=== PATIENT | male | born 1945 | race Caucasian/White ===

== ENCOUNTER 2019-04-12 10:17 | Emergency (ER) | payer MEDICARE, SELFPAY ==
[2019-04-12] VITALS (10 sets, daily range): BP systolic 108–137; BP diastolic 69–89; PULSE 96–139; RESP 14–23; TEMP 36.8; O2SAT 20–98; BMI 35.0
--- NOTE | 2019-04-12 10:33 | DI.RAD.S_ITS ---
PROCEDURE: XR CHEST 2V INDICATIONS: shortness of breath TECHNIQUE: 2 views of the chest were acquired. COMPARISON: [facility], , CHEST 2 VIEW, 11/16/2012, 7:32. FINDINGS: Surgical changes and devices: None. Lungs and pleura: There has been interval development of moderate bibasilar airspace disease and prominent perihilar interstitial markings. No large effusion or definite pneumothorax is evident. Mediastinum: Mediastinal contours are normal. Heart size is enlarged. There appears to be aortic atherosclerosis. Bones and chest wall: No suspicious bony abnormalities. Soft tissues appear unremarkable. IMPRESSION: 1. Cardiomegaly with moderate vascular congestion may represent developing pulmonary edema. 2. Bibasilar heterogeneous airspace disease may be related to edema. Please correlate clinically to exclude pneumonia. Dictated by: Greg Pace M.D. on 04/12/2019 at 10:21 Approved by: Greg Pace M.D. on 04/12/2019 at 10:23
[2019-04-12 11:09] LABS: Add Manual Diff / Slide Review NO; Basophils Absolute Auto 0 /uL (0-100); Basophils Percent Auto 0.1 % (0-2); Eosinophils Absolute Auto 0 /uL (0-450); Hematocrit 49.1 % (41-53); Lymphocytes Absolute Auto 400 /uL (1100-4500); Lymphocytes Percent Auto 3.4 % (25-40); Mean Corpuscular HGB Conc 32.6 % (30-36); Mean Corpuscular Volume 85.8 fL (80-100); Monocytes Absolute Auto 1100 /uL (0-900); Monocytes Percent Auto 9.1 % (3-14); Neutrophils Absolute Auto 11000 /uL (1500-7000); Neutrophils Percent Auto 87.4 % (50-75); Platelet Count 178 X10^3/uL (150-400); Red Blood Cell Count 5.72 X10^6/uL (4.5-5.9); Red Cell Distribution Width 14.8 % (11.6-14.8); White Blood Cell Count 12.6 X10^3/uL (4.5-11.0)
[2019-04-12 11:21] LABS: Lactate (Lactic Acid) 2.4 mmol/L (0.7-2.1)
[2019-04-12 11:22] LABS: Alanine Aminotransferase 31 IU/L (<50); Albumin 4.2 g/dL (3.5-5.0); Albumin Globulin Ratio 1.4 (1.0-2.8); Alkaline Phosphatase 122 U/L (38-126); Aspartate Aminotransferase 34 IU/L (17-59); Bilirubin Total 2.1 mg/dL (0.2-1.3); Blood Urea Nitrogen 24 mg/dL (9-20); Calcium 9.2 mg/dL (8.4-10.2); Carbon Dioxide 24 mmol/L (22-32); Chloride 96 mmol/L (98-107); Estimated Glomerular Filt Rate > 60.0 mL/min (>60); Globulin 3.1 g/dL (1.7-4.1); Glucose 243 mg/dL (80-110); HEMOLYSIS < 15 (0-50); Potassium 4.2 mmol/L (3.4-5.1); Sodium 134 mmol/L (137-145); Total Protein 7.3 g/dL (6.3-8.2)
[2019-04-12] MEDS: ALBUTEROL/IPRATROPIUM 3 ML AMPUL INH (11:36)
[2019-04-12] MEDS: SODIUM CHLORIDE 0.9% 500 ML 1000 ML IV (11:43)
--- NOTE | 2019-04-12 11:51 | ED_ITS ---
HPI - SOB/Dyspnea <LISANDRO Cunha - Last Filed: 04/12/19 22:02> General Chief Complaint: Shortness of Breath/Dyspnea Stated Complaint: COUGH/SHORTNESS OF BREATH/FATIGUE Time Seen by Provider: 04/12/19 11:17 Source: patient Mode of arrival: Ambulatory Limitations: no limitations History of Present Illness HPI Narrative: This is a 73-year-old male, nonsmoker, who presents to ED with family member with chief complain of short of breath with exertion, coughing and left leg swelling. Patient reports initial cough started about 3 months ago then it improved without treatments a couple of times since then. However, patient had severe frequent productive coughing started 4 days ago with short of breath. Patient denies fever, chills, nausea or vomiting. Patient reports feeling fatigue and no appetite and has been eating or drinking well. Patient states he has been having difficult time even walking to the bathroom due to short of breath. Patient has productive mucus which started as yellow color but now appears to be red along nasal discharge. Patient denies sore throat, headache, body aches. Patient also has left leg swelling for about 3 months as well. Patient denies pain, redness, warmth to affected leg. Patient denies history of CAD or heart failure but was told prediabetic in the past and and does not have PCP. Patient reports chest discomfort only during severe cough. Patient went to walk-in clinic today and was referred to be evaluated in ED. Related Data Home Medications Medication Instructions Recorded Confirmed No Known Home Medications 04/12/19 04/12/19 Allergies Allergy/AdvReac Type Severity Reaction Status Date / Time No Known Drug Allergies Allergy Verified 04/12/19 10:20 Review of Systems <LISANDRO Cunha - Last Filed: 04/12/19 22:02> Review of Systems Narrative: General: Denies fever, chills, (+) fatigue, (+) malaise, sweats. HEENT: Denies sinus pain, ear pain, sore throat, difficulty swallowing, diz ziness. Respiratory: Reports dyspnea, cough, wheezing, hemoptysis, sputum. Cardiovascular: Reports chest pain only with coughing. Denies palpitations, orthopnea, (+) edema on legs worse in left. Gastrointestinal: Denies nausea, vomiting, abdominal pain, diarrhea, constipation, melena. Reports decreased appetite. : Denies dysuria, frequency, incontinence, hematuria, urinary retention. Musculoskeletal: Denies weakness, joint pain or bony pain. Skin: Denies rash, skin lesions, or other. Neurologic: Denies weakness, headache, numbness, change in speech, confusion, seizures, incoordination. Psychiatric: No concerning psychosocial issues. 12-point review of systems is negative except for those stated above. Patient History <LISANDRO Cunha - Last Filed: 04/12/19 22:02> Medical History Pre-diabetes (Acute) Surgical History Hx of tonsillectomy (Acute) Social History Smoking Status: Unknown if ever smoked Smoking Status: Unknown if ever smoked alcohol intake frequency: holidays/special occasions only Substance Use Type: does not use Exam <LISANDRO Cunha - Last Filed: 04/12/19 22:02> Narrative Exam Narrative: GEN: Alert, oriented x 3, well appearing and nourished, and mild respiratory distress. Head: Normal cephalic, atraumatic. No scalp or temporal tenderness, palpable mass or rash. EYES: Pupils are equal, round, and reactive to light and accommodation. Extraocular muscles are intact bilaterally. There is no subconjunctival hemorrhage, exudate and sclera non-icteric. ENT: Bilateral auditory canals and tympanic membranes clear. Hearing grossly intact. Nose without bleeding, purulent discharge or deviation. Facial sinuses nontender to palpate. Mucous membrane moist, no mucosal lesion. Throat without erythema, tonsillar hypertrophy or exudate. Uvula in midline, airway patent. Neck: Trachea in midline. No JVD, non-tender without lymphadenopathy. No masses or thyroid megaly. Supple, non-tender and no meningeal signs. CARDIAC: Normal regular rate and rhythm without murmurs, gallops, or rubs. No chest wall tenderness. 2+ L lower limb peripheral edema and +1 R lower limb edema. No cyanosis or pallor. Capillary refill is less than 2 seconds. RESPIRATORY: Lungs are decreased, crackles to lower lobes and wheezing in upper and mid lobes. Frequent moist cough witnessed. No stridor, tachypnea of 24/min with o2 sat in 98% in RA. Moderate increase work of breathing. ABD: Abdomen soft, nontender and obese. No guarding or rebound tenderness to palpate. Bowel sounds are normal in all 4 quadrants. There is no palpable masses or organomegaly. EXT: Full painless ROM of all extremities with no loss of sensation, strength, effusion or edema. SKIN: Warm, dry, normal color for patient. No erythema, lesions or rash over visible areas. BACK: Nontender without deformity or crepitance. No flank tenderness. NEUROLOGICAL: Alert and oriented to place, time and person. Sensation and motor function intact bilaterally. No facial droops, dysphasia. PSYCHIATRIC: Good judgement and reason, without hallucinations, abnormal affect or abnormal behaviors during the examination. Initial Vital Signs Initial Vital Signs: Vital Signs Temperature 98.2 F 04/12/19 10:20 Pulse Rate 139 H 04/12/19 10:20 Respiratory Rate 14 04/12/19 10:20 Blood Pressure 137/89 04/12/19 10:20 Pulse Oximetry 96 04/12/19 10:20 <Cesario Castro MD - Last Filed: 04/13/19 21:35> Initial Vital Signs Initial Vital Signs: Vital Signs Temperature 98.2 F 04/12/19 10:20 Pulse Rate 139 H 04/12/19 10:20 Respiratory Rate 14 04/12/19 10:20 Blood Pressure 137/89 04/12/19 10:20 Pulse Oximetry 96 04/12/19 10:20 Scores <LISANDRO Cunha - Last Filed: 04/12/19 22:02> GCS Fran coma scale eye opening: Spontaneous [place] coma scale verbal response: Orientated Fran coma scale motor response: Obey commands Fran coma scale total score: 15 Course <LISANDRO Cunha - Last Filed: 04/12/19 22:02> Orders Ordered: Discontinued Medications Albuterol/Ipratropium (Duoneb) 3 ml INH NOW ONE Stop: 04/12/19 11:26 Last Admin: 04/12/19 11:36 Dose: 3 ml Documented by: SIMA Aspirin (Aspirin Chew) 324 mg PO NOW ONE Stop: 04/12/19 13:14 Last Admin: 04/12/19 13:37 Dose: 324 mg Documented by: BEAU Heparin Sodium (Porcine) (Heparin) 5,000 unit IV NOW ONE Stop: 04/12/19 13:14 Last Admin: 04/12/19 14:43 Dose: 5,000 unit Documented by: SHAHZAD Sodium Chloride (Normal Saline 0.9%) 500 mls @ 1,000 mls/hr IV BOLUS ONE Stop: 04/12/19 11:55 Last Infusion: 04/12/19 12:21 Dose: 0 mls/hr Documented by: Admin: 04/12/19 11:43 Dose: 1,000 mls/hr Documented by: BEAU Ceftriaxone Sodium/Dextrose (Rocephin) 1 gm in 50 mls @ 100 mls/hr IV NOW ONE Stop: 04/12/19 13:43 Last Infusion: 04/12/19 14:35 Dose: 0 mls/hr Documented by: Admin: 04/12/19 13:37 Dose: 100 mls/hr Documented by: BEAU Sodium Chloride (Normal Saline 0.9%) 1,000 mls @ 125 mls/hr IV CONT ZACHARY Last Infusion: 04/12/19 18:24 Dose: 0 mls/hr Documented by: Admin: 04/12/19 13:44 Dose: 125 mls/hr Documented by: BEAU Heparin Sodium/Dextrose (Heparin Drip) 25,000 unit in 500 mls @ 20 mls/hr IV CONT ZACHARY; Protocol Last Titration: 04/12/19 18:10 Dose: 0 units/hr, 0 mls/hr Documented by: Admin: 04/12/19 14:43 Dose: 1,000 units/hr, 20 mls/hr Documented by: SHAHZAD Azithromycin 500 mg/ Dextrose 250 mls @ 250 mls/hr IV NOW ONE Stop: 04/12/19 16:00 Last Infusion: 04/12/19 17:03 Dose: 0 mls/hr Documented by: Admin: 04/12/19 16:13 Dose: 250 mls/hr Documented by: BEAU Levalbuterol HCl (Xopenex) 0.63 mg INH NOW ONE Stop: 04/12/19 17:14 Last Admin: 04/12/19 17:26 Dose: 0.63 mg Documented by: PRASHANTH Methylprednisolone (Solu-Medrol 125 Mg Vial) 125 mg IV NOW ONE Stop: 04/12/19 11:44 Last Admin: 04/12/19 11:59 Dose: 125 mg Documented by: BEAU Metoprolol Tartrate (Lopressor) 5 mg IV NOW ONE Stop: 04/12/19 17:15 Last Admin: 04/12/19 17:27 Dose: 5 mg Documented by: BEAU Vital Signs Vital signs: Vital Signs - 8 hr 04/12/19 14:00 04/12/19 15:00 04/12/19 16:47 Pulse Rate 109 H 104 H 110 H Respiratory Rate 23 23 22 Blood Pressure [Arm] 132/84 108/69 109/71 Pulse Oximetry 96 96 98 04/12/19 17:30 Pulse Rate 96 H Respiratory Rate 22 Blood Pressure [Arm] 127/88 Pulse Oximetry 98 <Cesario Castro MD - Last Filed: 04/13/19 21:35> Orders Ordered: Discontinued Medications Albuterol/Ipratropium (Duoneb) 3 ml INH NOW ONE Stop: 04/12/19 11:26 Last Admin: 04/12/19 11:36 Dose: 3 ml Documented by: SIMA Aspirin (Aspirin Chew) 324 mg PO NOW ONE Stop: 04/12/19 13:14 Last Admin: 04/12/19 13:37 Dose: 324 mg Documented by: BEAU Heparin Sodium (Porcine) (Heparin) 5,000 unit IV NOW ONE Stop: 04/12/19 13:14 Last Admin: 04/12/19 14:43 Dose: 5,000 unit Documented by: SHAHZAD Sodium Chloride (Normal Saline 0.9%) 500 mls @ 1,000 mls/hr IV BOLUS ONE Stop: 04/12/19 11:55 Last Infusion: 04/12/19 12:21 Dose: 0 mls/hr Documented by: Admin: 04/12/19 11:43 Dose: 1,000 mls/hr Documented by: BEAU Ceftriaxone Sodium/Dextrose (Rocephin) 1 gm in 50 mls @ 100 mls/hr IV NOW ONE Stop: 04/12/19 13:43 Last Infusion: 04/12/19 14:35 Dose: 0 mls/hr Documented by: Admin: 04/12/19 13:37 Dose: 100 mls/hr Documented by: BEAU Sodium Chloride (Normal Saline 0.9%) 1,000 mls @ 125 mls/hr IV CONT ZACHARY Last Infusion: 04/12/19 18:24 Dose: 0 mls/hr Documented by: Admin: 04/12/19 13:44 Dose: 125 mls/hr Documented by: BEAU Heparin Sodium/Dextrose (Heparin Drip) 25,000 unit in 500 mls @ 20 mls/hr IV CONT ZACHARY; Protocol Last Titration: 04/12/19 18:10 Dose: 0 units/hr, 0 mls/hr Documented by: Admin: 04/12/19 14:43 Dose: 1,000 units/hr, 20 mls/hr Documented by: SHAHZAD Azithromycin 500 mg/ Dextrose 250 mls @ 250 mls/hr IV NOW ONE Stop: 04/12/19 16:00 Last Infusion: 04/12/19 17:03 Dose: 0 mls/hr Documented by: Admin: 04/12/19 16:13 Dose: 250 mls/hr Documented by: BEAU Levalbuterol HCl (Xopenex) 0.63 mg INH NOW ONE Stop: 04/12/19 17:14 Last Admin: 04/12/19 17:26 Dose: 0.63 mg Documented by: PRASHANTH Methylprednisolone (Solu-Medrol 125 Mg Vial) 125 mg IV NOW ONE Stop: 04/12/19 11:44 Last Admin: 04/12/19 11:59 Dose: 125 mg Documented by: BEAU Metoprolol Tartrate (Lopressor) 5 mg IV NOW ONE Stop: 04/12/19 17:15 Last Admin: 04/12/19 17:27 Dose: 5 mg Documented by: BEAU Vital Signs Vital signs: Vital Signs - 8 hr 04/12/19 14:00 04/12/19 15:00 04/12/19 16:47 Pulse Rate 109 H 104 H 110 H Respiratory Rate 23 23 22 Blood Pressure [Arm] 132/84 108/69 109/71 Pulse Oximetry 96 96 98 04/12/19 17:30 Pulse Rate 96 H Respiratory Rate 22 Blood Pressure [Arm] 127/88 Pulse Oximetry 98 MDM - SOB/Dyspnea <LISANDRO Cunha - Last Filed: 04/12/19 22:02> Differential Diagnosis Differential diagnosis: Likely congestive heart failure, community acquired pneumonia, pulmonary embolism and other (NSTEMI) Medical Records Attestation: I reviewed the patient's medical records. Lab Data Attestation: I reviewed the patient's lab results. Result diagrams: 04/12/19 10:50 04/12/19 10:50 Labs: Lab Results 04/12/19 04/12/19 04/12/19 Range/Units 10:50 10:50 10:50 WBC 12.6 H (4.5-11.0) X10^3/uL RBC 5.72 (4.5-5.9) X10^6/uL Hgb 16.0 (13.5-17.5) g/dL Hct 49.1 (41-53) % MCV 85.8 (80-100) fL MCH 28.0 (26-34) PG MCHC 32.6 (30-36) % RDW 14.8 (11.6-14.8) % Plt Count 178 (150-400) X10^3/uL Neut % (Auto) 87.4 H (50-75) % Lymph % (Auto) 3.4 L (25-40) % [place] % (Auto) 9.1 (3-14) % Eos % (Auto) 0.0 L (2-4) % Baso % (Auto) 0.1 (0-2) % Neut # (Auto) 21921 H (9915-3889) /uL Lymph # (Auto) 400 L (1904-9665) /uL [place] # (Auto) 1100 H (0-900) /uL Eos # (Auto) 0 (0-450) /uL Baso # (Auto) 0 (0-100) /uL PT (10.1-12.7) SECONDS INR (0.9-1.3) APTT (26.4-36.2) SECONDS Sodium 134 L (137-145) mmol/L Potassium 4.2 (3.4-5.1) mmol/L Chloride 96 L (98-107) mmol/L Carbon Dioxide 24 (22-32) mmol/L BUN 24 H (9-20) mg/dL Creatinine 0.60 L (0.66-1.25) mg/dL Estimated GFR > 60.0 (>60) mL/min BUN/Creatinine Ratio 40.0 H (6-22) Glucose 243 H (80-110) mg/dL Lactate 2.4 H (0.7-2.1) mmol/L Calcium 9.2 (8.4-10.2) mg/dL Total Bilirubin 2.1 H (0.2-1.3) mg/dL AST 34 (17-59) IU/L ALT 31 (<50) IU/L Alkaline Phosphatase 122 (38-126) U/L Total Creatine Kinase (55-170) U/L CK-MB (CK-2) (<2.37) ng/mL CK-MB (CK-2) Rel Index (1.5-5.0) % Troponin I (0.01-0.034) ng/mL B-Natriuretic Peptide (<100) NT-Pro-B Natriuret Pep (<125) pg/mL Total Protein 7.3 (6.3-8.2) g/dL Albumin 4.2 (3.5-5.0) g/dL Globulin 3.1 (1.7-4.1) g/dL Albumin/Globulin Ratio 1.4 (1.0-2.8) Procalcitonin (<0.5) ng/mL 04/12/19 04/12/19 04/12/19 Range/Units 11:04 11:04 11:04 WBC (4.5-11.0) X10^3/uL RBC (4.5-5.9) X10^6/uL Hgb (13.5-17.5) g/dL Hct (41-53) % MCV (80-100) fL MCH (26-34) PG MCHC (30-36) % RDW (11.6-14.8) % Plt Count (150-400) X10^3/uL Neut % (Auto) (50-75) % Lymph % (Auto) (25-40) % [place] % (Auto) (3-14) % Eos % (Auto) (2-4) % Baso % (Auto) (0-2) % Neut # (Auto) (4105-6202) /uL Lymph # (Auto) (1386-6201) /uL [place] # (Auto) (0-900) /uL Eos # (Auto) (0-450) /uL Baso # (Auto) (0-100) /uL PT (10.1-12.7) SECONDS INR (0.9-1.3) APTT (26.4-36.2) SECONDS Sodium (137-145) mmol/L Potassium (3.4-5.1) mmol/L Chloride (98-107) mmol/L Carbon Dioxide (22-32) mmol/L BUN (9-20) mg/dL Creatinine (0.66-1.25) mg/dL Estimated GFR (>60) mL/min BUN/Creatinine Ratio (6-22) Glucose (80-110) mg/dL Lactate (0.7-2.1) mmol/L Calcium (8.4-10.2) mg/dL Total Bilirubin (0.2-1.3) mg/dL AST (17-59) IU/L ALT (<50) IU/L Alkaline Phosphatase (38-126) U/L Total Creatine Kinase 146 (55-170) U/L CK-MB (CK-2) 3.21 H (<2.37) ng/mL CK-MB (CK-2) Rel Index 2.2 (1.5-5.0) % Troponin I 0.057 H (0.01-0.034) ng/mL B-Natriuretic Peptide 599 H (<100) NT-Pro-B Natriuret Pep (<125) pg/mL Total Protein (6.3-8.2) g/dL Albumin (3.5-5.0) g/dL Globulin (1.7-4.1) g/dL Albumin/Globulin Ratio (1.0-2.8) Procalcitonin 0.53 H (<0.5) ng/mL 04/12/19 04/12/19 04/12/19 Range/Units 11:04 11:04 13:20 WBC (4.5-11.0) X10^3/uL RBC (4.5-5.9) X10^6/uL Hgb (13.5-17.5) g/dL Hct (41-53) % MCV (80-100) fL MCH (26-34) PG MCHC (30-36) % RDW (11.6-14.8) % Plt Count (150-400) X10^3/uL Neut % (Auto) (50-75) % Lymph % (Auto) (25-40) % [place] % (Auto) (3-14) % Eos % (Auto) (2-4) % Baso % (Auto) (0-2) % Neut # (Auto) (7996-8321) /uL Lymph # (Auto) (3792-9338) /uL [place] # (Auto) (0-900) /uL Eos # (Auto) (0-450) /uL Baso # (Auto) (0-100) /uL PT 16.2 H (10.1-12.7) SECONDS INR 1.4 H (0.9-1.3) APTT 35 (26.4-36.2) SECONDS Sodium (137-145) mmol/L Potassium (3.4-5.1) mmol/L Chloride (98-107) mmol/L Carbon Dioxide (22-32) mmol/L BUN (9-20) mg/dL Creatinine (0.66-1.25) mg/dL Estimated GFR (>60) mL/min BUN/Creatinine Ratio (6-22) Glucose (80-110) mg/dL Lactate 2.4 H (0.7-2.1) mmol/L Calcium (8.4-10.2) mg/dL Total Bilirubin (0.2-1.3) mg/dL AST (17-59) IU/L ALT (<50) IU/L Alkaline Phosphatase (38-126) U/L Total Creatine Kinase (55-170) U/L CK-MB (CK-2) (<2.37) ng/mL CK-MB (CK-2) Rel Index (1.5-5.0) % Troponin I (0.01-0.034) ng/mL B-Natriuretic Peptide (<100) NT-Pro-B Natriuret Pep (<125) pg/mL Total Protein (6.3-8.2) g/dL Albumin (3.5-5.0) g/dL Globulin (1.7-4.1) g/dL Albumin/Globulin Ratio (1.0-2.8) Procalcitonin (<0.5) ng/mL 04/12/19 04/12/19 04/12/19 Range/Units 17:43 17:43 17:43 WBC (4.5-11.0) X10^3/uL RBC (4.5-5.9) X10^6/uL Hgb (13.5-17.5) g/dL Hct (41-53) % MCV (80-100) fL MCH (26-34) PG MCHC (30-36) % RDW (11.6-14.8) % Plt Count (150-400) X10^3/uL Neut % (Auto) (50-75) % Lymph % (Auto) (25-40) % [place] % (Auto) (3-14) % Eos % (Auto) (2-4) % Baso % (Auto) (0-2) % Neut # (Auto) (5466-4576) /uL Lymph # (Auto) (7925-2588) /uL [place] # (Auto) (0-900) /uL Eos # (Auto) (0-450) /uL Baso # (Auto) (0-100) /uL PT (10.1-12.7) SECONDS INR (0.9-1.3) APTT (26.4-36.2) SECONDS Sodium (137-145) mmol/L Potassium (3.4-5.1) mmol/L Chloride (98-107) mmol/L Carbon Dioxide (22-32) mmol/L BUN (9-20) mg/dL Creatinine (0.66-1.25) mg/dL Estimated GFR (>60) mL/min BUN/Creatinine Ratio (6-22) Glucose (80-110) mg/dL Lactate 2.9 H (0.7-2.1) mmol/L Calcium (8.4-10.2) mg/dL Total Bilirubin (0.2-1.3) mg/dL AST (17-59) IU/L ALT (<50) IU/L Alkaline Phosphatase (38-126) U/L Total Creatine Kinase 117 (55-170) U/L CK-MB (CK-2) 4.89 H D (<2.37) ng/mL CK-MB (CK-2) Rel Index 4.2 (1.5-5.0) % Troponin I 0.292 H* (0.01-0.034) ng/mL B-Natriuretic Peptide (<100) NT-Pro-B Natriuret Pep 5950 H (<125) pg/mL Total Protein (6.3-8.2) g/dL Albumin (3.5-5.0) g/dL Globulin (1.7-4.1) g/dL Albumin/Globulin Ratio (1.0-2.8) Procalcitonin (<0.5) ng/mL Imaging Data Chest x-ray: Radiologist's Impression: [facility] [address] [place] [id number] XRay Report Signed Patient: Akira Swanson WMR#: [id number] : 6Acct:[id number] Age/Sex: 73 / MDate of Service: 04/12/19 Loc: ED Accession Number: [id number] Procedure: XR chest 2V Ordering Provider: Cesario Castro MD PROCEDURE: XR CHEST 2V INDICATIONS: shortness of breath TECHNIQUE: 2 views of the chest were acquired. COMPARISON: [facility], , CHEST 2 VIEW, 11/16/2012, 7:32. FINDINGS: Surgical changes and devices: None. Lungs and pleura: There has been interval development of moderate bibasilar airspace disease and prominent perihilar interstitial markings. No large effusion or definite pneumothorax is evident. Mediastinum: Mediastinal contours are normal. Heart size is enlarged. There appears to be aortic atherosclerosis. Bones and chest wall: No suspicious bony abnormalities. Soft tissues appear unremarkable. IMPRESSION: 1. Cardiomegaly with moderate vascular congestion may represent developing pulmonary edema. 2. Bibasilar heterogeneous airspace disease may be related to edema. Please correlate clinically to exclude pneumonia. Dictated by: Greg Pace M.D. on 04/12/2019 at 10:21 Approved by: Greg Pace M.D. on 04/12/2019 at 10:23 ECG Data Attestation: I personally reviewed and interpreted this ECG as follows: Prior ECG tracings: not available for review Interpretation: ST rate at 126 with PVC Pr int 156, QRS 98, QT/QTc 385/459 Borderline R axix deviation Non-specific ST seg changes Poorly progressing R waves in V1-V4 MDM Narrative Medical decision making narrative: This is a 73-year-old male who presents to ED with ongoing cough, left leg swelling, chest discomfort only with productive prulent/dark brown color coughing, increased short of breath with exertion, orthopnea. Lung sounds were crackles on the lower lobes with wheezing and decreased on mid and upper lobes. Respiration is 24-26/min. The patient denies fever, chill, nausea or vomiting but has been feeling fatigue and decreased appetite. EKG shows ST with nonspecific ST segment changes with prolonged QTC and poor R-wave progressions from V1 through V4. CXR indicates cardiomegaly with moderate vascular congestion likely be developing pulmonary edema vs bibasilar heterogenous airpace disease-pneumonia. Elevated troponin of 0.057 (0.01-0.034) with elevated CK-MB of 3.21 (<2.37) with normal total CK and MB index. BNP was 599. RLE with +1 edema and LLE with 2+ edema. Lactate #1- 2.4 and procalcitonin of 0.53. Patient had 500 mL of IV fluid bolus and gentle IVF infusion started due to CXR and BNP indicating pulmonary edema and cardiomegaly. Administered ASA, Heparine bolus of 5000 U and drip started. The patient was covered with IV Rocephin 1 g to cover pneumonia. Patient was provided with nebulizer treatment which mildly improved his symptoms and lung sounds. Dr. Paet consulted. She agreed with Heparin bolus of 5000 unit and drip. NTG paste was held due to the patient does not have chest pain. NO Echo was able to be obtained at this time as suggested by Dr. Pate. Dr[facility] [place] [facility] and he kindly accepted patient's care. And currently waiting for bed assignment from housekeeping supervisor. At 1715, the patient became diaphoretic and complaining of feeling hot without chest pain, dyspnea, noted SBP decreased to 88. Patient assist to bed and repeat EKG was obtained. ST rate at 113 with possible Left atrial enlargement with decreased QTc of 418. Patient continued to have wheezing and leave albuterol was ordered. Patient was given 5 mg IV metoprolol after the BP became normal of 125/54 with HR in 105. The patient felt improved and resolved the symptoms. Repeat cardiac enzyme, lactat e, BNP have been ordered and gotten toan immediately before the patient's leaving the ER. 2015-Faxed the 2nd troponin, BNP, lactate (3rd) results faxed to the air conditioning installer supervisor to relay the message to Dr. Cohen after several attempts made via phone call. The Primary RN was informed by the nursing staff via phone call. <Cesario Castro MD - Last Filed: 04/13/19 21:35> Lab Data Labs: Lab Results 04/12/19 04/12/19 04/12/19 Range/Units 10:50 10:50 10:50 WBC 12.6 H (4.5-11.0) X10^3/uL RBC 5.72 (4.5-5.9) X10^6/uL Hgb 16.0 (13.5-17.5) g/dL Hct 49.1 (41-53) % MCV 85.8 (80-100) fL MCH 28.0 (26-34) PG MCHC 32.6 (30-36) % RDW 14.8 (11.6-14.8) % Plt Count 178 (150-400) X10^3/uL Neut % (Auto) 87.4 H (50-75) % Lymph % (Auto) 3.4 L (25-40) % [place] % (Auto) 9.1 (3-14) % Eos % (Auto) 0.0 L (2-4) % Baso % (Auto) 0.1 (0-2) % Neut # (Auto) 33771 H (8491-5872) /uL Lymph # (Auto) 400 L (4710-0283) /uL [place] # (Auto) 1100 H (0-900) /uL Eos # (Auto) 0 (0-450) /uL Baso # (Auto) 0 (0-100) /uL PT (10.1-12.7) SECONDS INR (0.9-1.3) APTT (26.4-36.2) SECONDS Sodium 134 L (137-145) mmol/L Potassium 4.2 (3.4-5.1) mmol/L Chloride 96 L (98-107) mmol/L Carbon Dioxide 24 (22-32) mmol/L BUN 24 H (9-20) mg/dL Creatinine 0.60 L (0.66-1.25) mg/dL Estimated GFR > 60.0 (>60) mL/min BUN/Creatinine Ratio 40.0 H (6-22) Glucose 243 H (80-110) mg/dL Lactate 2.4 H (0.7-2.1) mmol/L Calcium 9.2 (8.4-10.2) mg/dL Total Bilirubin 2.1 H (0.2-1.3) mg/dL AST 34 (17-59) IU/L ALT 31 (<50) IU/L Alkaline Phosphatase 122 (38-126) U/L Total Creatine Kinase (55-170) U/L CK-MB (CK-2) (<2.37) ng/mL CK-MB (CK-2) Rel Index (1.5-5.0) % Troponin I (0.01-0.034) ng/mL B-Natriuretic Peptide (<100) NT-Pro-B Natriuret Pep (<125) pg/mL Total Protein 7.3 (6.3-8.2) g/dL Albumin 4.2 (3.5-5.0) g/dL Globulin 3.1 (1.7-4.1) g/dL Albumin/Globulin Ratio 1.4 (1.0-2.8) Procalcitonin (<0.5) ng/mL 04/12/19 04/12/19 04/12/19 Range/Units 11:04 11:04 11:04 WBC (4.5-11.0) X10^3/uL RBC (4.5-5.9) X10^6/uL Hgb (13.5-17.5) g/dL Hct (41-53) % MCV (80-100) fL MCH (26-34) PG MCHC (30-36) % RDW (11.6-14.8) % Plt Count (150-400) X10^3/uL Neut % (Auto) (50-75) % Lymph % (Auto) (25-40) % [place] % (Auto) (3-14) % Eos % (Auto) (2-4) % Baso % (Auto) (0-2) % Neut # (Auto) (6003-8515) /uL Lymph # (Auto) (6746-9580) /uL [place] # (Auto) (0-900) /uL Eos # (Auto) (0-450) /uL Baso # (Auto) (0-100) /uL PT (10.1-12.7) SECONDS INR (0.9-1.3) APTT (26.4-36.2) SECONDS Sodium (137-145) mmol/L Potassium (3.4-5.1) mmol/L Chloride (98-107) mmol/L Carbon Dioxide (22-32) mmol/L BUN (9-20) mg/dL Creatinine (0.66-1.25) mg/dL Estimated GFR (>60) mL/min BUN/Creatinine Ratio (6-22) Glucose (80-110) mg/dL Lactate (0.7-2.1) mmol/L Calcium (8.4-10.2) mg/dL Total Bilirubin (0.2-1.3) mg/dL AST (17-59) IU/L ALT (<50) IU/L Alkaline Phosphatase (38-126) U/L Total Creatine Kinase 146 (55-170) U/L CK-MB (CK-2) 3.21 H (<2.37) ng/mL CK-MB (CK-2) Rel Index 2.2 (1.5-5.0) % Troponin I 0.057 H (0.01-0.034) ng/mL B-Natriuretic Peptide 599 H (<100) NT-Pro-B Natriuret Pep (<125) pg/mL Total Protein (6.3-8.2) g/dL Albumin (3.5-5.0) g/dL Globulin (1.7-4.1) g/dL Albumin/Globulin Ratio (1.0-2.8) Procalcitonin 0.53 H (<0.5) ng/mL 04/12/19 04/12/19 04/12/19 Range/Units 11:04 11:04 13:20 WBC (4.5-11.0) X10^3/uL RBC (4.5-5.9) X10^6/uL Hgb (13.5-17.5) g/dL Hct (41-53) % MCV (80-100) fL MCH (26-34) PG MCHC (30-36) % RDW (11.6-14.8) % Plt Count (150-400) X10^3/uL Neut % (Auto) (50-75) % Lymph % (Auto) (25-40) % [place] % (Auto) (3-14) % Eos % (Auto) (2-4) % Baso % (Auto) (0-2) % Neut # (Auto) (6942-6404) /uL Lymph # (Auto) (9170-6204) /uL [place] # (Auto) (0-900) /uL Eos # (Auto) (0-450) /uL Baso # (Auto) (0-100) /uL PT 16.2 H (10.1-12.7) SECONDS INR 1.4 H (0.9-1.3) APTT 35 (26.4-36.2) SECONDS Sodium (137-145) mmol/L Potassium (3.4-5.1) mmol/L Chloride (98-107) mmol/L Carbon Dioxide (22-32) mmol/L BUN (9-20) mg/dL Creatinine (0.66-1.25) mg/dL Estimated GFR (>60) mL/min BUN/Creatinine Ratio (6-22) Glucose (80-110) mg/dL Lactate 2.4 H (0.7-2.1) mmol/L Calcium (8.4-10.2) mg/dL Total Bilirubin (0.2-1.3) mg/dL AST (17-59) IU/L ALT (<50) IU/L Alkaline Phosphatase (38-126) U/L Total Creatine Kinase (55-170) U/L CK-MB (CK-2) (<2.37) ng/mL CK-MB (CK-2) Rel Index (1.5-5.0) % Troponin I (0.01-0.034) ng/mL B-Natriuretic Peptide (<100) NT-Pro-B Natriuret Pep (<125) pg/mL Total Protein (6.3-8.2) g/dL Albumin (3.5-5.0) g/dL Globulin (1.7-4.1) g/dL Albumin/Globulin Ratio (1.0-2.8) Procalcitonin (<0.5) ng/mL 01/28/20 01/28/20 01/28/20 Range/Units 17:43 17:43 17:43 WBC (4.5-11.0) X10^3/uL RBC (4.5-5.9) X10^6/uL Hgb (13.5-17.5) g/dL Hct (41-53) % MCV (80-100) fL MCH (26-34) PG MCHC (30-36) % RDW (11.6-14.8) % Plt Count (150-400) X10^3/uL Neut % (Auto) (50-75) % Lymph % (Auto) (25-40) % [place] % (Auto) (3-14) % Eos % (Auto) (2-4) % Baso % (Auto) (0-2) % Neut # (Auto) (4270-3432) /uL Lymph # (Auto) (1155-3050) /uL [place] # (Auto) (0-900) /uL Eos # (Auto) (0-450) /uL Baso # (Auto) (0-100) /uL PT (10.1-12.7) SECONDS INR (0.9-1.3) APTT (26.4-36.2) SECONDS Sodium (137-145) mmol/L Potassium (3.4-5.1) mmol/L Chloride (98-107) mmol/L Carbon Dioxide (22-32) mmol/L BUN (9-20) mg/dL Creatinine (0.66-1.25) mg/dL Estimated GFR (>60) mL/min BUN/Creatinine Ratio (6-22) Glucose (80-110) mg/dL Lactate 2.9 H (0.7-2.1) mmol/L Calcium (8.4-10.2) mg/dL Total Bilirubin (0.2-1.3) mg/dL AST (17-59) IU/L ALT (<50) IU/L Alkaline Phosphatase (38-126) U/L Total Creatine Kinase 117 (55-170) U/L CK-MB (CK-2) 4.89 H D (<2.37) ng/mL CK-MB (CK-2) Rel Index 4.2 (1.5-5.0) % Troponin I 0.292 H* (0.01-0.034) ng/mL B-Natriuretic Peptide (<100) NT-Pro-B Natriuret Pep 5950 H (<125) pg/mL Total Protein (6.3-8.2) g/dL Albumin (3.5-5.0) g/dL Globulin (1.7-4.1) g/dL Albumin/Globulin Ratio (1.0-2.8) Procalcitonin (<0.5) ng/mL Discharge Plan Departure [facility] Clinical Impression: Non-ST elevation UT (NSTEMI) Sepsis Qualifiers: Sepsis type: sepsis due to unspecified organism Sepsis acute organ dysfunction status: without acute organ dysfunction Qualified Code(s): A41.9 - Sepsis, unspecified organism Pneumonia Qualifiers: Pneumonia type: due to unspecified organism Laterality: bilateral Lung location: lower lobe of lung Qualified Code(s): J18.9 - Pneumonia, unspecified organism Heart failure Qualifiers: Heart failure type: unspecified Heart failure chronicity: unspecified Qualified Code(s): I50.9 - Heart failure, unspecified Discharge Date/Time: 04/12/19 18:25 Prescriptions: No Action No Known Home Medications RF: 0
[2019-04-12] MEDS: methylPREDNISolone 125 MG/2 ML VIAL IV (11:59)
[2019-04-12 12:37] LABS: Creatine Kinase 146 U/L (55-170)
[2019-04-12 12:49] LABS: B Type Natriuretic Peptide 599 (<100)
[2019-04-12 12:50] LABS: Troponin I 0.057 ng/mL (0.01-0.034)
[2019-04-12 12:53] LABS: CKMB % Relative Index 2.2 % (1.5-5.0); Creatine Kinase MB 3.21 ng/mL (<2.37)
[2019-04-12 12:56] LABS: Procalcitonin 0.53 ng/mL (<0.5)
[2019-04-12 13:04] LABS: Reflexed Lactate in 2 Hours Y
[2019-04-12 13:27] LABS: PTT Partial Thromboplastin Tim 35 SECONDS (26.4-36.2)
[2019-04-12 13:28] LABS: INR 1.4 (0.9-1.3); Prothrombin Time 16.2 SECONDS (10.1-12.7)
[2019-04-12] MEDS: CEFTRIAXONE 1 GM/50 ML FROZ.PIGGY IV (13:37)
[2019-04-12] MEDS: ASPIRIN 81 MG CHEW TAB 324 MG PO (13:37)
[2019-04-12 13:40] LABS: Lactate 2HR (Lactic Acid Rflx) 2.4 mmol/L (0.7-2.1)
[2019-04-12] MEDS: SODIUM CHLORIDE 0.9% 1,000 ML 125 ML IV (13:44)
[2019-04-12] MEDS: HEPARIN DRIP 25,000 UNIT/500 ML IV.SOLN 20 UNIT IV (14:43)
[2019-04-12] MEDS: HEPARIN 5,000 UNIT/ML VIAL 5000 UNIT IV (14:43)
[2019-04-12] MEDS: AZITHROMYCIN 500 MG in DEXTROSE 5% IN WATER 250 ML IV (16:13)
[2019-04-12] MEDS: LEVALBUTEROL 0.63 MG/3 ML NEB INH (17:26)
[2019-04-12] MEDS: METOPROLOL TARTRATE 5 MG/5 ML INJ IV (17:27)
[2019-04-12 18:06] LABS: Creatine Kinase 117 U/L (55-170)
[2019-04-12 18:07] LABS: Lactate (Lactic Acid) 2.9 mmol/L (0.7-2.1)
[2019-04-12 18:17] LABS: NT-proBNP (BNP-Adult 18+) 5950 pg/mL (<125)
[2019-04-12 18:22] LABS: CKMB % Relative Index 4.2 % (1.5-5.0); Creatine Kinase MB 4.89 ng/mL (<2.37)
[2019-04-12 18:48] LABS: Troponin I 0.292 ng/mL (0.01-0.034)
--- NOTE | 2019-04-12 18:52 | PC.NURSE ---
Called new labs to charge aide at [facility],BNP and lactate
[2019-04-12 19:51] LABS: Reflexed Lactate in 2 Hours Y
== END 2019-04-12 18:25 | disposition short-term general hospital (02) ==
PROVIDERS: Emergency Medicine; Emergency Provider Nurse Practitioner Family
DX: I21.4 Non-ST elevation (NSTEMI) myocardial infarction (principal); A41.9 Sepsis, unspecified organism; J18.9 Pneumonia, unspecified organism; I50.9 Heart failure, unspecified
CPT/HCPCS: 36415; 71046; 80053; 82550; 82553; 83605; 83880; 84145; 84484; 85025; 85610; 85730; 87070; 87205; 93005; 94150; 94640; 96361; 96365; 96366; 96367; 96368; 96375; 99285; J1644; J2930; J7614

== ENCOUNTER 2021-11-18 03:44 | Inpatient (IN) | payer MEDICARE, SELFPAY ==
[2021-11-18] VITALS (20 sets, daily range): BP systolic 95–121; BP diastolic 65–78; PULSE 52–110; RESP 15–27; TEMP 36.1–36.8; O2SAT 92–98; BMI 32.3
--- NOTE | 2021-11-18 03:47 | ED.SOB ---
HPI - SOB/Dyspnea General Chief Complaint: Shortness of Breath/Dyspnea Stated Complaint: SOB, Pain in both legs Time Seen by Provider: 11/18/21 03:47 History of Present Illness HPI Narrative: 76-year-old male former smoker with history of coronary artery disease with NSTEMI in 2019, CHF, diabetes presents with family in the chief complaint of worsening shortness of breath and generalized weakness for quite some time. He states that he becomes significantly short of breath with exertion and is unable to lay flat. He states that he is gained upwards of 60 lb. He has significant swelling in his bilateral lower extremities and wounds that have been present for many months. He denies any chest pain, fever or chills. He is not dizzy or lightheaded. He denies any nausea, vomiting or diarrhea. She denies any change in diet or meds. He is a rather poor historian but states that he was evaluated here in March of 2019 and was transferred to [facility] due to NSTEMI. He reports that he was eventually transferred from [facility] to [place] for ongoing evaluation and there is some talk about whether not he may have needed a bypass. He states that since then he really has not seen doctors and not much has happened. Related Data Home Medications Medication Instructions Recorded Confirmed aspirin 81 mg tablet 81 mg PO DAILY 11/18/21 11/18/21 Allergies Allergy/AdvReac Type Severity Reaction Status Date / Time No Known Drug Allergies Allergy Verified 04/12/19 10:20 Review of Systems Review of Systems Narrative: GENERAL: Denies chills, fatigue, malaise, fever, sweats. HEENT: Denies sinus pain, ear pain, sore throat, difficulty swallowing, dizziness. RESPIRATORY: See HPI CARDIOVASCULAR: Denies chest pain, palpitations, orthopnea, edema, GASTROINTESTINAL: Denies nausea, vomiting, abdominal pain, diarrhea, constipation, melena. : Denies dysuria, frequency, incontinence, hematuria, urinary retention. MUSCULOSKELETAL: denies weakness, joint pain, or bony pain SKIN: See HPI NEUROLOGIC: Denies weakness, headache, numbness, change in speech, confusion, seizures, incoordination. PSYCHIATRIC: No concerning psychosocial issues. 12 point review of systems is negative except for those stated above Patient History Medical History (Updated 11/18/21 @ 13:00 by Thomas Samuel DO) CAD (coronary artery disease) Diabetes NSTEMI (non-ST elevated myocardial infarction) Pre-diabetes Surgical History (Updated 11/18/21 @ 13:00 by Thomas Samuel DO) History of hernia surgery History of surgery on arm Hx of tonsillectomy Family History (Updated 11/18/21 @ 13:00 by Thomas Samuel DO) Mother CAD (coronary artery disease) Sister Diabetes mellitus Social History household members: spouse Smoking Status: Never smoker alcohol intake: current Smoking Status: Unknown if ever smoked alcohol intake frequency: holidays/special occasions only Substance Use Type: does not use Exam Narrative Exam Narrative: GENERAL: [76] year old patient appears stated age. Well-developed patient, in mild distress. HEAD: Atraumatic. Normocephalic. EYES: Pupils equal round and reactive. Extraocular motions intact. No scleral icterus. No injection or drainage. ENT: Nose without bleeding, purulent drainage. Throat without erythema, tonsillar hypertrophy or exudate. Airway patent. NECK: Trachea midline. Non tender CARDIOVASCULAR: Regular rate and rhythm without murmurs, gallops, or rubs. RESPIRATORY: Decreased breath sounds bilaterally with faint crackles in bases i. GASTROINTESTINAL: Abdomen soft, non-tender, nondistended. EXTREMITIES: Significant edema in bilateral lower extremities with multiple poorly healing wounds BACK: Nontender without deformity or crepitance. No flank tenderness. NEURO: AOx3. SKIN: No rash or erythema of visible areas Initial Vital Signs Initial Vital Signs: Vital Signs Temperature 97.9 F 11/18/21 03:45 Pulse Rate 110 H 11/18/21 03:45 Respiratory Rate 24 11/18/21 03:45 Blood Pressure 110/65 11/18/21 03:45 Pulse Oximetry 95 11/18/21 03:45 Oxygen Delivery Method 11/18/21 03:45 Course Orders Ordered: Acetaminophen (Acetaminophen 325 Mg Tablet) 975 mg PO Q8H PRN PRN Reason: Pain, Mild (1-3) Acetazolamide (Acetazolamide 250 Mg Tablet) 500 mg PO DAILY ZACHARY Aspirin (Aspirin Ec 81 Mg Tablet) 81 mg PO DAILY ZACHARY Last Admin: 11/20/21 08:18 Dose: 81 mg Documented By: Admin: 11/19/21 08:27 Dose: 81 mg Documented By: Admin: 11/18/21 09:54 Dose: 81 mg Documented By: JULIETTE Atorvastatin Calcium (Atorvastatin 20 Mg Tablet) 40 mg PO BEDTIME [facility] Last Admin: 11/20/21 20:47 Dose: 40 mg Documented By: Admin: 11/19/21 20:47 Dose: 40 mg Documented By: Admin: 11/18/21 20:59 Dose: 40 mg Documented By: BRADY(2) Benzonatate (Benzonatate 100 Mg Capsule) 100 mg PO TID PRN PRN Reason: Cough Last Admin: 11/20/21 09:39 Dose: 100 mg Documented By: Admin: 11/19/21 17:15 Dose: 100 mg Documented By: Admin: 11/19/21 08:31 Dose: 100 mg Documented By: Admin: 11/18/21 19:51 Dose: 100 mg Documented By: Admin: 11/18/21 11:54 Dose: 100 mg Documented By: JULIETTE Dextrose (Dextrose 50 % In Water 25 Gm/50 Ml Syringe) 25 gm IV PRN PRN PRN Reason: Hypoglycemia Furosemide (Furosemide 20 Mg/2 Ml Vial) 60 mg IV BID [facility] Last Admin: 11/20/21 20:47 Dose: 60 mg Documented By: Admin: 11/20/21 11:45 Dose: 60 mg Documented By: COLBY Guaifenesin (Guaifenesin Solution 100 Mg/5 Ml Udc) 100 mg PO Q4HR PRN PRN Reason: Cough Last Admin: 11/20/21 09:37 Dose: 100 mg Documented By: Admin: 11/19/21 19:43 Dose: 100 mg Documented By: Admin: 11/19/21 08:31 Dose: 100 mg Documented By: Admin: 11/18/21 11:54 Dose: 100 mg Documented By: JULIETTE Heparin Sodium (Porcine) (Heparin 5,000 Unit/Ml Vial) 5,000 unit SUBCUT Q8H [facility] Last Admin: 11/20/21 20:13 Dose: 5,000 unit Documented By: Admin: 11/20/21 12:18 Dose: 5,000 unit Documented By: COLBY Sodium Chloride (Normal Saline 0.9%) 250 mls @ 21 mls/hr IV Q24H PRN PRN Reason: Flush Insulin Glargine (Insulin Glargine 100 Unit/Ml 3ml Pen) 15 unit SUBCUT BEDTIME [facility] Last Admin: 11/20/21 20:47 Dose: 15 unit Documented By: BRADY Co-signed By: ROMEL Insulin Human Lispro (Insulin Lispro 100 Unit/Ml 3ml Vial) 0 unit SUBCUT ACHS [facility]ACH[facility]; Protocol Last Admin: 11/20/21 20:47 Dose: Not Given Documented By: Admin: 11/20/21 16:55 Dose: 2 unit Documented By: SALOMON Co-signed By: DILIP Admin: 11/20/21 12:19 Dose: 2 unit Documented By: COLBY Co-signed By: SALOMON Admin: 11/20/21 07:41 Dose: Not Given Documented By: Admin: 11/19/21 20:47 Dose: 1 unit Documented By: BRADY Co-signed By: RONNI Admin: 11/19/21 17:12 Dose: 1 unit Documented By: EMILIA Co-signed By: RONNI Admin: 11/19/21 12:07 Dose: Not Given Documented By: Admin: 11/19/21 08:21 Dose: Not Given Documented By: Admin: 11/18/21 21:21 Dose: Not Given Documented By: BRADY(2) Admin: 11/18/21 17:39 Dose: 1 unit Documented By: JULIETTE Co-signed By: OW Admin: 11/18/21 11:59 Dose: 1 unit Documented By: JULIETTE Co-signed By: MAI Ondansetron HCl (Ondansetron 4 Mg/2 Ml Inj) 4 mg IV Q8HR PRN PRN Reason: Nausea And Vomiting Last Admin: 11/19/21 20:20 Dose: 4 mg Documented By: BRADY Sodium Chloride (Sodium Chloride 0.9% Flush) 10 ml IV PRN PRN PRN Reason: Flush Last Admin: 11/19/21 23:38 Dose: 10 ml Documented By: BRADY Sodium Chloride (Sodium Chloride 0.9% Flush) 10 ml IV BID [facility] Last Admin: 11/20/21 20:48 Dose: 10 ml Documented By: Admin: 11/20/21 08:18 Dose: 10 ml Documented By: Admin: 11/19/21 20:20 Dose: 10 ml Documented By: Admin: 11/19/21 08:54 Dose: 10 ml Documented By: Admin: 11/19/21 00:17 Dose: 10 ml Documented By: BRADY(2) Discontinued Medications Acetazolamide (Acetazolamide 250 Mg Tablet) 500 mg PO NOW ONE Stop: 11/20/21 09:53 Last Admin: 11/20/21 11:44 Dose: 500 mg Documented By: COLBY Enoxaparin Sodium (Enoxaparin 40 Mg/0.4 Ml Syringe) 40 mg SUBCUT DAILY [facility] Last Admin: 11/20/21 08:18 Dose: 40 mg Documented By: Admin: 11/19/21 08:26 Dose: 40 mg Documented By: Admin: 11/18/21 09:54 Dose: 40 mg Documented By: JULIETTE Furosemide (Furosemide 40 Mg/4 Ml Vial) 40 mg IV NOW ONE Stop: 11/18/21 03:56 Last Admin: 11/18/21 04:19 Dose: 40 mg Documented By: BETY Furosemide (Furosemide 40 Mg Tablet) 40 mg PO 0800,1700 [facility] Last Admin: 11/20/21 08:17 Dose: 40 mg Documented By: Admin: 11/19/21 17:15 Dose: 40 mg Documented By: Admin: 11/19/21 08:27 Dose: 40 mg Documented By: Admin: 11/18/21 16:32 Dose: 40 mg Documented By: JULIETTE Heparin Sodium (Porcine) (Heparin 5,000 Unit/Ml Vial) 5,000 unit SUBCUT BID [facility] Last Admin: 11/20/21 10:37 Dose: Not Given Documented By: COLBY Ceftriaxone Sodium 2,000 mg/ (Sodium Chloride) 100 mls @ 200 mls/hr IV NOW ONE Stop: 11/18/21 05:11 Last Infusion: 11/18/21 06:05 Dose: 0 mls/hr Documented By: Admin: 11/18/21 05:31 Dose: 200 mls/hr Documented By: BETY Vancomycin HCl 1,750 mg/ (Sodium Chloride) 500 mls @ 250 mls/hr IV NOW ONE Stop: 11/18/21 05:11 Last Admin: 11/18/21 06:04 Dose: Not Given Documented By: BETY Sodium Chloride (Normal Saline 0.9%) 1,914 mls @ 638 mls/hr 30 ml/kg infuse over 3 hr (1914 ml) IV NOW ONE Stop: 11/18/21 08:09 Last Infusion: 11/18/21 07:34 Dose: 0 mls/hr Documented By: Admin: 11/18/21 05:30 Dose: 638 mls/hr Documented By: EB Vancomycin HCl/Dextrose (Vancomycin) 1,500 mg in 300 mls @ 200 mls/hr IV NOW ONE Stop: 11/18/21 07:24 Last Infusion: 11/18/21 08:40 Dose: 0 mls/hr Documented By: Infusion: 11/18/21 08:15 Dose: 200 mls/hr Documented By: Infusion: 11/18/21 07:41 Dose: 0 mls/hr Documented By: Admin: 11/18/21 06:12 Dose: 200 mls/hr Documented By: EB Cefazolin Sodium 1 gm/ Sodium (Chloride) 100 mls @ 200 mls/hr IV Q8H [facility] Last Admin: 11/20/21 08:13 Dose: 200 mls/hr Documented By: Infusion: 11/20/21 00:23 Dose: 0 mls/hr Documented By: Admin: 11/19/21 23:38 Dose: 100 mls/hr Documented By: Infusion: 11/19/21 19:05 Dose: 0 mls/hr Documented By: Admin: 11/19/21 17:12 Dose: 100 mls/hr Documented By: Infusion: 11/19/21 10:04 Dose: 0 mls/hr Documented By: Admin: 11/19/21 08:26 Dose: 100 mls/hr Documented By: Infusion: 11/19/21 01:45 Dose: 0 mls/hr Documented By: AMH(2) Admin: 11/19/21 00:16 Dose: 200 mls/hr Documented By: AMH(2) Infusion: 11/18/21 17:00 Dose: 0 mls/hr Documented By: Admin: 11/18/21 16:26 Dose: 200 mls/hr Documented By: CLP Sodium Chloride (Normal Saline 0.9%) 250 mls @ 21 mls/hr IV Q24H PRN PRN Reason: Flush Last Infusion: 11/18/21 17:00 Dose: 0 mls/hr Documented By: Admin: 11/18/21 16:26 Dose: 21 mls/hr Documented By: CLP Insulin Glargine (Insulin Glargine 100 Unit/Ml 3ml Pen) 5 unit SUBCUT 0800 [facility] Last Admin: 11/20/21 08:24 Dose: 5 unit Documented By: COLBY Co-signed By: SALOMON Admin: 11/19/21 08:27 Dose: 5 unit Documented By: EMILIA Co-signed By: SALOMON Admin: 11/18/21 09:55 Dose: 5 unit Documented By: JULIETTE Co-signed By: АНДРЕЙ Metoprolol Succinate (Metoprolol Er 25 Mg Tablet) 25 mg PO DAILY [facility] Last Admin: 11/20/21 08:18 Dose: 25 mg Documented By: Admin: 11/19/21 08:53 Dose: 25 mg Documented By: EMILIA Vital Signs Vital signs: Vital Signs - 8 hr 11/18/21 03:45 11/18/21 03:54 11/18/21 03:55 Temperature 97.9 F Pulse Rate 110 H 109 H Respiratory Rate 24 Blood Pressure 110/65 110/65 Pulse Oximetry 95 93 Oxygen Delivery Method Room Air 11/18/21 03:55 11/18/21 04:00 Temperature Pulse Rate 110 H 107 H Respiratory Rate Blood Pressure Pulse Oximetry 92 97 Oxygen Delivery Method MDM - SOB/Dyspnea Lab Data Result diagrams: 11/20/21 07:06 11/20/21 07:06 Labs: Lab Results 11/18/21 11/18/21 11/18/21 Range/Units 04:00 04:00 04:00 WBC 10.1 (4.5-11.0) X10^3/uL RBC 5.92 H (4.5-5.9) X10^6/uL Hgb 16.7 (13.5-17.5) g/dL Hct 51.0 (41-53) % MCV 86.2 (80-100) fL MCH 28.2 (26-34) PG MCHC 32.7 (30-36) % RDW 18.6 H (11.6-14.8) % Plt Count 172 (150-400) X10^3/uL Neut % (Auto) 81.3 H (50-75) % Lymph % (Auto) 6.6 L (25-40) % Grand % (Auto) 10.1 (3-14) % Eos % (Auto) 0.8 L (2-4) % Baso % (Auto) 1.2 (0-2) % Neut # (Auto) 8200 H (8287-5021) /uL Lymph # (Auto) 700 L (2114-9661) /uL [place] # (Auto) 1000 H (0-900) /uL Eos # (Auto) 100 (0-450) /uL Baso # (Auto) 100 (0-100) /uL Sodium 135 L (137-145) mmol/L Potassium 3.9 (3.4-5.1) mmol/L Chloride 94 L (98-107) mmol/L Carbon Dioxide 31 (22-32) mmol/L BUN 41 H (9-20) mg/dL Creatinine 1.60 H (0.66-1.25) mg/dL Estimated GFR 44 L (>60) mL/min BUN/Creatinine Ratio 25.6 H (6-22) Glucose 235 H (80-110) mg/dL Lactate 2.6 H (0.7-2.1) mmol/L Calcium 8.8 (8.4-10.2) mg/dL Magnesium (1.6-2.3) mg/dL Total Bilirubin 1.8 H (0.2-1.3) mg/dL AST 31 (17-59) IU/L ALT 22 (<50) IU/L Alkaline Phosphatase 122 (38-126) U/L Total Creatine Kinase (55-170) U/L CK-MB (CK-2) CK-MB (CK-2) Rel Index Troponin I (0.01-0.034) ng/mL NT-Pro-B Natriuret Pep (<450) pg/mL Total Protein 7.0 (6.3-8.2) g/dL Albumin 4.0 (3.5-5.0) g/dL Globulin 3.0 (1.7-4.1) g/dL Albumin/Globulin Ratio 1.3 (1.0-2.8) Prolactin 22.8 H (3.7-17.9) ng/mL SARS-CoV-2 (PCR) (Negative) 11/18/21 11/18/21 Range/Units 04:00 04:00 WBC (4.5-11.0) X10^3/uL RBC (4.5-5.9) X10^6/uL Hgb (13.5-17.5) g/dL Hct (41-53) % MCV (80-100) fL MCH (26-34) PG MCHC (30-36) % RDW (11.6-14.8) % Plt Count (150-400) X10^3/uL Neut % (Auto) (50-75) % Lymph % (Auto) (25-40) % Grand % (Auto) (3-14) % Eos % (Auto) (2-4) % Baso % (Auto) (0-2) % Neut # (Auto) (0706-4069) /uL Lymph # (Auto) (8501-9912) /uL Grand # (Auto) (0-900) /uL Eos # (Auto) (0-450) /uL Baso # (Auto) (0-100) /uL Sodium (137-145) mmol/L Potassium (3.4-5.1) mmol/L Chloride (98-107) mmol/L Carbon Dioxide (22-32) mmol/L BUN (9-20) mg/dL Creatinine (0.66-1.25) mg/dL Estimated GFR (>60) mL/min BUN/Creatinine Ratio (6-22) Glucose (80-110) mg/dL Lactate (0.7-2.1) mmol/L Calcium (8.4-10.2) mg/dL Magnesium 2.4 H (1.6-2.3) mg/dL Total Bilirubin (0.2-1.3) mg/dL AST (17-59) IU/L ALT (<50) IU/L Alkaline Phosphatase (38-126) U/L Total Creatine Kinase 81 (55-170) U/L CK-MB (CK-2) TNP CK-MB (CK-2) Rel Index TNP Troponin I 0.034 (0.01-0.034) ng/mL NT-Pro-B Natriuret Pep 90423 H (<450) pg/mL Total Protein (6.3-8.2) g/dL Albumin (3.5-5.0) g/dL Globulin (1.7-4.1) g/dL Albumin/Globulin Ratio (1.0-2.8) Prolactin (3.7-17.9) ng/mL SARS-CoV-2 (PCR) Negative (Negative) Discharge Plan Departure Patient Disposition: Admitted As Inpatient Clinical Impression: Congestive heart failure, Sepsis, Pneumonia, Pleural effusion, Cellulitis of right leg Admit Date/Time: 11/18/21 06:39 Admit Provider: Kristyn French
--- NOTE | 2021-11-18 03:56 | DI.RAD.S_ITS ---
PROCEDURE: XR CHEST 1V INDICATIONS: fall, trauma, preop TECHNIQUE: One view of the chest was acquired. COMPARISON: [facility], CT, CT ANGIO CHEST PE PROTOCOL, 11/18/2021, 5:33. [facility], CR, XR CHEST 2V, 04/12/2019, 11:00. FINDINGS: Surgical changes and devices: None. Lungs and pleura: Blunting of the costophrenic angles is consistent with small bilateral pleural effusions. There is atelectasis of the adjacent lung bases versus less likely bibasilar consolidations. No pneumothorax. Mediastinum: Mediastinal contours appear normal. Heart size is enlarged and stable. Bones and chest wall: No suspicious bony lesions. Overlying soft tissues appear unremarkable. IMPRESSION: Small bilateral pleural effusions with atelectasis of the adjacent lung bases. Stable cardiomegaly. There is no significant discrepancy when compared to the overnight preliminary report. Dictated by: Roland Linares M.D. on 11/18/2021 at 8:02 Approved by: Roland Linares M.D. on 11/18/2021 at 8:10
[2021-11-18 04:12] LABS: Add Manual Diff / Slide Review NO; Basophils Absolute Auto 100 /uL (0-100); Basophils Percent Auto 1.2 % (0-2); Eosinophils Absolute Auto 100 /uL (0-450); Eosinophils Percent Auto 0.8 % (2-4); Hemoglobin 16.7 g/dL (13.5-17.5); Lymphocytes Absolute Auto 700 /uL (1100-4500); Lymphocytes Percent Auto 6.6 % (25-40); Mean Corpuscular HGB Conc 32.7 % (30-36); Mean Corpuscular Hemoglobin 28.2 PG (26-34); Mean Corpuscular Volume 86.2 fL (80-100); Monocytes Absolute Auto 1000 /uL (0-900); Monocytes Percent Auto 10.1 % (3-14); Neutrophils Absolute Auto 8200 /uL (1500-7000); Neutrophils Percent Auto 81.3 % (50-75); Platelet Count 172 X10^3/uL (150-400); Red Blood Cell Count 5.92 X10^6/uL (4.5-5.9); Red Cell Distribution Width 18.6 % (11.6-14.8); White Blood Cell Count 10.1 X10^3/uL (4.5-11.0)
[2021-11-18] MEDS: FUROSEMIDE 40 MG/4 ML VIAL IV (04:19)
[2021-11-18 04:22] LABS: Alanine Aminotransferase 22 IU/L (<50); Albumin Globulin Ratio 1.3 (1.0-2.8); Alkaline Phosphatase 122 U/L (38-126); Aspartate Aminotransferase 31 IU/L (17-59); BUN Creatinine Ratio 25.6 (6-22); Bilirubin Total 1.8 mg/dL (0.2-1.3); Blood Urea Nitrogen 41 mg/dL (9-20); Calcium 8.8 mg/dL (8.4-10.2); Carbon Dioxide 31 mmol/L (22-32); Chloride 94 mmol/L (98-107); Creatine Kinase 81 U/L (55-170); Estimated Glomerular Filt Rate 44 mL/min (>60); Glucose 235 mg/dL (80-110); HEMOLYSIS 19 (0-50); Lactate (Lactic Acid) 2.6 mmol/L (0.7-2.1); Magnesium 2.4 mg/dL (1.6-2.3); Potassium 3.9 mmol/L (3.4-5.1); Sodium 135 mmol/L (137-145)
[2021-11-18 04:24] LABS: COVID19 -Nasal RAPID Negative (Negative)
[2021-11-18 04:34] LABS: NT-proBNP (BNP-Adult 18+) 21000 pg/mL (<450); Troponin I 0.034 ng/mL (0.01-0.034)
[2021-11-18 04:38] LABS: Prolactin 22.8 ng/mL (3.7-17.9)
--- NOTE | 2021-11-18 05:06 | PC.NURSE ---
Pt has multiple wounds on bilateral lower legs at different stages. Multiple wounds are open with purulent drainage that has soaked his socks and is visibly leaking onto the sheets.
--- NOTE | 2021-11-18 05:14 | DI.CT.S_ITS ---
PROCEDURE: CT ANGIO CHEST PE PROTOCOL INDICATIONS: SOB, tachycardia, LE swelling TECHNIQUE: After the administration of intravenous contrast, 2 mm thick sections acquired from the pulmonary apices to the posterior costophrenic angles. 3-dimensional maximum intensity projection (MIP) coronal and sagittal reformats were then acquired through the thorax. For radiation dose reduction, the following was used: automated exposure control, adjustment of mA and/or kV according to patient size. COMPARISON: [facility], CR, XR CHEST 1V, 11/18/2021, 3:59. FINDINGS: Image quality: Excellent. Pulmonary arteries: Pulmonary arteries are normal in size, and demonstrate no intraluminal filling defects to suggest central pulmonary embolism. Lungs and pleura: Moderate bilateral pleural effusions with atelectasis of the adjacent lung bases. Mild hazy ground-glass opacities may represent atelectasis or edema. No pneumothorax. Central and peripheral airways are patent. Mediastinum: Heart size is enlarged, without pericardial effusion. [id number] coronary artery calcifications. No mediastinal or hilar adenopathy. Thoracic aorta is normal in caliber and enhancement. Mild aortic atherosclerotic calcifications. Esophagus is normal in caliber, with a small hiatal hernia. Bones and chest wall: No suspicious bony lesions. Degenerative changes are seen in the spine. Thyroid is unremarkable. No axillary or supraclavicular adenopathy. Abdomen: Nodular liver surface is suspicious for cirrhosis. There is a small amount of reflux of contrast material into the hepatic veins. There is a small amount of upper abdominal ascites. IMPRESSION: 1. No acute pulmonary embolism. 2. Moderate bilateral pleural effusions with atelectasis of the adjacent lung bases. 3. Mild bilateral ground-glass opacity is may represent subsegmental atelectasis or mild pulmonary edema. 4. Cardiomegaly. 5. Small volume of upper abdominal ascites. Nodular liver surface is suspicious for cirrhosis. There is no significant discrepancy when compared with the preliminary overnight report. Dictated by: Roland Linares M.D. on 11/18/2021 at 8:14 Approved by: Roland Linares M.D. on 11/18/2021 at 8:25
[2021-11-18] MEDS: SODIUM CHLORIDE 0.9% 1,914 ML 638 ML IV (05:30)
[2021-11-18] MEDS: cefTRIAXone 2,000 MG in SODIUM CHLORIDE 0.9% 100 ML 200 MG IV (05:31)
[2021-11-18 06:06] LABS: Reflexed Lactate in 2 Hours Y
[2021-11-18] MEDS: VANCOMYCIN 1,500 MG/300 ML PIGGYBACK 200 MG IV (06:12)
--- NOTE | 2021-11-18 08:17 | PC.NURSE ---
Patient brought up from ER to room 203. Oriented to room and call light. Urinal placed within reach. Instructed on fall precautions and safety. Patient reports he had a previous recent fall in which he hit his left side and bruising to left knee, and left chest/breast area is noted. Patient denies pain. VSS. Patient's bilateral legs are +3 pitting edema and has multiple open sores that are erythemic and weeping on legs, along with scattered dry scabs to bilateral legs. Will continue to monitor.
[2021-11-18] MEDS: ENOXAPARIN 40 MG/0.4 ML SYRINGE SUBCUT (09:54)
[2021-11-18] MEDS: ASPIRIN EC 81 MG TABLET PO (09:54)
[2021-11-18] MEDS: INSULIN GLARGINE 100 UNIT/ML 3ML PEN SUBCUT (09:55)
--- NOTE | 2021-11-18 11:00 | PC.RNWOUND ---
Bilateral Lower Extremities Left Lower Extremity and Dorsal Foot Right Medial Lower Leg Bilateral Lower Extremities Patient sitting in recliner in room, partner in room. Bilateral Lower Extremities have multiple wounds in various stages of healing. Patient says legs 'have been swollen for a couple of months and that slimy goo has been leaking into my shoes for a couple months now. Legs are edematous with erythema to bilateral feet, left more red than right. Feet are cool to touch, capillary refill <3 seconds to bilateral Great Toes. Right lower extremity has sparse hair growth to mid castillo, no hair growth noted from mid-castillo to toes. No hair growth noted to Left lower extremity. Patient denies numbness/tingling, reports sensation present to touch. Pulses not palpable at this time, bilateral dorsalis pedis and posterior tibial pulses are located with doppler. Left dorsal foot has a 3 x 5.5 x 0.1cm ulcer, 75% granulation and 25% dark, ischemic tissue to wound base. Periwound has multiple intact vesicles, small amount of serous drainage, no malodor. Left medial malleolus has a 1 x 1.5 cm ulcer with 100% slough covering wound, unable to determine depth, edges well-defined, moderate serous drainage, no malodor. Left lateral heel has a 2x3cm intact bulla, no drainage noted. left lateral knee has a purple bruise from when I took a fall on some concrete last Thursday, skin intact. Left lower extremity has multiple scattered lesions to rest of extremity up to knee. Right Lower Extremity has a 6.2 x 7 x 0.1cm ulcer to the lower medial leg. This wound is 50% red granular tissue and 50% adherent bennett-colored slough. Edges are well-defined and there is a moderate amount of serous drainage from this wound, no malodor. These wounds are cleansed with saline and dressed with bordered foam for absorption and protection. These wounds appear to be from a combination etiology with signs of both venous and arterial insufficiency, a follow up at the wound healing clinic after discharge for further studies to determine exact treatment is recommended. Patient says pain to wounds is 1/10, hardly at all, tolerates all cares well. Dr. Samuel in to see patient.
--- NOTE | 2021-11-18 11:16 | P.HP_ITS ---
History of Present Illness History of Present Illness Date Patient Seen: 11/18/21 Chief complaint: SOB, Pain in both legs Narrative: This is a 76 year old male with PMH of NSTEMI in 03/2019, was transferred from ER here to [facility] where he was found to have an EF of 20-25%, and was transferred to [facility] for CABG. Unfortunately, he developed COVID infection at that time and CABG was not done. He continued on some medications but did not follow up with the surgeons or any providers since. He has continued on asa daily since but no other medications. He returns today with progressive weakness, abdominal distension, shortness of breath, lower extremity edema, and leg ulcerations for the past few months. He denies chest pain, palpitations, fever, chills, nausea, vomiting, abdominal pain. His ulcerations have been getting worse over the past few months, starting in his left leg but worsened the past week in the R. He can walk about 10 ft now before getting short of breath. He cannot lay flat at night. In the emergency room his vital signs were unremarkable. Laboratory evaluation revealed an unremarkable CBC, chemistries were for a BUN of 41, creatinine 1.60 (from 0.6 at time of NSTEMI in 03/2019), Glucose 235, Tbili 1.8, probnp [id number]. CXR showed evidence of CHF. CTA showed cardiomegaly and CHF, no PE. Incidentally found on CTA was probable cirrhosis as well. Patient History Medical History (Updated 11/18/21 @ 13:00 by Thomas Samuel DO) CAD (coronary artery disease) Diabetes NSTEMI (non-ST elevated myocardial infarction) Pre-diabetes Surgical History (Updated 11/18/21 @ 13:00 by Thomas Samuel DO) History of hernia surgery History of surgery on arm Hx of tonsillectomy Family & Social History Family History (Updated 11/18/21 @ 13:00 by Thomas Samuel DO) Mother CAD (coronary artery disease) Sister Diabetes mellitus Safety & Behavioral: Feels Safe in Current Yes Environment Tobacco & Substance use: Smoking Status Unknown if ever smoked alcohol intake frequency holiday/special occasion Substance Use Type does not use Meds Home Medications and Allergies Home Medications Medication Instructions Recorded Confirmed Type aspirin 81 mg tablet 81 mg PO DAILY 11/18/21 11/18/21 History Allergies Allergy/AdvReac Type Severity Reaction Status Date / Time No Known Drug Allergies Allergy Verified 04/12/19 10:20 Review of Systems Review of Systems Narrative: All other systems reviewed with the patient and are negative unless otherwise stated. Exam Vital Signs (past 8 hours): - 11/18/21 03:45 11/18/21 03:54 11/18/21 03:55 Temperature 97.9 F Pulse Rate 110 H 109 H Respiratory Rate 24 Blood Pressure 110/65 110/65 Pulse Oximetry 95 93 Oxygen Delivery Method Room Air Oxygen Flow Rate 11/18/21 03:55 11/18/21 04:00 11/18/21 04:26 Temperature Pulse Rate 110 H 107 H Respiratory Rate Blood Pressure 111/65 Pulse Oximetry 92 97 Oxygen Delivery Method Oxygen Flow Rate 11/18/21 04:26 11/18/21 04:30 11/18/21 04:30 Temperature Pulse Rate 104 H 102 H Respiratory Rate 25 H 25 H Blood Pressure 95/72 Pulse Oximetry 98 98 Oxygen Delivery Method Oxygen Flow Rate 11/18/21 05:00 11/18/21 05:01 11/18/21 05:01 Temperature Pulse Rate 101 H 101 H Respiratory Rate 19 15 Blood Pressure 113/67 Pulse Oximetry 95 94 Oxygen Delivery Method Oxygen Flow Rate 11/18/21 05:36 11/18/21 06:00 11/18/21 06:24 Temperature Pulse Rate 106 H 102 H Respiratory Rate 19 Blood Pressure 121/70 Pulse Oximetry 97 94 Oxygen Delivery Method Oxygen Flow Rate 11/18/21 06:24 11/18/21 06:30 11/18/21 06:30 Temperature Pulse Rate 104 H 104 H Respiratory Rate 23 20 Blood Pressure 115/78 Pulse Oximetry 97 93 Oxygen Delivery Method Oxygen Flow Rate 11/18/21 06:59 11/18/21 07:00 11/18/21 07:01 Temperature Pulse Rate 101 H 101 H Respiratory Rate 27 H 22 Blood Pressure 104/75 Pulse Oximetry 93 98 Oxygen Delivery Method Oxygen Flow Rate 11/18/21 07:30 11/18/21 07:30 11/18/21 07:45 Temperature 97.0 F L Pulse Rate 99 H 101 H Respiratory Rate 26 H 18 Blood Pressure 98/67 116/76 Pulse Oximetry 95 94 Oxygen Delivery Method Oxygen Flow Rate 0 11/18/21 08:00 Temperature Pulse Rate Respiratory Rate Blood Pressure Pulse Oximetry Oxygen Delivery Method Room Air Oxygen Flow Rate Oxygen Delivery Method Room Air Oxygen Flow Rate 0 Narrative Exam Narrative: General:? Patient is well developed and well nourished, in no distress at this time. HEENT:? Normocephalic, atraumatic, extraocular muscles intact, oral pharynx is clear and mucous membranes are moist. Neck: supple and symmetric, trachea is midline, no cervical adenopathy. + JVD Chest:? Normal AP diameter and contour without kyphoscoliosis, no tachypnea, equal chest rise bilaterally. Lungs:?bibasilar rales without wheezing, diminished breath sounds b/l lung bases. Cardio:?RRR no m/r/g. Poor DP/PT pulses. Abdomen: Soft, non-tender, slight distension. Musculoskeletal:? Muscle strength and tone are equal within normal limits, no deformity. Extremities: 2+ bilateral LE edema to mid thigh. various lower extremity ulcerations, slight erythema of dorsum of left foot surrounding an ulceration. Ulcerations are without warmth, surrounding erythema or purulence. Have a distinct raised border. Appear arterial in nature. Skin:? Pale,? Warm to touch,dry and intact except as ntoed in extremities. Neuro:? Alert and orientated x3,? sensation to touch intact in all extremities, no gross deficits noted of cranial nerves. Psych:? Patient has a well-kept appearance, appropriate affect, mental status attitude thought context and judgment are appropriate for age. Objective ECG Impression: Sinus tachycardia with premature supraventricular complexes Possible Left atrial enlargement Rightward axis Low voltage QRS Nonspecific T wave abnormality Labs Result Diagrams: 11/18/21 04:00 11/18/21 04:00 Labs: Laboratory Results - last 24 hr 11/18/21 11/18/21 11/18/21 04:00 04:00 04:00 WBC 10.1 RBC 5.92 H Hgb 16.7 Hct 51.0 MCV 86.2 MCH 28.2 MCHC 32.7 RDW 18.6 H Plt Count 172 Neut % (Auto) 81.3 H Lymph % (Auto) 6.6 L Sterling % (Auto) 10.1 Eos % (Auto) 0.8 L Baso % (Auto) 1.2 Neut # (Auto) 8200 H Lymph # (Auto) 700 L Sterling # (Auto) 1000 H Eos # (Auto) 100 Baso # (Auto) 100 Sodium 135 L Potassium 3.9 Chloride 94 L Carbon Dioxide 31 BUN 41 H Creatinine 1.60 H Estimated GFR 44 L BUN/Creatinine Ratio 25.6 H Glucose 235 H Lactate 2.6 H Calcium 8.8 Magnesium Total Bilirubin 1.8 H AST 31 ALT 22 Alkaline Phosphatase 122 Total Creatine Kinase CK-MB (CK-2) CK-MB (CK-2) Rel Index Troponin I NT-Pro-B Natriuret Pep Total Protein 7.0 Albumin 4.0 Globulin 3.0 Albumin/Globulin Ratio 1.3 Prolactin 22.8 H SARS-CoV-2 (PCR) 11/18/21 11/18/21 04:00 04:00 WBC RBC Hgb Hct MCV MCH MCHC RDW Plt Count Neut % (Auto) Lymph % (Auto) Sterling % (Auto) Eos % (Auto) Baso % (Auto) Neut # (Auto) Lymph # (Auto) Sterling # (Auto) Eos # (Auto) Baso # (Auto) Sodium Potassium Chloride Carbon Dioxide BUN Creatinine Estimated GFR BUN/Creatinine Ratio Glucose Lactate Calcium Magnesium 2.4 H Total Bilirubin AST ALT Alkaline Phosphatase Total Creatine Kinase 81 CK-MB (CK-2) TNP CK-MB (CK-2) Rel Index TNP Troponin I 0.034 NT-Pro-B Natriuret Pep 28356 H Total Protein Albumin Globulin Albumin/Globulin Ratio Prolactin SARS-CoV-2 (PCR) Negative Assessment & Plan Assessment & Plan narrative: 1. Acute on chronic systolic heart failure - currently with massive volume overload, likely hepatic congestion with cirrhosis due to heart failure, suspect DANG due to congestion as well. - continue diuresis with 40 IV Lasix BID, unable to start beta lianna or shira inhibition currently given borderline hypotension with diruesis in the ER. - repeat echo ordered, prior TTE EF 20-25% at [facility]. - will likely need medical managemetn for now, suspect 10 L or more fluid will need to be removed. reinitiate medications, and likely outpatient follow up with cardiothoracic surgery for CABG. - if troponins elevate consider transfer for higher level of care. - he was given antibiotics in the ER for possible pneumonia, however will stop antibiotics as volume overload is much more likely. 2. CAD - known CAD with LHC at [facility] 03/2019. LHC showed an occluded LAD with multivessel disease and was recommended for C. - continue to trend troponins. If elevated consider transfer for further management. - continue ASA and restart statin therapy. - start beta lianna and shira-inhibitor when able 3. DANG - suspect in setting of heart failure and volume overload. - continue diuresis as noted above. 4. 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 - continue diuresis as noted above. - not enough fluid currently for paracentesis on ultrasound. 5. DM - admit glucose 263. Continue FS ACHS, start lantus 5 units with sliding scale. Carb consistent diet. 6. Peripheral lower extremity ulcerations with left foot cellulitis. - suspect arterial ulcerations, they do not appear to be actively infected at this time. He possibly has a mild left foot cellulitis and will start on cefazolin for now. - will order arterial duplex study. Consider CT angiogram, consider referral for vascular surgery depending on findings. Code: Full, surrogate decision maker is patient's spouse. Dispo: Admit as inpatient. Anticipate discharge home at sometime possibly in the next 4-6 days depending on response to diuresis and further testing. may need transfer as discussed above. I have utilized all available immediate resources to obtain, update, or review the patient's current medications. COVID-19 COVID-19 status: Negative Time Spent With Patient Critical Care time: I spent a total of [] minutes of critical care time on this patient's care today; this time is exclusive of procedural time. Quality MIPS - Admit I confirm the patient?s Advance Care Plan is present, Code status is documented, Surrogate decision maker is in patient?s record [If Yes, STOP here]: Yes
--- NOTE | 2021-11-18 11:18 | DI.US.S_ITS ---
PROCEDURE: US ARTERIAL DUPLEX LE BI INDICATIONS: ?PERIPHERAL ARTERIAL DISEASE TECHNIQUE: Color and pulse Doppler interrogation was performed of both lower extremity arterial systems, with image documentation. COMPARISON: None. FINDINGS: Right lower extremity: Common femoral artery: 88 cm/sec, with triphasic flow. Deep femoral artery: 79 cm/sec, with biphasic flow. Proximal superficial femoral artery: 111 cm/sec, with biphasic flow. Mid superficial femoral artery: 66 cm/sec, with triphasic flow. Distal superficial femoral artery: 74 cm/sec, with triphasic flow. Popliteal artery: 50 cm/sec, with biphasic flow. Posterior tibial artery: 55 cm/sec, with biphasic flow. Anterior tibial artery/dorsalis pedis: 32 cm/sec, with biphasic flow. Seay-scale imaging description: Atheromatous calcifications are present throughout the SFA and the distal infrageniculate arteries. There is diffuse subcutaneous edema. There is a complex 5.7 x 4.7 x 2.5 cm right popliteal fossa cyst. Left lower extremity: Common femoral artery: 124 cm/sec, with triphasic flow. Deep femoral artery: 71 cm/sec, with triphasic flow. Proximal superficial femoral artery: 212 cm/sec, with triphasic flow. Mid superficial femoral artery: 103 cm/sec, with triphasic flow. Distal superficial femoral artery: 96 cm/sec, with triphasic flow. Popliteal artery: 102 cm/sec, with triphasic flow. Posterior tibial artery: 82 cm/sec, with triphasic flow. Anterior tibial artery/dorsalis pedis: 62 cm/sec, with triphasic flow. Seay-scale imaging description: Atheromatous plaque is present throughout the left superficial femoral artery and the infrageniculate arteries. The dorsalis pedis artery was poorly characterized. There is diffuse subcutaneous edema. IMPRESSION: 1. Biphasic and triphasic waveforms throughout. No hemodynamically significant stenosis by velocity criteria. 2. Atheromatous calcifications are present within the superficial femoral arteries bilaterally and within the infrageniculate arteries near the ankle. 3. Right Raygoza's cyst. 4. Diffuse subcutaneous edema bilaterally. Dictated by: Abby Rosas M.D. on 11/19/2021 at 11:23 Approved by: Abby Rosas M.D. on 11/19/2021 at 11:26
[2021-11-18] MEDS: guaiFENesin Solution 100 MG/5 ML UDC PO (11:54)
[2021-11-18] MEDS: BENZONATATE 100 MG CAPSULE PO ×2 (11:54→19:51)
[2021-11-18] MEDS: INSULIN LISPRO 100 UNIT/ML 3ML VIAL SUBCUT ×2 (11:59→17:39)
--- NOTE | 2021-11-18 12:18 | OT.IP.EVAL ---
Past Medical History (Last Updated 11/18/21 @ 13:00 by Thomas Samuel DO) CAD (coronary artery disease) Diabetes NSTEMI (non-ST elevated myocardial infarction) Pre-diabetes Surgical History (Last Updated 11/18/21 @ 13:00 by Thomas Samuel DO) History of hernia surgery History of surgery on arm Hx of tonsillectomy Occupational Therapy Inpatient Evaluation/Re-Eval M1 PT/OT-IP Prior Functional Status Start: 11/18/21 12:35 Freq: NEEDED Status: Active Protocol: Document 11/18/21 13:13 CGR (Rec: 11/18/21 13:29 CGR [id number]) Medical Review Prior Functional Status Medical History Reviewed Yes Communication Pt is an effective verbal communicator. Mobility and Gait Pt has recently started using a SPC in the last 6 months and states that is relies on it more as time goes on. Activities of Daily Living and IADL's Pt states he is IND in all ADLs and IADLs including driving to work. Social History Household Members spouse Living Arrangements House Number of Floors (Floors) Two Floors Number of Stairs To Enter/Railing? no stairs to enter on the bottom floor. 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 M1 PT/OT-IP Prior Functional Status Start: 11/18/21 13:12 Freq: NEEDED Status: Active Protocol: Document 11/18/21 13:13 CGR (Rec: 11/18/21 13:29 CGR [id number]) Medical Review Prior Functional Status Medical History Reviewed Yes Communication Pt is an effective verbal communicator. Mobility and Gait Pt has recently started using a SPC in the last 6 months and states that is relies on it more as time goes on. Activities of Daily Living and IADL's Pt states he is IND in all ADLs and IADLs including driving to work. Social History Household Members spouse Living Arrangements House Number of Floors (Floors) Two Floors Number of Stairs To Enter/Railing? no stairs to enter on the bottom floor. 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 M2 OT-IP Current Condition Start: 11/18/21 13:12 Freq: Status: Active Protocol: Document 11/18/21 13:13 CGR (Rec: 11/18/21 13:29 CGR [id number]) Occupational Therapy Current Condition Current Condition Evaluation Date 11/18/21 Treatment Diagnosis SOB, BLE swelling and wounds Diagnosis Onset Date 11/18/21 M3 OT- IP Subjective and Pain Start: 11/18/21 13:12 Freq: Status: Active Protocol: Document 11/18/21 13:13 CGR (Rec: 11/18/21 13:29 CGR [id number]) OT- Subjective Occupational Therapy Visit Type Type Initial Evaluation Visit Start Time 12:00 Visit Stop Time 12:18 Total Visit Minutes 18 Notes Pt's present throughout. OT Pain Assessment Pain When Pain Assessed During Mobility Pain Present Pain Present Pain Reported Location Bilateral Knee Intensity 5 Scale Used Numeric (0 - 10) Management Techniques Modification of Treatment,Re- positioning M4 OT- IP ADL's Start: 11/18/21 13:12 Freq: Status: Active Protocol: Document 11/18/21 13:13 CGR (Rec: 11/18/21 13:29 CGR [id number]) OT MNP-Ekju-Hvsidrb General Evaluation Self-Feeding Ability Independent Comments OT Self-Feeding Comments pt eating lunch when OT entered OT ADL-Grooming General Evaluation Grooming Ability Independent Areas Needing Assistance Combing/Brushing Hair,Face Washing Comments OT Grooming Comments standing at sink OT ADL-Oral Care General Eval Oral Care Ability Independent Areas of Assistance Brushing Teeth Comments Oral Care Comments standing at sink OT ADL-Dressing Comments OT Dressing Comments not performed, pt states that he performs without difficulty at baseline. OT ADL-Toileting Comments OT Toileting Comments not performed OT ADL-Bathing Comments OT Bathing Comments not performed M5 OT- IP IADL's Start: 11/18/21 13:12 Freq: Status: Active Protocol: Document 11/18/21 13:13 CGR (Rec: 11/18/21 13:29 CGR [id number]) OT-Instrumental Activities of Daily Living Deficits IADL Deficits Identified No Deficits Home Safety Awareness Awareness of Need for Assistance at Home Good Awareness Ability to Problem Solve Emergency Able to Problem Solve Situations Medication Management Medication Management No Deficits Identified Money Management Money Management No Deficits Identified Meal Preparation Meal Preparation Caregiver Provides Assist Industrial Commercial Groundskeeper Industrial Commercial Groundskeeper Caregiver Provides Assist Driving Driving Comments 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 M6 OT- IP Functional Cognition Start: 11/18/21 13:12 Freq: Status: Active Protocol: Document 11/18/21 13:13 CGR (Rec: 11/18/21 13:29 CGR [id number]) Cognitive Factors Limiting Selfcare Function Cognitive Ability Level of Alertness Alert Patient Orientation Name,Age,Birthday,Month,Date, Year,Day of Week,Place, Situation OT- Vision and Hearing OT- Hearing Assessment OT- Hearing Assessment Hearing Impaired OT- Vision Assessment Visual Attentiveness WFL Occular Pursuits WFL Visual Convergence WFL M7 OT- IP Mobility and Balance Start: 11/18/21 13:12 Freq: Status: Active Protocol: Document 11/18/21 13:13 CGR (Rec: 11/18/21 13:29 CGR [id number]) OT-Transfer Assessment Sit to and From Stand Sit to and from Stand Standby Assistance Transfers Transfer Ability Standby Assistance Technique Transfer Destination Chair Transfer Technique Stand Step Pivot Devices Transfer Assistive Devices Bed Rail,Front Wheeled Walker Comments Mobility Comments Pt ambulated to the sink and back with SOB. OT- Balance Assessment Sitting Balance and Reactions Static Sitting Balance Ability Normal Dynamic Sitting Balance Ability Good M8 OT- IP Objective Assessments Start: 11/18/21 13:12 Freq: Status: Active Protocol: Document 11/18/21 13:13 CGR (Rec: 11/18/21 13:29 CGR [id number]) OT Gross Range of Motion Upper Extremity Range of Motion Assessment Within Functional Limits OT Strength Upper Extremity Strength Assessment Within Functional Limits Comments Strength Comments shlds 4/5, arms 5/5, hands 4+/ 5 OT- Coordination Assessment Upper Extremity Finger to Nose Test Within Functional Limits Finger Tapping Test Within Functional Limits OT-Muscle Tone Assessment Muscle Tone WNL Yes M9 OT- IP Assessment and Plan Start: 11/18/21 13:12 Freq: Status: Active Protocol: Document 11/18/21 13:13 CGR (Rec: 11/18/21 13:29 CGR [id number]) OT Summary Assessment and Plan Potential Rehabilitation Potential Excellent Analytic Complexity at Evaluation Low Summary OT Impairments Pain,Shower Transfers,Activity Tolerance Progress Towards Goals Slow Progress due to Activity Tolerance Assessment Summary Pt presents as a low complexity evaluation s/p admit for SOB, BLE swelling/ wounds and found to have B pleural effusions. Pt is close to his baseline but states that he has had more trouble with endurance in the last 6 months. Pt may benefit from 1- 2 sessions for education on energy conservation with ADLs. Recommendation is for discharge home with family when medically stable. Goals Bathing Goal Independent Shower Transfer Goal Independent Patient/Caregiver Education Goal Demonstrate Energy Conservation and Pacing Days to Meet Goals 2 Frequency of Treatment Frequency Of Treatment Once a Day Treatment Plan OT Treatment Plan ADL Training,Functional Mobility,Patient/Family Education,Discharge Planning Other Treatment Recommendations and Next shower (if able d/t LB wounds) Treatment Focus and energy conservation Discharge Recommendations OT Discharge Recommendations Home with Assistance Transportation Needs at Discharge Private Vehicle
--- NOTE | 2021-11-18 13:15 | PT.IIE ---
Surgical History (Last Updated 11/18/21 @ 13:00 by Thomas Samuel DO) History of hernia surgery History of surgery on arm Hx of tonsillectomy Medical History (Last Updated 11/18/21 @ 13:00 by Thomas Samuel DO) CAD (coronary artery disease) Diabetes NSTEMI (non-ST elevated myocardial infarction) Pre-diabetes Physical Therapy Inpatient Evaluation/Re-Eval M1 PT/OT-IP Prior Functional Status Start: 11/18/21 12:35 Freq: NEEDED Status: Active Protocol: Document 11/18/21 12:44 [facility] (Rec: 11/18/21 13:15 [facility] [id number]) Medical Review Prior Functional Status Medical History Reviewed Yes Communication communication with nursing prior to PT consult as pt was having his wounds dressed Mobility and Gait pt reports he has been experiencing increasing SOB with ambulation and needs to sit down after ambulating 10 feet. 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 [place] and SOB limits his activity at work as he has to sit and rest frequently Social History Household Members spouse Living Arrangements House Number of Floors (Floors) One Floor M2 PT-IP Current Condition Start: 11/18/21 12:35 Freq: NEEDED Status: Active Protocol: Document 11/18/21 12:44 [facility] (Rec: 11/18/21 13:15 [facility] [id number]) Physical Therapy Current Condition Current Condition Evaluation Date 11/18/21 Treatment Diagnosis SOB/dyspnea M3 PT-IP Subjective Start: 11/18/21 12:35 Freq: NEEDED Status: Active Protocol: Document 11/18/21 12:44 [facility] (Rec: 11/18/21 13:15 [facility] [id number]) Subjective Physical Therapy Visit Type Type Initial Evaluation Visit Start Time 11:30 Visit Stop Time 11:55 Total Visit Minutes 25 Physical Therapy Visit Comments Patient Comments Akira agrees to PT, he denies and SOB at rest. He states his legs have progressively become more swollen over the past few years and SOB limits his activity Patient Goals pt would like to increase his tolerance for standing and gait without SOB M4 PT-IP Mobility and Gait Start: 11/18/21 12:35 Freq: NEEDED Status: Active Protocol: Document 11/18/21 12:44 [facility] (Rec: 11/18/21 13:15 [facility] [id number]) PT-Transfer Assessment Sit to and From Stand Sit to and from Stand Independent Equipment Transfer Assistive Device Gait Belt Transfers Transfer Destination Chair Transfer Technique Stand Step Pivot Transfer Ability Level of Assist Standby Assistance Gait Assessment Gait Gait Assistance Required: Standby Assistance Distance (Feet) 20 Able to Maintain Weight Bearing Status Yes During Gait Assistive Devices Assistive Device Gait Belt,Front Wheeled Walker Gait Deviations General Gait Pattern Decreased Stride Length Factors Limiting Gait Function Factors Limiting Gait Function Respiratory Distress Comments Gait Comments pt's O2 sats were 95 sitting in bed side chair, after 10 feet of ambulation with FWW his O2 sats were checked again in standing and they had dropped to 80. He ambulated another 10 feet back to the bedside chair and sat with SBA . It took approx 5 min for his O2 sats to rise again back to 90. Pt also notes his legs pain limit his gait however SOB and endurance is limiting factor PT-Balance Assessment Sitting Balance and Reactions Static Sitting Balance Ability Normal Dynamic Sitting Balance Ability Normal Standing Balance and Reactions Static Standing Balance Ability Good Dynamic Standing Balance Ability Good M5 PT-IP Objective Assessments Start: 11/18/21 12:35 Freq: NEEDED Status: Active Protocol: Document 11/18/21 12:44 [facility] (Rec: 11/18/21 13:15 [facility] [id number]) Orientation Orientation/Cognition Level of Alertness Alert Orientation Name,Age,Birthday,Month,Date, Year,Day of Week,Place, Situation Safety Awareness Understands Safety Issues Gross Range of Motion Upper Extremity ROM Assessment Within Functional Limits Lower Extremity ROM Assessment Bilaterally Impaired Impairments pt notes he is in need of knee replacements B, his knee ROM is very limited his was able to flex to 75 AROM knee flexion while sitting with legs reclined in bed side chair. Ankle ROM limited 5 degrees DF B most likely due to LE swelling and edema Strength Upper Extremity Strength Assessment Within Functional Limits Lower Extremity Strength Assessment Bilaterally Impaired Knee 4/5 Muscle Tone Muscle Tone WNL Yes M6 PT-IP Treatment Start: 11/18/21 12:35 Freq: NEEDED Status: Active Protocol: Document 11/18/21 12:44 [facility] (Rec: 11/18/21 13:15 [facility] [id number]) Physical Therapy Treatment Exercises Exercises Ankle Pumps Knee ROM Measurement 75 deg flexion B M7 PT-IP Assessment and Plan Start: 11/18/21 12:35 Freq: NEEDED Status: Active Protocol: Document 11/18/21 12:44 [facility] (Rec: 11/18/21 13:15 [facility] [id number]) PT Summary Assessment and Plan Potential Rehabilitation Potential Good Status of Condition at Evaluation Evolving Summary Impairments Pain,ROM,Strength,Activity Tolerance Assessment Summary Akira is a 76 year old male referred to PT with SOB/ dyspnea. He lives at home with his and travels to [place] for work. His chief complaint is worsening shortness of breath and generalized weakness for quite some time but worse in the past 2 years. 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 He is very limited in his ambulation distance due to shortness of breath and he states he has to take a break and rest for 10 min after walking 10-15 feet to be able to continue. With his evaluation today he has pitting edema in his legs with multiple sores which have been dressed. He presents with decreased ankle ROM and knee ROM B. This swelling clearly limits his ankle ROM but he reports his knee pain limits his knee ROM and he states he is in need of B TKA. O2 sats were 95 at rest in a seated position, he ambulated in room SBA with a fww and I retook his sats after 10 feet of ambulation and he had dropped to 80. He ambulated 10 feet back to bedside chair and was able to transfer with SBA. It took approx 5 min for his sats to return to 90. Pt has difficulty breathing in through his nose and he is a mouth breather. He would benefit from PT at this point for endurance training with gait as well as LE ROM exercises to encourage blood flow and help with mobility. He may also benefit from using a fww in place of his cane at this point Goals Bed Mobility Goal Independent Transfer Goal Independent Gait Goal Front Wheel Walker Gait Distance 50 feet Other Goals Pt is able to ambulate 20 feet prior to SOB and O2 sats dropping and needing a rest break Days to Meet Goals 10 Frequency of Treatment Frequency Of Treatment Once a Day Treatment Plan Physical Therapy Treatment Plan Gait Training,Therapeutic Exercise Other Recommendations and Next Treatment work on ankle and knee ROM Focus exercises, diaphragmatic breathing and endurance training with gait Recommendations To Nursing Amount of Assist Needed Standby Assistance Discharge Recommendations PT Discharge Recommendations Home Transportation Needs at Discharge Private Vehicle
--- NOTE | 2021-11-18 14:45 | CM.DANOTE ---
Initial DCP Assessment Note Pt is a 76 yo male, resident of [place], arrives with SOB and pain, weakness in both legs H+P states: This is a 76 year old male with PMH of NSTEMI in early 2019, was transferred from ER here to [facility] where he was found to have an EF of 20-25%, and was transferred to [facility] for CABG. Unfortunately, he developed COVID infection and CABG was not done. He continued on some medications but did not follow up with the surgeons or any providers since. 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 Patient hopeful he will soon have better activity tolerance; patient can only walk 5-10 feet until he requires a rest break d/t SOB/dyspnea. Patient reports to PT he is in need for B knee replacements Therapies have cleared patient for return home w/spouse upon DC. r/o need for HH RN for LE wound dressing changes closer to DC ELDON Loco Discharge Planning/Care Management CM Discharge Assessment Start: 11/18/21 14:38 Freq: Status: Active Protocol: Document 11/18/21 14:38 [facility] (Rec: 11/18/21 14:45 [facility] [id number]) Discharge Planning Assessment Assigned Brimming Machine Operator ELDON Patel DPOA/Assigned Designee Name Constance Swanson, spouse Contact Information [phone] Advance Directives? No Advance Directives on File No History Provided By Patient,Medical Record Has Patient been admitted in last 30 No days? Prior Living Arrangements House Household Members spouse Type of transporation used prior to Drives own vehicle admit Independent with ADL's Yes: Poor activity karla - Requires frequent rest breaks d/t SOB/dyspnea Is patient alert and oriented? Yes Needs Assistance With Meal Prep,Home Chores / Shopping Patient/Family Preference Home with Home Health Barriers to Discharge No Comment Home w/spouse, may benefit from HH PT and Nursing for wound care, will plan to discuss w/patient and spouse upon DC Discharge Plan Home Transportation Arrangement Spouse Additional Comment r/o need for HH
[2021-11-18] MEDS: CEFAZOLIN VIAL 1 GM in SODIUM CHLORIDE 0.9% 100 ML IV (16:26)
[2021-11-18] MEDS: SODIUM CHLORIDE 0.9% 250 ML 21 ML IV (16:26)
[2021-11-18] MEDS: FUROSEMIDE 40 MG TABLET PO (16:32)
[2021-11-18 18:30] LABS: Troponin I 0.028 ng/mL (0.01-0.034)
[2021-11-18] MEDS: ATORVASTATIN 20 MG TABLET 40 MG PO (20:59)
[2021-11-19] VITALS (10 sets, daily range): BP systolic 91–123; BP diastolic 68–77; PULSE 94–108; RESP 17–18; TEMP 36–36.6; O2SAT 93–96
[2021-11-19] MEDS: CEFAZOLIN VIAL 1 GM in SODIUM CHLORIDE 0.9% 100 ML IV ×4 (00:16→23:38)
[2021-11-19] MEDS: SODIUM CHLORIDE 0.9% FLUSH 10 ML IV ×4 (00:17→23:38)
--- NOTE | 2021-11-19 03:13 | PC.NURSE ---
Pt denies pain. BLE 3+ edema w/ wheeping. Non productive cough, with clear lung auscultation. No insulin given, last BS 99.
[2021-11-19 06:21] LABS: INR 1.4 (0.9-1.3); Prothrombin Time 16.5 SECONDS (10.1-12.7)
[2021-11-19 06:24] LABS: PTT Partial Thromboplastin Tim 37 SECONDS (26-36)
[2021-11-19 06:31] LABS: Alanine Aminotransferase 18 IU/L (<50); Albumin 3.7 g/dL (3.5-5.0); Albumin Globulin Ratio 1.3 (1.0-2.8); Alkaline Phosphatase 103 U/L (38-126); Aspartate Aminotransferase 25 IU/L (17-59); BUN Creatinine Ratio 25.5 (6-22); Bilirubin Total 1.8 mg/dL (0.2-1.3); Blood Urea Nitrogen 36 mg/dL (9-20); Calcium 8.8 mg/dL (8.4-10.2); Carbon Dioxide 30 mmol/L (22-32); Chloride 97 mmol/L (98-107); Cholesterol 149 mg/dL (140-199); Estimated Glomerular Filt Rate 52 mL/min (>60); Globulin 2.9 g/dL (1.7-4.1); Glucose 107 mg/dL (80-110); HDL Cholesterol 54 mg/dL (40-60); HEMOLYSIS < 15 (0-50); LDL Cholesterol Calculated 83 mg/dL (<100); Magnesium 2.3 mg/dL (1.6-2.3); Potassium 3.9 mmol/L (3.4-5.1); Sodium 137 mmol/L (137-145); Total Protein 6.6 g/dL (6.3-8.2); Triglycerides 60 mg/dL (35-150)
[2021-11-19 06:56] LABS: Add Manual Diff / Slide Review NO; Basophils Absolute Auto 100 /uL (0-100); Basophils Percent Auto 1.1 % (0-2); Eosinophils Absolute Auto 200 /uL (0-450); Eosinophils Percent Auto 2.5 % (2-4); Hematocrit 51.4 % (41-53); Hemoglobin 16.8 g/dL (13.5-17.5); Lymphocytes Absolute Auto 300 /uL (1100-4500); Mean Corpuscular HGB Conc 32.6 % (30-36); Mean Corpuscular Hemoglobin 27.9 PG (26-34); Mean Corpuscular Volume 85.4 fL (80-100); Monocytes Absolute Auto 700 /uL (0-900); Monocytes Percent Auto 7.6 % (3-14); Neutrophils Absolute Auto 8100 /uL (1500-7000); Neutrophils Percent Auto 85.8 % (50-75); Platelet Count 158 X10^3/uL (150-400); Red Blood Cell Count 6.01 X10^6/uL (4.5-5.9); Red Cell Distribution Width 19.2 % (11.6-14.8); White Blood Cell Count 9.5 X10^3/uL (4.5-11.0)
[2021-11-19 06:59] LABS: TSH w/ Reflex to FT4 2.83 uIU/mL (0.47-4.68)
[2021-11-19 07:07] LABS: Hemoglobin A1C% w Est Avg Glu 8.1 % (4.0-6.0)
--- NOTE | 2021-11-19 08:07 | P.PN_ITS ---
Subjective Subjective Date Patient Seen: 11/19/21 Time Patient Seen: 08:00 Interval history: Patient presented with?progressive weakness, abdominal distension, shortness of breath, lower extremity edema, and leg ulcerations for the past few months. He denied chest pain, palpitations, fever, chills, nausea, vomiting, abdominal pain. His ulcerations have been getting worse over the past few months, starting in his left leg but worsened the past week in the right. He could only walk about 10 ft now before getting short of breath. He could not lay flat at night. Finding it easier to lay flatter at night. Less coughing at night. Less swelling in his lower extremities. No fever or chills. No nausea or vomiting. Urinating a lot. Understands the need for to this current treatment and the need to continue with follow-up once discharged. Exam Vital Signs (past 8 hours): - 11/19/21 03:00 11/19/21 04:58 11/19/21 07:00 Temperature 97.9 F Pulse Rate 100 H Respiratory Rate 18 Blood Pressure 108/71 Pulse Oximetry 95 95 Oxygen Delivery Method Room Air Room Air Oxygen Flow Rate 0 0 Oxygen Delivery Method Room Air Oxygen Flow Rate 0 Narrative Exam Narrative: General:? Patient is well developed and well nourished, in no acute medical distress. HEENT:? Normocephalic, atraumatic, extraocular muscles intact, oral pharynx is clear and mucous membranes are moist. Neck: supple and symmetric, trachea is midline, no cervical adenopathy. Chest:? Normal AP diameter and contour without kyphoscoliosis, no tachypnea, equal chest rise bilaterally. Lungs:? Minimal bibasilar rales without wheezing, diminished breath sounds at the lung bases. Cardio:? Normal rhythm and rate. Heart sounds S1 and S2, no extra sounds. Pulses bilaterally in the distal or extremities. Persistent 2+ edema to the knees. Abdomen: Soft, non-tender, slight distension. Musculoskeletal:? Muscle strength and tone are equal within normal limits, no deformity. Extremities: Various lower extremity ulcerations, slight erythema of dorsum of left foot surrounding an ulceration. Ulcerations are without warmth, surrounding erythema or purulence. Have a distinct raised border. Appear arterial in nature. Many are covered with dressings at this time. Skin:? Pale,? Warm to touch,dry and intact except as noted changes in extremities. Neuro:? Alert and orientated x3,? sensation to touch intact in all extremities, no gross deficits noted of cranial nerves. Psych:? Patient has a well-kept appearance, appropriate affect, normal mentation. Objective Labs Result Diagrams: 11/19/21 06:10 11/19/21 05:54 Labs: Laboratory Results - last 24 hr 11/18/21 11/19/21 11/19/21 18:00 05:54 05:54 WBC RBC Hgb Hct MCV MCH MCHC RDW Plt Count Neut % (Auto) Lymph % (Auto) [place] % (Auto) Eos % (Auto) Baso % (Auto) Neut # (Auto) Lymph # (Auto) [place] # (Auto) Eos # (Auto) Baso # (Auto) PT 16.5 H INR 1.4 H APTT 37 H Sodium 137 Potassium 3.9 Chloride 97 L Carbon Dioxide 30 BUN 36 H Creatinine 1.41 H Estimated GFR 52 L BUN/Creatinine Ratio 25.5 H Glucose 107 D Hemoglobin A1c Calcium 8.8 Magnesium 2.3 Total Bilirubin 1.8 H AST 25 ALT 18 Alkaline Phosphatase 103 Troponin I 0.028 Total Protein 6.6 Albumin 3.7 Globulin 2.9 Albumin/Globulin Ratio 1.3 Triglycerides 60 Cholesterol 149 LDL Cholesterol, Calc 83 HDL Cholesterol 54 TSH 11/19/21 11/19/21 11/19/21 05:54 06:10 06:44 WBC 9.5 RBC 6.01 H Hgb 16.8 Hct 51.4 MCV 85.4 MCH 27.9 MCHC 32.6 RDW 19.2 H Plt Count 158 Neut % (Auto) 85.8 H Lymph % (Auto) 3.0 L [place] % (Auto) 7.6 Eos % (Auto) 2.5 Baso % (Auto) 1.1 Neut # (Auto) 8100 H Lymph # (Auto) 300 L [place] # (Auto) 700 Eos # (Auto) 200 Baso # (Auto) 100 PT INR APTT Sodium Potassium Chloride Carbon Dioxide BUN Creatinine Estimated GFR BUN/Creatinine Ratio Glucose Hemoglobin A1c 8.1 H Calcium Magnesium Total Bilirubin AST ALT Alkaline Phosphatase Troponin I Total Protein Albumin Globulin Albumin/Globulin Ratio Triglycerides Cholesterol LDL Cholesterol, Calc HDL Cholesterol TSH 2.83 [facility] Medical History (Updated 11/18/21 @ 13:00 by Thomas Samuel DO) CAD (coronary artery disease) Diabetes NSTEMI (non-ST elevated myocardial infarction) Pre-diabetes Surgical History (Updated 11/18/21 @ 13:00 by Thomas Samuel DO) History of hernia surgery History of surgery on arm Hx of tonsillectomy Family History (Updated 11/18/21 @ 13:00 by Thomas Samuel DO) Mother CAD (coronary artery disease) Sister Diabetes mellitus Social History household members: spouse Smoking Status: Never smoker alcohol intake: current Assessment & Plan Assessment & Plan narrative: 1. Acute on chronic systolic heart failure Improving. Acute injury to improving despite diuresis with furosemide. Clinically improving. Troponin downtrending. We will begin to initiate low- dose beta-lianna and as renal function improves also an SERGIO-inhibitor. Keep low dose due to generally low blood pressure. 2. CAD ?Known CAD with LHC at [facility] 03/2019. LHC showed an occluded LAD with multivessel disease and was recommended for CABG. Troponins are downtrending. ASA and statin are ordered. Start beta lianna today and sergio-inhibitor when renal function improves. 3. DANG Improving despite diuresis. Continue to follow. 4. 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 ?Continue diuresis as above. 5. DM ?Admit glucose 263. Continue FS ACHS, start lantus 5 units with sliding scale. Carb consistent diet. 6. Peripheral lower extremity ulcerations with left foot cellulitis. ?Suspect arterial ulcerations with weeping. Less edema of the lower extremities with diuresis. He possibly has a mild left foot cellulitis and will start on cefazolin and to be continued. Ordered arterial duplex study which is pending. Consider CT angiogram, consider referral for vascular surgery depending on findings. Continue to follow clinically. Code: Full, surrogate decision maker is patient's spouse. Dispo: Admit as inpatient. Anticipate discharge home at sometime possibly in the next 3-5 days depending on response to diuresis and further testing. may need transfer as discussed above Time Spent With Patient Critical Care time: I spent a total of [] minutes of critical care time on this patient's care today; this time is exclusive of procedural time. Quality VTE Deep Vein Thrombosis/Pulmonary Embolism Present on Admission: No
[2021-11-19] MEDS: ENOXAPARIN 40 MG/0.4 ML SYRINGE SUBCUT (08:26)
[2021-11-19] MEDS: ASPIRIN EC 81 MG TABLET PO (08:27)
[2021-11-19] MEDS: FUROSEMIDE 40 MG TABLET PO ×2 (08:27→17:15)
[2021-11-19] MEDS: INSULIN GLARGINE 100 UNIT/ML 3ML PEN SUBCUT (08:27)
[2021-11-19] MEDS: BENZONATATE 100 MG CAPSULE PO ×2 (08:31→17:15)
[2021-11-19] MEDS: guaiFENesin Solution 100 MG/5 ML UDC PO ×2 (08:31→19:43)
[2021-11-19] MEDS: METOPROLOL ER 25 MG TABLET PO (08:53)
--- NOTE | 2021-11-19 10:27 | OT.IP.TRT ---
Current Diagnoses Acute on chronic systolic (congestive) heart failure (11/18/21) Occupational Therapy Treatment Note M2 OT-IP Current Condition Start: 11/18/21 13:12 Freq: Status: Active Protocol: Document 11/18/21 13:13 [facility] (Rec: 11/18/21 13:29 [facility] [id number]) Occupational Therapy Current Condition Current Condition Evaluation Date 11/18/21 Treatment Diagnosis SOB, BLE swelling and wounds Diagnosis Onset Date 11/18/21 M3 OT- IP Subjective and Pain Start: 11/18/21 13:12 Freq: Status: Active Protocol: Document 11/19/21 09:48 [facility] (Rec: 11/19/21 10:55 [facility] [id number]) OT- Subjective Occupational Therapy Visit Type Type Treatment Note Visit Start Time 09:48 Visit Stop Time 10:27 Total Visit Minutes 39 Occupational Therapy Visit Comments Patient Comments Pt states just washed up earlier, use of the bathroom, and not wanting to get up at this time. 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 OT Pain Assessment Pain When Pain Assessed At Rest Pain Present Pain Present Pain Reported M4 OT- IP ADL's Start: 11/18/21 13:12 Freq: Status: Active Protocol: Document 11/18/21 13:13 [facility] (Rec: 11/18/21 13:29 [facility] [id number]) OT WHO-Icrg-Ewiecwv General Evaluation Self-Feeding Ability Independent Comments OT Self-Feeding Comments pt eating lunch when OT entered OT ADL-Grooming General Evaluation Grooming Ability Independent Areas Needing Assistance Combing/Brushing Hair,Face Washing Comments OT Grooming Comments standing at sink OT ADL-Oral Care General Eval Oral Care Ability Independent Areas of Assistance Brushing Teeth Comments Oral Care Comments standing at sink OT ADL-Dressing Comments OT Dressing Comments not performed, pt states that he performs without difficulty at baseline. OT ADL-Toileting Comments OT Toileting Comments not performed OT ADL-Bathing Comments OT Bathing Comments not performed M5 OT- IP IADL's Start: 11/18/21 13:12 Freq: Status: Active Protocol: Document 11/18/21 13:13 [facility] (Rec: 11/18/21 13:29 [facility] [id number]) OT-Instrumental Activities of Daily Living Deficits IADL Deficits Identified No Deficits Home Safety Awareness Awareness of Need for Assistance at Home Good Awareness Ability to Problem Solve Emergency Able to Problem Solve Situations Medication Management Medication Management No Deficits Identified Money Management Money Management No Deficits Identified Meal Preparation Meal Preparation Caregiver Provides Assist Director Diabetes Director Diabetes Caregiver Provides Assist Driving Driving Comments 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 M6 OT- IP Functional Cognition Start: 11/18/21 13:12 Freq: Status: Active Protocol: Document 11/19/21 09:48 [facility] (Rec: 11/19/21 10:55 [facility] [id number]) Cognitive Factors Limiting Selfcare Function Cognitive Ability Level of Alertness Alert Patient Orientation Name,Age,Birthday,Month,Date, Year,Day of Week,Place, Situation Attention Span Ability Capable of Focused Attention, Capable of Sustained Attention Ability to Follow Commands Able to Follow One Step Commands with Increased Time, Able to Follow One Step Commands with Repetition Cognitive Comments Cognitive Assessment Comments Pt having difficulty to spell when trying to spell the word transfer when suggesting to pt to get a tub transfer bench for increase ease and safety to get into and out of the tub . Pt is considering to get the tub changed out possibly. To do formal cognitive assessment. Pt also asking how important would his cardiac precautions be if he ends up having heart surgery. Emphasized to pt best to follow all precautions. M7 OT- IP Mobility and Balance Start: 11/18/21 13:12 Freq: Status: Active Protocol: Document 11/19/21 09:48 [facility] (Rec: 11/19/21 10:55 [facility] [id number]) OT-Transfer Assessment Comments Mobility Comments Pt not wanting to get up at this time as just got up earlier. OT- Balance Assessment Sitting Balance and Reactions Static Sitting Balance Ability Normal Dynamic Sitting Balance Ability Good M8 OT- IP Objective Assessments Start: 11/18/21 13:12 Freq: Status: Active Protocol: Document 11/18/21 13:13 [facility] (Rec: 11/18/21 13:29 [facility] [id number]) OT Gross Range of Motion Upper Extremity Range of Motion Assessment Within Functional Limits OT Strength Upper Extremity Strength Assessment Within Functional Limits Comments Strength Comments shlds 4/5, arms 5/5, hands 4+/ 5 OT- Coordination Assessment Upper Extremity Finger to Nose Test Within Functional Limits Finger Tapping Test Within Functional Limits OT-Muscle Tone Assessment Muscle Tone WNL Yes M9 OT- IP Assessment and Plan Start: 11/18/21 13:12 Freq: Status: Active Protocol: Document 11/19/21 09:48 [facility] (Rec: 11/19/21 10:55 [facility] [id number]) OT Summary Assessment and Plan Potential Rehabilitation Potential Excellent Analytic Complexity at Evaluation Low Summary OT Impairments Pain,Shower Transfers,Activity Tolerance Progress Towards Goals Slow Progress due to Activity Tolerance Assessment Summary Pt too tired to get up at this time but able to go over equipment needs at home and set-up. Pt thinking and agreed by OT would be best to move downstairs, get a tub bench, hand held shower spray, FWW/4ww, and WC for longer distances. Pt did not get up today as too tired but able to educate pt on energy conservation and go over equipment needs if going home. Pt to go home with 24/7 assist and home health, however pending medical status and endurance may benefit from short skilled rehab. Goals Bathing Goal Independent Shower Transfer Goal Independent Patient/Caregiver Education Goal Demonstrate Energy Conservation and Pacing Days to Meet Goals 5 Frequency of Treatment Frequency Of Treatment Once a Day Treatment Plan OT Treatment Plan ADL Training,Functional Mobility,Patient/Family Education,Discharge Planning Discharge Recommendations OT Discharge Recommendations Home with 24/7 Assist Available,Home Health,SNF Rehab,Home vs SNF Transportation Needs at Discharge Private Vehicle,Wheelchair/ Cabulance
--- NOTE | 2021-11-19 11:28 | PT.IPTN ---
Current Diagnoses Acute on chronic systolic (congestive) heart failure (11/18/21) Physical Therapy Treatment Note M2 PT-IP Current Condition Start: 11/18/21 12:35 Freq: NEEDED Status: Active Protocol: Document 11/18/21 12:44 AMH (Rec: 11/18/21 13:15 AMH [id number]) Physical Therapy Current Condition Current Condition Evaluation Date 11/18/21 Treatment Diagnosis SOB/dyspnea M3 PT-IP Subjective Start: 11/18/21 12:35 Freq: NEEDED Status: Active Protocol: Document 11/19/21 11:28 DLM (Rec: 11/19/21 11:47 DLM [id number]) Subjective Physical Therapy Visit Type Type Treatment Note Visit Start Time 10:55 Visit Stop Time 11:28 Total Visit Minutes 33 Number of PULL UP HAND Visits 0 Physical Therapy Visit Comments Patient Comments He plans to stay on the first floor of his multi-level house . He will set up a hospital bed on the main level with his electric recliner close. He reports soreness in left foot with gait but no pain in right LE. Patient Goals Discharge home. M4 PT-IP Mobility and Gait Start: 11/18/21 12:35 Freq: NEEDED Status: Active Protocol: Document 11/19/21 11:28 DLM (Rec: 11/19/21 11:47 DLM [id number]) PT-Transfer Assessment Sit to and From Stand Sit to and from Stand Standby Assistance,Use of Upper Extremities Equipment Transfer Assistive Device Gait Belt,4 Wheeled Walker Transfers Transfer Destination Chair Transfer Technique Stand Step Pivot Transfer Ability Level of Assist Standby Assistance,Use of Upper Extremities Comments Mobility Comments Pt up in the recliner and wants to stay up. He needs reminders to keep 4WW at all time and not park it and walk away from it. Educated pt in use of brakes and seat on 4WW to manage his SOB and have a seat to rest as he fatigues Gait Assessment Gait Gait Assistance Required: Standby Assistance Distance (Feet) 44 Able to Maintain Weight Bearing Status Yes During Gait Assistive Devices Assistive Device Gait Belt,4 Wheeled Walker Gait Deviations General Gait Pattern Antalgic,Decreased Stride Length Factors Limiting Gait Function Factors Limiting Gait Function Decreased Activity Tolerance, Pain Comments Gait Comments He c/o shortness of breath with gait. He is limited in his distance by fatigue. O2 sats with gait on room air are 92% with HR 103. Stair Climbing Assessment Comments Stair Climbing Comments he reports he will not need to do stairs at home PT-Balance Assessment Sitting Balance and Reactions Static Sitting Balance Ability Good Dynamic Sitting Balance Ability Good Standing Balance and Reactions Static Standing Balance Ability Good Dynamic Standing Balance Ability Good Device Used 4WW M5 PT-IP Objective Assessments Start: 11/18/21 12:35 Freq: NEEDED Status: Active Protocol: Document 11/19/21 11:28 DLM (Rec: 11/19/21 11:47 DL [id number]) Orientation Orientation/Cognition Level of Alertness Alert Orientation Name,Age,Birthday,Month,Date, Year,Day of Week,Place, Situation Language Function Ability No Deficits Noted Safety Awareness Understands Safety Issues Memory Description No Deficits Noted Comments needs repetition of new information M6 PT-IP Treatment Start: 11/18/21 12:35 Freq: NEEDED Status: Active Protocol: Document 11/19/21 11:28 DLM (Rec: 11/19/21 11:47 [facility] [id number]) Physical Therapy Treatment Exercises Exercises Ankle Pumps Education Education Provided Safety Other Treatments Other Treatment Performed Educated him in need to elevate his feet to manage LE edema. He has draining wounds bilateral LE's with dressings in place. Educated him in the importance of getting up for short periods of walking and standing at home frequently at home to manage his strength. He will need to protect the skin of distal LE's since he is at increased risk for skin tears due to his edema. M7 PT-IP Assessment and Plan Start: 11/18/21 12:35 Freq: NEEDED Status: Active Protocol: Document 11/19/21 11:28 DLM (Rec: 11/19/21 11:47 [facility] [id number]) PT Summary Assessment and Plan Summary Impairments Pain,ROM,Strength,Bed Mobility ,Transfers,Gait,Activity Tolerance Progress Towards Goals Progressing Toward Goals Assessment Summary Akira is alert and sitting up in the recliner with his feet on the floor. He reports his leg swelling is improving. He shows a small improvement in his distance of gait this visit with a wheeled walker. Tried the 4WW this visit which he managed well. The 4WW gives him a place to sit and rest as needed when up ambulating or standing for ADL 's. Pt is motivated to return home at discharge. He could benefit from home health therapy to assess home equipment needs and increase his activity tolerance in his home environment. Goals Bed Mobility Goal Independent Transfer Goal Independent Gait Goal Independent,Front Wheel Walker Gait Distance 50 feet Days to Meet Goals 3 Frequency of Treatment Frequency Of Treatment Once a Day Treatment Plan Physical Therapy Treatment Plan Bed Mobility Training,Transfer Training,Gait Training, Therapeutic Exercise,Balance Retraining,Discharge Planning Other Recommendations and Next Treatment education to manage LE edema Focus Precautions Other Precautions wounds bilateral LE's, EF 20- 25% Recommendations To Nursing Amount of Assist Needed Standby Assistance Discharge Recommendations PT Discharge Recommendations Home with Assistance,Home Health Other Discharge Recommendations he reports good family support , 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
[2021-11-19] MEDS: INSULIN LISPRO 100 UNIT/ML 3ML VIAL SUBCUT ×2 (17:12→20:47)
--- NOTE | 2021-11-19 17:30 | DIET.CONS2 ---
Dietary Inpatient Consultation Note Admission Date: 11/18/2021 06:39 76y M with SOB and 3+ pitting edema referred to nutrition for poor appetite. Pt found to have medication management and follow-through deficiencies leading to fluid overload status causing poor appetite. Pt being diuresed in hospital with POs 100% nearly every meal since admission. Pt with admit BG 235 but BGs since initiation of 5U Lantus with ssi BGs have been WNL. Continue heart healthy diet with 60g CHO limit per meal. Diet: 11/18/21 Breakfast Carbohydrate Consistent Diet Diet Modifications: heart healthy Carbohydrate level: Large (4 CHO) Nutrition Percent Meal Consumed 100% 11/19/21 12:48 Percent Meal Consumed 100% 11/19/21 08:55 Percent Meal Consumed 100% 11/19/21 03:32 Percent Meal Consumed 75% 11/18/21 18:00 Percent Meal Consumed 100% 11/18/21 13:13 Percent Meal Consumed 100% 11/18/21 08:40 Electronically Signed by: Silke Amor 11/19/21 17:30 Clinical Dietitian [address] [address]
[2021-11-19] MEDS: ONDANSETRON 4 MG/2 ML INJ IV (20:20)
[2021-11-19] MEDS: ATORVASTATIN 20 MG TABLET 40 MG PO (20:47)
--- NOTE | 2021-11-19 21:57 | PC.NURSE ---
Patient is alert and oriented. Breath sounds with crackles in left LL; RA sat 96%. Does endorse feeling of SOB at rest and with activity and reports only able to take about 10 steps and then has to sit down due to SOB. Has persistent, intermittent, non-productive cough and is taking Tessalon and Guaifenesin. HRR with telemetry reading of SR. Reports he has chronic nausea/lightheadedness with activity. Medicated earlier with Zofran for the nausea. Has 3+ bilateral LE weeping edema which he reports is improved from admission. Abdomen is firm to touch and skin is pink to lower abdomen; more firm just below umbilicus. BT are present and reports having had BM yesterday. Has frequency/urgency related to use of diuretic; voiding per urinal. Is able to move himself in bed. When out of bed uses walker and 1 assist. Allevyn dressings to right LE and left foot are CDI. Scattered scabbed abrasions noted on bilateral LE. Fall risk score is high and bed/chair alarm are being used.
[2021-11-20] VITALS (11 sets, daily range): BP systolic 102–115; BP diastolic 63–78; PULSE 51–98; RESP 17–20; TEMP 35.7–36.6; O2SAT 93–98
[2021-11-20 07:22] LABS: Add Manual Diff / Slide Review NO; Basophils Absolute Auto 100 /uL (0-100); Basophils Percent Auto 0.7 % (0-2); Eosinophils Absolute Auto 200 /uL (0-450); Eosinophils Percent Auto 2.7 % (2-4); Hematocrit 50.7 % (41-53); Hemoglobin 16.5 g/dL (13.5-17.5); Lymphocytes Absolute Auto 400 /uL (1100-4500); Mean Corpuscular HGB Conc 32.6 % (30-36); Mean Corpuscular Hemoglobin 28.2 PG (26-34); Mean Corpuscular Volume 86.4 fL (80-100); Monocytes Absolute Auto 900 /uL (0-900); Monocytes Percent Auto 9.6 % (3-14); Neutrophils Absolute Auto 7400 /uL (1500-7000); Platelet Count 141 X10^3/uL (150-400); Red Blood Cell Count 5.86 X10^6/uL (4.5-5.9); Red Cell Distribution Width 18.9 % (11.6-14.8); White Blood Cell Count 8.9 X10^3/uL (4.5-11.0)
[2021-11-20 07:35] LABS: Alanine Aminotransferase 16 IU/L (<50); Albumin 3.6 g/dL (3.5-5.0); Albumin Globulin Ratio 1.2 (1.0-2.8); Alkaline Phosphatase 120 U/L (38-126); Aspartate Aminotransferase 27 IU/L (17-59); Bilirubin Total 1.2 mg/dL (0.2-1.3); Blood Urea Nitrogen 41 mg/dL (9-20); Calcium 8.3 mg/dL (8.4-10.2); Carbon Dioxide 28 mmol/L (22-32); Chloride 98 mmol/L (98-107); Estimated Glomerular Filt Rate 47 mL/min (>60); Glucose 182 mg/dL (80-110); HEMOLYSIS < 15 (0-50); Magnesium 2.4 mg/dL (1.6-2.3); Potassium 4.2 mmol/L (3.4-5.1); Sodium 135 mmol/L (137-145); Total Protein 6.6 g/dL (6.3-8.2)
[2021-11-20 07:39] LABS: C-Reactive Protein Quant 5.3 mg/dL (<1.0)
[2021-11-20 07:52] LABS: Procalcitonin 0.17 ng/mL (<0.5)
[2021-11-20] MEDS: CEFAZOLIN VIAL 1 GM in SODIUM CHLORIDE 0.9% 100 ML IV (08:13)
[2021-11-20] MEDS: FUROSEMIDE 40 MG TABLET PO (08:17)
[2021-11-20] MEDS: ENOXAPARIN 40 MG/0.4 ML SYRINGE SUBCUT (08:18)
[2021-11-20] MEDS: ASPIRIN EC 81 MG TABLET PO (08:18)
[2021-11-20] MEDS: SODIUM CHLORIDE 0.9% FLUSH 10 ML IV ×2 (08:18→20:48)
[2021-11-20] MEDS: METOPROLOL ER 25 MG TABLET PO (08:18)
[2021-11-20] MEDS: INSULIN GLARGINE 100 UNIT/ML 3ML PEN SUBCUT (08:24)
[2021-11-20] MEDS: guaiFENesin Solution 100 MG/5 ML UDC PO (09:37)
[2021-11-20] MEDS: BENZONATATE 100 MG CAPSULE PO (09:39)
--- NOTE | 2021-11-20 09:44 | P.PN_ITS ---
Subjective Subjective Date Patient Seen: 11/20/21 Time Patient Seen: 10:00 Interval history: Patient notes peeing very little, only half a urinal container per day. SOB hasn't improved much and still has edema in bilateral LE's. Open to getting a kuo cath to avoid having to pee 10x per night which is what he is currently doing. Exam Vital Signs (past 8 hours): - 11/20/21 05:08 11/20/21 05:08 11/20/21 08:18 Temperature 97.9 F Pulse Rate 96 H 98 H Respiratory Rate 18 Blood Pressure 115/75 108/73 Pulse Oximetry 93 93 Oxygen Delivery Method Room Air Oxygen Flow Rate 0 0 11/20/21 08:56 Temperature 96.2 F L Pulse Rate 51 L Respiratory Rate 20 Blood Pressure 108/73 Pulse Oximetry 97 Oxygen Delivery Method Oxygen Flow Rate 0 Oxygen Delivery Method Room Air Oxygen Flow Rate 0 Narrative Exam Narrative: GEN: no acute distress, pleasant elderly man HEENT: moist mucous membranes, PERRL NECK: trachea midline, no JVD CV: regular rate and rhythm, distant heart tones PULM: bibasilar rales present ABD: soft, nontender, nondistended, no organomegaly EXT: 3+ pitting edema to thighs and abd, superficial wounds to bilateral LE's with scattered blisters, no erythema or purulence NEURO: awake, alert, oriented, no focal deficits Objective Labs Result Diagrams: 11/20/21 07:06 11/20/21 07:06 Labs: Laboratory Results - last 24 hr 11/20/21 11/20/21 11/20/21 07:06 07:06 07:06 WBC 8.9 RBC 5.86 Hgb 16.5 Hct 50.7 MCV 86.4 MCH 28.2 MCHC 32.6 RDW 18.9 H Plt Count 141 L Neut % (Auto) 83.0 H Lymph % (Auto) 4.0 L Benton % (Auto) 9.6 Eos % (Auto) 2.7 Baso % (Auto) 0.7 Neut # (Auto) 7400 H Lymph # (Auto) 400 L Benton # (Auto) 900 Eos # (Auto) 200 Baso # (Auto) 100 Sodium 135 L Potassium 4.2 Chloride 98 Carbon Dioxide 28 BUN 41 H Creatinine 1.52 H Estimated GFR 47 L BUN/Creatinine Ratio 27.0 H Glucose 182 H Calcium 8.3 L Magnesium 2.4 H Total Bilirubin 1.2 AST 27 ALT 16 Alkaline Phosphatase 120 C-Reactive Protein 5.3 H Total Protein 6.6 Albumin 3.6 Globulin 3.0 Albumin/Globulin Ratio 1.2 Procalcitonin 0.17 COUNTS INCLUDE 234 BEDS AT THE [facility] Medical History (Updated 11/18/21 @ 13:00 by Thomas Samuel DO) CAD (coronary artery disease) Diabetes NSTEMI (non-ST elevated myocardial infarction) Pre-diabetes Surgical History (Updated 11/18/21 @ 13:00 by Thomas Samuel DO) History of hernia surgery History of surgery on arm Hx of tonsillectomy Family History (Updated 11/18/21 @ 13:00 by Thomas Samuel DO) Mother CAD (coronary artery disease) Sister Diabetes mellitus Social History household members: spouse Smoking Status: Never smoker alcohol intake: current Assessment & Plan Assessment & Plan narrative: 1. Acute decompensated HFrEF of 20-25% -Last echo 2 years ago, none since then and hasn't followed up with doctors. Likely ischemic given need for CABG at that time. -Unclear why not taking BB's, SERGIO/ARB or spironolactone. Plan to start these once euvolemic. -Currently floridly volume overloaded, start lasix 60mg IV BID. Hold for hypotension. -Add diamox daily for improved diuresis -Kuo for fluid measurement, strict I/O's -Daily weights -F/u repeat echo 2. CAD -Known CAD with LHC at [facility] 03/2019 showing occluded LAD with multivessel disease and was recommended for CABG at [facility] but did not happen due to patient being COVID + -Troponins are downtrending. -Continue ASA and statin 3. DANG -Likely cardiorenal -Should improve with diuresis. -Monitor 4. 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 -Continue diuresis as above. 5. Uncontrolled DM2 -A1c 8.1%, not on home meds for diabetes -FS ACHS, -continue lantus 15 units with sliding scale. -Carb consistent diet. -consider starting metformin on discharge 6. Superficial LE ulcerations -Likely secondary to rapid edema of LE's causing skin blisters and wounds -Wound care -Treat edema as above Code: Full, surrogate decision maker is patient's spouse Constance. Dispo: Several days for IV diuretics Time Spent With Patient Critical Care time: I spent a total of [] minutes of critical care time on this patient's care today; this time is exclusive of procedural time. Quality VTE Deep Vein Thrombosis/Pulmonary Embolism Present on Admission: No
--- NOTE | 2021-11-20 09:56 | DI.ECHO.S_ITS ---
[facility] +---------+ : : [address] [place] [address] : : : : [id number] : : : : Phone: [phone]+ Echocardiogram Report + + :Name: ALBINO DAVIS Study Date: 11/21/2021 Height: 66 in : :[facility] ReadingLocation: Weight: 198 lb : : Gender: Male BSA: 2.0 m2 : :: 1945 Age: 76 yrs BP: 115/75 mmHg: :Reason For Study: Congestive Heart Failure : :Ordering Physician: GUME, : :RAUL Performed By: Michele Burns : :Referring: RAUL DUNAWAY : + + Interpretation Summary This is a technically difficult study enhanced with Definity echocontrast. Indeterminate rhythm. Normal LV size with severely reduced LV systolic function. EF is 15-20%. Moderate biatrial enlargement. No significant valvular abnormalities. Compared to prior study 04/13/2019 no significant changes have occurred. Procedure: A two-dimensional transthoracic echocardiogram with color flow and Doppler was performed. The study quality was technically adequate. Comparison is made with the echocardiogram of 04/13/2019. Left Ventricle: The left ventricle is normal in size and wall thickness. Left ventricular systolic function is severely reduced. The ejection fraction is estimated to be 15-20%. There is severe global hypokinesis of the left ventricle. Diastolic parameters suggest a restrictive filling pattern consistent with probable significantly elevated filling pressures. Right Ventricle: The right ventricle is severely dilated. Right ventricular systolic function is moderate to severely reduced. Atria: Both atria are moderately dilated. The interatrial septum grossly appears intact with no obvious evidence for an atrial septal defect. Mitral Valve: The mitral valve is normal in structure and function. There is mild to moderate mitral regurgitation. Aortic Valve: There is mild aortic valve sclerosis. No aortic regurgitation is present. Tricuspid Valve: The tricuspid valve is normal in structure and function. There is mild tricuspid regurgitation. The right ventricular systolic pressure is estimated to be at least 41 mmHg based on an estimated right atrial pressure of 15 mm Hg. Pulmonic Valve: The pulmonic valve is not well seen, but is grossly normal. There is no pulmonic valvular regurgitation. Great Vessels: The aortic root is normal size. The dimensions of the ascending aorta are normal. The IVC is dilated (diameter is greater than 2.1 cm) and it collapses less than 50% with a sniff. This suggests a high right atrial pressure of 15 mm Hg. Pericardium/ Pleura There is no pericardial effusion. MMode/2D Measurements & Calculations LVIDd: 5.6 cm LVOT diam: 2.1 cm LVIDs: 5.1 cm Ao root diam: 2.9 cm FS: 8.9 % asc Aorta Diam: 3.3 cm IVSd: 1.1 cm LVPWd: 0.80 cm LV arzate. diameter/BSA (cm/m^2): 2.8 LV sys. diameter/BSA (cm/m^2): 2.6 LA dimension: 4.8 cm RA long axis: 5.8 cm LA A2 area: 29.4 cm2 RA area: 29.3 cm2 LA A4 area: 27.6 cm2 RA vol: 125.0 ml LA length (vol): 7.3 cm RA : 62.8 ml/m2 LA vol: 93.8 ml IVC diam: 2.9 cm LA vol index: 47.1 ml/m2 RVD1 (basal): 5.4 cm LVLs ap4: 9.2 cm LVLd ap2: 9.6 cm TAPSE_phl: 1.1 cm LVLs ap2: 9.2 cm Doppler Measurements & Calculations Ao V2 max: 70.3 cm/sec LVOT Max Martin: 49.0 cm/sec Ao V2 mean: 53.4 cm/sec LV V1 max P.96 mmHg Ao max P.0 mmHg LV V1 VTI: 8.2 cm Ao mean P.0 mmHg KAVON(I,D): 2.5 cm2 Ao V2 VTI: 11.2 cm KAVON(V,D): 2.4 cm2 sev ratio: 0.73 KAVON indexed to BSA (cm^2/m^2): 1.3 MV E max martin: 99.4 cm/sec TR max martin: 253.0 cm/sec MV A max martin: 30.8 cm/sec TR max P.6 mmHg MV E/A: 3.2 Med Peak E' Martin: 5.4 cm/sec E/E' med: 18.3 Lat Peak E' Martin: 6.8 cm/sec E/E' lat: 14.7 E/e' average: 16.5 MV dec time: 0.15 sec SV(LVOT): 28.5 ml AV VR_phl: 0.70 KAVON(VTI)/BSA_phl: 1.3 MV P1/2t-pr_phl: 45.0 msec Electronically signed by: Shilpa Mcginnis M.D. on Reading Physician:11/21/2021 12:39 PM
--- NOTE | 2021-11-20 10:48 | PT.IPTN ---
Current Diagnoses Acute on chronic systolic (congestive) heart failure (11/18/21) Physical Therapy Treatment Note M2 PT-IP Current Condition Start: 11/18/21 12:35 Freq: NEEDED Status: Active Protocol: Document 11/18/21 12:44 AMH (Rec: 11/18/21 13:15 AMH [id number]) Physical Therapy Current Condition Current Condition Evaluation Date 11/18/21 Treatment Diagnosis SOB/dyspnea M3 PT-IP Subjective Start: 11/18/21 12:35 Freq: NEEDED Status: Active Protocol: Document 11/20/21 10:29 KS (Rec: 11/20/21 11:22 KS [id number]) Subjective Physical Therapy Visit Type Type Treatment Note Visit Start Time 10:29 Visit Stop Time 10:48 Total Visit Minutes 19 Number of GAS BRAZER Visits 1 Physical Therapy Visit Comments Patient Comments He plans to stay on the first floor of his multi-level house . He will set up a hospital bed on the main level with his electric recliner close. He reports soreness in left foot with gait but no pain in right LE. Patient Goals Discharge home. M4 PT-IP Mobility and Gait Start: 11/18/21 12:35 Freq: NEEDED Status: Active Protocol: Document 11/20/21 10:29 KS (Rec: 11/20/21 11:22 KS [id number]) PT-Bed Mobility Assessment Scooting Scooting to Edge of Bed Contact Guard Assistance PT-Transfer Assessment Sit to and From Stand Sit to and from Stand Standby Assistance,Use of Upper Extremities Equipment Transfer Assistive Device Gait Belt,Front Wheeled Walker Transfers Transfer Destination Chair Transfer Technique Pt ambulated Transfer Ability Level of Assist Standby Assistance,Use of Upper Extremities Comments Mobility Comments Pt in recliner upon arrival and willing to mobilize w/ PT. Offers that he is feeling slightly better today. Pt CGA for scooting and SBA for sit<> stand w/ FWW. Pts O2 94% on RA standing for several minutes while nurse assessed telemetry . Pt then ambulated ~40 ft w/ FWW and became slightly fatigued and SOB, upon return to chair O2 was 87% but quickly increased to 95%. Pt requests to conserve energy for shower w/ OT. Left in chair w/ all needs in reach. Gait Assessment Gait Gait Assistance Required: Standby Assistance Distance (Feet) 40 Able to Maintain Weight Bearing Status Yes During Gait Assistive Devices Assistive Device Gait Belt,Front Wheeled Walker Gait Deviations General Gait Pattern Antalgic,Decreased Stride Length Factors Limiting Gait Function Factors Limiting Gait Function Decreased Activity Tolerance, Pain Comments Gait Comments Has mild SOB w/ mobility and quick approach to fatigue, unable to take deep breaths as they make him cough. O2 quickly increased from 87% to 95% after ambulation on RA. No rest breaks during 40 ft today. Stair Climbing Assessment Comments Stair Climbing Comments he reports he will not need to do stairs at home PT-Balance Assessment Sitting Balance and Reactions Static Sitting Balance Ability Good Dynamic Sitting Balance Ability Good Standing Balance and Reactions Static Standing Balance Ability Good Dynamic Standing Balance Ability Good Device Used FWW M5 PT-IP Objective Assessments Start: 11/18/21 12:35 Freq: NEEDED Status: Active Protocol: Document 11/19/21 11:28 DLM (Rec: 11/19/21 11:47 DLM [id number]) Orientation Orientation/Cognition Level of Alertness Alert Orientation Name,Age,Birthday,Month,Date, Year,Day of Week,Place, Situation Language Function Ability No Deficits Noted Safety Awareness Understands Safety Issues Memory Description No Deficits Noted Comments needs repetition of new information M6 PT-IP Treatment Start: 11/18/21 12:35 Freq: NEEDED Status: Active Protocol: Document 11/20/21 10:29 KS (Rec: 11/20/21 11:22 KS [id number]) Physical Therapy Treatment Exercises Exercises Ankle Pumps Education Education Provided Safety Other Treatments Other Treatment Performed Reminder pt to keep legs elevated for LE edema. Discussed safety at home - pt reports wanting heart surgery to improve health and QOL. M7 PT-IP Assessment and Plan Start: 11/18/21 12:35 Freq: NEEDED Status: Active Protocol: Document 11/20/21 10:29 KS (Rec: 11/20/21 11:22 KS [id number]) PT Summary Assessment and Plan Potential Rehabilitation Potential Good Summary Impairments Pain,ROM,Strength,Bed Mobility ,Transfers,Gait,Activity Tolerance Progress Towards Goals Progressing Toward Goals Assessment Summary Pt able to tolerate several minutes of standing and 40 ft ambulation w/ FWW today while maintaining O2 from 87-95% on RA. Quick approach to fatigue and SOB following ambulation, but did not require rest breaks. Offers that he is feeling slightly better following diuresis and wants heart surgery when he is able to receive it. Pt wanting to prioritize shower w/ OT today, therefore treatment cut short however pt is motivated to return home at discharge. He could benefit from home health therapy to assess home equipment needs and increase his activity tolerance in his home environment. Goals Bed Mobility Goal Independent Transfer Goal Independent Gait Goal Independent,Front Wheel Walker Gait Distance 50 feet Days to Meet Goals 3 Frequency of Treatment Frequency Of Treatment Once a Day Treatment Plan Physical Therapy Treatment Plan Bed Mobility Training,Transfer Training,Gait Training, Therapeutic Exercise,Balance Retraining,Discharge Planning Other Recommendations and Next Treatment education to manage LE edema Focus Precautions Other Precautions wounds bilateral LE's, EF 20- 25% Recommendations To Nursing Amount of Assist Needed Standby Assistance Discharge Recommendations PT Discharge Recommendations Home with Assistance,Home Health Other Discharge Recommendations he reports good family support , 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
[2021-11-20] MEDS: acetaZOLAMIDE 250 MG TABLET 500 MG PO (11:44)
[2021-11-20] MEDS: FUROSEMIDE 20 MG/2 ML VIAL 60 MG IV ×2 (11:45→20:47)
--- NOTE | 2021-11-20 11:49 | OT.IP.EVAL ---
Current Diagnoses Acute on chronic systolic (congestive) heart failure (11/18/21) Past Medical History (Last Updated 11/18/21 @ 13:00 by Thomas Samuel DO) CAD (coronary artery disease) Diabetes NSTEMI (non-ST elevated myocardial infarction) Pre-diabetes Surgical History (Last Updated 11/18/21 @ 13:00 by Thomas Samuel DO) History of hernia surgery History of surgery on arm Hx of tonsillectomy Occupational Therapy Inpatient Evaluation/Re-Eval M1 PT/OT-IP Prior Functional Status Start: 11/18/21 12:35 Freq: NEEDED Status: Active Protocol: Document 11/18/21 13:13 C[facility] (Rec: 11/18/21 13:29 CGR [id number]) Medical Review Prior Functional Status Medical History Reviewed Yes Communication Pt is an effective verbal communicator. Mobility and Gait Pt has recently started using a SPC in the last 6 months and states that is relies on it more as time goes on. Activities of Daily Living and IADL's Pt states he is IND in all ADLs and IADLs including driving to work. Social History Household Members spouse Living Arrangements House Number of Floors (Floors) Two Floors Number of Stairs To Enter/Railing? no stairs to enter on the bottom floor. 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 M1 PT/OT-IP Prior Functional Status Start: 11/18/21 13:12 Freq: NEEDED Status: Complete Protocol: Document 11/18/21 13:13 CGR (Rec: 11/18/21 13:29 CGR [id number]) Medical Review Prior Functional Status Medical History Reviewed Yes Communication Pt is an effective verbal communicator. Mobility and Gait Pt has recently started using a SPC in the last 6 months and states that is relies on it more as time goes on. Activities of Daily Living and IADL's Pt states he is IND in all ADLs and IADLs including driving to work. Social History Household Members spouse Living Arrangements House Number of Floors (Floors) Two Floors Number of Stairs To Enter/Railing? no stairs to enter on the bottom floor. 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 M2 OT-IP Current Condition Start: 11/18/21 13:12 Freq: Status: Active Protocol: Document 11/18/21 13:13 CGR (Rec: 11/18/21 13:29 CGR [id number]) Occupational Therapy Current Condition Current Condition Evaluation Date 11/18/21 Treatment Diagnosis SOB, BLE swelling and wounds Diagnosis Onset Date 11/18/21 M3 OT- IP Subjective and Pain Start: 11/18/21 13:12 Freq: Status: Active Protocol: Document 11/20/21 11:07 [facility] (Rec: 11/20/21 12:21 [facility] [id number]) OT- Subjective Occupational Therapy Visit Type Type Treatment Note Visit Start Time 11:07 Visit Stop Time 11:49 Total Visit Minutes 42 Occupational Therapy Visit Comments Patient Comments Pt agreed to take a shower. OT Pain Assessment Pain When Pain Assessed At Rest Pain Present Pain Present Denied Pain M4 OT- IP ADL's Start: 11/18/21 13:12 Freq: Status: Active Protocol: Document 11/20/21 11:07 [facility] (Rec: 11/20/21 12:21 [facility] [id number]) OT [id number] Comments OT Self-Feeding Comments not at meal time OT ADL-Grooming Comments OT Grooming Comments not performed OT ADL-Oral Care Comments Oral Care Comments not performed OT ADL-Dressing General Eval Lower Body Dressing Ability Moderate Assistance Comments OT Dressing Comments Assist to get the brief off his feet. OT ADL-Toileting Comments OT Toileting Comments Pt not having to go and awaiting to get kuo placed. OT ADL-Bathing Bathing Type Bathing Type Shower General Evaluation Bathing Ability Moderate Assistance Areas Needing Assistance Wash/Dry Back,Wash/Dry Perineal Area,Wash/Dry Lower Extremities Comments OT Bathing Comments Pt needing assist for his back and lower legs. Pt will greatly benefit from a tub bench at home as currently his leg are so swollen and prior has that he difficulty to be able to get into the tub. M5 OT- IP IADL's Start: 11/18/21 13:12 Freq: Status: Active Protocol: Document 11/18/21 13:13 [facility] (Rec: 11/18/21 13:29 R [id number]) OT-Instrumental Activities of Daily Living Deficits IADL Deficits Identified No Deficits Home Safety Awareness Awareness of Need for Assistance at Home Good Awareness Ability to Problem Solve Emergency Able to Problem Solve Situations Medication Management Medication Management No Deficits Identified Money Management Money Management No Deficits Identified Meal Preparation Meal Preparation Caregiver Provides Assist Hair Dresser Hair Dresser Caregiver Provides Assist Driving Driving Comments 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 M6 OT- IP Functional Cognition Start: 11/18/21 13:12 Freq: Status: Active Protocol: Document 11/20/21 11:07 [facility] (Rec: 11/20/21 12:21 [facility] [id number]) Cognitive Factors Limiting Selfcare Function Cognitive Comments Cognitive Assessment Comments Today pt much clearer and thinking much better. Pt admits that he was not thinking well yesterday and had too much going on. Pt also states has not been sleeping well which may also be affecting his cognition. M7 OT- IP Mobility and Balance Start: 11/18/21 13:12 Freq: Status: Active Protocol: Document 11/20/21 11:07 [facility] (Rec: 11/20/21 12:21 [facility] [id number]) OT-Transfer Assessment Sit to and From Stand Sit to and from Stand Standby Assistance Transfers Transfer Ability Standby Assistance,Minimal Assistance Technique Transfer Destination Chair,Shower Stall Transfer Technique Stand Step Pivot Devices Transfer Assistive Devices Gait Belt,Front Wheeled Walker Comments Mobility Comments Able to get to the shower and back to the recliner with FWW and a couple steps without the FWW when stepping over the threshold of the shower with AIMEE. OT- Balance Assessment Sitting Balance and Reactions Static Sitting Balance Ability Normal Dynamic Sitting Balance Ability Good Standing Balance and Reactions Static Standing Balance Ability Fair M8 OT- IP Objective Assessments Start: 11/18/21 13:12 Freq: Status: Active Protocol: Document 11/18/21 13:13 [facility] (Rec: 11/18/21 13:29 R [id number]) OT Gross Range of Motion Upper Extremity Range of Motion Assessment Within Functional Limits OT Strength Upper Extremity Strength Assessment Within Functional Limits Comments Strength Comments shlds 4/5, arms 5/5, hands 4+/ 5 OT- Coordination Assessment Upper Extremity Finger to Nose Test Within Functional Limits Finger Tapping Test Within Functional Limits OT-Muscle Tone Assessment Muscle Tone WNL Yes M9 OT- IP Assessment and Plan Start: 11/18/21 13:12 Freq: Status: Active Protocol: Document 11/20/21 11:07 [facility] (Rec: 11/20/21 12:21 [facility] [id number]) OT Summary Assessment and Plan Potential Rehabilitation Potential Excellent Analytic Complexity at Evaluation Low Summary OT Impairments Pain,Shower Transfers,Activity Tolerance Progress Towards Goals Progressing Toward Goals Assessment Summary Pt able to tolerate a shower today and thinking much better and appears at his baseline for cognitive needs. Pt a little forgetful at times but states has not been able to sleep much at all here while in the hospital. Pt to go home with assist and home health when medically stable. Goals Bathing Goal Independent Shower Transfer Goal Independent Patient/Caregiver Education Goal Demonstrate Energy Conservation and Pacing Days to Meet Goals 4 Frequency of Treatment Frequency Of Treatment Once a Day Treatment Plan OT Treatment Plan ADL Training,Functional Mobility,Patient/Family Education,Discharge Planning Discharge Recommendations OT Discharge Recommendations Home with Assistance,Home Health Transportation Needs at Discharge Private Vehicle
[2021-11-20] MEDS: HEPARIN 5,000 UNIT/ML VIAL 5000 UNIT SUBCUT ×2 (12:18→20:13)
[2021-11-20] MEDS: INSULIN LISPRO 100 UNIT/ML 3ML VIAL SUBCUT ×2 (12:19→16:55)
--- NOTE | 2021-11-20 16:14 | DIET.CONS2 ---
Dietary Inpatient Consultation Note Admission Date: 11/18/2021 06:39 Pt refused insulin this morning before breakfast, 2 U given at lunch with BG 241. Pt also refused insulin twice yesterday, BGs in high 100s as a result. Pts BG excellent range 99-140 when meds given as written. Diet: 11/18/21 Breakfast Carbohydrate Consistent Diet Diet Modifications: heart healthy Carbohydrate level: Large (4 CHO) Nutrition Percent Meal Consumed 100% 11/20/21 08:52 Percent Meal Consumed 100% 11/19/21 18:12 Percent Meal Consumed 100% 11/19/21 12:48 Percent Meal Consumed 100% 11/19/21 08:55 Percent Meal Consumed 100% 11/19/21 03:32 Percent Meal Consumed 75% 11/18/21 18:00 Electronically Signed by: Silke Amor 11/20/21 16:14 Clinical Dietitian [address] [address]
[2021-11-20] MEDS: ATORVASTATIN 20 MG TABLET 40 MG PO (20:47)
[2021-11-20] MEDS: INSULIN GLARGINE 100 UNIT/ML 3ML PEN 15 UNIT SUBCUT (20:47)
--- NOTE | 2021-11-20 22:39 | PC.NURSE ---
Patient is alert and oriented. Breath sounds diminished at bases; RA sat is 98%. Patient states he is feeling less SOB tonight. HRR w/telemetry reading of SR w/1st degree AVB + PAC. BT present. Abdomen is still firm especially below umbilicus. Lower abdomen is light pink and warm to touch; denies pain or itching. Indwelling catheter is patent; urine is light pink. Currently receiving IV Lasix and is wanting accurate output. Is able to move himself and is up with walker and 1 assist due to weakness. Dressings to right LE and left foot are CDI; Allevyn dressing on left heel replaced and noted to have intact blister. Denies pain. Fall risk score is high and bed alarm is activated.
[2021-11-21] VITALS (10 sets, daily range): BP systolic 96–119; BP diastolic 61–75; PULSE 83–95; RESP 18–20; TEMP 35.8–36.7; O2SAT 94–98
[2021-11-21] MEDS: HEPARIN 5,000 UNIT/ML VIAL 5000 UNIT SUBCUT ×3 (03:21→18:19)
[2021-11-21 06:26] LABS: Alanine Aminotransferase 12 IU/L (<50); Albumin 3.2 g/dL (3.5-5.0); Albumin Globulin Ratio 1.1 (1.0-2.8); Alkaline Phosphatase 94 U/L (38-126); Aspartate Aminotransferase 24 IU/L (17-59); BUN Creatinine Ratio 25.3 (6-22); Blood Urea Nitrogen 37 mg/dL (9-20); Calcium 8.1 mg/dL (8.4-10.2); Carbon Dioxide 29 mmol/L (22-32); Chloride 99 mmol/L (98-107); Estimated Glomerular Filt Rate 50 mL/min (>60); Globulin 2.9 g/dL (1.7-4.1); Glucose 147 mg/dL (80-110); HEMOLYSIS 42 (0-50); Sodium 134 mmol/L (137-145); Total Protein 6.1 g/dL (6.3-8.2)
[2021-11-21 06:35] LABS: Add Manual Diff / Slide Review NO; Basophils Absolute Auto 100 /uL (0-100); Basophils Percent Auto 0.7 % (0-2); Eosinophils Absolute Auto 400 /uL (0-450); Eosinophils Percent Auto 5.1 % (2-4); Hematocrit 45.7 % (41-53); Hemoglobin 15.1 g/dL (13.5-17.5); Lymphocytes Absolute Auto 400 /uL (1100-4500); Lymphocytes Percent Auto 5.2 % (25-40); Mean Corpuscular Hemoglobin 28.1 PG (26-34); Monocytes Absolute Auto 700 /uL (0-900); Monocytes Percent Auto 8.3 % (3-14); Neutrophils Absolute Auto 6500 /uL (1500-7000); Neutrophils Percent Auto 80.7 % (50-75); Platelet Count 153 X10^3/uL (150-400); Red Blood Cell Count 5.38 X10^6/uL (4.5-5.9); Red Cell Distribution Width 18.6 % (11.6-14.8)
--- NOTE | 2021-11-21 07:16 | P.PN_ITS ---
Subjective Subjective Date Patient Seen: 11/21/21 Time Patient Seen: 11:08 Interval history: Patient diuresed -2.5L yesterday. Still wtih LE swelling. He denies any current complaints other than a red rash on his lower abdomen which doesn't hurt or itch. Exam Vital Signs (past 8 hours): - 11/21/21 03:33 11/21/21 03:33 Temperature 96.6 F L Pulse Rate 89 Respiratory Rate 20 Blood Pressure 102/61 Pulse Oximetry 98 98 Oxygen Delivery Method Room Air Oxygen Flow Rate 0 0 Oxygen Delivery Method Room Air Oxygen Flow Rate 0 Narrative Exam Narrative: GEN: no acute distress, pleasant elderly man HEENT: moist mucous membranes, PERRL NECK: trachea midline, no JVD CV: regular rate and rhythm, distant heart tones PULM: bibasilar rales present ABD: soft, nontender, nondistended, no organomegaly, erythematous rash on lower abdomen non painful and nonitchy. Does not appear cellulitic. EXT: 3+ pitting edema to thighs and abd, superficial wounds to bilateral LE's with scattered blisters, no erythema or purulence NEURO: awake, alert, oriented, no focal deficits Objective Labs Result Diagrams: 11/21/21 06:11 11/21/21 06:11 Labs: Laboratory Results - last 24 hr 11/20/21 11/20/21 11/20/21 07:06 07:06 07:06 WBC 8.9 RBC 5.86 Hgb 16.5 Hct 50.7 MCV 86.4 MCH 28.2 MCHC 32.6 RDW 18.9 H Plt Count 141 L Neut % (Auto) 83.0 H Lymph % (Auto) 4.0 L [place] % (Auto) 9.6 Eos % (Auto) 2.7 Baso % (Auto) 0.7 Neut # (Auto) 7400 H Lymph # (Auto) 400 L [place] # (Auto) 900 Eos # (Auto) 200 Baso # (Auto) 100 Sodium 135 L Potassium 4.2 Chloride 98 Carbon Dioxide 28 BUN 41 H Creatinine 1.52 H Estimated GFR 47 L BUN/Creatinine Ratio 27.0 H Glucose 182 H Calcium 8.3 L Magnesium 2.4 H Total Bilirubin 1.2 AST 27 ALT 16 Alkaline Phosphatase 120 C-Reactive Protein 5.3 H Total Protein 6.6 Albumin 3.6 Globulin 3.0 Albumin/Globulin Ratio 1.2 Procalcitonin 0.17 11/21/21 11/21/21 06:11 06:11 WBC 8.0 RBC 5.38 Hgb 15.1 Hct 45.7 MCV 85.0 MCH 28.1 MCHC 33.0 RDW 18.6 H Plt Count 153 Neut % (Auto) 80.7 H Lymph % (Auto) 5.2 L [place] % (Auto) 8.3 Eos % (Auto) 5.1 H Baso % (Auto) 0.7 Neut # (Auto) 6500 Lymph # (Auto) 400 L [place] # (Auto) 700 Eos # (Auto) 400 Baso # (Auto) 100 Sodium 134 L Potassium 4.0 Chloride 99 Carbon Dioxide 29 BUN 37 H Creatinine 1.46 H Estimated GFR 50 L BUN/Creatinine Ratio 25.3 H Glucose 147 H Calcium 8.1 L Magnesium Total Bilirubin 1.0 AST 24 ALT 12 Alkaline Phosphatase 94 C-Reactive Protein Total Protein 6.1 L Albumin 3.2 L Globulin 2.9 Albumin/Globulin Ratio 1.1 Procalcitonin [facility] Medical History (Updated 11/18/21 @ 13:00 by Thomas Samuel DO) CAD (coronary artery disease) Diabetes NSTEMI (non-ST elevated myocardial infarction) Pre-diabetes Surgical History (Updated 11/18/21 @ 13:00 by Thomas Samuel DO) History of hernia surgery History of surgery on arm Hx of tonsillectomy Family History (Updated 11/18/21 @ 13:00 by Thomas Samuel DO) Mother CAD (coronary artery disease) Sister Diabetes mellitus Social History household members: spouse Smoking Status: Never smoker alcohol intake: current Assessment & Plan Assessment & Plan narrative: # Acute decompensated HFrEF of 20-25% -Last echo 2 years ago, none since then and hasn't followed up with doctors. Likely ischemic given need for CABG at that time. -Unclear why not taking BB's, SERGIO/ARB or spironolactone. Plan to start these once euvolemic. -diuresing well with lasix 60mg IV BID. Hold for hypotension. -Add diamox daily for improved diuresis -Johnson for fluid measurement, strict I/O's -Daily weights -F/u repeat echo # CAD -Known CAD with LHC at [facility] 03/2019 showing occluded LAD with multivessel disease and was recommended for CABG at [facility] but did not happen due to patient being COVID + -Troponins are downtrending. 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 -Continue diuresis as above. -f/u abd US -hepatitis panel ordered # Lower abdominal rash -possibly due to cirrhosis with ascites -abd US ordered -appear non-cellulitic, no leukocytosis or fevers and non-painful -withhold abx for now # Uncontrolled DM2 -A1c 8.1%, not on home meds for diabetes -FS ACHS, -continue lantus 15 units with sliding scale. -Carb consistent diet. -consider starting metformin on discharge # Superficial LE ulcerations -Likely secondary to rapid edema of LE's causing skin blisters and wounds -Wound care -Treat edema as above Code: Full, surrogate decision maker is patient's spouse Constance. Dispo: Several days for IV diuretics Time Spent With Patient Critical Care time: I spent a total of [] minutes of critical care time on this patient's care today; this time is exclusive of procedural time. Quality VTE Deep Vein Thrombosis/Pulmonary Embolism Present on Admission: No
[2021-11-21] MEDS: INSULIN LISPRO 100 UNIT/ML 3ML VIAL SUBCUT ×3 (09:03→20:46)
[2021-11-21] MEDS: acetaZOLAMIDE 250 MG TABLET 500 MG PO (09:07)
[2021-11-21] MEDS: ASPIRIN EC 81 MG TABLET PO (09:07)
[2021-11-21] MEDS: FUROSEMIDE 20 MG/2 ML VIAL 60 MG IV ×2 (09:08→20:45)
[2021-11-21] MEDS: SODIUM CHLORIDE 0.9% FLUSH 10 ML IV ×2 (09:10→20:45)
--- NOTE | 2021-11-21 10:49 | DI.US.S_ITS ---
PROCEDURE: US ABDOMEN LIMITED INDICATIONS: assess for liver cirrhosis and ascites TECHNIQUE: Real-time scanning was performed of the right abdomen, with image documentation. COMPARISON: [facility], CT, CT ANGIO CHEST PE PROTOCOL, 11/18/2021, 5:33. FINDINGS: Liver: Liver surface appears nodular. Increased echogenicity. Upper limits of normal in size measuring 17.5 cm. Portal vein demonstrates hepatopetal flow. Gallbladder: Nondilated. Small stones and sludge. Normal gallbladder wall thickness. No pericholecystic fluid. Negative sonographic Jordan's sign. Biliary ducts: Intrahepatic bile ducts are non-dilated. Extrahepatic bile duct caliber measures 3 mm. Normal is 6-7 mm or less in diameter, or 10 mm or less post-cholecystectomy. Pancreas: Not well seen. Right kidney: No hydronephrosis. Miscellaneous: Small volume of ascites is seen adjacent to the liver and in the left lower quadrant. IMPRESSION: Technically limited exam due to body habitus and acoustic windows. 1. Nodular liver surface contour and coarsened echotexture. Ultrasound findings suggesting cirrhosis. 2. Small volume of ascites. 3. No acute cholecystitis demonstrated. Small gallstones. Dictated by: Yasmani Wilson M.D. on 11/21/2021 at 16:34 Approved by: Yasmani Wilson M.D. on 11/21/2021 at 16:38
--- NOTE | 2021-11-21 11:00 | PT-IP ANOTE ---
Attempted to see pt this AM, but he was receiving dressing changes. Will check back in PM.
--- NOTE | 2021-11-21 11:19 | OT.IP.TRT ---
Current Diagnoses Acute on chronic systolic (congestive) heart failure (11/18/21) Occupational Therapy Treatment Note M2 OT-IP Current Condition Start: 11/18/21 13:12 Freq: Status: Active Protocol: Document 11/18/21 13:13 [facility] (Rec: 11/18/21 13:29 [facility] [id number]) Occupational Therapy Current Condition Current Condition Evaluation Date 11/18/21 Treatment Diagnosis SOB, BLE swelling and wounds Diagnosis Onset Date 11/18/21 M3 OT- IP Subjective and Pain Start: 11/18/21 13:12 Freq: Status: Active Protocol: Document 11/21/21 11:35 [facility] (Rec: 11/21/21 11:50 [facility] [id number]) OT- Subjective Occupational Therapy Visit Type Type Treatment Note Visit Start Time 11:15 Visit Stop Time 11:34 Total Visit Minutes 19 Occupational Therapy Visit Comments Patient Comments Nurse from wound care just finishing his dressings. Pt had two co-workers in the room . Pt asked if wanting to have his co-workers step out during his cognitive assessment, pt states no. One of the co- workers states that he is forgetful at times but otherwise intact for his cognition. Patient/Caregiver Goals To go home. M4 OT- IP ADL's Start: 11/18/21 13:12 Freq: Status: Active Protocol: Document 11/21/21 11:35 [facility] (Rec: 11/21/21 11:50 [facility] [id number]) OT [id number] Comments OT Self-Feeding Comments NOt at meal time. OT ADL-Grooming Comments OT Grooming Comments not performed OT ADL-Oral Care Comments Oral Care Comments not performed OT ADL-Dressing Comments OT Dressing Comments Not performed. OT ADL-Toileting Comments OT Toileting Comments Johnson in place. OT ADL-Bathing Comments OT Bathing Comments Pt states sponges off earlier but not able to recall having a shower yesterday. M5 OT- IP IADL's Start: 11/18/21 13:12 Freq: Status: Active Protocol: Document 11/21/21 11:35 [facility] (Rec: 11/21/21 11:50 [facility] [id number]) OT-Instrumental Activities of Daily Living Home Safety Awareness Home Safety Comments At this time due to decreased cognitive function based on the SLUMS, see below. Best for pt to have assist/supervision with all needs. Medication Management Medication Management Comments Concerns for completeness. Money Management Money Management Comments Concerns for completeness. Driving Driving Concerns Identified Regarding Safety M6 OT- IP Functional Cognition Start: 11/18/21 13:12 Freq: Status: Active Protocol: Document 11/21/21 11:35 [facility] (Rec: 11/21/21 11:50 [facility] [id number]) Cognitive Factors Limiting Selfcare Function Cognitive Ability Level of Alertness Alert Patient Orientation Name,Age,Birthday,Month,Date, Year,Day of Week,Place, Situation Attention Span Ability Capable of Focused Attention, Capable of Sustained Attention Ability to Follow Commands Able to Follow One Step Commands Memory Description Short Term Impaired,Working Impaired Problem Solving Ability Unable to Identify Errors, Needs Assist to Identify Solutions Executive Function Ability Unable to Organize Plans, Unable to Remember Details Cognitive Tests SLUMS Pt scored 11/30 which implies dementia. Pt not able to figure out 100-23, able to state 12 animals in one minute , not able to recall any of the 5 objects after time passed, not able to recall 4 digit number backwards, not able to draw the numbers of the clock in correct positions or draw the hands of the clock after time given or draw the hands correctly on the clock after a time given, and pt just able to answer 1/4 questions right after paragraph read. Cognitive Comments Cognitive Assessment Comments Pt not able to recall having a shower yesterday. Pt scored 11/30 on the SLUMS and able to let hospitalist aware of his score. At this time if going home would be best to have 24/ 7 assist for all needs- especially for money management , medications, and IADl needs due to his short term memory deficits. M8 OT- IP Objective Assessments Start: 11/18/21 13:12 Freq: Status: Active Protocol: Document 11/18/21 13:13 [facility] (Rec: 11/18/21 13:29 [facility] [id number]) OT Gross Range of Motion Upper Extremity Range of Motion Assessment Within Functional Limits OT Strength Upper Extremity Strength Assessment Within Functional Limits Comments Strength Comments shlds 4/5, arms 5/5, hands 4+/ 5 OT- Coordination Assessment Upper Extremity Finger to Nose Test Within Functional Limits Finger Tapping Test Within Functional Limits OT-Muscle Tone Assessment Muscle Tone WNL Yes M9 OT- IP Assessment and Plan Start: 11/18/21 13:12 Freq: Status: Active Protocol: Document 11/21/21 11:35 [facility] (Rec: 11/21/21 11:50 [facility] [id number]) OT Summary Assessment and Plan Potential Rehabilitation Potential Good Analytic Complexity at Evaluation Low Summary OT Impairments Pain,Balance,Functional Cognition,Shower Transfers, Activity Tolerance Progress Towards Goals Progressing Toward Goals,Slow Progress due to Cognition Assessment Summary Pt having difficulty with his short term memory and scored 11/30 on the SLUMS which implies dementia. If pt going home would be best to have at least supervison for all needs especially for medications and money management needs. Goals Bathing Goal Independent Shower Transfer Goal Independent Patient/Caregiver Education Goal Demonstrate Energy Conservation and Pacing Days to Meet Goals 5 Frequency of Treatment Frequency Of Treatment Once a Day Treatment Plan OT Treatment Plan ADL Training,Functional Cognition Training,Functional Mobility,Patient/Family Education,Discharge Planning Discharge Recommendations OT Discharge Recommendations Home with 06/10 Assist Available,Home Health Transportation Needs at Discharge Private Vehicle
--- NOTE | 2021-11-21 11:27 | PC.RNWOUND ---
Bilateral Lower Extremities Dorsal Feet Abdomen Patient sitting up in chair, denies pain at this time, dressings to BLE wounds removed with large amount of serous drainage, wounds gently cleansed with saline and fresh dressings placed. Wounds appear without any significant changes noted, Left posterior heel vesicle intact also covered with protective foam dressing, fresh band-aid to left 4th toe abrasion. BLE erythema ankles/feet appears almost 100% resolved. Patient tolerates cares well. Photo taken of abdominal redness, no open areas noted to abdominal folds. in and saw this morning per primary RN.
--- NOTE | 2021-11-21 13:57 | PT-IP ANOTE ---
Attempted to see pt twice this PM, refusing PT due to low energy/fatigue and hunger. Pt waiting on abdominal US but RN unsure when he will be receiving and pt NPO until after it is complete. Pt requests to wait until tomorrow for more PT.
--- NOTE | 2021-11-21 15:30 | DIET.CONS ---
Dietary Consultation Note Admission Date: 11/18/2021 06:39 Assessment: 76y M admitted for SOB and 3+ pitting edema c weeping leg wounds secondary to fluid overload from unmanaged CHF with EF of 20-25% referred to nutrition for poor appetite. RD and RD paid intern met c Mac at bedside. Pt very receptive to teaching on nutrition to support wound healing and heart healthy/DM diet reccs. Pt lives c spouse, enjoys hunting, eating wild game, and lou vegetables. 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 Pt states he can eat the same thing for meals for many months without getting bored with it. Pt has been having large bowl steel cut oats c splenda, blueberries, raisins, 1/4 cup milk. Pt does not salt food and does not add sugar crystals to food or drink sugar sweetened beverages. Pt has been diuresed in hospital and is -2.6L. Pt states his legs do not hurt, but evident open wounds per wound care note. Pt has barrier of SOB and need for BL knee replacements in regard to regular physical activity. Pt was scheduled for OP DSME in 2019 but did not attend visit, possibly due to covid19 restrictions. Pt has not had DM f/u since and stopped eating all sugar and salt, even bananas, oranges, etc. Pt states he checks his BG every thursday morning running 114-145 which he states is far improved from previous highs of 300+. Pt states he would like to receive nutrition education for DM and heart health as recommendations confuse him, he attempts to rip advice out of magazines but then throws it away. Pt likes the format of hospital menu as it states carb levels in way he understands. Ht: 167.64 cm Wt: 98.5 kg BMI: 32.3 UBW: 100kg ABW: 72.5 Last BM: 11/18/21 (11/18/21 15:26) MNA: 14 Blane Score: 16 Diet: 11/18/21 Breakfast Carbohydrate Consistent Diet Diet Modifications: heart healthy Carbohydrate level: Large (4 CHO) Nutrition Percent Meal Consumed 100% 11/21/21 08:49 Percent Meal Consumed 100% 11/20/21 08:52 Percent Meal Consumed 100% 11/19/21 18:12 Labs: RBC 5.38 X10^6/uL (4.5-5.9) 11/21/21 06:11 Hgb 15.1 g/dL (13.5-17.5) 11/21/21 06:11 Hct 45.7 % (41-53) 11/21/21 06:11 Creatinine 1.46 mg/dL (0.66-1.25) H 11/21/21 06:11 Hemoglobin A1c 8.1 % (4.0-6.0) H 11/19/21 06:44 Lactate 2.6 mmol/L (0.7-2.1) H 11/18/21 04:00 NT-Pro-B Natriuret Pep 15012 pg/mL (<450) H 11/18/21 04:00 Nutrition Diagnosis: 1. nutrition related knowledge deficit r/t diet to support chronic health conditions and interruption of medical care aeb pt DM ed interrupted by global pandemic, pt heart procedure cancelled when he tested positive for covid, pt A1c 8.1 c 3+ pitting edema and open weeping wounds, pt testing BG once weekly, pt states he does not know how to eat to support his DM. 2. altered nutrition related laboratory values (A1c, BG, NTproBNP) r/t nutrition related knowledge deficit and medication management issues aeb A1c 8.1 (H), BG during hospital stay >200 x3 when refusing insulin, admit BNP [id number], pt presenting c SOB and 3+ pitting edema, pt desires nutrition education to support health conditions. Interventions: 1. Educated pt on using hospital menu to identify general carb levels of restaurant foods with understanding that recipes vary. Pt able to choose items and pair items appropriately. 2. Provided copy Plate Balance for DM handout with reccs of 45g CHO per meal and 15-30g/snack (per obesity). Collaborated c pt on meal and snack ideas using handout. Pt able to use handout appropriately and asked insightful questions. 3. Discussed role of dietary sodium in fluid balance of body. 4. Collaborated c pt on alternate breakfast options at cafe and how to find plate balance at set carb levels. 5. Educated pt on nutrition for wound care focusing on lean protein sources and vitamin A and zinc foods. 6. Encouraged pt to check BG more frequently than 1x/w stressing importance of keeping BG under 200 for wound healing. EER: 1.5g Na/d, 45g CHO per meal and 15-30g CHO per snack, 58-81g Protein (0.8-1.12g/kg ABW per renal fxn) Monitoring/Evaluations: POs, fluid balance, BG Electronically Signed by: Silke Amor 11/21/21 15:30 Clinical Dietitian [address] [address]
[2021-11-21] MEDS: ATORVASTATIN 20 MG TABLET 40 MG PO (20:45)
[2021-11-21] MEDS: INSULIN GLARGINE 100 UNIT/ML 3ML PEN 15 UNIT SUBCUT (20:45)
[2021-11-22] VITALS (10 sets, daily range): BP systolic 101–128; BP diastolic 60–76; PULSE 92–101; RESP 16–18; TEMP 36.2–36.4; O2SAT 94–98
[2021-11-22] MEDS: HEPARIN 5,000 UNIT/ML VIAL 5000 UNIT SUBCUT ×3 (02:01→20:51)
[2021-11-22 07:05] LABS: Add Manual Diff / Slide Review NO; Basophils Absolute Auto 0 /uL (0-100); Basophils Percent Auto 0.4 % (0-2); Eosinophils Absolute Auto 400 /uL (0-450); Eosinophils Percent Auto 5.5 % (2-4); Hematocrit 47.6 % (41-53); Hemoglobin 15.7 g/dL (13.5-17.5); Lymphocytes Absolute Auto 400 /uL (1100-4500); Lymphocytes Percent Auto 5.2 % (25-40); Mean Corpuscular Hemoglobin 28.3 PG (26-34); Mean Corpuscular Volume 85.8 fL (80-100); Monocytes Absolute Auto 700 /uL (0-900); Monocytes Percent Auto 9.1 % (3-14); Neutrophils Absolute Auto 6200 /uL (1500-7000); Neutrophils Percent Auto 79.8 % (50-75); Platelet Count 174 X10^3/uL (150-400); Red Blood Cell Count 5.55 X10^6/uL (4.5-5.9); Red Cell Distribution Width 18.7 % (11.6-14.8); White Blood Cell Count 7.7 X10^3/uL (4.5-11.0)
[2021-11-22 07:09] LABS: BUN Creatinine Ratio 22.9 (6-22); Blood Urea Nitrogen 35 mg/dL (9-20); Calcium 8.5 mg/dL (8.4-10.2); Carbon Dioxide 30 mmol/L (22-32); Chloride 100 mmol/L (98-107); Estimated Glomerular Filt Rate 47 mL/min (>60); Glucose 108 mg/dL (80-110); HEMOLYSIS < 15 (0-50); Potassium 3.7 mmol/L (3.4-5.1); Sodium 137 mmol/L (137-145)
--- NOTE | 2021-11-22 07:28 | PM.PN.1 ---
Subjective Subjective Date Patient Seen: 11/22/21 Time Patient Seen: 08:00 Interval history: Patient notes he has a rash on his lower abdomen which is now itchy. Also his back is itchy. Continues to diurese with IV lasix. Put out -1.2L overnight. Exam Vital Signs (past 8 hours): - 11/21/21 23:45 11/22/21 06:00 11/22/21 06:00 Temperature 97.8 F 97.2 F L Pulse Rate 95 H 92 H Respiratory Rate 20 18 Blood Pressure 119/75 108/76 Pulse Oximetry 98 98 98 Oxygen Delivery Method Room Air Oxygen Flow Rate 0 0 Oxygen Delivery Method Room Air Oxygen Flow Rate 0 Narrative Exam Narrative: GEN: no acute distress, pleasant elderly man HEENT: moist mucous membranes, PERRL NECK: trachea midline, no JVD CV: regular rate and rhythm, distant heart tones PULM: bibasilar rales present ABD: soft, nontender, nondistended, no organomegaly, erythematous rash on lower abdomen which is itchy. Does not appear cellulitic. EXT: 3+ pitting edema to thighs and abd, superficial wounds to bilateral LE's with scattered blisters, no erythema or purulence NEURO: awake, alert, oriented, no focal deficits Objective Labs Result Diagrams: 11/22/21 06:45 11/22/21 06:45 Labs: Laboratory Results - last 24 hr 11/22/21 11/22/21 06:45 06:45 WBC 7.7 RBC 5.55 Hgb 15.7 Hct 47.6 MCV 85.8 MCH 28.3 MCHC 33.0 RDW 18.7 H Plt Count 174 Neut % (Auto) 79.8 H Lymph % (Auto) 5.2 L [place] % (Auto) 9.1 Eos % (Auto) 5.5 H Baso % (Auto) 0.4 Neut # (Auto) 6200 Lymph # (Auto) 400 L [place] # (Auto) 700 Eos # (Auto) 400 Baso # (Auto) 0 Sodium 137 Potassium 3.7 Chloride 100 Carbon Dioxide 30 BUN 35 H Creatinine 1.53 H Estimated GFR 47 L BUN/Creatinine Ratio 22.9 H Glucose 108 Calcium 8.5 PFSH Medical History (Updated 11/18/21 @ 13:00 by Thomas Samuel DO) CAD (coronary artery disease) Diabetes NSTEMI (non-ST elevated myocardial infarction) Pre-diabetes Surgical History (Updated 11/18/21 @ 13:00 by Thomas Samuel DO) History of hernia surgery History of surgery on arm Hx of tonsillectomy Family History (Updated 11/18/21 @ 13:00 by Thomas Samuel DO) Mother CAD (coronary artery disease) Sister Diabetes mellitus Social History household members: spouse Smoking Status: Never smoker alcohol intake: current Assessment & Plan Assessment & Plan narrative: # Acute decompensated HFrEF of 20-25% -Last echo 2 years ago, none since then and hasn't followed up with doctors. Likely ischemic given need for CABG at that time. -Unclear why not taking BB's, SERGIO/ARB or spironolactone. Plan to start these once euvolemic. -diuresing well with lasix 60mg IV BID. Hold for hypotension. -Add diamox daily for improved diuresis -Johnson for fluid measurement, strict I/O's -Daily weights -Repeat echo on 11/21 showed EF 15-20%, start spironolactone. Will start beta lianna when euvolemic. # CAD -Known CAD with LHC at [facility] 03/2019 showing occluded LAD with multivessel disease and was recommended for CABG at [facility] but did not happen due to patient being COVID + -Troponins are downtrending. 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 -Continue diuresis as above. -abd US with cirrhosis and mild ascites -hepatitis panel ordered # Lower abdominal rash -appears to be drug related rash, unclear the offending agent -does not appear non-cellulitic, no leukocytosis or fevers and non-painful -start loratidine daily and hydrocortisone topical BID # Uncontrolled DM2 -A1c 8.1%, not on home meds for diabetes -FS ACHS, -continue lantus 15 units with sliding scale. -Carb consistent diet. -consider starting metformin on discharge # Superficial LE ulcerations -Likely secondary to rapid edema of LE's causing skin blisters and wounds -Wound care -Treat edema as above Code: Full, surrogate decision maker is patient's spouse Constance. Dispo: 2 more days Time Spent With Patient Critical Care time: I spent a total of [] minutes of critical care time on this patient's care today; this time is exclusive of procedural time. Quality VTE Deep Vein Thrombosis/Pulmonary Embolism Present on Admission: No
[2021-11-22] MEDS: acetaZOLAMIDE 250 MG TABLET 500 MG PO (08:05)
[2021-11-22] MEDS: FUROSEMIDE 20 MG/2 ML VIAL 60 MG IV ×2 (08:05→20:51)
[2021-11-22] MEDS: ASPIRIN EC 81 MG TABLET PO (08:05)
[2021-11-22] MEDS: SODIUM CHLORIDE 0.9% FLUSH 10 ML IV ×2 (08:06→20:53)
[2021-11-22] MEDS: BENZONATATE 100 MG CAPSULE PO (08:06)
[2021-11-22] MEDS: SPIRONOLACTONE 25 MG TABLET PO (09:05)
--- NOTE | 2021-11-22 09:05 | OT.IP.TRT ---
Current Diagnoses Acute on chronic systolic (congestive) heart failure (11/18/21) Occupational Therapy Treatment Note M2 OT-IP Current Condition Start: 11/18/21 13:12 Freq: Status: Active Protocol: Document 11/18/21 13:13 CGR (Rec: 11/18/21 13:29 CGR [id number]) Occupational Therapy Current Condition Current Condition Evaluation Date 11/18/21 Treatment Diagnosis SOB, BLE swelling and wounds Diagnosis Onset Date 11/18/21 M3 OT- IP Subjective and Pain Start: 11/18/21 13:12 Freq: Status: Active Protocol: Document 11/22/21 09:05 [facility] (Rec: 11/22/21 09:54 [facility] [id number]) OT- Subjective Occupational Therapy Visit Type Type Treatment Note Visit Start Time 09:05 Visit Stop Time 09:32 Total Visit Minutes 27 Occupational Therapy Visit Comments Patient Comments Pt agreed to get up to wash up at the sink. Pt complaining of being very itchy and nurse came by with modified back transport driver for pt to use. Patient/Caregiver Goals TO go home. OT Pain Assessment Pain When Pain Assessed At Rest Pain Present Pain Present Pain Reported M4 OT- IP ADL's Start: 11/18/21 13:12 Freq: Status: Active Protocol: Document 11/22/21 09:05 [facility] (Rec: 11/22/21 09:54 [facility] [id number]) OT [id number] General Evaluation Self-Feeding Ability Independent OT ADL-Grooming General Evaluation Grooming Ability Independent Areas Needing Assistance Retrieving/Set-up of Grooming Items Comments OT Grooming Comments Pt able to do after set-up while standing with the FWW in front of him at the sink. OT ADL-Oral Care General Eval Oral Care Ability Independent Areas of Assistance Retrieving/Set-Up of Items Comments Oral Care Comments Pt tends to lean on the sink for balance. OT ADL-Dressing Comments OT Dressing Comments Not performed. OT ADL-Toileting Comments OT Toileting Comments Johnson in place. OT ADL-Bathing Comments OT Bathing Comments Not performed. M5 OT- IP IADL's Start: 11/18/21 13:12 Freq: Status: Active Protocol: Document 11/21/21 11:35 [facility] (Rec: 11/21/21 11:50 [facility] [id number]) OT-Instrumental Activities of Daily Living Home Safety Awareness Home Safety Comments At this time due to cognitive function based on the SLUMS, see below. Best for pt to have assist/supervision with all needs. Medication Management Medication Management Comments Concerns for completeness. Money Management Money Management Comments Concerns for completeness. Driving Driving Concerns Identified Regarding Safety M6 OT- IP Functional Cognition Start: 11/18/21 13:12 Freq: Status: Active Protocol: Document 11/22/21 09:05 [facility] (Rec: 11/22/21 09:54 [facility] [id number]) Cognitive Factors Limiting Selfcare Function Cognitive Ability Level of Alertness Alert Patient Orientation Name,Age,Birthday,Month,Date, Year,Day of Week,Place, Situation Attention Span Ability Capable of Focused Attention, Capable of Sustained Attention Cognitive Comments Cognitive Assessment Comments Pt needing cues for FWW safety to be sure to keep the FWW in front of him at all times. M7 OT- IP Mobility and Balance Start: 11/18/21 13:12 Freq: Status: Active Protocol: Document 11/22/21 09:05 [facility] (Rec: 11/22/21 09:54 [facility] [id number]) OT-Transfer Assessment Sit to and From Stand Sit to and from Stand Contact Guard Assistance Transfers Transfer Ability Contact Guard Assistance Technique Transfer Destination Chair Transfer Technique Stand Step Pivot Devices Transfer Assistive Devices Gait Belt,Front Wheeled Walker Comments Mobility Comments CGA to stand tp FWW and occasional CGA for balance with the FWW while walking to the sink and back to the recliner after grooming/oral care needs. OT- Balance Assessment Sitting Balance and Reactions Static Sitting Balance Ability Normal Dynamic Sitting Balance Ability Good Standing Balance and Reactions Static Standing Balance Ability Fair Dynamic Standing Balance Ability Fair M8 OT- IP Objective Assessments Start: 11/18/21 13:12 Freq: Status: Active Protocol: Document 11/18/21 13:13 CGR (Rec: 11/18/21 13:29 CGR [id number]) OT Gross Range of Motion Upper Extremity Range of Motion Assessment Within Functional Limits OT Strength Upper Extremity Strength Assessment Within Functional Limits Comments Strength Comments shlds 4/5, arms 5/5, hands 4+/ 5 OT- Coordination Assessment Upper Extremity Finger to Nose Test Within Functional Limits Finger Tapping Test Within Functional Limits OT-Muscle Tone Assessment Muscle Tone WNL Yes M9 OT- IP Assessment and Plan Start: 11/18/21 13:12 Freq: Status: Active Protocol: Document 11/22/21 09:05 [facility] (Rec: 11/22/21 09:54 [facility] [id number]) OT Summary Assessment and Plan Potential Rehabilitation Potential Good Analytic Complexity at Evaluation Low Summary OT Impairments Pain,Balance,Functional Cognition,Shower Transfers, Activity Tolerance Progress Towards Goals Slow Progress due to Medical Issues,Slow Progress due to Activity Tolerance Assessment Summary Pt able to do grooming and oral care needs at the sink with FWW. Able to modify bath sponge for pt as another option for a back transport driver as pt states always itchy and does not have his from home. Noted rashy skin on pt's back and nursing notified. Pt still insistent to go home when medically stable and will have 24/7 available assist to help him at home. Pt will also greatly benefit from home health. Goals Grooming Goal Independent Dressing Goal Independent Toileting Goal Independent Bathing Goal Independent Toilet Transfer Goal Independent Shower Transfer Goal Independent Days to Meet Goals 7 Frequency of Treatment Frequency Of Treatment Once a Day Treatment Plan OT Treatment Plan ADL Training,Functional Cognition Training,Functional Mobility,Patient/Family Education,Discharge Planning Discharge Recommendations OT Discharge Recommendations Home with 24/7 Assist Available,Home Health Transportation Needs at Discharge Private Vehicle
--- NOTE | 2021-11-22 11:16 | CM.DPC ---
DCP HH Planning Per MD, pt still needing diuresis and having good output and his EF is 15-20% but needs to remain at least another day before stable for discharge and recommending HH. Per PT/OT, home with HH and SLUMS was 02/12 but per senior water resources engineer and MD pt was able to quickly recall information and complete calorie counting and very motivated and eager for recommendations. Pt agreeable with HH and no HH preference. SW called [facility] and made new referral based on Vendor Calendar and faxed clinicals to review and F2F completed and HH orders done but not faxed yet. Plan: SW to follow closely for possible d/c tomorrow Sat if medically stable with new [facility] referral made and to fax d/c summ, F2F and orders at discharge. ELDON Franklin
--- NOTE | 2021-11-22 11:41 | PT.IPTN ---
Current Diagnoses Acute on chronic systolic (congestive) heart failure (11/18/21) Physical Therapy Treatment Note M2 PT-IP Current Condition Start: 11/18/21 12:35 Freq: NEEDED Status: Active Protocol: Document 11/18/21 12:44 [facility] (Rec: 11/18/21 13:15 [facility] [id number]) Physical Therapy Current Condition Current Condition Evaluation Date 11/18/21 Treatment Diagnosis SOB/dyspnea M3 PT-IP Subjective Start: 11/18/21 12:35 Freq: NEEDED Status: Active Protocol: Document 11/22/21 11:27 [facility] (Rec: 11/22/21 12:26 [facility] [id number]) Subjective Physical Therapy Visit Type Type Treatment Note Visit Start Time 11:27 Visit Stop Time 11:41 Total Visit Minutes 14 Number of GOAT HERDER Visits 2 Physical Therapy Visit Comments Patient Comments He plans to stay on the first floor of his multi-level house . He will set up a hospital bed on the main level with his electric recliner close. He reports soreness in left foot with gait but no pain in right LE. Patient Goals Discharge home. M4 PT-IP Mobility and Gait Start: 11/18/21 12:35 Freq: NEEDED Status: Active Protocol: Document 11/22/21 11:27 [place] (Rec: 11/22/21 12:26 KS [id number]) Gait Assessment Comments Gait Comments Pt reclined in chair today and reporting fatigue from recent ambulation to bathroom. Does not feel up to walking again now, but agreeable to exercises to promote blood flow and strengthening. Pt able to perform 1x10 bilateral ankle pumps, quad sets, and glute sets w/ cues. He has quick approach to fatigue and slightly labored breathing after performing. Pt left in chair w/ all needs in reach. M5 PT-IP Objective Assessments Start: 11/18/21 12:35 Freq: NEEDED Status: Active Protocol: Document 11/19/21 11:28 [facility] (Rec: 11/19/21 11:47 [facility] [id number]) Orientation Orientation/Cognition Level of Alertness Alert Orientation Name,Age,Birthday,Month,Date, Year,Day of Week,Place, Situation Language Function Ability No Deficits Noted Safety Awareness Understands Safety Issues Memory Description No Deficits Noted Comments needs repetition of new information M6 PT-IP Treatment Start: 11/18/21 12:35 Freq: NEEDED Status: Active Protocol: Document 11/22/21 11:27 [place] (Rec: 11/22/21 12:26 [place] [id number]) Physical Therapy Treatment Exercises Exercises Ankle Pumps,Gluteal Sets,Quad Sets Education Education Provided Safety Other Treatments Other Treatment Performed Reminder pt to keep legs elevated for LE edema. Discussed safety at home - pt reports wanting heart surgery to improve health and QOL. M7 PT-IP Assessment and Plan Start: 11/18/21 12:35 Freq: NEEDED Status: Active Protocol: Document 11/22/21 11:27 KS (Rec: 11/22/21 12:26 KS [id number]) PT Summary Assessment and Plan Potential Rehabilitation Potential Good Summary Impairments Pain,ROM,Strength,Bed Mobility ,Transfers,Gait,Activity Tolerance Progress Towards Goals Slow Progress due to Medical Issues Assessment Summary Pt limited by medical issues and low tolerance for activity . Fatigued from recent ambulation, but able to complete LE exercises resulting in increased fatigue . He could benefit from home health therapy to assess home equipment needs and increase his activity tolerance in his home environment. Goals Bed Mobility Goal Independent Transfer Goal Independent Gait Goal Independent,Front Wheel Walker Gait Distance 50 feet Days to Meet Goals 3 Frequency of Treatment Frequency Of Treatment Once a Day Treatment Plan Physical Therapy Treatment Plan Bed Mobility Training,Transfer Training,Gait Training, Therapeutic Exercise,Balance Retraining,Discharge Planning Other Recommendations and Next Treatment education to manage LE edema Focus Precautions Other Precautions wounds bilateral LE's, EF 15- 20% Recommendations To Nursing Amount of Assist Needed Standby Assistance Discharge Recommendations PT Discharge Recommendations Home with Assistance,Home Health Other Discharge Recommendations he reports good family support , 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
[2021-11-22] MEDS: LORATADINE 10 MG TABLET PO (12:00)
[2021-11-22] MEDS: INSULIN LISPRO 100 UNIT/ML 3ML VIAL SUBCUT ×2 (12:05→17:12)
[2021-11-22] MEDS: ATORVASTATIN 20 MG TABLET 40 MG PO (20:51)
[2021-11-22] MEDS: INSULIN GLARGINE 100 UNIT/ML 3ML PEN 15 UNIT SUBCUT (20:52)
[2021-11-23] VITALS (8 sets, daily range): BP systolic 102–133; BP diastolic 65–89; PULSE 60–102; RESP 16–18; TEMP 35.7–36.2; O2SAT 94–98
[2021-11-23 07:17] LABS: Add Manual Diff / Slide Review NO; Basophils Absolute Auto 0 /uL (0-100); Basophils Percent Auto 0.3 % (0-2); Eosinophils Absolute Auto 400 /uL (0-450); Eosinophils Percent Auto 5.9 % (2-4); Hematocrit 45.9 % (41-53); Hemoglobin 15.2 g/dL (13.5-17.5); Lymphocytes Absolute Auto 400 /uL (1100-4500); Mean Corpuscular Hemoglobin 28.2 PG (26-34); Mean Corpuscular Volume 85.3 fL (80-100); Monocytes Absolute Auto 500 /uL (0-900); Monocytes Percent Auto 7.3 % (3-14); Neutrophils Absolute Auto 6000 /uL (1500-7000); Neutrophils Percent Auto 81.5 % (50-75); Platelet Count 187 X10^3/uL (150-400); Red Blood Cell Count 5.38 X10^6/uL (4.5-5.9); White Blood Cell Count 7.3 X10^3/uL (4.5-11.0)
[2021-11-23 07:27] LABS: BUN Creatinine Ratio 25.5 (6-22); Blood Urea Nitrogen 38 mg/dL (9-20); Calcium 8.3 mg/dL (8.4-10.2); Carbon Dioxide 27 mmol/L (22-32); Chloride 103 mmol/L (98-107); Estimated Glomerular Filt Rate 48 mL/min (>60); Glucose 117 mg/dL (80-110); HEMOLYSIS < 15 (0-50); Potassium 3.6 mmol/L (3.4-5.1); Sodium 139 mmol/L (137-145)
--- NOTE | 2021-11-23 07:33 | P.PN_ITS ---
Subjective Subjective Date Patient Seen: 11/23/21 Time Patient Seen: 08:00 Interval history: Patient continues to feel well and his only complaint is an itchy rash on his abd which is now spreading up his chest. Pharmacy reviewed his current meds and believes it may be the diamox. Exam Vital Signs (past 8 hours): - 11/23/21 00:00 11/23/21 05:15 11/23/21 05:17 Temperature 96.9 F L Pulse Rate 93 H Respiratory Rate 16 Blood Pressure 104/69 Pulse Oximetry 97 96 96 Oxygen Delivery Method Room Air Room Air Oxygen Delivery Method Room Air Oxygen Flow Rate 0 Narrative Exam Narrative: GEN: no acute distress, pleasant elderly man HEENT: moist mucous membranes, PERRL NECK: trachea midline, no JVD CV: regular rate and rhythm, distant heart tones PULM: bibasilar rales present ABD: soft, nontender, nondistended, no organomegaly, maculopapular itchy rash on lower abdomen extending up to chest, also some on back. Appears to be a drug eruption. EXT: 3+ pitting edema to thighs and abd, superficial wounds to bilateral LE's with scattered blisters, no erythema or purulence NEURO: awake, alert, oriented, no focal deficits Objective Labs Result Diagrams: 11/23/21 06:45 11/23/21 06:45 Labs: Laboratory Results - last 24 hr 11/23/21 11/23/21 06:45 06:45 WBC 7.3 RBC 5.38 Hgb 15.2 Hct 45.9 MCV 85.3 MCH 28.2 MCHC 33.0 RDW 19.0 H Plt Count 187 Neut % (Auto) 81.5 H Lymph % (Auto) 5.0 L [place] % (Auto) 7.3 Eos % (Auto) 5.9 H Baso % (Auto) 0.3 Neut # (Auto) 6000 Lymph # (Auto) 400 L [place] # (Auto) 500 Eos # (Auto) 400 Baso # (Auto) 0 Sodium 139 Potassium 3.6 Chloride 103 Carbon Dioxide 27 BUN 38 H Creatinine 1.49 H Estimated GFR 48 L BUN/Creatinine Ratio 25.5 H Glucose 117 H Calcium 8.3 L PFSH Medical History (Updated 11/18/21 @ 13:00 by Thomas Samuel DO) CAD (coronary artery disease) Diabetes NSTEMI (non-ST elevated myocardial infarction) Pre-diabetes Surgical History (Updated 11/18/21 @ 13:00 by Thomas Samuel DO) History of hernia surgery History of surgery on arm Hx of tonsillectomy Family History (Updated 11/18/21 @ 13:00 by Thomas Samuel DO) Mother CAD (coronary artery disease) Sister Diabetes mellitus Social History household members: spouse Smoking Status: Never smoker alcohol intake: current Assessment & Plan Assessment & Plan narrative: # Acute decompensated HFrEF of 20-25% -Last echo 2 years ago, none since then and hasn't followed up with doctors. Likely ischemic given need for CABG at that time. -Unclear why not taking BB's, SERGIO/ARB or spironolactone. Plan to start these once euvolemic. -increase to lasix 80mg IV BID. Hold for hypotension. -had to dc diamox as possible cause of rash -Johnson for fluid measurement, strict I/O's -Daily weights -Repeat echo on 11/21 showed EF 15-20%, start spironolactone. Will start beta lianna when euvolemic. -start potassium supplement daily as K downtrending # CAD -Known CAD with LHC at [facility] 03/2019 showing occluded LAD with multivessel disease and was recommended for CABG at [facility] but did not happen due to patient being COVID + -Troponins are downtrending. 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 -Continue diuresis as above. -abd US with cirrhosis and mild ascites -hepatitis panel pending # Rash on abd, chest and back -appears to be drug related rash, likely offending agent is acetazolamide so will dc -does not appear non-cellulitic, no leukocytosis or fevers and non-painful -continue loratidine daily and hydrocortisone topical BID -start benadryl q6h # Uncontrolled DM2 -A1c 8.1%, not on home meds for diabetes -FS ACHS, -continue lantus 15 units with sliding scale. -Carb consistent diet. -consider starting metformin on discharge # Superficial LE ulcerations -Likely secondary to rapid edema of LE's causing skin blisters and wounds -Wound care -Treat edema as above Code: Full, surrogate decision maker is patient's spouse Constance. Dispo: 2 more days Time Spent With Patient Critical Care time: I spent a total of [] minutes of critical care time on this patient's care today; this time is exclusive of procedural time. Quality VTE Deep Vein Thrombosis/Pulmonary Embolism Present on Admission: No
[2021-11-23] MEDS: POTASSIUM CHLORIDE 20 MEQ TAB 40 MEQ PO (08:15)
[2021-11-23] MEDS: acetaZOLAMIDE 250 MG TABLET 500 MG PO (08:16)
[2021-11-23] MEDS: FUROSEMIDE 20 MG/2 ML VIAL 60 MG IV (08:17)
[2021-11-23] MEDS: ASPIRIN EC 81 MG TABLET PO (08:17)
[2021-11-23] MEDS: HYDROCORTISONE 1% CREAM 28 GM 1 APPLIC TOP ×2 (08:17→21:50)
[2021-11-23] MEDS: HEPARIN 5,000 UNIT/ML VIAL 5000 UNIT SUBCUT ×2 (08:17→21:49)
[2021-11-23] MEDS: SPIRONOLACTONE 25 MG TABLET PO (08:17)
[2021-11-23] MEDS: LORATADINE 10 MG TABLET PO (08:17)
[2021-11-23] MEDS: SODIUM CHLORIDE 0.9% FLUSH 10 ML IV ×2 (08:19→21:52)
--- NOTE | 2021-11-23 09:14 | OT.IP.TRT ---
Current Diagnoses Acute on chronic systolic (congestive) heart failure (11/18/21) Occupational Therapy Treatment Note M2 OT-IP Current Condition Start: 11/18/21 13:12 Freq: Status: Active Protocol: Document 11/18/21 13:13 CGR (Rec: 11/18/21 13:29 CGR [id number]) Occupational Therapy Current Condition Current Condition Evaluation Date 11/18/21 Treatment Diagnosis SOB, BLE swelling and wounds Diagnosis Onset Date 11/18/21 M3 OT- IP Subjective and Pain Start: 11/18/21 13:12 Freq: Status: Active Protocol: Document 11/23/21:23 [facility] (Rec: 11/23/21 09:34 [facility] [id number]) OT- Subjective Occupational Therapy Visit Type Type Treatment Note Visit Start Time 09:05 Visit Stop Time 09:14 Total Visit Minutes 9 Occupational Therapy Visit Comments Patient Comments Pt just finishing up oral care needs while in the recliner. Pt feeling too tired to get up at this time. Pt agreed to make a list of equipment needs for him at home. Patient/Caregiver Goals TO get better. M6 OT- IP Functional Cognition Start: 11/18/21 13:12 Freq: Status: Active Protocol: Document 11/23/21: [facility] (Rec: 11/23/21 09:34 [facility] [id number]) Cognitive Factors Limiting Selfcare Function Cognitive Ability Level of Alertness Alert Patient Orientation Name,Age,Birthday,Month,Date, Year,Day of Week,Place, Situation Attention Span Ability Capable of Focused Attention, Capable of Sustained Attention Memory Description Short Term Impaired Cognitive Comments Cognitive Assessment Comments Able to talk to pt of equipment needs and had pt write down all the items needed for home. Pt needing reminders to recall some of the items that will be beneficial for the pt to have. M9 OT- IP Assessment and Plan Start: 11/18/21 13:12 Freq: Status: Active Protocol: Document 11/23/21: [facility] (Rec: 11/23/21 09:34 [facility] [id number]) OT Summary Assessment and Plan Potential Rehabilitation Potential Good Analytic Complexity at Evaluation Low Summary Progress Towards Goals Slow Progress due to Medical Issues,Slow Progress due to Activity Tolerance Assessment Summary Pt just finishing his breakfast and too tired to get up at this time. Pt agreed that he has a lot on his mind and at times not thinking well . Able to work with pt to write down items needed for home. Spoke of the importance to get shower chair/stool, BSC, WC hospital bed, bsc, and urinal to help with his ADL and mobility needs due to his decreased overall activity tolerance. When medically stable, pt will benefit from 24/7 assist and home health. home with home health. Goals Grooming Goal Independent Dressing Goal Independent Toileting Goal Independent Bathing Goal Independent Toilet Transfer Goal Independent Shower Transfer Goal Independent Days to Meet Goals 7 Frequency of Treatment Frequency Of Treatment Once a Day Treatment Plan OT Treatment Plan ADL Training,Functional Cognition Training,Functional Mobility,Patient/Family Education,Discharge Planning Discharge Recommendations OT Discharge Recommendations Home with 24/7 Assist Available,Home Health Transportation Needs at Discharge Private Vehicle
--- NOTE | 2021-11-23 11:17 | PT-IP ANOTE ---
Pt sleeping upon arrival, wakes easily. Refused PT due to high level of fatigue and c/o rash, requesting to rest. Reports he is feeling fatigued from ambulating to bathroom. Encouraged pt to perform LE exercises listed on white board, pt agreeable.
[2021-11-23] MEDS: INSULIN LISPRO 100 UNIT/ML 3ML VIAL SUBCUT ×2 (11:59→17:10)
[2021-11-23] MEDS: diphenhydrAMINE 25 MG TABLET PO (11:59)
[2021-11-23] MEDS: ATORVASTATIN 20 MG TABLET 40 MG PO (21:48)
[2021-11-23] MEDS: FUROSEMIDE 20 MG/2 ML VIAL 80 MG IV (21:49)
[2021-11-23] MEDS: INSULIN GLARGINE 100 UNIT/ML 3ML PEN 15 UNIT SUBCUT (21:51)
[2021-11-24] VITALS (9 sets, daily range): BP systolic 108–129; BP diastolic 65–86; PULSE 46–110; RESP 17–22; TEMP 36–36.6; O2SAT 94–100
--- NOTE | 2021-11-24 07:16 | P.PN_ITS ---
Subjective Subjective Date Patient Seen: 11/24/21 Time Patient Seen: 08:00 Interval history: Patient has the urge to pee, but kuo catheter is in. He notes improvement of the rash on his belly. No other complaints. Exam Vital Signs (past 8 hours): - 11/24/21 00:00 11/24/21 01:00 11/24/21 03:35 Temperature 97.2 F L 97.0 F L Pulse Rate 108 H 46 L Respiratory Rate 22 Blood Pressure 129/73 123/71 Pulse Oximetry 98 96 94 Oxygen Delivery Method Room Air Oxygen Flow Rate 0 0 0 11/24/21 05:13 11/24/21 05:13 Temperature 96.8 F L Pulse Rate 68 Respiratory Rate 17 Blood Pressure 114/86 Pulse Oximetry 96 96 Oxygen Delivery Method Room Air Oxygen Flow Rate 0 0 Oxygen Delivery Method Room Air Oxygen Flow Rate 0 Narrative Exam Narrative: GEN: no acute distress, pleasant elderly man HEENT: moist mucous membranes, PERRL NECK: trachea midline, no JVD CV: regular rate and rhythm, distant heart tones PULM: bibasilar rales present ABD: soft, nontender, nondistended, no organomegaly, maculopapular itchy rash on lower abdomen extending up to chest, also some on back is improving EXT: 3+ pitting edema to thighs and abd is improving, superficial wounds to bilateral LE's with scattered blisters, no erythema or purulence NEURO: awake, alert, oriented, no focal deficits Objective Labs Result Diagrams: 11/24/21 09:30 11/24/21 09:30 Labs: Laboratory Results - last 24 hr 11/23/21 11/23/21 06:45 06:45 WBC 7.3 RBC 5.38 Hgb 15.2 Hct 45.9 MCV 85.3 MCH 28.2 MCHC 33.0 RDW 19.0 H Plt Count 187 Neut % (Auto) 81.5 H Lymph % (Auto) 5.0 L [place] % (Auto) 7.3 Eos % (Auto) 5.9 H Baso % (Auto) 0.3 Neut # (Auto) 6000 Lymph # (Auto) 400 L [place] # (Auto) 500 Eos # (Auto) 400 Baso # (Auto) 0 Sodium 139 Potassium 3.6 Chloride 103 Carbon Dioxide 27 BUN 38 H Creatinine 1.49 H Estimated GFR 48 L BUN/Creatinine Ratio 25.5 H Glucose 117 H Calcium 8.3 L [facility] Medical History (Updated 11/18/21 @ 13:00 by Thomas Samuel DO) CAD (coronary artery disease) Diabetes NSTEMI (non-ST elevated myocardial infarction) Pre-diabetes Surgical History (Updated 11/18/21 @ 13:00 by Thomas Samuel DO) History of hernia surgery History of surgery on arm Hx of tonsillectomy Family History (Updated 11/18/21 @ 13:00 by Thomas Samuel DO) Mother CAD (coronary artery disease) Sister Diabetes mellitus Social History household members: spouse Smoking Status: Never smoker alcohol intake: current Assessment & Plan Assessment & Plan narrative: # Acute decompensated HFrEF of 20-25% -Last echo 2 years ago, none since then and hasn't followed up with doctors. Likely ischemic given need for CABG at that time. -Unclear why not taking BB's, SERGIO/ARB or spironolactone. Plan to start these once euvolemic. -increase to lasix 80mg IV BID. Hold for hypotension. -had to dc diamox as possible cause of rash -Kuo for fluid measurement, strict I/O's -Daily weights -Repeat echo on 11/21 showed EF 15-20%, start spironolactone. Will start beta lianna when euvolemic. -continue potassium supplement daily as K downtrending with lasix # CAD -Known CAD with LHC at [facility] 03/2019 showing occluded LAD with multivessel disease and was recommended for CABG at [facility] but did not happen due to patient being CO VID + -Troponins are downtrending. 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 -Continue diuresis as above. -abd US with cirrhosis and mild ascites -hepatitis panel negative # Rash on abd, chest and back, improving -appears to be drug related rash, likely offending agent is acetazolamide so will dc -does not appear non-cellulitic, no leukocytosis or fevers and non-painful -continue loratidine daily and hydrocortisone topical BID -continue benadryl q6h -now improving after stopping diamox # Uncontrolled DM2 -A1c 8.1%, not on home meds for diabetes -FS ACHS, -continue lantus 15 units with sliding scale. -Carb consistent diet. -consider starting metformin on discharge # Superficial LE ulcerations -Likely secondary to rapid edema of LE's causing skin blisters and wounds -Wound care -Treat edema as above Code: Full, surrogate decision maker is patient's spouse Constance. Dispo: 2 more days Time Spent With Patient Critical Care time: I spent a total of [] minutes of critical care time on this patient's care today; this time is exclusive of procedural time. Quality VTE Deep Vein Thrombosis/Pulmonary Embolism Present on Admission: No
[2021-11-24] MEDS: ASPIRIN EC 81 MG TABLET PO (08:10)
[2021-11-24] MEDS: SPIRONOLACTONE 25 MG TABLET PO (08:11)
[2021-11-24] MEDS: POTASSIUM CHLORIDE 20 MEQ TAB PO (08:11)
[2021-11-24] MEDS: FUROSEMIDE 20 MG/2 ML VIAL 80 MG IV ×2 (08:11→21:10)
[2021-11-24] MEDS: HEPARIN 5,000 UNIT/ML VIAL 5000 UNIT SUBCUT ×2 (08:11→21:10)
[2021-11-24] MEDS: HYDROCORTISONE 1% CREAM 28 GM 1 APPLIC TOP ×2 (08:11→21:23)
[2021-11-24] MEDS: LORATADINE 10 MG TABLET PO (08:11)
[2021-11-24] MEDS: SODIUM CHLORIDE 0.9% FLUSH 10 ML IV ×3 (08:12→22:45)
[2021-11-24 09:44] LABS: Add Manual Diff / Slide Review NO; Basophils Absolute Auto 0 /uL (0-100); Basophils Percent Auto 0.4 % (0-2); Eosinophils Absolute Auto 500 /uL (0-450); Eosinophils Percent Auto 5.2 % (2-4); Hematocrit 47.8 % (41-53); Hemoglobin 15.7 g/dL (13.5-17.5); Lymphocytes Absolute Auto 400 /uL (1100-4500); Lymphocytes Percent Auto 4.5 % (25-40); Mean Corpuscular HGB Conc 32.7 % (30-36); Mean Corpuscular Hemoglobin 27.9 PG (26-34); Mean Corpuscular Volume 85.1 fL (80-100); Monocytes Absolute Auto 800 /uL (0-900); Monocytes Percent Auto 8.4 % (3-14); Neutrophils Absolute Auto 7400 /uL (1500-7000); Neutrophils Percent Auto 81.5 % (50-75); Platelet Count 200 X10^3/uL (150-400); Red Blood Cell Count 5.62 X10^6/uL (4.5-5.9); Red Cell Distribution Width 18.7 % (11.6-14.8); White Blood Cell Count 9.1 X10^3/uL (4.5-11.0)
[2021-11-24 09:59] LABS: BUN Creatinine Ratio 27.8 (6-22); Blood Urea Nitrogen 44 mg/dL (9-20); Calcium 8.6 mg/dL (8.4-10.2); Carbon Dioxide 24 mmol/L (22-32); Chloride 102 mmol/L (98-107); Estimated Glomerular Filt Rate 45 mL/min (>60); Glucose 123 mg/dL (80-110); HEMOLYSIS < 15 (0-50); Potassium 3.8 mmol/L (3.4-5.1); Sodium 138 mmol/L (137-145)
[2021-11-24 11:47] LABS: HBsAg Screen Negative (Negative); Hepatitis A Antibody IgM Negative (Negative); Hepatitis B Core Antibody IgM Negative (Negative); Hepatitis C Antibody <0.1 s/co ratio (0.0-0.9)
[2021-11-24] MEDS: INSULIN LISPRO 100 UNIT/ML 3ML VIAL SUBCUT ×2 (12:07→17:01)
[2021-11-24] MEDS: ATORVASTATIN 20 MG TABLET 40 MG PO (21:10)
[2021-11-24] MEDS: BENZONATATE 100 MG CAPSULE PO (21:11)
[2021-11-24] MEDS: INSULIN GLARGINE 100 UNIT/ML 3ML PEN 15 UNIT SUBCUT (21:25)
[2021-11-25] VITALS (7 sets, daily range): BP systolic 105–120; BP diastolic 62–73; PULSE 74–108; RESP 16–18; TEMP 36.1–36.5; O2SAT 95–98
[2021-11-25] MEDS: FUROSEMIDE 20 MG/2 ML VIAL 80 MG IV ×2 (08:46→20:32)
[2021-11-25] MEDS: SPIRONOLACTONE 25 MG TABLET PO (08:47)
[2021-11-25] MEDS: ASPIRIN EC 81 MG TABLET PO (08:47)
[2021-11-25] MEDS: HEPARIN 5,000 UNIT/ML VIAL 5000 UNIT SUBCUT ×2 (08:47→20:32)
[2021-11-25] MEDS: POTASSIUM CHLORIDE 20 MEQ TAB PO (08:48)
[2021-11-25] MEDS: LORATADINE 10 MG TABLET PO (08:48)
[2021-11-25] MEDS: HYDROCORTISONE 1% CREAM 28 GM 1 APPLIC TOP ×2 (08:48→20:47)
--- NOTE | 2021-11-25 10:56 | PT.IPTN ---
Current Diagnoses Acute on chronic systolic (congestive) heart failure (11/18/21) Physical Therapy Treatment Note M2 PT-IP Current Condition Start: 11/18/21 12:35 Freq: NEEDED Status: Active Protocol: Document 11/25/21 10:37 SP (Rec: 11/25/21 12:14 SP [id number]) Physical Therapy Current Condition Current Condition Evaluation Date 11/18/21 Treatment Diagnosis SOB/dyspnea M3 PT-IP Subjective Start: 11/18/21 12:35 Freq: NEEDED Status: Active Protocol: Document 11/25/21 10:37 SP (Rec: 11/25/21 12:14 SP [id number]) Subjective Physical Therapy Visit Type Type Treatment Note Visit Start Time 10:37 Visit Stop Time 10:56 Total Visit Minutes 19 Notes Vitals pre mobility: seated in chair: BP 145/52 HR 100 [id number]% on RA. No symptoms report. Number of DIRECTOR PROSPECT Visits 3 Physical Therapy Visit Comments Patient Comments Pt plans to return home with to assist him. He plans to stay on entering home no stairs side of house, sleep on the first floor of his multi- level house. He will set up a hospital bed on the main level with his electric recliner close. Patient Goals Discharge home when swelling controlled. M4 PT-IP Mobility and Gait Start: 11/18/21 12:35 Freq: NEEDED Status: Active Protocol: Document 11/25/21 10:37 SP (Rec: 11/25/21 12:14 SP [id number]) PT-Transfer Assessment Sit to and From Stand Sit to and from Stand Standby Assistance,Use of Upper Extremities Equipment Transfer Assistive Device Gait Belt,Front Wheeled Walker Transfers Transfer Destination Chair Transfer Technique standing front chair only Comments Mobility Comments Pt seated in chair when arrived feet resting on floor, chair alarm noted fastened on back of chair. He reported very tired, already walked to bathroom and back x3 this am with nursing (chair opposite bathroom near room door). Instructed LE ex for circulation/ mobility AP, LAQ, marching small range able. Scoot EOchair and STS SBA with min-mod use of UE support. Stood front chair with FWW support approx 2 min, unable to progress wt shift, marching HR requested, stated to tired right now, just wanted to stand and stretch legs out due to stiffness when sits to long. Pt demonstrates hands and trunk flexed forearms WB on FWW, cued upright posture to allow potential decreased strain on back, safety, balance/stability and allow LEs to increase tolerance. Stand>sit SBA, proper use of chair arms slow sit. Education of use of call light for safety during standing mobility at this time. Pt able to fully scoot back in chair self BUEs, assisted elevate chair leg rest and blankets over LEs due to very cold feet . Pt had call light, chair alarm donned and all needs in reach before left. Discussed havign staff with him when standing mobility. Gait Assessment Comments Gait Comments Pt refused gait this tx due to tiring x3 trip already this am with nursing. Stair Climbing Assessment Comments Stair Climbing Comments Pt reports has 12 x15 stairs to enter one direction, but he reports he will enter through the side and not need to do stairs at this time. PT-Balance Assessment Sitting Balance and Reactions Static Sitting Balance Ability Normal Dynamic Sitting Balance Ability Good Standing Balance and Reactions Static Standing Balance Ability Fair Dynamic Standing Balance Ability Fair Device Used FWW M5 PT-IP Objective Assessments Start: 11/18/21 12:35 Freq: NEEDED Status: Active Protocol: Document 11/19/21 11:28 DLM (Rec: 11/19/21 11:47 DLM [id number]) Orientation Orientation/Cognition Level of Alertness Alert Orientation Name,Age,Birthday,Month,Date, Year,Day of Week,Place, Situation Language Function Ability No Deficits Noted Safety Awareness Understands Safety Issues Memory Description No Deficits Noted Comments needs repetition of new information M6 PT-IP Treatment Start: 11/18/21 12:35 Freq: NEEDED Status: Active Protocol: Document 11/25/21 10:37 SP (Rec: 11/25/21 12:14 SP [id number]) Physical Therapy Treatment Exercises Exercises Ankle Pumps,Seated Knee Flexion/Extension Education Education Provided Safety Other Treatments Other Treatment Performed Reminder pt to keep legs elevated for LE edema. Discussed safety at home. Recommended family contact [employer] for FWW and BSC to borrow at home. Pt stated will ask this. M7 PT-IP Assessment and Plan Start: 11/18/21 12:35 Freq: NEEDED Status: Active Protocol: Document 11/25/21 10:37 SP (Rec: 11/25/21 12:14 SP [id number]) PT Summary Assessment and Plan Potential Rehabilitation Potential Good Status of Condition at Evaluation Evolving Summary Impairments Pain,ROM,Strength,Bed Mobility ,Transfers,Gait,Activity Tolerance Progress Towards Goals Progressing Toward Goals,Slow Progress due to Medical Issues ,Slow Progress due to Activity Tolerance Assessment Summary Pt limited by medical issues and low activity tolerance. Fatigued from recent ambulation with nursing, but able to complete LE exercises seated. He could benefit from home health therapy to assess home equipment needs and increase his activity tolerance in his home environment. Goals Bed Mobility Goal Independent Transfer Goal Independent Gait Goal Independent,Front Wheel Walker Gait Distance 50 feet Days to Meet Goals 3 Frequency of Treatment Frequency Of Treatment Once a Day Treatment Plan Physical Therapy Treatment Plan Bed Mobility Training,Transfer Training,Gait Training, Therapeutic Exercise,Balance Retraining,Discharge Planning Other Recommendations and Next Treatment Continue education to manage Focus LE edema, transfers, gait w/ FWW. CGT with spouse before return home. Check if acquired FWW. 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 Transportation Needs at Discharge Private Vehicle
--- NOTE | 2021-11-25 11:45 | OT.IPNOTE ---
Attempted to see pt for OT services. Pt states too fatigued for activity at this time. States he has been up with nursing multiple times and has performed his ADLs. States he may be up for performing a shower tomorrow. Will hold today and continue to follow.
[2021-11-25] MEDS: INSULIN LISPRO 100 UNIT/ML 3ML VIAL SUBCUT ×2 (11:59→18:30)
--- NOTE | 2021-11-25 13:40 | P.PN_ITS ---
Subjective Subjective Date Patient Seen: 11/25/21 Interval history: Patient continues to have clinical improvement with excellent diuresis on IV Lasix. Exam Vital Signs (past 8 hours): - 11/25/21 07:59 11/25/21 11:50 Temperature 97.5 F L 97.0 F L Pulse Rate 106 H 74 Respiratory Rate 17 18 Blood Pressure 118/73 114/71 Pulse Oximetry 95 95 Oxygen Flow Rate 0 0 Oxygen Delivery Method Room Air Oxygen Flow Rate 0 Narrative Exam Narrative: General: Alert and oriented, NAD Lungs: Clear Heart: Regular rhythm Extremities: 2 to 3+ pitting LE edema bilaterally Objective Labs Result Diagrams: 11/24/21 09:30 11/24/21 09:30 [facility] Medical History (Updated 11/18/21 @ 13:00 by Thomas Samuel DO) CAD (coronary artery disease) Diabetes NSTEMI (non-ST elevated myocardial infarction) Pre-diabetes Surgical History (Updated 11/18/21 @ 13:00 by Thomas Samuel DO) History of hernia surgery History of surgery on arm Hx of tonsillectomy Family History (Updated 11/18/21 @ 13:00 by Thomas Samuel DO) Mother CAD (coronary artery disease) Sister Diabetes mellitus Social History household members: spouse Smoking Status: Never smoker alcohol intake: current Assessment & Plan Assessment & Plan narrative: # Acute decompensated HFrEF of 20-25% -Last echo 2 years ago, none since then and hasn't followed up with doctors. Likely ischemic given need for CABG at that time. -continue Lasix 80 mg IV b.i.d., -had to dc diamox as possible cause of rash -Johnson for fluid measurement, strict I/O's -Daily weights -Repeat echo on 11/21/21 showed EF 15-20%, start spironolactone. Will start beta lianna when euvolemic. -continue potassium supplement daily -start low-dose ARB, beta-lianna, spironolactone on discharge # CAD -Known CAD with LHC at [facility] 03/2019 showing occluded LAD with multivessel disease and was recommended for CABG at [facility] but did not happen due to patient being COVID + -Troponins are downtrending. 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 -Continue diuresis as above. -abd US with cirrhosis and mild ascites -hepatitis panel negative # Rash on abd, chest and back, improving -appears to be drug related rash, likely offending agent is acetazolamide so will dc -does not appear non-cellulitic, no leukocytosis or fevers and non-painful -continue loratidine daily and hydrocortisone topical BID -continue benadryl q6h as needed -now improving after stopping diamox # Uncontrolled DM2 -A1c 8.1%, not on home meds for diabetes -FS ACHS, -continue lantus 15 units with sliding scale. -Carb consistent diet. -consider starting metformin on discharge # Superficial LE ulcerations -Likely secondary to rapid edema of LE's causing skin blisters and wounds -Wound care -Treat edema as above Code: Full, surrogate decision maker is patient's spouse Constance. Likely needs 1 or 2 more of hospital diuresis before going home. Time Spent With Patient Critical Care time: I spent a total of [] minutes of critical care time on this patient's care today; this time is exclusive of procedural time. Quality VTE Deep Vein Thrombosis/Pulmonary Embolism Present on Admission: No
[2021-11-25] MEDS: ATORVASTATIN 20 MG TABLET 40 MG PO (20:32)
[2021-11-25] MEDS: INSULIN GLARGINE 100 UNIT/ML 3ML PEN 15 UNIT SUBCUT (20:33)
[2021-11-25] MEDS: SODIUM CHLORIDE 0.9% FLUSH 10 ML IV (20:34)
[2021-11-26] VITALS (10 sets, daily range): BP systolic 103–121; BP diastolic 53–81; PULSE 20–113; RESP 16–22; TEMP 36.1–36.8; O2SAT 95–99
--- NOTE | 2021-11-26 00:04 | PC.NURSE ---
Patient is alert and oriented. Breath sounds diminished throughout and has crackles in right LL; RA sat is 97%. HRR but tachy in low 100's. Denies nausea. BT present and had BM earlier today. Indwelling catheter is patent; urine is clear, yellow. Is able to move himself. Up to walk with walker and SBA; is slow and weak but steady. 3+ bilateral LE edema with open wounds/blisters/abrasions on bilateral LE anterior/posterior; skin continues to be weepy. Allevyn dressings to right LE and right foot intact. Solid red, diffuse rash present on abdomen, inner/upper thighs, back and buttocks but denies itching/burning/pain. Denies pain. Fall risk score is high and bed/chair alarm is used although patient calls appropriately for assistance. Noted new excoriation at coccyx/gluteal cleft; has waffle cushion in chair.
[2021-11-26 06:22] LABS: Blood Urea Nitrogen 51 mg/dL (9-20); Calcium 8.9 mg/dL (8.4-10.2); Carbon Dioxide 26 mmol/L (22-32); Chloride 100 mmol/L (98-107); Estimated Glomerular Filt Rate 53 mL/min (>60); Glucose 215 mg/dL (80-110); HEMOLYSIS 17 (0-50); Potassium 4.4 mmol/L (3.4-5.1); Sodium 136 mmol/L (137-145)
[2021-11-26] MEDS: INSULIN LISPRO 100 UNIT/ML 3ML VIAL SUBCUT ×4 (08:16→20:41)
[2021-11-26] MEDS: HEPARIN 5,000 UNIT/ML VIAL 5000 UNIT SUBCUT ×2 (08:17→20:40)
[2021-11-26] MEDS: POTASSIUM CHLORIDE 20 MEQ TAB PO (08:17)
[2021-11-26] MEDS: HYDROCORTISONE 1% CREAM 28 GM 1 APPLIC TOP ×2 (08:17→20:41)
[2021-11-26] MEDS: LORATADINE 10 MG TABLET PO (08:17)
[2021-11-26] MEDS: FUROSEMIDE 20 MG/2 ML VIAL 80 MG IV ×2 (08:17→20:40)
[2021-11-26] MEDS: ASPIRIN EC 81 MG TABLET PO (08:17)
[2021-11-26] MEDS: SODIUM CHLORIDE 0.9% FLUSH 10 ML IV ×2 (08:18→20:43)
[2021-11-26] MEDS: SPIRONOLACTONE 25 MG TABLET PO (08:18)
--- NOTE | 2021-11-26 09:33 | PT-IP ANOTE ---
Attempted to see pt this AM, pt refused PT and states he feels he is at his baseline and does not want further PT at this time. Offers he has been ambulating and performing LE exercises independently. Will update nursing staff and case mgmt team.
--- NOTE | 2021-11-26 10:35 | OT.IP.TRT ---
Current Diagnoses Acute on chronic systolic (congestive) heart failure (11/18/21) Occupational Therapy Treatment Note M2 OT-IP Current Condition Start: 11/18/21 13:12 Freq: Status: Active Protocol: Document 11/18/21 13:13 [facility] (Rec: 11/18/21 13:29 [facility] [id number]) Occupational Therapy Current Condition Current Condition Evaluation Date 11/18/21 Treatment Diagnosis SOB, BLE swelling and wounds Diagnosis Onset Date 11/18/21 M3 OT- IP Subjective and Pain Start: 11/18/21 13:12 Freq: Status: Active Protocol: Document 11/23/21 09:23 [facility] (Rec: 11/23/21 09:34 [facility] [id number]) OT- Subjective Occupational Therapy Visit Type Type Treatment Note Visit Start Time 932 Visit Stop Time 1035 Total Visit Minutes 48 Occupational Therapy Visit Comments Patient Comments Pt agreed to redo the SLUMS and needing to have a bowle movement. Patient/Caregiver Goals TO get better. M5 OT- IP IADL's Start: 11/18/21 13:12 Freq: Status: Active Protocol: Document 11/21/21 11:35 [facility] (Rec: 11/21/21 11:50 [facility] [id number]) OT-Instrumental Activities of Daily Living Home Safety Awareness Home Safety Comments At this time due to cognitive functiona based on the SLUMS, see below. Best for pt to have assist/supervision with all needs. Medication Management Medication Management Comments Concerns for completeness. Money Management Money Management Comments Concerns for completeness. Driving Driving Concerns Identified Regarding Safety M6 OT- IP Functional Cognition Start: 11/18/21 13:12 Freq: Status: Active Protocol: Document 11/26/21 11:34 [facility] (Rec: 11/26/21 11:50 [facility] [id number]) Cognitive Factors Limiting Selfcare Function Cognitive Tests SLUMS Pt scored 14/30 which implies dementia. Pt not able to figure out 100-23, able to state 12 animals in one minute , able to recall2/5 objects after time passed, not able to recall 3 or 4 digit number backwards, not able to draw the numbers of the clock in correct positions or draw the hands of the clock after time given or draw the hands correctly on the clock after a time given, and pt just able to answer 2/4 questions right after paragraph read. Pt score improved by 3 pts from 5 days ago. Cognitive Comments Cognitive Assessment Comments Pt states still have not gotten equipment needs and states will have his family go to [facility] to get it from his mother's place. Redirected pt and educated best to get here in [place] at [facility], pt then recalling was going to do that. Noticed pt having multiple lists of equipment needs but insistent that he is taking care of it. Asked if able to call his and daughter for equipment needs, pt states, My will not picking machine operator helper the phone while she is at work and daughter too busy. Pt's friend in the room at the time and able to persuade pt to allow therapist to leave a message for his regarding equipment needs. Pt needing safety cues for FWW use to keep it in front of him at all times and for completeness to wipe and also to go and wash his wash after use of the toilet. M7 OT- IP Mobility and Balance Start: 11/18/21 13:12 Freq: Status: Active Protocol: Document 11/26/21 11:34 [facility] (Rec: 11/26/21 11:50 [facility] [id number]) OT-Transfer Assessment Sit to and From Stand Sit to and from Stand Standby Assistance Transfers Transfer Ability Standby Assistance,Contact Guard Assistance Technique Transfer Destination Chair,Toilet Transfer Technique Stand Step Pivot Devices Transfer Assistive Devices Gait Belt,Front Wheeled Walker Comments Mobility Comments CGA to close SBA as also needing assist for tubing management needs and FWW. OT- Balance Assessment Sitting Balance and Reactions Static Sitting Balance Ability Normal Dynamic Sitting Balance Ability Good Standing Balance and Reactions Static Standing Balance Ability Fair Dynamic Standing Balance Ability Fair M8 OT- IP Objective Assessments Start: 11/18/21 13:12 Freq: Status: Active Protocol: Document 11/18/21 13:13 [facility] (Rec: 11/18/21 13:29 [facility] [id number]) OT Gross Range of Motion Upper Extremity Range of Motion Assessment Within Functional Limits OT Strength Upper Extremity Strength Assessment Within Functional Limits Comments Strength Comments shlds 4/5, arms 5/5, hands 4+/ 5 OT- Coordination Assessment Upper Extremity Finger to Nose Test Within Functional Limits Finger Tapping Test Within Functional Limits OT-Muscle Tone Assessment Muscle Tone WNL Yes M9 OT- IP Assessment and Plan Start: 11/18/21 13:12 Freq: Status: Active Protocol: Document 11/26/21 11:34 [facility] (Rec: 11/26/21 11:50 [facility] [id number]) OT Summary Assessment and Plan Potential Rehabilitation Potential Good Analytic Complexity at Evaluation Low Summary OT Impairments Pain,Balance,Functional Cognition,Functional Mobility, Toileting,Bathing,Toilet Transfers,Shower Transfers, Activity Tolerance Progress Towards Goals Slow Progress due to Activity Tolerance,Slow Progress due to Cognition Assessment Summary Pt agreed to redo SLUMS and scored 3 pts better from 02/12 to however still implies dementia. Pt will greatly benefit from 06/10 available assist, home health and equipment needs. Pt having difficulty with his safety awareness and short term memory Able to leave pt's a message regarding equipment needs for the pt. Goals Grooming Goal Independent Dressing Goal Independent Toileting Goal Independent Bathing Goal Independent Toilet Transfer Goal Independent Shower Transfer Goal Independent Days to Meet Goals 7 Frequency of Treatment Frequency Of Treatment Once a Day Treatment Plan OT Treatment Plan ADL Training,Functional Cognition Training,Functional Mobility,Patient/Family Education,Discharge Planning Discharge Recommendations OT Discharge Recommendations Home with / Assist Available,Home Health Home Equipment Needs BSC, hospital bed, FWW, tub bench, urinals, w/c Transportation Needs at Discharge Private Vehicle
--- NOTE | 2021-11-26 10:41 | P.PN_ITS ---
Subjective Subjective Date Patient Seen: 11/26/21 Interval history: Patient continues to respond very well to IV Lasix diuresis. Still has a lot of weeping edema in legs. Breathing is good but has a slight cough. Renal function and electrolytes remain stable. Exam Vital Signs (past 8 hours): - 11/26/21 04:00 11/26/21 05:00 11/26/21 07:45 Temperature 97.6 F 97.7 F Pulse Rate 108 H 106 H Respiratory Rate 18 22 Blood Pressure 106/72 105/70 Pulse Oximetry 97 97 95 Oxygen Delivery Method Room Air Oxygen Flow Rate 0 0 0 Oxygen Delivery Method Room Air Oxygen Flow Rate 0 Narrative Exam Narrative: General: Alert pleasant male sitting in chair in no acute distress Lungs: Clear Heart: Regular rhythm Extremities: Bilateral pitting being edema in the legs with multiple small superficial venous stasis ulcers on the lower legs Objective Labs Result Diagrams: 11/24/21 09:30 11/26/21 05:59 Labs: Laboratory Results - last 24 hr 11/26/21 05:59 Sodium 136 L Potassium 4.4 Chloride 100 Carbon Dioxide 26 BUN 51 H Creatinine 1.38 H Estimated GFR 53 L BUN/Creatinine Ratio 37.0 H Glucose 215 H Calcium 8.9 PFSH Medical History (Updated 11/18/21 @ 13:00 by Thomas Samuel DO) CAD (coronary artery disease) Diabetes NSTEMI (non-ST elevated myocardial infarction) Pre-diabetes Surgical History (Updated 11/18/21 @ 13:00 by Thomas Samuel DO) History of hernia surgery History of surgery on arm Hx of tonsillectomy Family History (Updated 11/18/21 @ 13:00 by Thomas Samuel DO) Mother CAD (coronary artery disease) Sister Diabetes mellitus Social History household members: spouse Smoking Status: Never smoker alcohol intake: current Assessment & Plan Assessment & Plan narrative: # Acute decompensated HFrEF of 20-25% -Last echo 2 years ago, none since then and hasn't followed up with doctors. L ikely ischemic given need for CABG at that time. -continue Lasix 80 mg IV b.i.d., spironolactone 25 mg daily -had to dc diamox as possible cause of rash -Johnson for fluid measurement, strict I/O's -Daily weights -Repeat echo on 11/21/21 showed EF 15-20%, start spironolactone. Will start beta lianna when euvolemic. -continue potassium supplement daily -start low-dose ARB, beta-lianna # CAD -Known CAD with LHC at [facility] 03/2019 showing occluded LAD with multivessel disease and was recommended for CABG at [facility] but did not happen due to patient being COVID + -Troponins are downtrending. 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 -Continue diuresis as above. -abd US with cirrhosis and mild ascites -hepatitis panel negative # Rash on abd, chest and back, improving -appears to be drug related rash, likely offending agent is acetazolamide so jose carlos l dc -does not appear non-cellulitic, no leukocytosis or fevers and non-painful -continue loratidine daily and hydrocortisone topical BID -continue benadryl q6h as needed -now improving after stopping diamox # Uncontrolled DM2 -A1c 8.1%, not on home meds for diabetes -FS ACHS, -continue lantus 15 units with sliding scale. -Carb consistent diet. -consider starting metformin on discharge # Superficial LE ulcerations -Likely secondary to rapid edema of LE's causing skin blisters and wounds -Wound care -Treat edema as above Code: Full, surrogate decision maker is patient's spouse Constance. Likely needs 1 or 2 more of hospital diuresis before going home. Time Spent With Patient Critical Care time: I spent a total of [] minutes of critical care time on this patient's care today; this time is exclusive of procedural time. Quality VTE Deep Vein Thrombosis/Pulmonary Embolism Present on Admission: No
--- NOTE | 2021-11-26 11:33 | PC.RNWOUND ---
Patient resting in recliner/chair, there is some blanchable redness noted to gluteal cleft, which is gently cleansed and barrier cream applied. Lower extremity dressings are removed with moderate to large serous non-purulent drainage noted. No significant changes noted to wounds, which are cleansed with saline and dressed with fresh bordered foam dressings. There are multiple scattered intact vesicles to skin. Patient tolerates cares well, denies pain, dozes off and on during dressing changes. Patient's feet are cold to touch, patient says they're always cold, refuses socks to be put on at this time. Sacral dressing is placed in room for application after patient's nap, waffle cushion in use in chair. Warm blankets given for comfort.
[2021-11-26] MEDS: ATORVASTATIN 20 MG TABLET 40 MG PO (20:39)
[2021-11-26] MEDS: INSULIN GLARGINE 100 UNIT/ML 3ML PEN 15 UNIT SUBCUT (20:42)
[2021-11-26] MEDS: BENZONATATE 100 MG CAPSULE PO (21:01)
[2021-11-27] VITALS (11 sets, daily range): BP systolic 98–118; BP diastolic 63–71; PULSE 56–109; RESP 15–21; TEMP 36–36.3; O2SAT 96–100
[2021-11-27 06:11] LABS: BUN Creatinine Ratio 39.4 (6-22); Blood Urea Nitrogen 56 mg/dL (9-20); Calcium 9.1 mg/dL (8.4-10.2); Carbon Dioxide 27 mmol/L (22-32); Chloride 100 mmol/L (98-107); Estimated Glomerular Filt Rate 51 mL/min (>60); Glucose 75 mg/dL (80-110); HEMOLYSIS 32 (0-50); Potassium 4.1 mmol/L (3.4-5.1); Sodium 137 mmol/L (137-145)
[2021-11-27] MEDS: HYDROCORTISONE 1% CREAM 28 GM 1 APPLIC TOP ×2 (08:49→20:58)
[2021-11-27] MEDS: INSULIN LISPRO 100 UNIT/ML 3ML VIAL SUBCUT ×4 (08:50→20:57)
[2021-11-27] MEDS: lisinopriL 5 MG TABLET 2.5 MG PO (08:53)
[2021-11-27] MEDS: LORATADINE 10 MG TABLET PO (08:55)
[2021-11-27] MEDS: HEPARIN 5,000 UNIT/ML VIAL 5000 UNIT SUBCUT ×2 (08:55→20:59)
[2021-11-27] MEDS: ASPIRIN EC 81 MG TABLET PO (08:55)
[2021-11-27] MEDS: SPIRONOLACTONE 25 MG TABLET 12.5 MG PO (08:55)
[2021-11-27] MEDS: SODIUM CHLORIDE 0.9% FLUSH 10 ML IV ×2 (08:58→21:00)
[2021-11-27] MEDS: FUROSEMIDE 20 MG/2 ML VIAL 80 MG IV ×2 (08:58→20:59)
--- NOTE | 2021-11-27 09:30 | PC.RNWOUND ---
Patient resting in recliner, says 'I dumped a lot of fluid last night!. Lower extremity dressings changed, moderate amount of serous drainage noted to removed dressings, less drainage than yesterday's dressing change. Bilateral lower extremities appear less edematous than yesterday, patient says, I do feel better than I did yesterday. Patient stands up with walker to urinate in urinal, gluteal cleft/sacrum cleansed and dried, blanchable redness noted, sacral dressing applied. Waffle cushion in place in recliner. Patient tolerates cares well and without complaint. Reports comfort when settles self back in recliner with blankets on. call huang in easy reach, chair alarm on.
--- NOTE | 2021-11-27 11:24 | P.PN_ITS ---
Subjective Subjective Interval history: Endorses continued peripheral edema, although he reports it's better since admission. Denies any current respiratory issues. He confirms that he does not have any outpatient established care, either with PCP or cardiology. Exam Vital Signs (past 8 hours): - 11/27/21 05:00 11/27/21 06:48 11/27/21 08:00 Temperature 97.2 F L 96.8 F L Pulse Rate 56 L 106 H Respiratory Rate 15 21 Blood Pressure 100/65 118/71 Pulse Oximetry 98 100 98 Oxygen Delivery Method Room Air Oxygen Flow Rate 0 0 0 11/27/21 08:50 11/27/21 08:50 Temperature Pulse Rate Respiratory Rate Blood Pressure Pulse Oximetry 98 Oxygen Delivery Method Room Air Room Air Oxygen Flow Rate Oxygen Delivery Method Room Air Oxygen Flow Rate 0 Const Other: Sitting up in chair comfortably upon my entering the room, in no apparent acute distress Eyes Other: No scleral icterus appreciated Resp Other: Lungs clear to auscultation bilaterally Cardio Other: RRR, with normal S1 and S2 heart sounds, no extra heart sounds or murmurs appreciated GI Other: Soft, non-distended, non-tender, bowel sounds present Skin Other: Excoriations appreciated to lower extremities, with no other grossly abnormal finding appreciated Extrem Other: Palpable dorsalis pedis pulses bilaterally, with 3+ pitting edema up to knees bilaterally Objective Labs Result Diagrams: 11/24/21 09:30 11/27/21 05:36 Labs: Laboratory Results - last 24 hr 11/27/21 05:36 Sodium 137 Potassium 4.1 Chloride 100 Carbon Dioxide 27 BUN 56 H Creatinine 1.42 H Estimated GFR 51 L BUN/Creatinine Ratio 39.4 H Glucose 75 L D Calcium 9.1 PFSH Medical History (Updated 11/18/21 @ 13:00 by Thomas Samuel DO) CAD (coronary artery disease) Diabetes NSTEMI (non-ST elevated myocardial infarction) Pre-diabetes Surgical History (Updated 11/18/21 @ 13:00 by Thomas Samuel DO) History of hernia surgery History of surgery on arm Hx of tonsillectomy Family History (Updated 11/18/21 @ 13:00 by Thomas Samuel DO) Mother CAD (coronary artery disease) Sister Diabetes mellitus Social History household members: spouse Smoking Status: Never smoker alcohol intake: current Assessment & Plan Assessment & Plan narrative: # Acute decompensated HFrEF of 20-25% -Last echo 2 years ago, none since then and hasn't followed up with doctors. Likely ischemic given need for CABG at that time. -continue Lasix 80 mg IV b.i.d., spironolactone 12.5 mg daily -had to dc diamox as possible cause of rash -Johnson for fluid measurement, strict I/O's -Daily weights -Repeat echo on 11/21/21 showed EF 15-20%, start spironolactone, low dose SERGIO. Unable to start beta lianna given low HR. -continue potassium supplement daily # CAD -Known CAD with LHC at [facility] 03/2019 showing occluded LAD with multivessel disease and was recommended for CABG at [facility] but did not happen due to patient being COVID + -Troponins are downtrending. 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 -Continue diuresis as above. -abd US with cirrhosis and mild ascites -hepatitis panel negative # Rash on abd, chest and back, improving -appears to be drug related rash, likely offending agent is acetazolamide so will dc -does not appear non-cellulitic, no leukocytosis or fevers and non-painful -continue loratidine daily and hydrocortisone topical BID -continue benadryl q6h as needed -now improving after stopping diamox # Uncontrolled DM2 -A1c 8.1%, not on home meds for diabetes -FS ACHS, -continue lantus 15 units with sliding scale. -Carb consistent diet. -consider starting metformin on discharge # Superficial LE ulcerations -Likely secondary to rapid edema of LE's causing skin blisters and wounds -Wound care -Treat edema as above Code: Full, surrogate decision maker is patient's spouse Constance. I confirm that the patient's advance care plan is present, code status is documented and listed in the patient's medical record. I have utilized all available immediate resources to obtain, update, or review the patient's current medications. Time Spent With Patient Critical Care time: I spent a total of [] minutes of critical care time on this patient's care today; this time is exclusive of procedural time. Quality VTE Deep Vein Thrombosis/Pulmonary Embolism Present on Admission: No MIPS - Admit I confirm the patient?s Advance Care Plan is present, Code status is documented, Surrogate decision maker is in patient?s record [If Yes, STOP here]: Yes
[2021-11-27] MEDS: BENZONATATE 100 MG CAPSULE PO (12:17)
--- NOTE | 2021-11-27 12:27 | OT.IPNOTE ---
Pt states wanting to discharged form OT services at this time. Pt states his able to make an appointment to get equipment needs for Thursday. Therefore discharge pt from OT services at this time.
--- NOTE | 2021-11-27 12:53 | PT-IP ANOTE ---
Spoke w/ pt again this AM regarding PT services. Pt confirms he would like to be d/c from PT at this time. Feels he is at his baseline, has support at home and is securing FWW, BSC, and w/c from [facility]. PT, RN, and CM aware.
--- NOTE | 2021-11-27 14:42 | CM.DPC ---
DCP Cont: Per MD, will round on pt to determine if stable enough for d/c yet today or if needs another 1-2 days. SW spoke to OT and pt now declining further PT/OT while in the hospital and they will discharge him from PT/OT services while in the hospital and pt now declining the need for HH although PT/OT recommend HH at d/c. [facility] referral already made a few days ago and F2F and orders completed. Plan: SW to follow closer to d/c to confirm with pt and spouse that he is declining HH at d/c vs faxing [facility] pt's F2F, HH orders, and d/c summary. ELDON Franklin
--- NOTE | 2021-11-27 15:15 | PT.IPTN ---
Current Diagnoses Acute on chronic systolic (congestive) heart failure (11/18/21) Physical Therapy Treatment Note M2 PT-IP Current Condition Start: 11/18/21 12:35 Freq: NEEDED Status: Active Protocol: Document 11/25/21 10:37 [facility] (Rec: 11/25/21 12:14 [facility] [id number]) Physical Therapy Current Condition Current Condition Evaluation Date 11/18/21 Treatment Diagnosis SOB/dyspnea M3 PT-IP Subjective Start: 11/18/21 12:35 Freq: NEEDED Status: Active Protocol: Document 11/27/21 15:15 AB (Rec: 11/28/21 08:43 [facility] [id number]) Subjective Physical Therapy Visit Type Type Administrative Note Notes per CUFF STITCHER, pt requested d/c from PT. nursing staff and case management aware. M7 PT-IP Assessment and Plan Start: 11/18/21 12:35 Freq: NEEDED Status: Active Protocol: Document 11/27/21 15:15 [facility] (Rec: 11/28/21 08:43 [facility] [id number]) PT Summary Assessment and Plan Frequency of Treatment Frequency Of Treatment Discharge
[2021-11-27] MEDS: INSULIN GLARGINE 100 UNIT/ML 3ML PEN 15 UNIT SUBCUT (20:58)
[2021-11-27] MEDS: ATORVASTATIN 20 MG TABLET 40 MG PO (20:59)
[2021-11-28] VITALS (9 sets, daily range): BP systolic 90–108; BP diastolic 49–66; PULSE 64–108; RESP 16–18; TEMP 36.2–36.7; O2SAT 95–100
--- NOTE | 2021-11-28 04:01 | PC.NURSE ---
Pt is AxOx4, needs STA and cooperative. VSS, pt denies pain. Dressings on BLE C/D/I. Pt is on diuretic and diuresing well. However, pt still has 3+ BLE edema. Pt is urinating pretty well. Rash on his abdomen still pink and big area. [id number] at bedtime and pt recieved 2 units Lispro as well as his 15 units of Glargine. No other changes.
[2021-11-28 08:25] LABS: BUN Creatinine Ratio 38.2 (6-22); Blood Urea Nitrogen 55 mg/dL (9-20); Carbon Dioxide 27 mmol/L (22-32); Chloride 96 mmol/L (98-107); Estimated Glomerular Filt Rate 50 mL/min (>60); Glucose 95 mg/dL (80-110); HEMOLYSIS 17 (0-50); Magnesium 2.5 mg/dL (1.6-2.3); Potassium 4.5 mmol/L (3.4-5.1); Sodium 135 mmol/L (137-145)
--- NOTE | 2021-11-28 09:00 | PC.RNWOUND ---
Bilateral Lower Extremities Right Medial Lower Extremity Left Medial Lower extremity Patient sitting up in chair, reclines back for wound cares to legs, denies pain to wounds. Left medial malleolus wound measures 1 x 1.3 x 0.1cm and is covered 100% with adherent butler slough, slightly smaller than previous measurement. Left dorsal foot wound measures 2.5 x 5 x 0.1cm, 30% butler slough-covered, periwound intact bullae noted x 2 and an adjacent bulla at base of 1st and 2nd digits. This measurement is also slightly smaller than previous measurements. Right lower extremity wound (patient says that big blister popped before I came here) measures 6.3 x 7 x 0.05cm, wound base appears more pink than red, measurements same as before, 25% butler slough present. These wounds had a large amount of non-malodorous serous exudate since yesterday's dressing change, overall no significant changes noted. There is right lower inferior knee erythema (see photo). Patient says he would be willing to follow up at wound healing clinic after discharge in addition to home health) for ongoing wound management and understands wounds will not heal without cardiology interventions. Tolerates dressing changes well, feet still cool to touch patient says no to socks on feet.
[2021-11-28] MEDS: HEPARIN 5,000 UNIT/ML VIAL 5000 UNIT SUBCUT ×2 (09:47→20:32)
[2021-11-28] MEDS: FUROSEMIDE 20 MG/2 ML VIAL 80 MG IV (09:49)
[2021-11-28] MEDS: LORATADINE 10 MG TABLET PO (09:52)
[2021-11-28] MEDS: ASPIRIN EC 81 MG TABLET PO (09:52)
[2021-11-28] MEDS: SPIRONOLACTONE 25 MG TABLET 12.5 MG PO (09:53)
[2021-11-28] MEDS: carvediloL 3.125 MG TABLET PO (09:54)
[2021-11-28] MEDS: HYDROCORTISONE 1% CREAM 28 GM 1 APPLIC TOP (09:54)
--- NOTE | 2021-11-28 10:03 | PC.RNWOUND ---
Patient complains of pain to my bottom, stands up with walker, sacral dressing removed. There are multiple punctate open areas to the inside of the superior gluteal cleft. This area is cleansed with saline and patted dry. Duoderm placed for protection. Waffle cushion is checked when patient sits back down and it appears to be functioning well. Primary nurse enters room as wound nurse discusses the risks of sitting in recliner chair all day and not getting into bed, patient verbalizes understanding of sitting all day and skin breakdown and says he will spend more time in the bed. Also verbalizes understanding of weight shifting every 15 minutes or more and says he will try to do that. This patient is very high risk due to circulation/ perfusion issues.
[2021-11-28] MEDS: SODIUM CHLORIDE 0.9% FLUSH 10 ML IV ×2 (10:04→20:39)
[2021-11-28] MEDS: lisinopriL 5 MG TABLET 2.5 MG PO (10:10)
--- NOTE | 2021-11-28 11:59 | PM.PN.1 ---
Subjective Subjective Interval history: The patient endorses a rash to his abdomen and lower extremities that he says has been made worse by topical hydrocortisone cream, although it has helped the itching. Exam Vital Signs (past 8 hours): - 11/28/21 08:00 Temperature 97.3 F L Pulse Rate 106 H Respiratory Rate 17 Blood Pressure 90/57 L Pulse Oximetry 99 Oxygen Flow Rate 0 Oxygen Delivery Method Room Air Oxygen Flow Rate 0 Const Other: Sitting up in chair comfortably upon my entering the room, in no apparent acute distress Eyes Other: No scleral icterus appreciated Resp Other: Lungs clear to auscultation bilaterally Cardio Other: RRR, with normal S1 and S2 heart sounds, no extra heart sounds or murmurs appreciated GI Other: Soft, non-distended, non-tender, bowel sounds present Skin Other: Excoriations appreciated to lower extremities, with pathcy redness on abdomen and satellite lesions Extrem Other: Palpable dorsalis pedis pulses bilaterally, with 3+ pitting edema up to knees bilaterally Objective Labs Result Diagrams: 11/24/21 09:30 11/28/21 07:33 Labs: Laboratory Results - last 24 hr 11/28/21 11/28/21 07:33 07:33 Sodium 135 L Potassium 4.5 Chloride 96 L Carbon Dioxide 27 BUN 55 H Creatinine 1.44 H Estimated GFR 50 L BUN/Creatinine Ratio 38.2 H Glucose 95 Calcium 9.0 Magnesium 2.5 H [facility] Medical History (Updated 11/18/21 @ 13:00 by Thomas Samuel DO) CAD (coronary artery disease) Diabetes NSTEMI (non-ST elevated myocardial infarction) Pre-diabetes Surgical History (Updated 11/18/21 @ 13:00 by Thomas Samuel DO) History of hernia surgery History of surgery on arm Hx of tonsillectomy Family History (Updated 11/18/21 @ 13:00 by Thomas Samuel DO) Mother CAD (coronary artery disease) Sister Diabetes mellitus Social History household members: spouse Smoking Status: Never smoker alcohol intake: current Assessment & Plan Assessment & Plan narrative: # Acute decompensated HFrEF of 20-25% -Last echo 2 years ago, none since then and hasn't followed up with doctors. Likely ischemic given need for CABG at that time. -continue Lasix 80 mg IV b.i.d., spironolactone 12.5 mg daily -had to dc diamox as possible cause of rash -Johnson for fluid measurement, strict I/O's -Daily weights -Repeat echo on 11/21/21 showed EF 15-20%, start spironolactone, low dose SERGIO. Unable to start beta lianna given low HR. -continue potassium supplement daily # CAD -Known CAD with LHC at [facility] 03/2019 showing occluded LAD with multivessel disease and was recommended for CABG at [facility] but did not happen due to patient being COVID + -Troponins are downtrending. 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 -Continue diuresis as above. -abd US with cirrhosis and mild ascites -hepatitis panel negative # Rash on abd, chest and back, improving -appears to be drug related rash, likely offending agent is acetazolamide so will dc -does not appear non-cellulitic, no leukocytosis or fevers and non-painful -continue loratidine daily and hydrocortisone topical BID -continue benadryl q6h as needed -now improving after stopping diamox # Uncontrolled DM2 -A1c 8.1%, not on home meds for diabetes -FS ACHS, -continue lantus 15 units with sliding scale. -Carb consistent diet. -consider starting metformin on discharge # Superficial LE ulcerations, likely due to topical fungal infection -Likely secondary to rapid edema of LE's causing skin blisters and wounds -Will start clotrimazole ointment on Nov 28 Code: Full, surrogate decision maker is patient's spouse Constance. Time Spent With Patient Critical Care time: I spent a total of [] minutes of critical care time on this patient's care today; this time is exclusive of procedural time. Quality VTE Deep Vein Thrombosis/Pulmonary Embolism Present on Admission: No
[2021-11-28] MEDS: INSULIN LISPRO 100 UNIT/ML 3ML VIAL SUBCUT ×3 (12:43→20:32)
[2021-11-28] MEDS: CLOTRIMAZOLE 1% CRM 30 GM 1 APPLIC TOP ×2 (12:43→20:31)
[2021-11-28] MEDS: ATORVASTATIN 20 MG TABLET 40 MG PO (20:32)
[2021-11-28] MEDS: INSULIN GLARGINE 100 UNIT/ML 3ML PEN 15 UNIT SUBCUT (20:33)
[2021-11-29] VITALS: BP 92/55; PULSE 103; RESP 16; TEMP 36.7; O2SAT 94
[2021-11-29 04:00] VITALS: BP 98/56; PULSE 100; RESP 16; TEMP 36.7; O2SAT 94
--- NOTE | 2021-11-29 04:22 | PC.NURSE ---
Pt is AxOx4, needs STA assistance and cooperative. VSS except BP was low 96/57 so IV Lasix 80mg was on held. Also, scheduled Carvedolol held due to low BP. MD is notified. BG-204 at bedtime and pt recieved 2 units of Lispro and 15 units of Glargine. Otherwise, no change.
[2021-11-29 04:25] LABS: Blood Urea Nitrogen 62 mg/dL (9-20); Calcium 8.9 mg/dL (8.4-10.2); Carbon Dioxide 26 mmol/L (22-32); Chloride 94 mmol/L (98-107); Estimated Glomerular Filt Rate 46 mL/min (>60); Glucose 201 mg/dL (80-110); HEMOLYSIS < 15 (0-50); Magnesium 2.5 mg/dL (1.6-2.3); Sodium 131 mmol/L (137-145)
[2021-11-29 04:32] LABS: Potassium 5.4 mmol/L (3.4-5.1)
[2021-11-29 07:55] VITALS: O2SAT 99
[2021-11-29 08:00] VITALS: BP 100/66; PULSE 101; RESP 19; TEMP 36; O2SAT 98
[2021-11-29] MEDS: SODIUM CHLORIDE 0.9% FLUSH 10 ML IV (08:46)
[2021-11-29] MEDS: ASPIRIN EC 81 MG TABLET PO (08:46)
[2021-11-29] MEDS: FUROSEMIDE 40 MG TABLET PO (08:47)
[2021-11-29] MEDS: BENZONATATE 100 MG CAPSULE PO (08:47)
[2021-11-29] MEDS: LORATADINE 10 MG TABLET PO (08:47)
[2021-11-29] MEDS: lisinopriL 5 MG TABLET 2.5 MG PO (08:47)
[2021-11-29] MEDS: ACETAMINOPHEN 325 MG TABLET 975 MG PO (08:48)
[2021-11-29] MEDS: METOPROLOL IR 25 MG TABLET 12.5 MG PO (08:48)
[2021-11-29] MEDS: DEXTROSE 50 % IN WATER 25 GM/50 ML SYRINGE IV (08:49)
[2021-11-29] MEDS: INSULIN REGULAR 100 UNIT/ML 3 ML VIAL 10 UNIT IV (08:52)
[2021-11-29] MEDS: INSULIN LISPRO 100 UNIT/ML 3ML VIAL SUBCUT ×2 (08:52→12:55)
[2021-11-29] MEDS: CLOTRIMAZOLE 1% CRM 30 GM 1 APPLIC TOP (08:55)
[2021-11-29] MEDS: HEPARIN 5,000 UNIT/ML VIAL 5000 UNIT SUBCUT (08:55)
[2021-11-29 10:30] VITALS: BP 107/65; PULSE 100; RESP 20; TEMP 35.9; O2SAT 96
[2021-11-29 11:42] LABS: HEMOLYSIS < 15 (0-50); Potassium 4.9 mmol/L (3.4-5.1)
[2021-11-29 14:15] VITALS: BP 96/58; PULSE 71; RESP 20; TEMP 36.2; O2SAT 98
--- NOTE | 2021-11-29 17:50 | P.DS_ITS ---
History of Present Illness History of Present Illness Date Patient Seen: 11/18/21 Chief complaint: SOB, Pain in both legs Narrative: Per admitting provider: This is a 76 year old male with PMH of NSTEMI in 03/2019, was transferred from ER here to [facility] where he was found to have an EF of 20-25%, and was transferred to [facility] for CABG. Unfortunately, he developed COVID infection at that time and CABG was not done. He continued on some medications but did not follow up with the surgeons or any providers since. He has continued on asa daily since but no other medications. He returns today with progressive weakness, abdominal distension, shortness of breath, lower extremity edema, and leg ulcerations for the past few months. He denies chest pain, palpitations, fever, chills, nausea, vomiting, abdominal pain. His ulcerations have been getting worse over the past few months, starting in his left leg but worsened the past week in the R. He can walk about 10 ft now before getting short of breath. He cannot lay flat at night. In the emergency room his vital signs were unremarkable. Laboratory evaluation revealed an unremarkable CBC, chemistries were for a BUN of 41, creatinine 1.60 (from 0.6 at time of NSTEMI in 03/2019), Glucose 235, Tbili 1.8, probnp [id number]. CXR showed evidence of CHF. CTA showed cardiomegaly and CHF, no PE. Incidentally found on CTA was probable cirrhosis as well. Discharge Providers Provider Date of admission: 11/18/21 06:39 Discharge Date: 11/29/21 Consults: 11/18/21 07:45 Consult to Occupational Therapy Evaluate & Treat Comment: Physician Instructions: Evaluate and treat Consult to Physical Therapy Evaluate & Treat Comment: Physician Instructions: Evaluate and Treat 11/18/21 07:46 Consult to Dietitian, Adult Routine Comment: Reason For Exam: DM, heart failure 11/18/21 11:02 Consult to Inpatient Wound Care Nurse Routine Comment: Reason for consultation: BLE wounds 11/22/21 11:24 Consult to Home Health Routine Comment: CHF exac, CAD, DANG, cirrhosis, diabetes Reason For Exam: Set up RN/PT for discharge to home at d/c Discharge provider: Vicente Milton MD Exam Vital Signs (past 8 hours): - 11/29/21 10:30 11/29/21 14:15 Temperature 96.7 F L 97.2 F L Pulse Rate 100 H 71 Respiratory Rate 20 20 Blood Pressure 107/65 96/58 L Pulse Oximetry 96 98 Oxygen Flow Rate 0 Oxygen Delivery Method Room Air Oxygen Flow Rate 0 Const Other: No acute distress Resp Other: Lungs clear bilaterally Cardio Other: RRR, no murmurs GI Other: Soft, non-distended, non-tender Skin Other: Excoriations, and erythema with scabbed lesions Extrem Other: 2+ pitting edema bilaterally Objective Labs Result Diagrams: 11/24/21 09:30 11/29/21 11:31 Labs: Laboratory Results - last 24 hr 11/29/21 11/29/21 03:50 11:31 Sodium 131 L Potassium 5.4 H 4.9 Chloride 94 L Carbon Dioxide 26 BUN 62 H Creatinine 1.55 H Estimated GFR 46 L BUN/Creatinine Ratio 40.0 H Glucose 201 H D Calcium 8.9 Magnesium 2.5 H [facility] Medical History (Updated 11/18/21 @ 13:00 by Thomas Samuel DO) CAD (coronary artery disease) Diabetes NSTEMI (non-ST elevated myocardial infarction) Pre-diabetes Surgical History (Updated 11/18/21 @ 13:00 by Thomas Samuel DO) History of hernia surgery History of surgery on arm Hx of tonsillectomy Family History (Updated 11/18/21 @ 13:00 by Thomas Samuel DO) Mother CAD (coronary artery disease) Sister Diabetes mellitus Social History household members: spouse Smoking Status: Never smoker alcohol intake: current Discharge Assessment & Plan Assessment and Plan Assessment: 1. Acute CHFrEF, EF 20-25% 2. CAD 3. DANG 4. 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 Type 2 Diabetes Plan of Treatment: Mr. Swanson has had a recently complicated medical course including an NSTEMI, and could not undergo cath due to COVID. He did not follow up with physicians upon discharge. He has been referred to cardiology and cardiothoracic surgery. He has not established a PCP. He was quite volume overloaded and diuresed 20L net negative fluid. His symptoms improved, though he continued to have bilateral pitting edema. He had no shortness of breath and required no oxygen at discharge. He also was found to have diabetes with elevated a1c and started on insulin. He was strongly encouraged to reach out to his referral regarding PCP, cardiology, and ct surgery. He is at high risk of decompensating further if he does follow up. He was discharged on lasix and metoprolol for his depressed EF. Due to low blood pressure and high potassium his lisinopril and spironolactone were discontinued at discharge. They may be able to restart going forward with follow up with his specialists. Discharge Plan Discharge Plan Patient Disposition: Home Provider Discharge Comment: Mr. Swanson came in to the hospital with a CHF exacerbation. He was previously recommended to undergo bypass. This is still pending. He improved with IV lasix. He will need to follow up with a PCP, business employment specialist and cardiac surgeon as an outpatient as soon as possible. He should drink no more that 1.5L of fluid daily. He should weigh himself daily and call a doctor if he gains more than 5 lbs. He has diabetes and is given insulin to help treat this. Discharge orders & Medications Prescriptions: New furosemide 40 mg Tablet 40 mg PO 0800,1700 Qty: 60 0RF clotrimazole 1 % Cream 1 applic topical BID Qty: 15 0RF metoprolol tartrate 25 mg Tablet 12.5 mg PO BID Qty: 60 0RF insulin glargine [Basaglar KwikPen U-100 Insulin] 100 unit/mL (3 mL) insulin pen 15 unit SUBCUT QPM Qty: 15 0RF (DME) blood sugar diagnostic Strip See Rx Instructions .Route Qty: 100 0RF Rx Instructions: As directed (DME) blood-gluc transmitter-sensor Misc See Rx Instructions .Route Qty: 1 0RF Rx Instructions: As directed (DME) lancets-blood glucose strips 30 gauge combo pack See Rx Instructions .Route Qty: 200 0RF Rx Instructions: As directed atorvastatin 40 mg tablet 40 mg PO DAILY Qty: 30 0RF benzonatate 100 mg Capsule 100 mg PO TID PRN (Reason: Cough) Qty: 20 0RF Continued aspirin 81 mg Tablet 81 mg PO DAILY Diet/Activity/Treatments Diet: Carb-consistent/Diabetic and Low-sodium Visit Report/Discharge Packet Instructions: DI for Cellulitis -- Adult, Carbohydrate-Counting Diet, DI for Heart Failure, DI for Diabetes Type 2, How to Prevent Falls, How to Use an Insulin Pen, Insulin Glargine (rDNA origin) Injection, How to Restrict Fluids Quality VTE Deep Vein Thrombosis/Pulmonary Embolism Present on Admission: No
--- NOTE | 2021-11-29 19:21 | PC.NURSE ---
Discharge: Pt feels ready for d/c to home. Pt has no primary care doctor and is in the process of getting one. He was highly encouraged to do so. Pt has a new order for injectable insulin. He has not done this before. He has a dtr in law who can give him injection. Given info on how to use an insulin pen, basagalar insulin and diabetes type 2. Consult sent to to see if pt may benefit from more services for diabetic teaching. Also his picked him up and he went home before this teletypewriter operator could speak with her. Constance was called on the phone and she is working on getting him a provider. She reports the dtr is in school and almost done with nursing class but she can help with the insulin. Discussed pt's wounds, they were changed yesterday by wound nurse. Pt given dressing changes for home use until he can obtain more. When he does have a provider Constance was notified he could benefit from a wound consult. Discharge packet was reviewed with pt. His scripts were esent to the pharmacy of his choice. He discharged home with his .
--- NOTE | 2021-11-30 12:00 | CM.DPNOTE ---
Patient discharged home yesterday evening after this SMOKING PIPE MOUNTER had left for the day. Received order upon arrival this morning, placed by MANJU Ayers last night - started home insulin today, no provider, HH approp? Notes indicate patient was resistant to HH; placed call to patient's spouse Constance to get her input. Had to LM requesting CB, have not heard back yet, 11.30.21. [id number] JW
--- NOTE | 2021-12-02 09:06 | CM.DPNOTE ---
DCP: Harshil from [facility] called to see if patient was yet discharged. He was discharged on 11/29. Faxed him over the DC Summary and orders per his request. Lea San RN/Shear Tender
== END 2021-11-29 18:35 | disposition home or self-care (01) | DRG 292 ==
LOC: ED 06:39 → AC 06:40
PROVIDERS: Internal Medicine; Neuromusculoskeletal Medicine, Sports Medicine; Student in an Organized Health Care Education/Training Program; Admitting Provider Nurse Practitioner Family; Emergency Provider Emergency Medicine; Referring Provider Emergency Medicine; Visit Provider Nurse Practitioner Family
DX: I50.23 Acute on chronic systolic (congestive) heart failure (principal); L97.211 Non-pressure chronic ulcer of right calf limited to breakdown of skin; L97.221 Non-pressure chronic ulcer of left calf limited to breakdown of skin; N17.8 Other acute kidney failure; R18.8 Other ascites; E11.65 Type 2 diabetes mellitus with hyperglycemia; L97.521 Non-pressure chronic ulcer of other part of left foot limited to breakdown of skin; L27.0 Generalized skin eruption due to drugs and medicaments taken internally; T50.2X5A Adverse effect of carbonic-anhydrase inhibitors, benzothiadiazides and other diuretics, initial encounter; I25.10 Atherosclerotic heart disease of native coronary artery without angina pectoris; K74.69 Other cirrhosis of liver; Z20.822 Contact with and (suspected) exposure to COVID-19; Z79.4 Long term (current) use of insulin
CPT/HCPCS: 36415; 71045; 71275; 76705; 80048; 80053; 80061; 80074; 81003; 82550; 82962; 83036; 83605; 83735; 83880; 84132; 84145; 84146; 84443; 84484; 85025; 85610; 85730; 86140; 87040; 87635; 93005; 93925; 96365; 96367; 97110; 97116; 97129; 97162; 97165; 97530; 97535; 99284; C9803; C8929; J0690; J0696; J1644; J1650; J1815; J1940; J2405; Q9957; Q9967

== ENCOUNTER 2021-12-09 04:10 | Emergency (ER) | payer MEDICARE, SELFPAY ==
[2021-11-18 12:41] VITALS: BMI 32.3
[2021-12-09] VITALS (48 sets, daily range): BP systolic 89–115; BP diastolic 57–79; PULSE 84–104; RESP 14–32; TEMP 36.2; O2SAT 83–99
--- NOTE | 2021-12-09 04:33 | ED_ITS ---
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 Patient was seen here and hospitalized from November 18 through November 29. Patient had an NSTEMI in March 2019 could not undergo catheterization and did not receive CABG although recommended secondary to COVID infection at that time. Patient had not followed up and was then seen here at [facility] the November. He was diuresed approximately 20 L and had improvement of his symptoms but with continued bilateral pitting edema, significant wounds on his lower extremities and had arterial ultrasound studies which showed flow. Patient states since he has been discharged he is had persistent weakness and feels completely wiped out. He states the swelling in his legs are actually significantly better than when he came into the hospital. Patient denies fevers or chills. He is short of breath but does not feel like it is rapidly worsening. Denies chest pain or pressure. No syncope but does have dizziness. No diaphoresis. Patient states any amount of exertion even a small amount is difficult for him. Patient denies nausea or vomiting he has been having normal stools, states he is had some increase in urine output. States he has been taking his medications as prescribed since discharge which include insulin, Lasix, atorvastatin and aspirin 81 mg daily. Patient states he has been continuing to take these since discharge. He has not been able to establish a PCP or Cardiology follow-up. Patient states his only surgeries have been when he broke his left forearm. He denies allergies. He states he has remote use of tobacco use, no alcohol or recreational drugs. Related Data Home Medications Medication Instructions Recorded Confirmed aspirin 81 mg tablet 81 mg PO DAILY 11/18/21 11/18/21 Previous Rx's Medication Instructions Recorded atorvastatin 40 mg tablet 40 mg PO DAILY #30 tabs 11/29/21 benzonatate 100 mg capsule 100 mg PO TID PRN Cough #20 caps 11/29/21 blood sugar diagnostic #100 ea 11/29/21 blood-glucose #1 ea 11/29/21 [id number] sensor clotrimazole 1 % topical cream 1 applic topical BID #15 grams 11/29/21 furosemide 40 mg tablet 40 mg PO 0800,1700 #60 tabs 11/29/21 insulin glargine 100 unit/mL (3 15 unit (0.15 mL) SUBCUT QPM #15 mL 11/29/21 mL) subcutaneous pen (Basaglar KwikPen U-100 Insulin) lancets 30 gauge and blood glucose #200 ea 11/29/21 strips combo pack metoprolol tartrate 25 mg tablet 12.5 mg PO BID #60 tabs 11/29/21 Allergies Allergy/AdvReac Type Severity Reaction Status Date / Time No Known Drug Allergies Allergy Verified 04/12/19 10:20 <Shahzad Valdez DO - Last Filed: 12/12/21 20:27> History of Present Illness HPI Narrative: This is a 76-year-old male with coronary artery disease and an EF of 20-25% on in the last month, coronary artery disease, 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 Patient was seen here and hospitalized from November 18 through November 29. Patient had an NSTEMI in March 2019 could not undergo catheterization and did not receive CABG although recommended secondary to COVID infection at that time. Patient had not followed up and was then seen here at [facility] the November. He was diuresed approximately 20 L and had improvement of his symptoms but with continued bilateral pitting edema, significant wounds on his lower extremities and had arterial ultrasound studies which showed flow. Patient states since he has been discharged he is had persistent weakness and feels completely wiped out. He states the swelling in his legs are actually significantly better than when he came into the hospital. Patient denies fevers or chills. He is short of breath but does not feel like it is rapidly worsening. Denies chest pain or pressure. No syncope but does have dizziness. No diaphoresis. Patient states any amount of exertion even a small amount is difficult for him. Patient denies nausea or vomiting he has been having normal stools, states he is had some increase in urine output. States he has been taking his medications as pres cribed since discharge which include insulin, Lasix, atorvastatin and aspirin 81 mg daily. Patient states he has been continuing to take these since discharge. He has not been able to establish a PCP or Cardiology follow-up. Patient states his only surgeries have been when he broke his left forearm. He denies allergies. He states he has remote use of tobacco use, no alcohol or recreational drugs. Review of Systems <Ana Laura Mcelroy DO - Last Filed: 12/24/21 19:59> Review of Systems ROS Unobtainable: All systems reviewed & are unremarkable except as noted in HPI and below Patient History <Ana Laura Mcelroy DO - Last Filed: 12/24/21 19:59> Medical History CAD (coronary artery disease) Diabetes NSTEMI (non-ST elevated myocardial infarction) Pre-diabetes Surgical History History of hernia surgery History of surgery on arm Hx of tonsillectomy Family History Mother CAD (coronary artery disease) Sister Diabetes mellitus Social History household members: spouse Smoking Status: Never smoker alcohol intake: current Smoking Status: Never smoker alcohol intake frequency: holidays/special occasions only Substance Use Type: does not use Exam <Ana Laura Mcelroy DO - Last Filed: 12/24/21 19:59> Narrative Exam Narrative: GENERAL: Alert and oriented x three, elderly male in moderate distress HEENT: Head normocephalic, atraumatic, EOMI, pupils reactive, face symmetric, moist mucous membranes NECK: Supple, full range of motion CARDIOVASCULAR: Regular rate and rhythm without murmurs, rubs or gallops. Positive for JVD. Positive for bilateral pitting edema. Patient has poor cap refill in all 4 extremities (per patient and this is not new or changed) RESPIRATORY: Breath sounds equal bilaterally, no wheezes, no rhonchi. Positive for crackles at the bases. Mild tachypnea. Able to speak in full sentence ABDOMEN: Soft, nontender. Normoactive bowel sounds all 4 quadrants. No guarding or rebound, rigidity, no mass : No CVA tenderness EXTREMITIES: Normal range of motion, bilateral lower extremity pitting edema, patient has multiple wounds on bilateral lower extremities which are open with some mild surrounding erythema but no active purulent discharge. Patient does have some skin breakdown in between the toes as well. Neuro intact. Cap refill is decreased in all 4 extremities. NEUROLOGICAL: Cranial nerves II through XII grossly intact. Moving all extremities SKIN: Warm, dry, no petechiae, no rashes or lesions. Initial Vital Signs Initial Vital Signs: Vital Signs Pulse Rate 95 H 12/09/21 04:20 Respiratory Rate 18 12/09/21 04:20 Blood Pressure 106/68 12/09/21 04:20 Pulse Oximetry 88 L 12/09/21 04:20 Oxygen Delivery Method 12/09/21 04:20 <Josefina Schaeffer DO - Last Filed: 12/16/21 19:01> Initial Vital Signs Initial Vital Signs: Vital Signs Pulse Rate 95 H 12/09/21 04:20 Respiratory Rate 18 12/09/21 04:20 Blood Pressure 106/68 12/09/21 04:20 Pulse Oximetry 88 L 12/09/21 04:20 Oxygen Delivery Method 12/09/21 04:20 <Shahzad Valdez DO - Last Filed: 12/12/21 20:27> Initial Vital Signs Initial Vital Signs: Vital Signs Pulse Rate 95 H 12/09/21 04:20 Respiratory Rate 18 12/09/21 04:20 Blood Pressure 106/68 12/09/21 04:20 Pulse Oximetry 88 L 12/09/21 04:20 Oxygen Delivery Method 12/09/21 04:20 <Gianna Torre MD - Last Filed: 12/14/21 19:06> Initial Vital Signs Initial Vital Signs: Vital Signs Pulse Rate 95 H 12/09/21 04:20 Respiratory Rate 18 12/09/21 04:20 Blood Pressure 106/68 12/09/21 04:20 Pulse Oximetry 88 L 12/09/21 04:20 Oxygen Delivery Method 12/09/21 04:20 <Osbaldo Sterling DO - Last Filed: 12/13/21 19:23> Initial Vital Signs Initial Vital Signs: Vital Signs Pulse Rate 95 H 12/09/21 04:20 Respiratory Rate 18 12/09/21 04:20 Blood Pressure 106/68 12/09/21 04:20 Pulse Oximetry 88 L 12/09/21 04:20 Oxygen Delivery Method 12/09/21 04:20 Course <Ana Laura Mcelroy, DO - Last Filed: 12/24/21 19:59> Orders Ordered: Discontinued Medications Aspirin (Aspirin 81 Mg Chew Tab) 324 mg PO NOW ONE Stop: 12/09/21 04:34 Last Admin: 12/09/21 04:48 Dose: 324 mg Documented By: PRINCESS Atorvastatin Calcium (Atorvastatin 20 Mg Tablet) 40 mg PO DAILY [facility] Last Admin: 12/12/21 09:53 Dose: 40 mg Documented By: Admin: 12/11/21 09:25 Dose: 40 mg Documented By: Admin: 12/10/21 09:22 Dose: 40 mg Documented By: CLARICE Benzonatate (Benzonatate 100 Mg Capsule) 100 mg PO NOW ONE Stop: 12/10/21 00:20 Last Admin: 12/10/21 00:24 Dose: 100 mg Documented By: PRINCESS Furosemide (Furosemide 100 Mg/10 Ml Vial) 60 mg IV NOW ONE Stop: 12/09/21 05:48 Last Admin: 12/09/21 06:05 Dose: 60 mg Documented By: PRINCESS Furosemide (Furosemide 100 Mg/10 Ml Vial) 60 mg IV BID [facility] Last Admin: 12/12/21 09:52 Dose: 60 mg Documented By: Admin: 12/11/21 21:17 Dose: 60 mg Documented By: Admin: 12/11/21 09:11 Dose: 60 mg Documented By: Admin: 12/10/21 21:17 Dose: 60 mg Documented By: Admin: 12/10/21 09:22 Dose: 60 mg Documented By: Admin: 12/09/21 20:51 Dose: 60 mg Documented By: PRINCESS Haloperidol (Haloperidol 1 Mg Tablet) 1 mg PO NOW ONE Stop: 12/10/21 22:37 Last Admin: 12/10/21 23:58 Dose: Not Given Documented By: ASHLEY Haloperidol (Haloperidol 5 Mg/Ml Vial) 1 mg IV NOW ONE Stop: 12/10/21 23:44 Last Admin: 12/10/21 23:48 Dose: 1 mg Documented By: ASHLEY Heparin Sodium (Porcine) (Heparin 5,000 Unit/Ml Vial) 5,000 unit SUBCUT BID [facility] Last Admin: 09/29/22 09:51 Dose: 5,000 unit Documented By: Admin: 12/11/21 21:20 Dose: 5,000 unit Documented By: Admin: 12/11/21 09:10 Dose: 5,000 unit Documented By: Admin: 12/10/21 21:18 Dose: 5,000 unit Documented By: Admin: 12/10/21 09:42 Dose: 5,000 unit Documented By: CLARICE Sodium Chloride (Normal Saline 0.9%) 1,000 mls @ 150 mls/hr IV CONT [facility] Clindamycin Phosphate (Cleocin) 900 mg in 50 mls @ 50 mls/hr IV NOW ONE Stop: 12/09/21 06:46 Last Infusion: 12/09/21 09:16 Dose: 0 mls/hr Documented By: Admin: 12/09/21 06:06 Dose: 50 mls/hr Documented By: PRINCESS Ceftriaxone Sodium 2,000 mg/ (Sodium Chloride) 100 mls @ 200 mls/hr IV NOW ONE Stop: 12/10/21 09:21 Last Infusion: 12/10/21 10:15 Dose: 0 mls/hr Documented By: Admin: 12/10/21 09:41 Dose: 200 mls/hr Documented By: CLARICE Ceftriaxone Sodium 2,000 mg/ (Sodium Chloride) 100 mls @ 200 mls/hr IV DAILY [facility] Last Infusion: 12/12/21 10:23 Dose: 0 mls/hr Documented By: Admin: 12/12/21 09:51 Dose: 200 mls/hr Documented By: Infusion: 12/11/21 10:01 Dose: 0 mls/hr Documented By: Admin: 12/11/21 09:27 Dose: 200 mls/hr Documented By: CLARICE Insulin Glargine (Insulin Glargine 100 Unit/Ml 3ml Pen) 10 unit SUBCUT BEDTIME [facility] Last Admin: 12/11/21 21:32 Dose: 10 unit Documented By: OW Co-signed By: STUART Insulin Human Regular (Insulin Regular 100 Unit/Ml 3 Ml Vial) 5 unit SUBCUT NOW ONE Stop: 12/11/21 17:39 Last Admin: 12/11/21 17:43 Dose: 5 unit Documented By: OW Co-signed By: PINKY Metoprolol Tartrate (Metoprolol Ir 25 Mg Tablet) 12.5 mg PO BID [facility] Last Admin: 12/12/21 09:51 Dose: 12.5 mg Documented By: Admin: 12/11/21 21:17 Dose: 12.5 mg Documented By: Admin: 12/11/21 09:10 Dose: 12.5 mg Documented By: Admin: 12/10/21 21:20 Dose: 12.5 mg Documented By: Admin: 12/10/21 09:22 Dose: 12.5 mg Documented By: CLARICE Vital Signs Vital signs: Vital Signs - 8 hr 12/12/21 01:00 12/12/21 02:00 12/12/21 02:30 Pulse Rate 89 93 H 102 H Pulse Oximetry 95 97 96 Oxygen Delivery Method Room Air 12/12/21 03:00 12/12/21 03:30 12/12/21 04:00 Pulse Rate 108 H 114 H 106 H Pulse Oximetry 98 80 L 97 Oxygen Delivery Method 12/12/21 04:30 Pulse Rate 106 H Pulse Oximetry 98 Oxygen Delivery Method <Josefina Schaeffer DO - Last Filed: 12/16/21 19:01> Orders Ordered: Discontinued Medications Aspirin (Aspirin 81 Mg Chew Tab) 324 mg PO NOW ONE Stop: 12/09/21 04:34 Last Admin: 12/09/21 04:48 Dose: 324 mg Documented By: PRINCESS Atorvastatin Calcium (Atorvastatin 20 Mg Tablet) 40 mg PO DAILY [facility] Last Admin: 12/12/21 09:53 Dose: 40 mg Documented By: Admin: 12/11/21 09:25 Dose: 40 mg Documented By: Admin: 12/10/21 09:22 Dose: 40 mg Documented By: CLARICE Benzonatate (Benzonatate 100 Mg Capsule) 100 mg PO NOW ONE Stop: 12/10/21 00:20 Last Admin: 12/10/21 00:24 Dose: 100 mg Documented By: PRINCESS Furosemide (Furosemide 100 Mg/10 Ml Vial) 60 mg IV NOW ONE Stop: 12/09/21 05:48 Last Admin: 12/09/21 06:05 Dose: 60 mg Documented By: PRINCESS Furosemide (Furosemide 100 Mg/10 Ml Vial) 60 mg IV BID [facility] Last Admin: 12/12/21 09:52 Dose: 60 mg Documented By: Admin: 12/11/21 21:17 Dose: 60 mg Documented By: Admin: 12/11/21 09:11 Dose: 60 mg Documented By: Admin: 12/10/21 21:17 Dose: 60 mg Documented By: Admin: 12/10/21 09:22 Dose: 60 mg Documented By: Admin: 12/09/21 20:51 Dose: 60 mg Documented By: PRINCESS Haloperidol (Haloperidol 1 Mg Tablet) 1 mg PO NOW ONE Stop: 12/10/21 22:37 Last Admin: 12/10/21 23:58 Dose: Not Given Documented By: ASHLEY Haloperidol (Haloperidol 5 Mg/Ml Vial) 1 mg IV NOW ONE Stop: 12/10/21 23:44 Last Admin: 12/10/21 23:48 Dose: 1 mg Documented By: ASHLEY Heparin Sodium (Porcine) (Heparin 5,000 Unit/Ml Vial) 5,000 unit SUBCUT BID [facility] Last Admin: 12/12/21 09:51 Dose: 5,000 unit Documented By: Admin: 12/11/21 21:20 Dose: 5,000 unit Documented By: Admin: 12/11/21 09:10 Dose: 5,000 unit Documented By: Admin: 12/10/21 21:18 Dose: 5,000 unit Documented By: Admin: 12/10/21 09:42 Dose: 5,000 unit Documented By: CLARICE Sodium Chloride (Normal Saline 0.9%) 1,000 mls @ 150 mls/hr IV CONT [facility] Clindamycin Phosphate (Cleocin) 900 mg in 50 mls @ 50 mls/hr IV NOW ONE Stop: 12/09/21 06:46 Last Infusion: 12/09/21 09:16 Dose: 0 mls/hr Documented By: Admin: 12/09/21 06:06 Dose: 50 mls/hr Documented By: PRINCESS Ceftriaxone Sodium 2,000 mg/ (Sodium Chloride) 100 mls @ 200 mls/hr IV NOW ONE Stop: 12/10/21 09:21 Last Infusion: 12/10/21 10:15 Dose: 0 mls/hr Documented By: Admin: 12/10/21 09:41 Dose: 200 mls/hr Documented By: CLARICE Ceftriaxone Sodium 2,000 mg/ (Sodium Chloride) 100 mls @ 200 mls/hr IV DAILY [facility] Last Infusion: 12/12/21 10:23 Dose: 0 mls/hr Documented By: Admin: 12/12/21 09:51 Dose: 200 mls/hr Documented By: Infusion: 12/11/21 10:01 Dose: 0 mls/hr Documented By: Admin: 12/11/21 09:27 Dose: 200 mls/hr Documented By: CLARICE Insulin Glargine (Insulin Glargine 100 Unit/Ml 3ml Pen) 10 unit SUBCUT BEDTIME [facility] Last Admin: 12/11/21 21:32 Dose: 10 unit Documented By: OW Co-signed By: STUART Insulin Human Regular (Insulin Regular 100 Unit/Ml 3 Ml Vial) 5 unit SUBCUT NOW ONE Stop: 12/11/21 17:39 Last Admin: 12/11/21 17:43 Dose: 5 unit Documented By: OW Co-signed By: PINKY Metoprolol Tartrate (Metoprolol Ir 25 Mg Tablet) 12.5 mg PO BID [facility] Last Admin: 12/12/21 09:51 Dose: 12.5 mg Documented By: Admin: 12/11/21 21:17 Dose: 12.5 mg Documented By: Admin: 12/11/21 09:10 Dose: 12.5 mg Documented By: Admin: 12/10/21 21:20 Dose: 12.5 mg Documented By: Admin: 12/10/21 09:22 Dose: 12.5 mg Documented By: CLARICE Vital Signs Vital signs: Vital Signs - 8 hr 12/12/21 01:00 12/12/21 02:00 12/12/21 02:30 Pulse Rate 89 93 H 102 H Pulse Oximetry 95 97 96 Oxygen Delivery Method Room Air 12/12/21 03:00 12/12/21 03:30 12/12/21 04:00 Pulse Rate 108 H 114 H 106 H Pulse Oximetry 98 80 L 97 Oxygen Delivery Method 12/12/21 04:30 Pulse Rate 106 H Pulse Oximetry 98 Oxygen Delivery Method <Shahzad Valdez DO - Last Filed: 12/12/21 20:27> Orders Ordered: Discontinued Medications Aspirin (Aspirin 81 Mg Chew Tab) 324 mg PO NOW ONE Stop: 12/09/21 04:34 Last Admin: 12/09/21 04:48 Dose: 324 mg Documented By: PRINCESS Atorvastatin Calcium (Atorvastatin 20 Mg Tablet) 40 mg PO DAILY [facility] Last Admin: 12/12/21 09:53 Dose: 40 mg Documented By: Admin: 12/11/21 09:25 Dose: 40 mg Documented By: Admin: 12/10/21 09:22 Dose: 40 mg Documented By: CLARICE Benzonatate (Benzonatate 100 Mg Capsule) 100 mg PO NOW ONE Stop: 12/10/21 00:20 Last Admin: 12/10/21 00:24 Dose: 100 mg Documented By: PRINCESS Furosemide (Furosemide 100 Mg/10 Ml Vial) 60 mg IV NOW ONE Stop: 12/09/21 05:48 Last Admin: 12/09/21 06:05 Dose: 60 mg Documented By: PRINCESS Furosemide (Furosemide 100 Mg/10 Ml Vial) 60 mg IV BID [facility] Last Admin: 12/12/21 09:52 Dose: 60 mg Documented By: Admin: 12/11/21 21:17 Dose: 60 mg Documented By: Admin: 12/11/21 09:11 Dose: 60 mg Documented By: Admin: 12/10/21 21:17 Dose: 60 mg Documented By: Admin: 12/10/21 09:22 Dose: 60 mg Documented By: Admin: 12/09/21 20:51 Dose: 60 mg Documented By: PRINCESS Haloperidol (Haloperidol 1 Mg Tablet) 1 mg PO NOW ONE Stop: 12/10/21 22:37 Last Admin: 12/10/21 23:58 Dose: Not Given Documented By: ASHLEY Haloperidol (Haloperidol 5 Mg/Ml Vial) 1 mg IV NOW ONE Stop: 12/10/21 23:44 Last Admin: 12/10/21 23:48 Dose: 1 mg Documented By: ASHLEY Heparin Sodium (Porcine) (Heparin 5,000 Unit/Ml Vial) 5,000 unit SUBCUT BID [facility] Last Admin: 12/12/21 09:51 Dose: 5,000 unit Documented By: Admin: 12/11/21 21:20 Dose: 5,000 unit Documented By: Admin: 12/11/21 09:10 Dose: 5,000 unit Documented By: Admin: 12/10/21 21:18 Dose: 5,000 unit Documented By: Admin: 12/10/21 09:42 Dose: 5,000 unit Documented By: CLARICE Sodium Chloride (Normal Saline 0.9%) 1,000 mls @ 150 mls/hr IV CONT [facility] Clindamycin Phosphate (Cleocin) 900 mg in 50 mls @ 50 mls/hr IV NOW ONE Stop: 12/09/21 06:46 Last Infusion: 12/09/21 09:16 Dose: 0 mls/hr Documented By: Admin: 12/09/21 06:06 Dose: 50 mls/hr Documented By: PRINCESS Ceftriaxone Sodium 2,000 mg/ (Sodium Chloride) 100 mls @ 200 mls/hr IV NOW ONE Stop: 12/10/21 09:21 Last Infusion: 12/10/21 10:15 Dose: 0 mls/hr Documented By: Admin: 12/10/21 09:41 Dose: 200 mls/hr Documented By: CLARICE Ceftriaxone Sodium 2,000 mg/ (Sodium Chloride) 100 mls @ 200 mls/hr IV DAILY [facility] Last Infusion: 12/12/21 10:23 Dose: 0 mls/hr Documented By: Admin: 12/12/21 09:51 Dose: 200 mls/hr Documented By: Infusion: 12/11/21 10:01 Dose: 0 mls/hr Documented By: Admin: 12/11/21 09:27 Dose: 200 mls/hr Documented By: CLARICE Insulin Glargine (Insulin Glargine 100 Unit/Ml 3ml Pen) 10 unit SUBCUT BEDTIME [facility] Last Admin: 12/11/21 21:32 Dose: 10 unit Documented By: OW Co-signed By: STUART Insulin Human Regular (Insulin Regular 100 Unit/Ml 3 Ml Vial) 5 unit SUBCUT NOW ONE Stop: 12/11/21 17:39 Last Admin: 12/11/21 17:43 Dose: 5 unit Documented By: OW Co-signed By: PINKY Metoprolol Tartrate (Metoprolol Ir 25 Mg Tablet) 12.5 mg PO BID [facility] Last Admin: 12/12/21 09:51 Dose: 12.5 mg Documented By: Admin: 12/11/21 21:17 Dose: 12.5 mg Documented By: Admin: 12/11/21 09:10 Dose: 12.5 mg Documented By: Admin: 12/10/21 21:20 Dose: 12.5 mg Documented By: Admin: 12/10/21 09:22 Dose: 12.5 mg Documented By: CLARICE Vital Signs Vital signs: Vital Signs - 8 hr 12/12/21 01:00 12/12/21 02:00 12/12/21 02:30 Pulse Rate 89 93 H 102 H Pulse Oximetry 95 97 96 Oxygen Delivery Method Room Air 12/12/21 03:00 12/12/21 03:30 12/12/21 04:00 Pulse Rate 108 H 114 H 106 H Pulse Oximetry 98 80 L 97 Oxygen Delivery Method 12/12/21 04:30 Pulse Rate 106 H Pulse Oximetry 98 Oxygen Delivery Method <Gianna Torre MD - Last Filed: 12/14/21 19:06> Orders Ordered: Discontinued Medications Aspirin (Aspirin 81 Mg Chew Tab) 324 mg PO NOW ONE Stop: 12/09/21 04:34 Last Admin: 12/09/21 04:48 Dose: 324 mg Documented By: PRINCESS Atorvastatin Calcium (Atorvastatin 20 Mg Tablet) 40 mg PO DAILY [facility] Last Admin: 12/12/21 09:53 Dose: 40 mg Documented By: Admin: 12/11/21 09:25 Dose: 40 mg Documented By: Admin: 12/10/21 09:22 Dose: 40 mg Documented By: CLARICE Benzonatate (Benzonatate 100 Mg Capsule) 100 mg PO NOW ONE Stop: 12/10/21 00:20 Last Admin: 12/10/21 00:24 Dose: 100 mg Documented By: PRINCESS Furosemide (Furosemide 100 Mg/10 Ml Vial) 60 mg IV NOW ONE Stop: 12/09/21 05:48 Last Admin: 12/09/21 06:05 Dose: 60 mg Documented By: PRINCESS Furosemide (Furosemide 100 Mg/10 Ml Vial) 60 mg IV BID [facility] Last Admin: 12/12/21 09:52 Dose: 60 mg Documented By: Admin: 12/11/21 21:17 Dose: 60 mg Documented By: Admin: 12/11/21 09:11 Dose: 60 mg Documented By: Admin: 12/10/21 21:17 Dose: 60 mg Documented By: Admin: 12/10/21 09:22 Dose: 60 mg Documented By: Admin: 12/09/21 20:51 Dose: 60 mg Documented By: PRINCESS Haloperidol (Haloperidol 1 Mg Tablet) 1 mg PO NOW ONE Stop: 12/10/21 22:37 Last Admin: 12/10/21 23:58 Dose: Not Given Documented By: ASHLEY Haloperidol (Haloperidol 5 Mg/Ml Vial) 1 mg IV NOW ONE Stop: 12/10/21 23:44 Last Admin: 12/10/21 23:48 Dose: 1 mg Documented By: ASHLEY Heparin Sodium (Porcine) (Heparin 5,000 Unit/Ml Vial) 5,000 unit SUBCUT BID [facility] Last Admin: 12/12/21 09:51 Dose: 5,000 unit Documented By: Admin: 12/11/21 21:20 Dose: 5,000 unit Documented By: Admin: 12/11/21 09:10 Dose: 5,000 unit Documented By: Admin: 12/10/21 21:18 Dose: 5,000 unit Documented By: Admin: 12/10/21 09:42 Dose: 5,000 unit Documented By: CLARICE Sodium Chloride (Normal Saline 0.9%) 1,000 mls @ 150 mls/hr IV CONT [facility] Clindamycin Phosphate (Cleocin) 900 mg in 50 mls @ 50 mls/hr IV NOW ONE Stop: 12/09/21 06:46 Last Infusion: 12/09/21 09:16 Dose: 0 mls/hr Documented By: MLCindy Admin: 12/09/21 06:06 Dose: 50 mls/hr Documented By: PRINCESS Ceftriaxone Sodium 2,000 mg/ (Sodium Chloride) 100 mls @ 200 mls/hr IV NOW ONE Stop: 12/10/21 09:21 Last Infusion: 12/10/21 10:15 Dose: 0 mls/hr Documented By: Admin: 12/10/21 09:41 Dose: 200 mls/hr Documented By: CLARICE Ceftriaxone Sodium 2,000 mg/ (Sodium Chloride) 100 mls @ 200 mls/hr IV DAILY [facility] Last Infusion: 12/12/21 10:23 Dose: 0 mls/hr Documented By: Admin: 12/12/21 09:51 Dose: 200 mls/hr Documented By: Infusion: 12/11/21 10:01 Dose: 0 mls/hr Documented By: MLCindy Admin: 12/11/21 09:27 Dose: 200 mls/hr Documented By: CLARICE Insulin Glargine (Insulin Glargine 100 Unit/Ml 3ml Pen) 10 unit SUBCUT BEDTIME [facility] Last Admin: 12/11/21 21:32 Dose: 10 unit Documented By: THALIA Co-signed By: STUART Insulin Human Regular (Insulin Regular 100 Unit/Ml 3 Ml Vial) 5 unit SUBCUT NOW ONE Stop: 12/11/21 17:39 Last Admin: 12/11/21 17:43 Dose: 5 unit Documented By: OW Co-signed By: PINKY Metoprolol Tartrate (Metoprolol Ir 25 Mg Tablet) 12.5 mg PO BID [facility] Last Admin: 12/12/21 09:51 Dose: 12.5 mg Documented By: Admin: 12/11/21 21:17 Dose: 12.5 mg Documented By: Admin: 12/11/21 09:10 Dose: 12.5 mg Documented By: Admin: 12/10/21 21:20 Dose: 12.5 mg Documented By: Admin: 12/10/21 09:22 Dose: 12.5 mg Documented By: CLARICE Vital Signs Vital signs: Vital Signs - 8 hr 12/12/21 01:00 12/12/21 02:00 12/12/21 02:30 Pulse Rate 89 93 H 102 H Pulse Oximetry 95 97 96 Oxygen Delivery Method Room Air 12/12/21 03:00 12/12/21 03:30 12/12/21 04:00 Pulse Rate 108 H 114 H 106 H Pulse Oximetry 98 80 L 97 Oxygen Delivery Method 12/12/21 04:30 Pulse Rate 106 H Pulse Oximetry 98 Oxygen Delivery Method <Osbaldo Sterling, - Last Filed: 12/13/21 19:23> Orders Ordered: Discontinued Medications Aspirin (Aspirin 81 Mg Chew Tab) 324 mg PO NOW ONE Stop: 12/09/21 04:34 Last Admin: 12/09/21 04:48 Dose: 324 mg Documented By: PRINCESS Atorvastatin Calcium (Atorvastatin 20 Mg Tablet) 40 mg PO DAILY [facility] Last Admin: 12/12/21 09:53 Dose: 40 mg Documented By: Admin: 12/11/21 09:25 Dose: 40 mg Documented By: Admin: 12/10/21 09:22 Dose: 40 mg Documented By: CLARICE Benzonatate (Benzonatate 100 Mg Capsule) 100 mg PO NOW ONE Stop: 12/10/21 00:20 Last Admin: 12/10/21 00:24 Dose: 100 mg Documented By: PRINCESS Furosemide (Furosemide 100 Mg/10 Ml Vial) 60 mg IV NOW ONE Stop: 12/09/21 05:48 Last Admin: 12/09/21 06:05 Dose: 60 mg Documented By: PRINCESS Furosemide (Furosemide 100 Mg/10 Ml Vial) 60 mg IV BID [facility] Last Admin: 12/12/21 09:52 Dose: 60 mg Documented By: Admin: 12/11/21 21:17 Dose: 60 mg Documented By: Admin: 12/11/21 09:11 Dose: 60 mg Documented By: Admin: 12/10/21 21:17 Dose: 60 mg Documented By: Admin: 12/10/21 09:22 Dose: 60 mg Documented By: Admin: 12/09/21 20:51 Dose: 60 mg Documented By: PRINCESS Haloperidol (Haloperidol 1 Mg Tablet) 1 mg PO NOW ONE Stop: 12/10/21 22:37 Last Admin: 12/10/21 23:58 Dose: Not Given Documented By: ASHLEY Haloperidol (Haloperidol 5 Mg/Ml Vial) 1 mg IV NOW ONE Stop: 12/10/21 23:44 Last Admin: 12/10/21 23:48 Dose: 1 mg Documented By: ASHLEY Heparin Sodium (Porcine) (Heparin 5,000 Unit/Ml Vial) 5,000 unit SUBCUT BID [facility] Last Admin: 12/12/21 09:51 Dose: 5,000 unit Documented By: Admin: 12/11/21 21:20 Dose: 5,000 unit Documented By: Admin: 12/11/21 09:10 Dose: 5,000 unit Documented By: Admin: 12/10/21 21:18 Dose: 5,000 unit Documented By: Admin: 12/10/21 09:42 Dose: 5,000 unit Documented By: CLARICE Sodium Chloride (Normal Saline 0.9%) 1,000 mls @ 150 mls/hr IV CONT ZACHARY Clindamycin Phosphate (Cleocin) 900 mg in 50 mls @ 50 mls/hr IV NOW ONE Stop: 12/09/21 06:46 Last Infusion: 12/09/21 09:16 Dose: 0 mls/hr Documented By: Admin: 12/09/21 06:06 Dose: 50 mls/hr Documented By: PRINCESS Ceftriaxone Sodium 2,000 mg/ (Sodium Chloride) 100 mls @ 200 mls/hr IV NOW ONE Stop: 12/10/21 09:21 Last Infusion: 12/10/21 10:15 Dose: 0 mls/hr Documented By: Admin: 12/10/21 09:41 Dose: 200 mls/hr Documented By: CLARICE Ceftriaxone Sodium 2,000 mg/ (Sodium Chloride) 100 mls @ 200 mls/hr IV DAILY [facility] Last Infusion: 12/12/21 10:23 Dose: 0 mls/hr Documented By: Admin: 12/12/21 09:51 Dose: 200 mls/hr Documented By: Infusion: 12/11/21 10:01 Dose: 0 mls/hr Documented By: Admin: 12/11/21 09:27 Dose: 200 mls/hr Documented By: CLARICE Insulin Glargine (Insulin Glargine 100 Unit/Ml 3ml Pen) 10 unit SUBCUT BEDTIME [facility] Last Admin: 12/11/21 21:32 Dose: 10 unit Documented By: THALIA Co-signed By: STUART Insulin Human Regular (Insulin Regular 100 Unit/Ml 3 Ml Vial) 5 unit SUBCUT NOW ONE Stop: 12/11/21 17:39 Last Admin: 12/11/21 17:43 Dose: 5 unit Documented By: THALIA Co-signed By: PINKY Metoprolol Tartrate (Metoprolol Ir 25 Mg Tablet) 12.5 mg PO BID [facility] Last Admin: 12/12/21 09:51 Dose: 12.5 mg Documented By: Admin: 12/11/21 21:17 Dose: 12.5 mg Documented By: Admin: 12/11/21 09:10 Dose: 12.5 mg Documented By: Admin: 12/10/21 21:20 Dose: 12.5 mg Documented By: Admin: 12/10/21 09:22 Dose: 12.5 mg Documented By: CLARICE Vital Signs Vital signs: Vital Signs - 8 hr 12/12/21 01:00 12/12/21 02:00 12/12/21 02:30 Pulse Rate 89 93 H 102 H Pulse Oximetry 95 97 96 Oxygen Delivery Method Room Air 12/12/21 03:00 12/12/21 03:30 12/12/21 04:00 Pulse Rate 108 H 114 H 106 H Pulse Oximetry 98 80 L 97 Oxygen Delivery Method 12/12/21 04:30 Pulse Rate 106 H Pulse Oximetry 98 Oxygen Delivery Method MDM - SOB/Dyspnea <Ana Laura Mcelroy, DO - Last Filed: 12/24/21 19:59> Lab Data Result diagrams: 12/12/21 08:30 12/12/21 08:30 Labs: Lab Results 12/09/21 12/09/21 12/09/21 Range/Units 04:35 04:35 04:35 WBC (4.5-11.0) X10^3/uL RBC (4.5-5.9) X10^6/uL Hgb (13.5-17.5) g/dL Hct (41-53) % MCV (80-100) fL MCH (26-34) PG MCHC (30-36) % RDW (11.6-14.8) % Plt Count (150-400) X10^3/uL Neut % (Auto) Lymph % (Auto) Dickenson % (Auto) Eos % (Auto) Baso % (Auto) Neut # (Auto) (5077-5706) /uL Lymph # (Auto) Dickenson # (Auto) Eos # (Auto) (0-450) /uL Baso # (Auto) Total Counted Seg Neutrophils % (38-70) % Lymphocytes % (Manual) (25-45) % Atypical Lymphs % ( - 0) % Monocytes % (Manual) (2-11) % Eosinophils % (Manual) (2-4) % Basophils % (Manual) (0-1) % Neutrophils # (Manual) (6182-7274) /uL RBC Morphology Anisocytosis PT 15.6 H (10.1-12.7) SECONDS INR 1.4 H (0.9-1.3) APTT 35 (26-36) SECONDS Sodium (137-145) mmol/L Potassium (3.4-5.1) mmol/L Chloride (98-107) mmol/L Carbon Dioxide (22-32) mmol/L BUN (9-20) mg/dL Creatinine (0.66-1.25) mg/dL Estimated GFR (>60) mL/min BUN/Creatinine Ratio (6-22) Glucose (80-110) mg/dL Lactate 2.8 H (0.7-2.1) mmol/L Calcium (8.4-10.2) mg/dL Total Bilirubin (0.2-1.3) mg/dL AST (17-59) IU/L ALT (<50) IU/L Alkaline Phosphatase (38-126) U/L Total Creatine Kinase (55-170) U/L CK-MB (CK-2) CK-MB (CK-2) Rel Index Troponin I (0.01-0.034) ng/mL NT-Pro-B Natriuret Pep 46846 H (<450) pg/mL Total Protein (6.3-8.2) g/dL Albumin (3.5-5.0) g/dL Globulin (1.7-4.1) g/dL Albumin/Globulin Ratio (1.0-2.8) Lipase (23-300) U/L Urine RBC (0-5/HPF) Urine WBC (0-5/HPF) Ur Squamous Epith Cells (0-5/HPF) Urine Bacteria (None) Ur Culture Indicated? SARS-CoV-2 (PCR) (Negative) 12/09/21 12/09/21 12/09/21 Range/Units 04:35 04:35 04:36 WBC 8.1 (4.5-11.0) X10^3/uL RBC 5.97 H (4.5-5.9) X10^6/uL Hgb 17.0 (13.5-17.5) g/dL Hct 50.7 (41-53) % MCV 84.9 (80-100) fL MCH 28.5 (26-34) PG MCHC 33.6 (30-36) % RDW 19.5 H (11.6-14.8) % Plt Count 229 (150-400) X10^3/uL Neut % (Auto) Not Reportable Lymph % (Auto) Not Reportable Dickenson % (Auto) Not Reportable Eos % (Auto) Not Reportable Baso % (Auto) Not Reportable Neut # (Auto) (4218-8910) /uL Lymph # (Auto) Not Reportable Dickenson # (Auto) Not Reportable Eos # (Auto) (0-450) /uL Baso # (Auto) Not Reportable Total Counted 100 Seg Neutrophils % 64.0 (38-70) % Lymphocytes % (Manual) 18.0 L (25-45) % Atypical Lymphs % 2.0 H ( - 0) % Monocytes % (Manual) 12.0 H (2-11) % Eosinophils % (Manual) 3.0 (2-4) % Basophils % (Manual) 1.0 (0-1) % Neutrophils # (Manual) 5184 (3426-6523) /uL RBC Morphology Not Reportable Anisocytosis 1+ H PT (10.1-12.7) SECONDS INR (0.9-1.3) APTT (26-36) SECONDS Sodium 131 L (137-145) mmol/L Potassium 4.6 (3.4-5.1) mmol/L Chloride 96 L (98-107) mmol/L Carbon Dioxide 24 (22-32) mmol/L BUN 41 H (9-20) mg/dL Creatinine 1.35 H (0.66-1.25) mg/dL Estimated GFR 54 L (>60) mL/min BUN/Creatinine Ratio 30.4 H (6-22) Glucose 144 H (80-110) mg/dL Lactate (0.7-2.1) mmol/L Calcium 9.0 (8.4-10.2) mg/dL Total Bilirubin 1.9 H (0.2-1.3) mg/dL AST 54 (17-59) IU/L ALT 64 H (<50) IU/L Alkaline Phosphatase 231 H (38-126) U/L Total Creatine Kinase 33 L (55-170) U/L CK-MB (CK-2) TNP CK-MB (CK-2) Rel Index TNP Troponin I 0.029 (0.01-0.034) ng/mL NT-Pro-B Natriuret Pep (<450) pg/mL Total Protein 8.1 (6.3-8.2) g/dL Albumin 4.4 (3.5-5.0) g/dL Globulin 3.7 (1.7-4.1) g/dL Albumin/Globulin Ratio 1.2 (1.0-2.8) Lipase 96 (23-300) U/L Urine RBC (0-5/HPF) Urine WBC (0-5/HPF) Ur Squamous Epith Cells (0-5/HPF) Urine Bacteria (None) Ur Culture Indicated? SARS-CoV-2 (PCR) Negative (Negative) 12/09/21 12/09/21 12/10/21 Range/Units 06:35 07:15 08:47 WBC 7.8 (4.5-11.0) X10^3/uL RBC 5.06 (4.5-5.9) X10^6/uL Hgb 14.5 (13.5-17.5) g/dL Hct 42.9 (41-53) % MCV 84.9 (80-100) fL MCH 28.7 (26-34) PG MCHC 33.8 (30-36) % RDW 19.5 H (11.6-14.8) % Plt Count 195 (150-400) X10^3/uL Neut % (Auto) 71.5 Lymph % (Auto) 12.4 L Dickenson % (Auto) 10.3 Eos % (Auto) 4.8 H Baso % (Auto) 1.0 Neut # (Auto) 5600 (8456-5818) /uL Lymph # (Auto) 1000 L Dickenson # (Auto) 800 Eos # (Auto) 400 (0-450) /uL Baso # (Auto) 100 Total Counted Seg Neutrophils % (38-70) % Lymphocytes % (Manual) (25-45) % Atypical Lymphs % ( - 0) % Monocytes % (Manual) (2-11) % Eosinophils % (Manual) (2-4) % Basophils % (Manual) (0-1) % Neutrophils # (Manual) (8028-5162) /uL RBC Morphology Anisocytosis PT (10.1-12.7) SECONDS INR (0.9-1.3) APTT (26-36) SECONDS Sodium (137-145) mmol/L Potassium (3.4-5.1) mmol/L Chloride (98-107) mmol/L Carbon Dioxide (22-32) mmol/L BUN (9-20) mg/dL Creatinine (0.66-1.25) mg/dL Estimated GFR (>60) mL/min BUN/Creatinine Ratio (6-22) Glucose (80-110) mg/dL Lactate 1.1 (0.7-2.1) mmol/L Calcium (8.4-10.2) mg/dL Total Bilirubin (0.2-1.3) mg/dL AST (17-59) IU/L ALT (<50) IU/L Alkaline Phosphatase (38-126) U/L Total Creatine Kinase (55-170) U/L CK-MB (CK-2) CK-MB (CK-2) Rel Index Troponin I 0.030 (0.01-0.034) ng/mL NT-Pro-B Natriuret Pep (<450) pg/mL Total Protein (6.3-8.2) g/dL Albumin (3.5-5.0) g/dL Globulin (1.7-4.1) g/dL Albumin/Globulin Ratio (1.0-2.8) Lipase (23-300) U/L Urine RBC (0-5/HPF) Urine WBC (0-5/HPF) Ur Squamous Epith Cells (0-5/HPF) Urine Bacteria (None) Ur Culture Indicated? SARS-CoV-2 (PCR) (Negative) 12/10/21 12/10/21 12/11/21 Range/Units 08:47 18:49 20:50 WBC 8.1 (4.5-11.0) X10^3/uL RBC 5.28 (4.5-5.9) X10^6/uL Hgb 15.1 (13.5-17.5) g/dL Hct 44.9 (41-53) % MCV 85.2 (80-100) fL MCH 28.6 (26-34) PG MCHC 33.5 (30-36) % RDW 19.3 H (11.6-14.8) % Plt Count 197 (150-400) X10^3/uL Neut % (Auto) 73.4 Lymph % (Auto) 9.0 L Dickenson % (Auto) 11.1 Eos % (Auto) 5.1 H Baso % (Auto) 1.4 Neut # (Auto) 6000 (4521-9402) /uL Lymph # (Auto) 700 L Dickenson # (Auto) 900 Eos # (Auto) 400 (0-450) /uL Baso # (Auto) 100 Total Counted Seg Neutrophils % (38-70) % Lymphocytes % (Manual) (25-45) % Atypical Lymphs % ( - 0) % Monocytes % (Manual) (2-11) % Eosinophils % (Manual) (2-4) % Basophils % (Manual) (0-1) % Neutrophils # (Manual) (8406-5666) /uL RBC Morphology Anisocytosis PT (10.1-12.7) SECONDS INR (0.9-1.3) APTT (26-36) SECONDS Sodium 132 L (137-145) mmol/L Potassium 4.2 (3.4-5.1) mmol/L Chloride 95 L (98-107) mmol/L Carbon Dioxide 27 (22-32) mmol/L BUN 43 H (9-20) mg/dL Creatinine 1.54 H (0.66-1.25) mg/dL Estimated GFR 46 L (>60) mL/min BUN/Creatinine Ratio 27.9 H (6-22) Glucose 172 H (80-110) mg/dL Lactate (0.7-2.1) mmol/L Calcium 8.4 (8.4-10.2) mg/dL Total Bilirubin 1.2 (0.2-1.3) mg/dL AST 32 (17-59) IU/L ALT 42 (<50) IU/L Alkaline Phosphatase 181 H (38-126) U/L Total Creatine Kinase 30 L (55-170) U/L CK-MB (CK-2) TNP CK-MB (CK-2) Rel Index TNP Troponin I 0.024 (0.01-0.034) ng/mL NT-Pro-B Natriuret Pep 96035 H (<450) pg/mL Total Protein 6.5 (6.3-8.2) g/dL Albumin 3.5 (3.5-5.0) g/dL Globulin 3.0 (1.7-4.1) g/dL Albumin/Globulin Ratio 1.2 (1.0-2.8) Lipase (23-300) U/L Urine RBC 1-5/hpf (0-5/HPF) Urine WBC 0-1/hpf (0-5/HPF) Ur Squamous Epith Cells 0-1 /hpf (0-5/HPF) Urine Bacteria None seen (None) Ur Culture Indicated? Cult not indicated SARS-CoV-2 (PCR) (Negative) 12/11/21 12/12/21 12/12/21 Range/Units 20:50 08:30 08:30 WBC 8.2 (4.5-11.0) X10^3/uL RBC 5.42 (4.5-5.9) X10^6/uL Hgb 15.4 (13.5-17.5) g/dL Hct 46.2 (41-53) % MCV 85.2 (80-100) fL MCH 28.4 (26-34) PG MCHC 33.4 (30-36) % RDW 18.5 H (11.6-14.8) % Plt Count 205 (150-400) X10^3/uL Neut % (Auto) 74.3 Lymph % (Auto) 9.0 L Dickenson % (Auto) 9.8 Eos % (Auto) 5.9 H Baso % (Auto) 1.0 Neut # (Auto) 6100 (0320-5032) /uL Lymph # (Auto) 700 L Dickenson # (Auto) 800 Eos # (Auto) 500 H (0-450) /uL Baso # (Auto) 100 Total Counted Seg Neutrophils % (38-70) % Lymphocytes % (Manual) (25-45) % Atypical Lymphs % ( - 0) % Monocytes % (Manual) (2-11) % Eosinophils % (Manual) (2-4) % Basophils % (Manual) (0-1) % Neutrophils # (Manual) (4746-1704) /uL RBC Morphology Anisocytosis PT (10.1-12.7) SECONDS INR (0.9-1.3) APTT (26-36) SECONDS Sodium 135 L 136 L (137-145) mmol/L Potassium 4.4 4.0 (3.4-5.1) mmol/L Chloride 98 98 (98-107) mmol/L Carbon Dioxide 27 28 (22-32) mmol/L BUN 45 H 43 H (9-20) mg/dL Creatinine 1.24 1.20 (0.66-1.25) mg/dL Estimated GFR > 60 > 60 (>60) mL/min BUN/Creatinine Ratio 36.3 H 35.8 H (6-22) Glucose 139 H 88 (80-110) mg/dL Lactate (0.7-2.1) mmol/L Calcium 8.5 8.7 (8.4-10.2) mg/dL Total Bilirubin (0.2-1.3) mg/dL AST (17-59) IU/L ALT (<50) IU/L Alkaline Phosphatase (38-126) U/L Total Creatine Kinase 43 L (55-170) U/L CK-MB (CK-2) TNP CK-MB (CK-2) Rel Index TNP Troponin I 0.025 0.030 (0.01-0.034) ng/mL NT-Pro-B Natriuret Pep 38699 H (<450) pg/mL Total Protein (6.3-8.2) g/dL Albumin (3.5-5.0) g/dL Globulin (1.7-4.1) g/dL Albumin/Globulin Ratio (1.0-2.8) Lipase (23-300) U/L Urine RBC (0-5/HPF) Urine WBC (0-5/HPF) Ur Squamous Epith Cells (0-5/HPF) Urine Bacteria (None) Ur Culture Indicated? SARS-CoV-2 (PCR) (Negative) Point of Care Testing Glucose POC 180 Urine Dip Bedside Urine Glucose Negative Bedside Urine Bilirubin - Negative Bedside Urine Ketone - Negative Urine Specific Cassatt 1.015 Bedside Urine Occult Blood +/- Bedside Urine pH 5.5 Bedside Urine Protein - Negative Bedside Urine Urobilinogen - Negative Bedside Urine Nitrite - Negative Bedside Urine Leukocytes - Negative Esterase ECG Data Attestation: I personally reviewed and interpreted this ECG as follows: Prior ECG tracings: available for review Interpretation: Sinus rhythm, rate of 90 6p are 168 QRS of 102 and QTC of 492. No acute ST elevation noted. Patient has prior from 11/19/2019 which appears similar. No dynamic changes. MDM Narrative Medical decision making narrative: 76-year-old male with known CHF with an ejection fraction of 15-20% and global hypokinesis with normal valves on 11/20/21. Patient has severe right ventricular dilation as well as systolic function being moderately to severely reduced. Pat ient describes exertional fatigue as well as shortness of breath chest pain or pressure. 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 Troponin today is negative but 0.029 and BNP is <Josefina Schaeffer DO - Last Filed: 12/16/21 19:01> Lab Data Labs: Lab Results 12/09/21 12/09/21 12/09/21 Range/Units 04:35 04:35 04:35 WBC (4.5-11.0) X10^3/uL RBC (4.5-5.9) X10^6/uL Hgb (13.5-17.5) g/dL Hct (41-53) % MCV (80-100) fL MCH (26-34) PG MCHC (30-36) % RDW (11.6-14.8) % Plt Count (150-400) X10^3/uL Neut % (Auto) Lymph % (Auto) Dickenson % (Auto) Eos % (Auto) Baso % (Auto) Neut # (Auto) (6170-3713) /uL Lymph # (Auto) Dickenson # (Auto) Eos # (Auto) (0-450) /uL Baso # (Auto) Total Counted Seg Neutrophils % (38-70) % Lymphocytes % (Manual) (25-45) % Atypical Lymphs % ( - 0) % Monocytes % (Manual) (2-11) % Eosinophils % (Manual) (2-4) % Basophils % (Manual) (0-1) % Neutrophils # (Manual) (1588-6383) /uL RBC Morphology Anisocytosis PT 15.6 H (10.1-12.7) SECONDS INR 1.4 H (0.9-1.3) APTT 35 (26-36) SECONDS Sodium (137-145) mmol/L Potassium (3.4-5.1) mmol/L Chloride (98-107) mmol/L Carbon Dioxide (22-32) mmol/L BUN (9-20) mg/dL Creatinine (0.66-1.25) mg/dL Estimated GFR (>60) mL/min BUN/Creatinine Ratio (6-22) Glucose (80-110) mg/dL Lactate 2.8 H (0.7-2.1) mmol/L Calcium (8.4-10.2) mg/dL Total Bilirubin (0.2-1.3) mg/dL AST (17-59) IU/L ALT (<50) IU/L Alkaline Phosphatase (38-126) U/L Total Creatine Kinase (55-170) U/L CK-MB (CK-2) CK-MB (CK-2) Rel Index Troponin I (0.01-0.034) ng/mL NT-Pro-B Natriuret Pep 83054 H (<450) pg/mL Total Protein (6.3-8.2) g/dL Albumin (3.5-5.0) g/dL Globulin (1.7-4.1) g/dL Albumin/Globulin Ratio (1.0-2.8) Lipase (23-300) U/L Urine RBC (0-5/HPF) Urine WBC (0-5/HPF) Ur Squamous Epith Cells (0-5/HPF) Urine Bacteria (None) Ur Culture Indicated? SARS-CoV-2 (PCR) (Negative) 12/09/21 12/09/21 12/09/21 Range/Units 04:35 04:35 04:36 WBC 8.1 (4.5-11.0) X10^3/uL RBC 5.97 H (4.5-5.9) X10^6/uL Hgb 17.0 (13.5-17.5) g/dL Hct 50.7 (41-53) % MCV 84.9 (80-100) fL MCH 28.5 (26-34) PG MCHC 33.6 (30-36) % RDW 19.5 H (11.6-14.8) % Plt Count 229 (150-400) X10^3/uL Neut % (Auto) Not Reportable Lymph % (Auto) Not Reportable Dickenson % (Auto) Not Reportable Eos % (Auto) Not Reportable Baso % (Auto) Not Reportable Neut # (Auto) (8604-1397) /uL Lymph # (Auto) Not Reportable Dickenson # (Auto) Not Reportable Eos # (Auto) (0-450) /uL Baso # (Auto) Not Reportable Total Counted 100 Seg Neutrophils % 64.0 (38-70) % Lymphocytes % (Manual) 18.0 L (25-45) % Atypical Lymphs % 2.0 H ( - 0) % Monocytes % (Manual) 12.0 H (2-11) % Eosinophils % (Manual) 3.0 (2-4) % Basophils % (Manual) 1.0 (0-1) % Neutrophils # (Manual) 5184 (4716-6027) /uL RBC Morphology Not Reportable Anisocytosis 1+ H PT (10.1-12.7) SECONDS INR (0.9-1.3) APTT (26-36) SECONDS Sodium 131 L (137-145) mmol/L Potassium 4.6 (3.4-5.1) mmol/L Chloride 96 L (98-107) mmol/L Carbon Dioxide 24 (22-32) mmol/L BUN 41 H (9-20) mg/dL Creatinine 1.35 H (0.66-1.25) mg/dL Estimated GFR 54 L (>60) mL/min BUN/Creatinine Ratio 30.4 H (6-22) Glucose 144 H (80-110) mg/dL Lactate (0.7-2.1) mmol/L Calcium 9.0 (8.4-10.2) mg/dL Total Bilirubin 1.9 H (0.2-1.3) mg/dL AST 54 (17-59) IU/L ALT 64 H (<50) IU/L Alkaline Phosphatase 231 H (38-126) U/L Total Creatine Kinase 33 L (55-170) U/L CK-MB (CK-2) TNP CK-MB (CK-2) Rel Index TNP Troponin I 0.029 (0.01-0.034) ng/mL NT-Pro-B Natriuret Pep (<450) pg/mL Total Protein 8.1 (6.3-8.2) g/dL Albumin 4.4 (3.5-5.0) g/dL Globulin 3.7 (1.7-4.1) g/dL Albumin/Globulin Ratio 1.2 (1.0-2.8) Lipase 96 (23-300) U/L Urine RBC (0-5/HPF) Urine WBC (0-5/HPF) Ur Squamous Epith Cells (0-5/HPF) Urine Bacteria (None) Ur Culture Indicated? SARS-CoV-2 (PCR) Negative (Negative) 12/09/21 12/09/21 12/10/21 Range/Units 06:35 07:15 08:47 WBC 7.8 (4.5-11.0) X10^3/uL RBC 5.06 (4.5-5.9) X10^6/uL Hgb 14.5 (13.5-17.5) g/dL Hct 42.9 (41-53) % MCV 84.9 (80-100) fL MCH 28.7 (26-34) PG MCHC 33.8 (30-36) % RDW 19.5 H (11.6-14.8) % Plt Count 195 (150-400) X10^3/uL Neut % (Auto) 71.5 Lymph % (Auto) 12.4 L Dickenson % (Auto) 10.3 Eos % (Auto) 4.8 H Baso % (Auto) 1.0 Neut # (Auto) 5600 (5516-9973) /uL Lymph # (Auto) 1000 L Dickenson # (Auto) 800 Eos # (Auto) 400 (0-450) /uL Baso # (Auto) 100 Total Counted Seg Neutrophils % (38-70) % Lymphocytes % (Manual) (25-45) % Atypical Lymphs % ( - 0) % Monocytes % (Manual) (2-11) % Eosinophils % (Manual) (2-4) % Basophils % (Manual) (0-1) % Neutrophils # (Manual) (2823-5104) /uL RBC Morphology Anisocytosis PT (10.1-12.7) SECONDS INR (0.9-1.3) APTT (26-36) SECONDS Sodium (137-145) mmol/L Potassium (3.4-5.1) mmol/L Chloride (98-107) mmol/L Carbon Dioxide (22-32) mmol/L BUN (9-20) mg/dL Creatinine (0.66-1.25) mg/dL Estimated GFR (>60) mL/min BUN/Creatinine Ratio (6-22) Glucose (80-110) mg/dL Lactate 1.1 (0.7-2.1) mmol/L Calcium (8.4-10.2) mg/dL Total Bilirubin (0.2-1.3) mg/dL AST (17-59) IU/L ALT (<50) IU/L Alkaline Phosphatase (38-126) U/L Total Creatine Kinase (55-170) U/L CK-MB (CK-2) CK-MB (CK-2) Rel Index Troponin I 0.030 (0.01-0.034) ng/mL NT-Pro-B Natriuret Pep (<450) pg/mL Total Protein (6.3-8.2) g/dL Albumin (3.5-5.0) g/dL Globulin (1.7-4.1) g/dL Albumin/Globulin Ratio (1.0-2.8) Lipase (23-300) U/L Urine RBC (0-5/HPF) Urine WBC (0-5/HPF) Ur Squamous Epith Cells (0-5/HPF) Urine Bacteria (None) Ur Culture Indicated? SARS-CoV-2 (PCR) (Negative) 12/10/21 12/10/21 12/11/21 Range/Units 08:47 18:49 20:50 WBC 8.1 (4.5-11.0) X10^3/uL RBC 5.28 (4.5-5.9) X10^6/uL Hgb 15.1 (13.5-17.5) g/dL Hct 44.9 (41-53) % MCV 85.2 (80-100) fL MCH 28.6 (26-34) PG MCHC 33.5 (30-36) % RDW 19.3 H (11.6-14.8) % Plt Count 197 (150-400) X10^3/uL Neut % (Auto) 73.4 Lymph % (Auto) 9.0 L Dickenson % (Auto) 11.1 Eos % (Auto) 5.1 H Baso % (Auto) 1.4 Neut # (Auto) 6000 (2832-2654) /uL Lymph # (Auto) 700 L Dickenson # (Auto) 900 Eos # (Auto) 400 (0-450) /uL Baso # (Auto) 100 Total Counted Seg Neutrophils % (38-70) % Lymphocytes % (Manual) (25-45) % Atypical Lymphs % ( - 0) % Monocytes % (Manual) (2-11) % Eosinophils % (Manual) (2-4) % Basophils % (Manual) (0-1) % Neutrophils # (Manual) (7275-5516) /uL RBC Morphology Anisocytosis PT (10.1-12.7) SECONDS INR (0.9-1.3) APTT (26-36) SECONDS Sodium 132 L (137-145) mmol/L Potassium 4.2 (3.4-5.1) mmol/L Chloride 95 L (98-107) mmol/L Carbon Dioxide 27 (22-32) mmol/L BUN 43 H (9-20) mg/dL Creatinine 1.54 H (0.66-1.25) mg/dL Estimated GFR 46 L (>60) mL/min BUN/Creatinine Ratio 27.9 H (6-22) Glucose 172 H (80-110) mg/dL Lactate (0.7-2.1) mmol/L Calcium 8.4 (8.4-10.2) mg/dL Total Bilirubin 1.2 (0.2-1.3) mg/dL AST 32 (17-59) IU/L ALT 42 (<50) IU/L Alkaline Phosphatase 181 H (38-126) U/L Total Creatine Kinase 30 L (55-170) U/L CK-MB (CK-2) TNP CK-MB (CK-2) Rel Index TNP Troponin I 0.024 (0.01-0.034) ng/mL NT-Pro-B Natriuret Pep 17098 H (<450) pg/mL Total Protein 6.5 (6.3-8.2) g/dL Albumin 3.5 (3.5-5.0) g/dL Globulin 3.0 (1.7-4.1) g/dL Albumin/Globulin Ratio 1.2 (1.0-2.8) Lipase (23-300) U/L Urine RBC 1-5/hpf (0-5/HPF) Urine WBC 0-1/hpf (0-5/HPF) Ur Squamous Epith Cells 0-1 /hpf (0-5/HPF) Urine Bacteria None seen (None) Ur Culture Indicated? Cult not indicated SARS-CoV-2 (PCR) (Negative) 12/11/21 12/12/21 12/12/21 Range/Units 20:50 08:30 08:30 WBC 8.2 (4.5-11.0) X10^3/uL RBC 5.42 (4.5-5.9) X10^6/uL Hgb 15.4 (13.5-17.5) g/dL Hct 46.2 (41-53) % MCV 85.2 (80-100) fL MCH 28.4 (26-34) PG MCHC 33.4 (30-36) % RDW 18.5 H (11.6-14.8) % Plt Count 205 (150-400) X10^3/uL Neut % (Auto) 74.3 Lymph % (Auto) 9.0 L Dickenson % (Auto) 9.8 Eos % (Auto) 5.9 H Baso % (Auto) 1.0 Neut # (Auto) 6100 (1258-3253) /uL Lymph # (Auto) 700 L Dickenson # (Auto) 800 Eos # (Auto) 500 H (0-450) /uL Baso # (Auto) 100 Total Counted Seg Neutrophils % (38-70) % Lymphocytes % (Manual) (25-45) % Atypical Lymphs % ( - 0) % Monocytes % (Manual) (2-11) % Eosinophils % (Manual) (2-4) % Basophils % (Manual) (0-1) % Neutrophils # (Manual) (4137-9964) /uL RBC Morphology Anisocytosis PT (10.1-12.7) SECONDS INR (0.9-1.3) APTT (26-36) SECONDS Sodium 135 L 136 L (137-145) mmol/L Potassium 4.4 4.0 (3.4-5.1) mmol/L Chloride 98 98 (98-107) mmol/L Carbon Dioxide 27 28 (22-32) mmol/L BUN 45 H 43 H (9-20) mg/dL Creatinine 1.24 1.20 (0.66-1.25) mg/dL Estimated GFR > 60 > 60 (>60) mL/min BUN/Creatinine Ratio 36.3 H 35.8 H (6-22) Glucose 139 H 88 (80-110) mg/dL Lactate (0.7-2.1) mmol/L Calcium 8.5 8.7 (8.4-10.2) mg/dL Total Bilirubin (0.2-1.3) mg/dL AST (17-59) IU/L ALT (<50) IU/L Alkaline Phosphatase (38-126) U/L Total Creatine Kinase 43 L (55-170) U/L CK-MB (CK-2) TNP CK-MB (CK-2) Rel Index TNP Troponin I 0.025 0.030 (0.01-0.034) ng/mL NT-Pro-B Natriuret Pep 06012 H (<450) pg/mL Total Protein (6.3-8.2) g/dL Albumin (3.5-5.0) g/dL Globulin (1.7-4.1) g/dL Albumin/Globulin Ratio (1.0-2.8) Lipase (23-300) U/L Urine RBC (0-5/HPF) Urine WBC (0-5/HPF) Ur Squamous Epith Cells (0-5/HPF) Urine Bacteria (None) Ur Culture Indicated? SARS-CoV-2 (PCR) (Negative) Point of Care Testing Glucose POC 180 Urine Dip Bedside Urine Glucose Negative Bedside Urine Bilirubin - Negative Bedside Urine Ketone - Negative Urine Specific Cassatt 1.015 Bedside Urine Occult Blood +/- Bedside Urine pH 5.5 Bedside Urine Protein - Negative Bedside Urine Urobilinogen - Negative Bedside Urine Nitrite - Negative Bedside Urine Leukocytes - Negative Esterase MDM Narrative Medical decision making narrative: 76-year-old male with known CHF with an ejection fraction of 15-20% and global hypokinesis with normal valves on 11/20/21. Patient has severe right ventricular dilation as well as systolic function being moderately to severely reduced. Patient describes exertional fatigue as well as shortness of breath chest pain or pressure. 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 Troponin today is negative but 0.029 [place] [address] 12/09/21 830am [place] Patient seen and evaluated by myself. Overall appears well. He does have +3 pitting edema lungs are slightly coarse but no respiratory distress or tachypnea. He was recently admitted to the hospital for congestive heart failure he has known CAD was supposed to get a CABG never followed up. He was released 10 days ago and has increasing shortness of breath. BNP is higher today than it was previously. No chest pain. Troponins are negative no EKG changes. 9am Dr. Evans cardiology updated on patient's symptoms test results states that patient does need to be transferred for CABG. 1999 (José Miguel) Patient received in sign out from Dr. Schaeffer. I have reviewed the clinical course and performed an independent history and physical exam. 12/10/21 Patient seen evaluated by me this morning. Awake and alert resting comfortably on oxygen. Patient is awaiting transfer. Has persistent congestive heart failure his EF has decreased from 15-20% to 10%. He has been diuresed yesterday with Lasix 60 mg twice a day. Blood pressure is a little soft systolic in the 90s. He this morning has no complaints. Just anxious. Trying to get him to a larger facility. He remains on multiple wait list GENERAL: Alert pleasant 76-year-old HEENT: Head atraumatic,EOMI, pupils reactive, face symmetric, moist mucous membranes CARDIOVASCULAR: Regular rate and rhythm without murmurs, rubs or gallops. RESPIRATORY: Breath sounds equal bilaterally, no wheezes rales or rhonchi. No respiratory distress clear EXTREMITIES: Normal range of motion, no clubbing or edema. Neurovascularly intact NEUROLOGICAL: Alert and oriented x4 SKIN: Right leg mild erythema wound noted. A/P 1. CHF with worsening EF now 10-15% -Known CAD with LHC at [facility] 03/2019 showing occluded LAD with multivessel disease and was recommended for CABG at [facility] but did not happen due to patient being COVID? -Continue diuresis -atorvastatin -blood pressure medication currently held due to low blood pressure 2. Diabetes -check glucose with meals 3. The right leg a cellulitis mild erythema -antibiotics Rocephin given 4. DVT prophylaxis heparin subcu twice a day 1430 Dr. Dill, CVT at [facility], states no emergent need happy to consult agrees with higher level of care. admit to hospitalist. <Shahzad Valdez, - Last Filed: 12/12/21 20:27> Lab Data Labs: Lab Results 12/09/21 12/09/21 12/09/21 Range/Units 04:35 04:35 04:35 WBC (4.5-11.0) X10^3/uL RBC (4.5-5.9) X10^6/uL Hgb (13.5-17.5) g/dL Hct (41-53) % MCV (80-100) fL MCH (26-34) PG MCHC (30-36) % RDW (11.6-14.8) % Plt Count (150-400) X10^3/uL Neut % (Auto) Lymph % (Auto) Dickenson % (Auto) Eos % (Auto) Baso % (Auto) Neut # (Auto) (7645-6514) /uL Lymph # (Auto) Dickenson # (Auto) Eos # (Auto) (0-450) /uL Baso # (Auto) Total Counted Seg Neutrophils % (38-70) % Lymphocytes % (Manual) (25-45) % Atypical Lymphs % ( - 0) % Monocytes % (Manual) (2-11) % Eosinophils % (Manual) (2-4) % Basophils % (Manual) (0-1) % Neutrophils # (Manual) (5555-1472) /uL RBC Morphology Anisocytosis PT 15.6 H (10.1-12.7) SECONDS INR 1.4 H (0.9-1.3) APTT 35 (26-36) SECONDS Sodium (137-145) mmol/L Potassium (3.4-5.1) mmol/L Chloride (98-107) mmol/L Carbon Dioxide (22-32) mmol/L BUN (9-20) mg/dL Creatinine (0.66-1.25) mg/dL Estimated GFR (>60) mL/min BUN/Creatinine Ratio (6-22) Glucose (80-110) mg/dL Lactate 2.8 H (0.7-2.1) mmol/L Calcium (8.4-10.2) mg/dL Total Bilirubin (0.2-1.3) mg/dL AST (17-59) IU/L ALT (<50) IU/L Alkaline Phosphatase (38-126) U/L Total Creatine Kinase (55-170) U/L CK-MB (CK-2) CK-MB (CK-2) Rel Index Troponin I (0.01-0.034) ng/mL NT-Pro-B Natriuret Pep 32229 H (<450) pg/mL Total Protein (6.3-8.2) g/dL Albumin (3.5-5.0) g/dL Globulin (1.7-4.1) g/dL Albumin/Globulin Ratio (1.0-2.8) Lipase (23-300) U/L Urine RBC (0-5/HPF) Urine WBC (0-5/HPF) Ur Squamous Epith Cells (0-5/HPF) Urine Bacteria (None) Ur Culture Indicated? SARS-CoV-2 (PCR) (Negative) 12/09/21 12/09/21 12/09/21 Range/Units 04:35 04:35 04:36 WBC 8.1 (4.5-11.0) X10^3/uL RBC 5.97 H (4.5-5.9) X10^6/uL Hgb 17.0 (13.5-17.5) g/dL Hct 50.7 (41-53) % MCV 84.9 (80-100) fL MCH 28.5 (26-34) PG MCHC 33.6 (30-36) % RDW 19.5 H (11.6-14.8) % Plt Count 229 (150-400) X10^3/uL Neut % (Auto) Not Reportable Lymph % (Auto) Not Reportable Dickenson % (Auto) Not Reportable Eos % (Auto) Not Reportable Baso % (Auto) Not Reportable Neut # (Auto) (9586-7642) /uL Lymph # (Auto) Not Reportable Dickenson # (Auto) Not Reportable Eos # (Auto) (0-450) /uL Baso # (Auto) Not Reportable Total Counted 100 Seg Neutrophils % 64.0 (38-70) % Lymphocytes % (Manual) 18.0 L (25-45) % Atypical Lymphs % 2.0 H ( - 0) % Monocytes % (Manual) 12.0 H (2-11) % Eosinophils % (Manual) 3.0 (2-4) % Basophils % (Manual) 1.0 (0-1) % Neutrophils # (Manual) 5184 (2475-6689) /uL RBC Morphology Not Reportable Anisocytosis 1+ H PT (10.1-12.7) SECONDS INR (0.9-1.3) APTT (26-36) SECONDS Sodium 131 L (137-145) mmol/L Potassium 4.6 (3.4-5.1) mmol/L Chloride 96 L (98-107) mmol/L Carbon Dioxide 24 (22-32) mmol/L BUN 41 H (9-20) mg/dL Creatinine 1.35 H (0.66-1.25) mg/dL Estimated GFR 54 L (>60) mL/min BUN/Creatinine Ratio 30.4 H (6-22) Glucose 144 H (80-110) mg/dL Lactate (0.7-2.1) mmol/L Calcium 9.0 (8.4-10.2) mg/dL Total Bilirubin 1.9 H (0.2-1.3) mg/dL AST 54 (17-59) IU/L ALT 64 H (<50) IU/L Alkaline Phosphatase 231 H (38-126) U/L Total Creatine Kinase 33 L (55-170) U/L CK-MB (CK-2) TNP CK-MB (CK-2) Rel Index TNP Troponin I 0.029 (0.01-0.034) ng/mL NT-Pro-B Natriuret Pep (<450) pg/mL Total Protein 8.1 (6.3-8.2) g/dL Albumin 4.4 (3.5-5.0) g/dL Globulin 3.7 (1.7-4.1) g/dL Albumin/Globulin Ratio 1.2 (1.0-2.8) Lipase 96 (23-300) U/L Urine RBC (0-5/HPF) Urine WBC (0-5/HPF) Ur Squamous Epith Cells (0-5/HPF) Urine Bacteria (None) Ur Culture Indicated? SARS-CoV-2 (PCR) Negative (Negative) 12/09/21 12/09/21 12/10/21 Range/Units 06:35 07:15 08:47 WBC 7.8 (4.5-11.0) X10^3/uL RBC 5.06 (4.5-5.9) X10^6/uL Hgb 14.5 (13.5-17.5) g/dL Hct 42.9 (41-53) % MCV 84.9 (80-100) fL MCH 28.7 (26-34) PG MCHC 33.8 (30-36) % RDW 19.5 H (11.6-14.8) % Plt Count 195 (150-400) X10^3/uL Neut % (Auto) 71.5 Lymph % (Auto) 12.4 L Dickenson % (Auto) 10.3 Eos % (Auto) 4.8 H Baso % (Auto) 1.0 Neut # (Auto) 5600 (2566-4803) /uL Lymph # (Auto) 1000 L Dickenson # (Auto) 800 Eos # (Auto) 400 (0-450) /uL Baso # (Auto) 100 Total Counted Seg Neutrophils % (38-70) % Lymphocytes % (Manual) (25-45) % Atypical Lymphs % ( - 0) % Monocytes % (Manual) (2-11) % Eosinophils % (Manual) (2-4) % Basophils % (Manual) (0-1) % Neutrophils # (Manual) (3540-5465) /uL RBC Morphology Anisocytosis PT (10.1-12.7) SECONDS INR (0.9-1.3) APTT (26-36) SECONDS Sodium (137-145) mmol/L Potassium (3.4-5.1) mmol/L Chloride (98-107) mmol/L Carbon Dioxide (22-32) mmol/L BUN (9-20) mg/dL Creatinine (0.66-1.25) mg/dL Estimated GFR (>60) mL/min BUN/Creatinine Ratio (6-22) Glucose (80-110) mg/dL Lactate 1.1 (0.7-2.1) mmol/L Calcium (8.4-10.2) mg/dL Total Bilirubin (0.2-1.3) mg/dL AST (17-59) IU/L ALT (<50) IU/L Alkaline Phosphatase (38-126) U/L Total Creatine Kinase (55-170) U/L CK-MB (CK-2) CK-MB (CK-2) Rel Index Troponin I 0.030 (0.01-0.034) ng/mL NT-Pro-B Natriuret Pep (<450) pg/mL Total Protein (6.3-8.2) g/dL Albumin (3.5-5.0) g/dL Globulin (1.7-4.1) g/dL Albumin/Globulin Ratio (1.0-2.8) Lipase (23-300) U/L Urine RBC (0-5/HPF) Urine WBC (0-5/HPF) Ur Squamous Epith Cells (0-5/HPF) Urine Bacteria (None) Ur Culture Indicated? SARS-CoV-2 (PCR) (Negative) 12/10/21 12/10/21 12/11/21 Range/Units 08:47 18:49 20:50 WBC 8.1 (4.5-11.0) X10^3/uL RBC 5.28 (4.5-5.9) X10^6/uL Hgb 15.1 (13.5-17.5) g/dL Hct 44.9 (41-53) % MCV 85.2 (80-100) fL MCH 28.6 (26-34) PG MCHC 33.5 (30-36) % RDW 19.3 H (11.6-14.8) % Plt Count 197 (150-400) X10^3/uL Neut % (Auto) 73.4 Lymph % (Auto) 9.0 L Dickenson % (Auto) 11.1 Eos % (Auto) 5.1 H Baso % (Auto) 1.4 Neut # (Auto) 6000 (1421-9135) /uL Lymph # (Auto) 700 L Dickenson # (Auto) 900 Eos # (Auto) 400 (0-450) /uL Baso # (Auto) 100 Total Counted Seg Neutrophils % (38-70) % Lymphocytes % (Manual) (25-45) % Atypical Lymphs % ( - 0) % Monocytes % (Manual) (2-11) % Eosinophils % (Manual) (2-4) % Basophils % (Manual) (0-1) % Neutrophils # (Manual) (6410-9189) /uL RBC Morphology Anisocytosis PT (10.1-12.7) SECONDS INR (0.9-1.3) APTT (26-36) SECONDS Sodium 132 L (137-145) mmol/L Potassium 4.2 (3.4-5.1) mmol/L Chloride 95 L (98-107) mmol/L Carbon Dioxide 27 (22-32) mmol/L BUN 43 H (9-20) mg/dL Creatinine 1.54 H (0.66-1.25) mg/dL Estimated GFR 46 L (>60) mL/min BUN/Creatinine Ratio 27.9 H (6-22) Glucose 172 H (80-110) mg/dL Lactate (0.7-2.1) mmol/L Calcium 8.4 (8.4-10.2) mg/dL Total Bilirubin 1.2 (0.2-1.3) mg/dL AST 32 (17-59) IU/L ALT 42 (<50) IU/L Alkaline Phosphatase 181 H (38-126) U/L Total Creatine Kinase 30 L (55-170) U/L CK-MB (CK-2) TNP CK-MB (CK-2) Rel Index TNP Troponin I 0.024 (0.01-0.034) ng/mL NT-Pro-B Natriuret Pep 58549 H (<450) pg/mL Total Protein 6.5 (6.3-8.2) g/dL Albumin 3.5 (3.5-5.0) g/dL Globulin 3.0 (1.7-4.1) g/dL Albumin/Globulin Ratio 1.2 (1.0-2.8) Lipase (23-300) U/L Urine RBC 1-5/hpf (0-5/HPF) Urine WBC 0-1/hpf (0-5/HPF) Ur Squamous Epith Cells 0-1 /hpf (0-5/HPF) Urine Bacteria None seen (None) Ur Culture Indicated? Cult not indicated SARS-CoV-2 (PCR) (Negative) 12/11/21 12/12/21 12/12/21 Range/Units 20:50 08:30 08:30 WBC 8.2 (4.5-11.0) X10^3/uL RBC 5.42 (4.5-5.9) X10^6/uL Hgb 15.4 (13.5-17.5) g/dL Hct 46.2 (41-53) % MCV 85.2 (80-100) fL MCH 28.4 (26-34) PG MCHC 33.4 (30-36) % RDW 18.5 H (11.6-14.8) % Plt Count 205 (150-400) X10^3/uL Neut % (Auto) 74.3 Lymph % (Auto) 9.0 L Dickenson % (Auto) 9.8 Eos % (Auto) 5.9 H Baso % (Auto) 1.0 Neut # (Auto) 6100 (0928-1676) /uL Lymph # (Auto) 700 L Dickenson # (Auto) 800 Eos # (Auto) 500 H (0-450) /uL Baso # (Auto) 100 Total Counted Seg Neutrophils % (38-70) % Lymphocytes % (Manual) (25-45) % Atypical Lymphs % ( - 0) % Monocytes % (Manual) (2-11) % Eosinophils % (Manual) (2-4) % Basophils % (Manual) (0-1) % Neutrophils # (Manual) (0803-4696) /uL RBC Morphology Anisocytosis PT (10.1-12.7) SECONDS INR (0.9-1.3) APTT (26-36) SECONDS Sodium 135 L 136 L (137-145) mmol/L Potassium 4.4 4.0 (3.4-5.1) mmol/L Chloride 98 98 (98-107) mmol/L Carbon Dioxide 27 28 (22-32) mmol/L BUN 45 H 43 H (9-20) mg/dL Creatinine 1.24 1.20 (0.66-1.25) mg/dL Estimated GFR > 60 > 60 (>60) mL/min BUN/Creatinine Ratio 36.3 H 35.8 H (6-22) Glucose 139 H 88 (80-110) mg/dL Lactate (0.7-2.1) mmol/L Calcium 8.5 8.7 (8.4-10.2) mg/dL Total Bilirubin (0.2-1.3) mg/dL AST (17-59) IU/L ALT (<50) IU/L Alkaline Phosphatase (38-126) U/L Total Creatine Kinase 43 L (55-170) U/L CK-MB (CK-2) TNP CK-MB (CK-2) Rel Index TNP Troponin I 0.025 0.030 (0.01-0.034) ng/mL NT-Pro-B Natriuret Pep 95080 H (<450) pg/mL Total Protein (6.3-8.2) g/dL Albumin (3.5-5.0) g/dL Globulin (1.7-4.1) g/dL Albumin/Globulin Ratio (1.0-2.8) Lipase (23-300) U/L Urine RBC (0-5/HPF) Urine WBC (0-5/HPF) Ur Squamous Epith Cells (0-5/HPF) Urine Bacteria (None) Ur Culture Indicated? SARS-CoV-2 (PCR) (Negative) Point of Care Testing Glucose POC 180 Urine Dip Bedside Urine Glucose Negative Bedside Urine Bilirubin - Negative Bedside Urine Ketone - Negative Urine Specific Cassatt 1.015 Bedside Urine Occult Blood +/- Bedside Urine pH 5.5 Bedside Urine Protein - Negative Bedside Urine Urobilinogen - Negative Bedside Urine Nitrite - Negative Bedside Urine Leukocytes - Negative Esterase MDM Narrative Medical decision making narrative: 76-year-old male with known CHF with an ejection fraction of 15-20% and global hypokinesis with normal valves on 11/20/21. Patient has severe right ventricular dilation as well as systolic function being moderately to severely reduced. Patient describes exertional fatigue as well as shortness of breath chest pain or pressure. 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 Troponin today is negative but 0.029 [place] [address] 12/09/21 830am Laury Patient seen and evaluated by myself. Overall appears well. He does have +3 pitting edema lungs are slightly coarse but no respiratory distress or tachypnea. He was recently admitted to the hospital for congestive heart failure he has known CAD was supposed to get a CABG never followed up. He was released 10 days ago and has increasing shortness of breath. BNP is higher today than it was previously. No chest pain. Troponins are negative no EKG changes. 9am Dr. Evans cardiology updated on patient's symptoms test results states that patient does need to be transferred for CABG. 1999 (José Miguel) Patient received in sign out from Dr. Schaeffer. I have reviewed the clinical course and performed an independent history and physical exam. 12/10/21 Patient seen evaluated by me this morning. Awake and alert resting comfortably on oxygen. Patient is awaiting transfer. Has persistent congestive heart failure his EF has decreased from 15-20% to 10%. He has been diuresed yesterday with Lasix 60 mg twice a day. Blood pressure is a little soft systolic in the 90s. He this morning has no complaints. Just anxious. Trying to get him to a larger facility. He remains on multiple wait list GENERAL: Alert pleasant 76-year-old HEENT: Head atraumatic,EOMI, pupils reactive, face symmetric, moist mucous membranes CARDIOVASCULAR: Regular rate and rhythm without murmurs, rubs or gallops. RESPIRATORY: Breath sounds equal bilaterally, no wheezes rales or rhonchi. No respiratory distress clear EXTREMITIES: Normal range of motion, no clubbing or edema. Neurovascularly intact NEUROLOGICAL: Alert and oriented x4 SKIN: Right leg mild erythema wound noted. A/P 1. CHF with worsening EF now 10-15% -Known CAD with LHC at [facility] 03/2019 showing occluded LAD with multivessel disease and was recommended for CABG at [facility] but did not happen due to patient being COVID? -Continue diuresis -atorvastatin -blood pressure medication currently held due to low blood pressure 2. Diabetes -check glucose with meals 3. The right leg a cellulitis mild erythema -antibiotics Rocephin given 4. DVT prophylaxis heparin subcu twice a day 1430 Dr. Dill, CVT at [facility], states no emergent need happy to consult agrees with higher level of care. admit to hospitalist. 12/11/[address] Torre Patient in the ER from 12/09/21 4pm Patient is seen and examined Somewhat frustrated with the extended ER stay that no complaints of chest pain or dyspnea. Currently 96% on room air, sinus rhythm at 1:04 a.m., blood pressure 141/75, afebrile General: in no acute distress. HEENT: Moist mucous membranes, normal sclera with reactive pupils, Neck: No JVD, supple Respiratory: Lungs are clear to auscultation, no wheezing no rales no rhonchi. Full and symmetrical air movement, able speak in full sentences Cardiac: Regular rate and rhythm no murmurs no bruits Abdomen: Soft, nontender, good bowel tones, no flank pain Skin: Lower extremities with chronic venous stasis changes, 3+ edema, no longer openly weeping. Superficial 3 cm ulcer on the right castillo and 2 ulcers over the dorsum of the left foot. Neurologic: Moving all extremities Impression and plan 1: Congestive heart failure. He is responding to Lasix and keeping his lower extremities up. There has been a significant progression in decreased injection fraction over the last couple of weeks. 2: Coronary artery disease: Currently no chest pain no elevated troponin and no acute coronary syndrome. At 1 point he had been told that he needed a CABG and then was lost to follow-up due to COVID. He currently does not have a primary c are doctor or a secondary education professor. We have had multiple discussions with multiple cardiovascular surgeons up and down the eye 5 quarter trying to look for a bed for this gentleman. All of indicated that they do agree he will need a CABG and all agree that it does not need to be done emergently. 3: Lower extremity edema with superficial wounds right and left side both wounds with minor cellulitis without evidence of sepsis. Continue on ceftriaxone at this time. Needs help with continued diuresis and will benefit from wound care and wound care follow-up 4: Disposition this gentleman has been in the emergency department now almost 2 days. There are no beds available, hospitals with Cardiovascular surgery have clearly indicated that there likely will be no beds available in the immediate future. At this time he is being treated for his heart failure, lower extremity edema this led to chronic lower extremity wounds that have now become infected. Will talk with our hospitalist to see if we can continue management as an inpatient rather than continuing to hold him in the emergency department. He likely will be able to be discharged home and will need help with establishing a primary care and secondary education professor with need for further consultation and discussion of scheduled CABG. Gianna Torre 12/12 Dr Sterling: Received turned over. Review patient's history and physical exam. Patient has been stable throughout the day. Continuing to get diuresis. Continue to get antibiotics. Discussed the case with Dr. Samuel with Internal Medicine today who again expresses concern about admitting the patient here at this facility. There was a strong potential for bed at [facility] today however this did not irvin out. Will continue to observe patient in the emergency department. 12/12 José Miguel: Patient received back in sign-out. I have just spoken with Cardiology at [facility] (Dr. Quintero) who is happy to be involved in consultation, but requests patient be admitted to hospitalist. Dr. Zuniga (hospitalist at [place]) happy to be admitting physician. Bed available tonight. <Gianna Torre MD - Last Filed: 12/14/21 19:06> Lab Data Labs: Lab Results 12/09/21 12/09/21 12/09/21 Range/Units 04:35 04:35 04:35 WBC (4.5-11.0) X10^3/uL RBC (4.5-5.9) X10^6/uL Hgb (13.5-17.5) g/dL Hct (41-53) % MCV (80-100) fL MCH (26-34) PG MCHC (30-36) % RDW (11.6-14.8) % Plt Count (150-400) X10^3/uL Neut % (Auto) Lymph % (Auto) Dickenson % (Auto) Eos % (Auto) Baso % (Auto) Neut # (Auto) (4943-3240) /uL Lymph # (Auto) Dickenson # (Auto) Eos # (Auto) (0-450) /uL Baso # (Auto) Total Counted Seg Neutrophils % (38-70) % Lymphocytes % (Manual) (25-45) % Atypical Lymphs % ( - 0) % Monocytes % (Manual) (2-11) % Eosinophils % (Manual) (2-4) % Basophils % (Manual) (0-1) % Neutrophils # (Manual) (6139-8768) /uL RBC Morphology Anisocytosis PT 15.6 H (10.1-12.7) SECONDS INR 1.4 H (0.9-1.3) APTT 35 (26-36) SECONDS Sodium (137-145) mmol/L Potassium (3.4-5.1) mmol/L Chloride (98-107) mmol/L Carbon Dioxide (22-32) mmol/L BUN (9-20) mg/dL Creatinine (0.66-1.25) mg/dL Estimated GFR (>60) mL/min BUN/Creatinine Ratio (6-22) Glucose (80-110) mg/dL Lactate 2.8 H (0.7-2.1) mmol/L Calcium (8.4-10.2) mg/dL Total Bilirubin (0.2-1.3) mg/dL AST (17-59) IU/L ALT (<50) IU/L Alkaline Phosphatase (38-126) U/L Total Creatine Kinase (55-170) U/L CK-MB (CK-2) CK-MB (CK-2) Rel Index Troponin I (0.01-0.034) ng/mL NT-Pro-B Natriuret Pep 13515 H (<450) pg/mL Total Protein (6.3-8.2) g/dL Albumin (3.5-5.0) g/dL Globulin (1.7-4.1) g/dL Albumin/Globulin Ratio (1.0-2.8) Lipase (23-300) U/L Urine RBC (0-5/HPF) Urine WBC (0-5/HPF) Ur Squamous Epith Cells (0-5/HPF) Urine Bacteria (None) Ur Culture Indicated? SARS-CoV-2 (PCR) (Negative) 12/09/21 12/09/21 12/09/21 Range/Units 04:35 04:35 04:36 WBC 8.1 (4.5-11.0) X10^3/uL RBC 5.97 H (4.5-5.9) X10^6/uL Hgb 17.0 (13.5-17.5) g/dL Hct 50.7 (41-53) % MCV 84.9 (80-100) fL MCH 28.5 (26-34) PG MCHC 33.6 (30-36) % RDW 19.5 H (11.6-14.8) % Plt Count 229 (150-400) X10^3/uL Neut % (Auto) Not Reportable Lymph % (Auto) Not Reportable Dickenson % (Auto) Not Reportable Eos % (Auto) Not Reportable Baso % (Auto) Not Reportable Neut # (Auto) (0302-6079) /uL Lymph # (Auto) Not Reportable Dickenson # (Auto) Not Reportable Eos # (Auto) (0-450) /uL Baso # (Auto) Not Reportable Total Counted 100 Seg Neutrophils % 64.0 (38-70) % Lymphocytes % (Manual) 18.0 L (25-45) % Atypical Lymphs % 2.0 H ( - 0) % Monocytes % (Manual) 12.0 H (2-11) % Eosinophils % (Manual) 3.0 (2-4) % Basophils % (Manual) 1.0 (0-1) % Neutrophils # (Manual) 5184 (6119-5460) /uL RBC Morphology Not Reportable Anisocytosis 1+ H PT (10.1-12.7) SECONDS INR (0.9-1.3) APTT (26-36) SECONDS Sodium 131 L (137-145) mmol/L Potassium 4.6 (3.4-5.1) mmol/L Chloride 96 L (98-107) mmol/L Carbon Dioxide 24 (22-32) mmol/L BUN 41 H (9-20) mg/dL Creatinine 1.35 H (0.66-1.25) mg/dL Estimated GFR 54 L (>60) mL/min BUN/Creatinine Ratio 30.4 H (6-22) Glucose 144 H (80-110) mg/dL Lactate (0.7-2.1) mmol/L Calcium 9.0 (8.4-10.2) mg/dL Total Bilirubin 1.9 H (0.2-1.3) mg/dL AST 54 (17-59) IU/L ALT 64 H (<50) IU/L Alkaline Phosphatase 231 H (38-126) U/L Total Creatine Kinase 33 L (55-170) U/L CK-MB (CK-2) TNP CK-MB (CK-2) Rel Index TNP Troponin I 0.029 (0.01-0.034) ng/mL NT-Pro-B Natriuret Pep (<450) pg/mL Total Protein 8.1 (6.3-8.2) g/dL Albumin 4.4 (3.5-5.0) g/dL Globulin 3.7 (1.7-4.1) g/dL Albumin/Globulin Ratio 1.2 (1.0-2.8) Lipase 96 (23-300) U/L Urine RBC (0-5/HPF) Urine WBC (0-5/HPF) Ur Squamous Epith Cells (0-5/HPF) Urine Bacteria (None) Ur Culture Indicated? SARS-CoV-2 (PCR) Negative (Negative) 12/09/21 12/09/21 12/10/21 Range/Units 06:35 07:15 08:47 WBC 7.8 (4.5-11.0) X10^3/uL RBC 5.06 (4.5-5.9) X10^6/uL Hgb 14.5 (13.5-17.5) g/dL Hct 42.9 (41-53) % MCV 84.9 (80-100) fL MCH 28.7 (26-34) PG MCHC 33.8 (30-36) % RDW 19.5 H (11.6-14.8) % Plt Count 195 (150-400) X10^3/uL Neut % (Auto) 71.5 Lymph % (Auto) 12.4 L Dickenson % (Auto) 10.3 Eos % (Auto) 4.8 H Baso % (Auto) 1.0 Neut # (Auto) 5600 (2930-2386) /uL Lymph # (Auto) 1000 L Dickenson # (Auto) 800 Eos # (Auto) 400 (0-450) /uL Baso # (Auto) 100 Total Counted Seg Neutrophils % (38-70) % Lymphocytes % (Manual) (25-45) % Atypical Lymphs % ( - 0) % Monocytes % (Manual) (2-11) % Eosinophils % (Manual) (2-4) % Basophils % (Manual) (0-1) % Neutrophils # (Manual) (9972-4829) /uL RBC Morphology Anisocytosis PT (10.1-12.7) SECONDS INR (0.9-1.3) APTT (26-36) SECONDS Sodium (137-145) mmol/L Potassium (3.4-5.1) mmol/L Chloride (98-107) mmol/L Carbon Dioxide (22-32) mmol/L BUN (9-20) mg/dL Creatinine (0.66-1.25) mg/dL Estimated GFR (>60) mL/min BUN/Creatinine Ratio (6-22) Glucose (80-110) mg/dL Lactate 1.1 (0.7-2.1) mmol/L Calcium (8.4-10.2) mg/dL Total Bilirubin (0.2-1.3) mg/dL AST (17-59) IU/L ALT (<50) IU/L Alkaline Phosphatase (38-126) U/L Total Creatine Kinase (55-170) U/L CK-MB (CK-2) CK-MB (CK-2) Rel Index Troponin I 0.030 (0.01-0.034) ng/mL NT-Pro-B Natriuret Pep (<450) pg/mL Total Protein (6.3-8.2) g/dL Albumin (3.5-5.0) g/dL Globulin (1.7-4.1) g/dL Albumin/Globulin Ratio (1.0-2.8) Lipase (23-300) U/L Urine RBC (0-5/HPF) Urine WBC (0-5/HPF) Ur Squamous Epith Cells (0-5/HPF) Urine Bacteria (None) Ur Culture Indicated? SARS-CoV-2 (PCR) (Negative) 12/10/21 12/10/21 12/11/21 Range/Units 08:47 18:49 20:50 WBC 8.1 (4.5-11.0) X10^3/uL RBC 5.28 (4.5-5.9) X10^6/uL Hgb 15.1 (13.5-17.5) g/dL Hct 44.9 (41-53) % MCV 85.2 (80-100) fL MCH 28.6 (26-34) PG MCHC 33.5 (30-36) % RDW 19.3 H (11.6-14.8) % Plt Count 197 (150-400) X10^3/uL Neut % (Auto) 73.4 Lymph % (Auto) 9.0 L Dickenson % (Auto) 11.1 Eos % (Auto) 5.1 H Baso % (Auto) 1.4 Neut # (Auto) 6000 (8496-7360) /uL Lymph # (Auto) 700 L Dickenson # (Auto) 900 Eos # (Auto) 400 (0-450) /uL Baso # (Auto) 100 Total Counted Seg Neutrophils % (38-70) % Lymphocytes % (Manual) (25-45) % Atypical Lymphs % ( - 0) % Monocytes % (Manual) (2-11) % Eosinophils % (Manual) (2-4) % Basophils % (Manual) (0-1) % Neutrophils # (Manual) (5582-7551) /uL RBC Morphology Anisocytosis PT (10.1-12.7) SECONDS INR (0.9-1.3) APTT (26-36) SECONDS Sodium 132 L (137-145) mmol/L Potassium 4.2 (3.4-5.1) mmol/L Chloride 95 L (98-107) mmol/L Carbon Dioxide 27 (22-32) mmol/L BUN 43 H (9-20) mg/dL Creatinine 1.54 H (0.66-1.25) mg/dL Estimated GFR 46 L (>60) mL/min BUN/Creatinine Ratio 27.9 H (6-22) Glucose 172 H (80-110) mg/dL Lactate (0.7-2.1) mmol/L Calcium 8.4 (8.4-10.2) mg/dL Total Bilirubin 1.2 (0.2-1.3) mg/dL AST 32 (17-59) IU/L ALT 42 (<50) IU/L Alkaline Phosphatase 181 H (38-126) U/L Total Creatine Kinase 30 L (55-170) U/L CK-MB (CK-2) TNP CK-MB (CK-2) Rel Index TNP Troponin I 0.024 (0.01-0.034) ng/mL NT-Pro-B Natriuret Pep 77212 H (<450) pg/mL Total Protein 6.5 (6.3-8.2) g/dL Albumin 3.5 (3.5-5.0) g/dL Globulin 3.0 (1.7-4.1) g/dL Albumin/Globulin Ratio 1.2 (1.0-2.8) Lipase (23-300) U/L Urine RBC 1-5/hpf (0-5/HPF) Urine WBC 0-1/hpf (0-5/HPF) Ur Squamous Epith Cells 0-1 /hpf (0-5/HPF) Urine Bacteria None seen (None) Ur Culture Indicated? Cult not indicated SARS-CoV-2 (PCR) (Negative) 12/11/21 12/12/21 12/12/21 Range/Units 20:50 08:30 08:30 WBC 8.2 (4.5-11.0) X10^3/uL RBC 5.42 (4.5-5.9) X10^6/uL Hgb 15.4 (13.5-17.5) g/dL Hct 46.2 (41-53) % MCV 85.2 (80-100) fL MCH 28.4 (26-34) PG MCHC 33.4 (30-36) % RDW 18.5 H (11.6-14.8) % Plt Count 205 (150-400) X10^3/uL Neut % (Auto) 74.3 Lymph % (Auto) 9.0 L Dickenson % (Auto) 9.8 Eos % (Auto) 5.9 H Baso % (Auto) 1.0 Neut # (Auto) 6100 (9328-5405) /uL Lymph # (Auto) 700 L Dickenson # (Auto) 800 Eos # (Auto) 500 H (0-450) /uL Baso # (Auto) 100 Total Counted Seg Neutrophils % (38-70) % Lymphocytes % (Manual) (25-45) % Atypical Lymphs % ( - 0) % Monocytes % (Manual) (2-11) % Eosinophils % (Manual) (2-4) % Basophils % (Manual) (0-1) % Neutrophils # (Manual) (3194-9851) /uL RBC Morphology Anisocytosis PT (10.1-12.7) SECONDS INR (0.9-1.3) APTT (26-36) SECONDS Sodium 135 L 136 L (137-145) mmol/L Potassium 4.4 4.0 (3.4-5.1) mmol/L Chloride 98 98 (98-107) mmol/L Carbon Dioxide 27 28 (22-32) mmol/L BUN 45 H 43 H (9-20) mg/dL Creatinine 1.24 1.20 (0.66-1.25) mg/dL Estimated GFR > 60 > 60 (>60) mL/min BUN/Creatinine Ratio 36.3 H 35.8 H (6-22) Glucose 139 H 88 (80-110) mg/dL Lactate (0.7-2.1) mmol/L Calcium 8.5 8.7 (8.4-10.2) mg/dL Total Bilirubin (0.2-1.3) mg/dL AST (17-59) IU/L ALT (<50) IU/L Alkaline Phosphatase (38-126) U/L Total Creatine Kinase 43 L (55-170) U/L CK-MB (CK-2) TNP CK-MB (CK-2) Rel Index TNP Troponin I 0.025 0.030 (0.01-0.034) ng/mL NT-Pro-B Natriuret Pep 44258 H (<450) pg/mL Total Protein (6.3-8.2) g/dL Albumin (3.5-5.0) g/dL Globulin (1.7-4.1) g/dL Albumin/Globulin Ratio (1.0-2.8) Lipase (23-300) U/L Urine RBC (0-5/HPF) Urine WBC (0-5/HPF) Ur Squamous Epith Cells (0-5/HPF) Urine Bacteria (None) Ur Culture Indicated? SARS-CoV-2 (PCR) (Negative) Point of Care Testing Glucose POC 180 Urine Dip Bedside Urine Glucose Negative Bedside Urine Bilirubin - Negative Bedside Urine Ketone - Negative Urine Specific Cassatt 1.015 Bedside Urine Occult Blood +/- Bedside Urine pH 5.5 Bedside Urine Protein - Negative Bedside Urine Urobilinogen - Negative Bedside Urine Nitrite - Negative Bedside Urine Leukocytes - Negative Esterase MDM Narrative Medical decision making narrative: 76-year-old male with known CHF with an ejection fraction of 15-20% and global hypokinesis with normal valves on 11/20/21. Patient has severe right ventricular dilation as well as systolic function being moderately to severely reduced. Patient describes exertional fatigue as well as shortness of breath chest pain or pressure. 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 Troponin today is negative but 0.[address] [place] [address] 12/09/21 830am Laury Patient seen and evaluated by myself. Overall appears well. He does have +3 pitting edema lungs are slightly coarse but no respiratory distress or tachypnea. He was recently admitted to the hospital for congestive heart failure he has known CAD was supposed to get a CABG never followed up. He was released 10 days ago and has increasing shortness of breath. BNP is higher today than it was previously. No chest pain. Troponins are negative no EKG changes. 9am Dr. Evans cardiology updated on patient's symptoms test results states that patient does need to be transferred for CABG. 1999 (José Miguel) Patient received in sign out from Dr. Schaeffer. I have reviewed the clinical course and performed an independent history and physical exam. 12/10/21 Patient seen evaluated by me this morning. Awake and alert resting comfortably on oxygen. Patient is awaiting transfer. Has persistent congestive heart failure his EF has decreased from 15-20% to 10%. He has been diuresed yesterday with Lasix 60 mg twice a day. Blood pressure is a little soft systolic in the 90s. He this morning has no complaints. Just anxious. Trying to get him to a larger facility. He remains on multiple wait list GENERAL: Alert pleasant 76-year-old HEENT: Head atraumatic,EOMI, pupils reactive, face symmetric, moist mucous membranes CARDIOVASCULAR: Regular rate and rhythm without murmurs, rubs or gallops. RESPIRATORY: Breath sounds equal bilaterally, no wheezes rales or rhonchi. No respiratory distress clear EXTREMITIES: Normal range of motion, no clubbing or edema. Neurovascularly intact NEUROLOGICAL: Alert and oriented x4 SKIN: Right leg mild erythema wound noted. A/P 1. CHF with worsening EF now 10-15% -Known CAD with LHC at [facility] 03/2019 showing occluded LAD with multivessel disease and was recommended for CABG at [facility] but did not happen due to patient being COVID? -Continue diuresis -atorvastatin -blood pressure medication currently held due to low blood pressure 2. Diabetes -check glucose with meals 3. The right leg a cellulitis mild erythema -antibiotics Rocephin given 4. DVT prophylaxis heparin subcu twice a day 1430 Dr. Dill, CVT at [facility], states no emergent need happy to consult agrees with higher level of care. admit to hospitalist. 12/11/[address] Torre Patient in the ER from 12/09/21 4pm Patient is seen and examined Somewhat frustrated with the extended ER stay that no complaints of chest pain or dyspnea. Currently 96% on room air, sinus rhythm at 1:04 a.m., blood pressure 141/75, afebrile General: in no acute distress. HEENT: Moist mucous membranes, normal sclera with reactive pupils, Neck: No JVD, supple Respiratory: Lungs are clear to auscultation, no wheezing no rales no rhonchi. Full and symmetrical air movement, able speak in full sentences Cardiac: Regular rate and rhythm no murmurs no bruits Abdomen: Soft, nontender, good bowel tones, no flank pain Skin: Lower extremities with chronic venous stasis changes, 3+ edema, no longer openly weeping. Superficial 3 cm ulcer on the right castillo and 2 ulcers over the dorsum of the left foot. Neurologic: Moving all extremities Impression and plan 1: Congestive heart failure. He is responding to Lasix and keeping his lower extremities up. There has been a significant progression in decreased injection fraction over the last couple of weeks. 2: Coronary artery disease: Currently no chest pain no elevated troponin and no acute coronary syndrome. At 1 point he had been told that he needed a CABG and then was lost to follow-up due to COVID. He currently does not have a primary care doctor or a secondary education professor. We have had multiple discussions with multiple cardiovascular surgeons up and down the eye 5 quarter trying to look for a bed for this gentleman. All of indicated that they do agree he will need a CABG and all agree that it does not need to be done emergently. 3: Lower extremity edema with superficial wounds right and left side both wounds with minor cellulitis without evidence of sepsis. Continue on ceftriaxone at this time. Needs help with continued diuresis and will benefit from wound care and wound care follow-up 4: Disposition this gentleman has been in the emergency department now almost 2 days. There are no beds available, hospitals with Cardiovascular surgery have clearly indicated that there likely will be no beds available in the immediate future. At this time he is being treated for his heart failure, lower extremity edema this led to chronic lower extremity wounds that have now become infected. Will talk with our hospitalist to see if we can continue management as an inpatient rather than continuing to hold him in the emergency department. He likely will be able to be discharged home and will need help with establishing a primary care and secondary education professor with need for further consultation and discussion of scheduled CABG. Gianna Torre <Osbaldo Sterling, DO - Last Filed: 12/13/21 19:23> Lab Data Labs: Lab Results 12/09/21 12/09/21 12/09/21 Range/Units 04:35 04:35 04:35 WBC (4.5-11.0) X10^3/uL RBC (4.5-5.9) X10^6/uL Hgb (13.5-17.5) g/dL Hct (41-53) % MCV (80-100) fL MCH (26-34) PG MCHC (30-36) % RDW (11.6-14.8) % Plt Count (150-400) X10^3/uL Neut % (Auto) Lymph % (Auto) Dickenson % (Auto) Eos % (Auto) Baso % (Auto) Neut # (Auto) (1847-6197) /uL Lymph # (Auto) Dickenson # (Auto) Eos # (Auto) (0-450) /uL Baso # (Auto) Total Counted Seg Neutrophils % (38-70) % Lymphocytes % (Manual) (25-45) % Atypical Lymphs % ( - 0) % Monocytes % (Manual) (2-11) % Eosinophils % (Manual) (2-4) % Basophils % (Manual) (0-1) % Neutrophils # (Manual) (8692-1377) /uL RBC Morphology Anisocytosis PT 15.6 H (10.1-12.7) SECONDS INR 1.4 H (0.9-1.3) APTT 35 (26-36) SECONDS Sodium (137-145) mmol/L Potassium (3.4-5.1) mmol/L Chloride (98-107) mmol/L Carbon Dioxide (22-32) mmol/L BUN (9-20) mg/dL Creatinine (0.66-1.25) mg/dL Estimated GFR (>60) mL/min BUN/Creatinine Ratio (6-22) Glucose (80-110) mg/dL Lactate 2.8 H (0.7-2.1) mmol/L Calcium (8.4-10.2) mg/dL Total Bilirubin (0.2-1.3) mg/dL AST (17-59) IU/L ALT (<50) IU/L Alkaline Phosphatase (38-126) U/L Total Creatine Kinase (55-170) U/L CK-MB (CK-2) CK-MB (CK-2) Rel Index Troponin I (0.01-0.034) ng/mL NT-Pro-B Natriuret Pep 77206 H (<450) pg/mL Total Protein (6.3-8.2) g/dL Albumin (3.5-5.0) g/dL Globulin (1.7-4.1) g/dL Albumin/Globulin Ratio (1.0-2.8) Lipase (23-300) U/L Urine RBC (0-5/HPF) Urine WBC (0-5/HPF) Ur Squamous Epith Cells (0-5/HPF) Urine Bacteria (None) Ur Culture Indicated? SARS-CoV-2 (PCR) (Negative) 12/09/21 12/09/21 12/09/21 Range/Units 04:35 04:35 04:36 WBC 8.1 (4.5-11.0) X10^3/uL RBC 5.97 H (4.5-5.9) X10^6/uL Hgb 17.0 (13.5-17.5) g/dL Hct 50.7 (41-53) % MCV 84.9 (80-100) fL MCH 28.5 (26-34) PG MCHC 33.6 (30-36) % RDW 19.5 H (11.6-14.8) % Plt Count 229 (150-400) X10^3/uL Neut % (Auto) Not Reportable Lymph % (Auto) Not Reportable Dickenson % (Auto) Not Reportable Eos % (Auto) Not Reportable Baso % (Auto) Not Reportable Neut # (Auto) (0543-5485) /uL Lymph # (Auto) Not Reportable Dickenson # (Auto) Not Reportable Eos # (Auto) (0-450) /uL Baso # (Auto) Not Reportable Total Counted 100 Seg Neutrophils % 64.0 (38-70) % Lymphocytes % (Manual) 18.0 L (25-45) % Atypical Lymphs % 2.0 H ( - 0) % Monocytes % (Manual) 12.0 H (2-11) % Eosinophils % (Manual) 3.0 (2-4) % Basophils % (Manual) 1.0 (0-1) % Neutrophils # (Manual) 5184 (9994-3752) /uL RBC Morphology Not Reportable Anisocytosis 1+ H PT (10.1-12.7) SECONDS INR (0.9-1.3) APTT (26-36) SECONDS Sodium 131 L (137-145) mmol/L Potassium 4.6 (3.4-5.1) mmol/L Chloride 96 L (98-107) mmol/L Carbon Dioxide 24 (22-32) mmol/L BUN 41 H (9-20) mg/dL Creatinine 1.35 H (0.66-1.25) mg/dL Estimated GFR 54 L (>60) mL/min BUN/Creatinine Ratio 30.4 H (6-22) Glucose 144 H (80-110) mg/dL Lactate (0.7-2.1) mmol/L Calcium 9.0 (8.4-10.2) mg/dL Total Bilirubin 1.9 H (0.2-1.3) mg/dL AST 54 (17-59) IU/L ALT 64 H (<50) IU/L Alkaline Phosphatase 231 H (38-126) U/L Total Creatine Kinase 33 L (55-170) U/L CK-MB (CK-2) TNP CK-MB (CK-2) Rel Index TNP Troponin I 0.029 (0.01-0.034) ng/mL NT-Pro-B Natriuret Pep (<450) pg/mL Total Protein 8.1 (6.3-8.2) g/dL Albumin 4.4 (3.5-5.0) g/dL Globulin 3.7 (1.7-4.1) g/dL Albumin/Globulin Ratio 1.2 (1.0-2.8) Lipase 96 (23-300) U/L Urine RBC (0-5/HPF) Urine WBC (0-5/HPF) Ur Squamous Epith Cells (0-5/HPF) Urine Bacteria (None) Ur Culture Indicated? SARS-CoV-2 (PCR) Negative (Negative) 12/09/21 12/09/21 12/10/21 Range/Units 06:35 07:15 08:47 WBC 7.8 (4.5-11.0) X10^3/uL RBC 5.06 (4.5-5.9) X10^6/uL Hgb 14.5 (13.5-17.5) g/dL Hct 42.9 (41-53) % MCV 84.9 (80-100) fL MCH 28.7 (26-34) PG MCHC 33.8 (30-36) % RDW 19.5 H (11.6-14.8) % Plt Count 195 (150-400) X10^3/uL Neut % (Auto) 71.5 Lymph % (Auto) 12.4 L Dickenson % (Auto) 10.3 Eos % (Auto) 4.8 H Baso % (Auto) 1.0 Neut # (Auto) 5600 (5449-9690) /uL Lymph # (Auto) 1000 L Dickenson # (Auto) 800 Eos # (Auto) 400 (0-450) /uL Baso # (Auto) 100 Total Counted Seg Neutrophils % (38-70) % Lymphocytes % (Manual) (25-45) % Atypical Lymphs % ( - 0) % Monocytes % (Manual) (2-11) % Eosinophils % (Manual) (2-4) % Basophils % (Manual) (0-1) % Neutrophils # (Manual) (9780-9021) /uL RBC Morphology Anisocytosis PT (10.1-12.7) SECONDS INR (0.9-1.3) APTT (26-36) SECONDS Sodium (137-145) mmol/L Potassium (3.4-5.1) mmol/L Chloride (98-107) mmol/L Carbon Dioxide (22-32) mmol/L BUN (9-20) mg/dL Creatinine (0.66-1.25) mg/dL Estimated GFR (>60) mL/min BUN/Creatinine Ratio (6-22) Glucose (80-110) mg/dL Lactate 1.1 (0.7-2.1) mmol/L Calcium (8.4-10.2) mg/dL Total Bilirubin (0.2-1.3) mg/dL AST (17-59) IU/L ALT (<50) IU/L Alkaline Phosphatase (38-126) U/L Total Creatine Kinase (55-170) U/L CK-MB (CK-2) CK-MB (CK-2) Rel Index Troponin I 0.030 (0.01-0.034) ng/mL NT-Pro-B Natriuret Pep (<450) pg/mL Total Protein (6.3-8.2) g/dL Albumin (3.5-5.0) g/dL Globulin (1.7-4.1) g/dL Albumin/Globulin Ratio (1.0-2.8) Lipase (23-300) U/L Urine RBC (0-5/HPF) Urine WBC (0-5/HPF) Ur Squamous Epith Cells (0-5/HPF) Urine Bacteria (None) Ur Culture Indicated? SARS-CoV-2 (PCR) (Negative) 12/10/21 12/10/21 12/11/21 Range/Units 08:47 18:49 20:50 WBC 8.1 (4.5-11.0) X10^3/uL RBC 5.28 (4.5-5.9) X10^6/uL Hgb 15.1 (13.5-17.5) g/dL Hct 44.9 (41-53) % MCV 85.2 (80-100) fL MCH 28.6 (26-34) PG MCHC 33.5 (30-36) % RDW 19.3 H (11.6-14.8) % Plt Count 197 (150-400) X10^3/uL Neut % (Auto) 73.4 Lymph % (Auto) 9.0 L Dickenson % (Auto) 11.1 Eos % (Auto) 5.1 H Baso % (Auto) 1.4 Neut # (Auto) 6000 (1470-2381) /uL Lymph # (Auto) 700 L Dickenson # (Auto) 900 Eos # (Auto) 400 (0-450) /uL Baso # (Auto) 100 Total Counted Seg Neutrophils % (38-70) % Lymphocytes % (Manual) (25-45) % Atypical Lymphs % ( - 0) % Monocytes % (Manual) (2-11) % Eosinophils % (Manual) (2-4) % Basophils % (Manual) (0-1) % Neutrophils # (Manual) (1695-7967) /uL RBC Morphology Anisocytosis PT (10.1-12.7) SECONDS INR (0.9-1.3) APTT (26-36) SECONDS Sodium 132 L (137-145) mmol/L Potassium 4.2 (3.4-5.1) mmol/L Chloride 95 L (98-107) mmol/L Carbon Dioxide 27 (22-32) mmol/L BUN 43 H (9-20) mg/dL Creatinine 1.54 H (0.66-1.25) mg/dL Estimated GFR 46 L (>60) mL/min BUN/Creatinine Ratio 27.9 H (6-22) Glucose 172 H (80-110) mg/dL Lactate (0.7-2.1) mmol/L Calcium 8.4 (8.4-10.2) mg/dL Total Bilirubin 1.2 (0.2-1.3) mg/dL AST 32 (17-59) IU/L ALT 42 (<50) IU/L Alkaline Phosphatase 181 H (38-126) U/L Total Creatine Kinase 30 L (55-170) U/L CK-MB (CK-2) TNP CK-MB (CK-2) Rel Index TNP Troponin I 0.024 (0.01-0.034) ng/mL NT-Pro-B Natriuret Pep 49823 H (<450) pg/mL Total Protein 6.5 (6.3-8.2) g/dL Albumin 3.5 (3.5-5.0) g/dL Globulin 3.0 (1.7-4.1) g/dL Albumin/Globulin Ratio 1.2 (1.0-2.8) Lipase (23-300) U/L Urine RBC 1-5/hpf (0-5/HPF) Urine WBC 0-1/hpf (0-5/HPF) Ur Squamous Epith Cells 0-1 /hpf (0-5/HPF) Urine Bacteria None seen (None) Ur Culture Indicated? Cult not indicated SARS-CoV-2 (PCR) (Negative) 12/11/21 12/12/21 12/12/21 Range/Units 20:50 08:30 08:30 WBC 8.2 (4.5-11.0) X10^3/uL RBC 5.42 (4.5-5.9) X10^6/uL Hgb 15.4 (13.5-17.5) g/dL Hct 46.2 (41-53) % MCV 85.2 (80-100) fL MCH 28.4 (26-34) PG MCHC 33.4 (30-36) % RDW 18.5 H (11.6-14.8) % Plt Count 205 (150-400) X10^3/uL Neut % (Auto) 74.3 Lymph % (Auto) 9.0 L Dickenson % (Auto) 9.8 Eos % (Auto) 5.9 H Baso % (Auto) 1.0 Neut # (Auto) 6100 (8310-2920) /uL Lymph # (Auto) 700 L Dickenson # (Auto) 800 Eos # (Auto) 500 H (0-450) /uL Baso # (Auto) 100 Total Counted Seg Neutrophils % (38-70) % Lymphocytes % (Manual) (25-45) % Atypical Lymphs % ( - 0) % Monocytes % (Manual) (2-11) % Eosinophils % (Manual) (2-4) % Basophils % (Manual) (0-1) % Neutrophils # (Manual) (3984-6559) /uL RBC Morphology Anisocytosis PT (10.1-12.7) SECONDS INR (0.9-1.3) APTT (26-36) SECONDS Sodium 135 L 136 L (137-145) mmol/L Potassium 4.4 4.0 (3.4-5.1) mmol/L Chloride 98 98 (98-107) mmol/L Carbon Dioxide 27 28 (22-32) mmol/L BUN 45 H 43 H (9-20) mg/dL Creatinine 1.24 1.20 (0.66-1.25) mg/dL Estimated GFR > 60 > 60 (>60) mL/min BUN/Creatinine Ratio 36.3 H 35.8 H (6-22) Glucose 139 H 88 (80-110) mg/dL Lactate (0.7-2.1) mmol/L Calcium 8.5 8.7 (8.4-10.2) mg/dL Total Bilirubin (0.2-1.3) mg/dL AST (17-59) IU/L ALT (<50) IU/L Alkaline Phosphatase (38-126) U/L Total Creatine Kinase 43 L (55-170) U/L CK-MB (CK-2) TNP CK-MB (CK-2) Rel Index TNP Troponin I 0.025 0.030 (0.01-0.034) ng/mL NT-Pro-B Natriuret Pep 86074 H (<450) pg/mL Total Protein (6.3-8.2) g/dL Albumin (3.5-5.0) g/dL Globulin (1.7-4.1) g/dL Albumin/Globulin Ratio (1.0-2.8) Lipase (23-300) U/L Urine RBC (0-5/HPF) Urine WBC (0-5/HPF) Ur Squamous Epith Cells (0-5/HPF) Urine Bacteria (None) Ur Culture Indicated? SARS-CoV-2 (PCR) (Negative) Point of Care Testing Glucose POC 180 Urine Dip Bedside Urine Glucose Negative Bedside Urine Bilirubin - Negative Bedside Urine Ketone - Negative Urine Specific Cassatt 1.015 Bedside Urine Occult Blood +/- Bedside Urine pH 5.5 Bedside Urine Protein - Negative Bedside Urine Urobilinogen - Negative Bedside Urine Nitrite - Negative Bedside Urine Leukocytes - Negative Esterase MDM Narrative Medical decision making narrative: 76-year-old male with known CHF with an ejection fraction of 15-20% and global hypokinesis with normal valves on 11/20/21. Patient has severe right ventricular dilation as well as systolic function being moderately to severely reduced. Patient describes exertional fatigue as well as shortness of breath chest pain or pressure. 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 Troponin today is negative [place] 0.029 [place] [address] 12/09/21 830am Laury Patient seen and evaluated by myself. Overall appears well. He does have +3 pitting edema lungs are slightly coarse but no respiratory distress or tachypnea. He was recently admitted to the hospital for congestive heart failure he has known CAD was supposed to get a CABG never followed up. He was released 10 days ago and has increasing shortness of breath. BNP is higher today than it was previously. No chest pain. Troponins are negative no EKG changes. 9am Dr. Evans cardiology updated on patient's symptoms test results states that patient does need to be transferred for CABG. 1999 (José Miguel) Patient received in sign out from Dr. Schaeffer. I have reviewed the clinical course and performed an independent history and physical exam. 12/10/21 Patient seen evaluated by me this morning. Awake and alert resting comfortably on oxygen. Patient is awaiting transfer. Has persistent congestive heart failure his EF has decreased from 15-20% to 10%. He has been diuresed yesterday with Lasix 60 mg twice a day. Blood pressure is a little soft systolic in the 90s. He this morning has no complaints. Just anxious. Trying to get him to a larger facility. He remains on multiple wait list GENERAL: Alert pleasant 76-year-old HEENT: Head atraumatic,EOMI, pupils reactive, face symmetric, moist mucous membranes CARDIOVASCULAR: Regular rate and rhythm without murmurs, rubs or gallops. RESPIRATORY: Breath sounds equal bilaterally, no wheezes rales or rhonchi. No respiratory distress clear EXTREMITIES: Normal range of motion, no clubbing or edema. Neurovascularly intact NEUROLOGICAL: Alert and oriented x4 SKIN: Right leg mild erythema wound noted. A/P 1. CHF with worsening EF now 10-15% -Known CAD with LHC at [facility] 03/2019 showing occluded LAD with multivessel disease and was recommended for CABG at [facility] but did not happen due to patient being COVID? -Continue diuresis -atorvastatin -blood pressure medication currently held due to low blood pressure 2. Diabetes -check glucose with meals 3. The right leg a cellulitis mild erythema -antibiotics Rocephin given 4. DVT prophylaxis heparin subcu twice a day 1430 Dr. Dill, CVT at [facility], states no emergent need happy to consult agrees with higher level of care. admit to hospitalist. 12/11/[address] Torre Patient in the ER from 12/09/21 4pm Patient is seen and examined Somewhat frustrated with the extended ER stay that no complaints of chest pain or dyspnea. Currently 96% on room air, sinus rhythm at 1:04 a.m., blood pressure 141/75, afebrile General: in no acute distress. HEENT: Moist mucous membranes, normal sclera with reactive pupils, Neck: No JVD, supple Respiratory: Lungs are clear to auscultation, no wheezing no rales no rhonchi. Full and symmetrical air movement, able speak in full sentences Cardiac: Regular rate and rhythm no murmurs no bruits Abdomen: Soft, nontender, good bowel tones, no flank pain Skin: Lower extremities with chronic venous stasis changes, 3+ edema, no longer openly weeping. Superficial 3 cm ulcer on the right castillo and 2 ulcers over the dorsum of the left foot. Neurologic: Moving all extremities Impression and plan 1: Congestive heart failure. He is responding to Lasix and keeping his lower extremities up. There has been a significant progression in decreased injection fraction over the last couple of weeks. 2: Coronary artery disease: Currently no chest pain no elevated troponin and no acute coronary syndrome. At 1 point he had been told that he needed a CABG and then was lost to follow-up due to COVID. He currently does not have a primary care doctor or a secondary education professor. We have had multiple discussions with multiple cardiovascular surgeons up and down the eye 5 quarter trying to look for a bed for this gentleman. All of indicated that they do agree he will need a CABG and all agree that it does not need to be done emergently. 3: Lower extremity edema with superficial wounds right and left side both wounds with minor cellulitis without evidence of sepsis. Continue on ce ftriaxone at this time. Needs help with continued diuresis and will benefit from wound care and wound care follow-up 4: Disposition this gentleman has been in the emergency department now almost 2 days. There are no beds available, hospitals with Cardiovascular surgery have clearly indicated that there likely will be no beds available in the immediate future. At this time he is being treated for his heart failure, lower extremity edema this led to chronic lower extremity wounds that have now become infected. Will talk with our hospitalist to see if we can continue management as an inpatient rather than continuing to hold him in the emergency department. He likely will be able to be discharged home and will need help with establishing a primary care and secondary education professor with need for further consultation and discussion of scheduled CABG. Gianna Torre 12/12 Dr Sterling: Received turned over. Review patient's history and physical exam. Patient has been stable throughout the day. Continuing to get diuresis. Continue to get antibiotics. Discussed the case with Dr. Samuel with Internal Medicine today who again expresses concern about admitting the patient here at this facility. There was a strong potential for bed at [facility] today however this did not irvin out. Will continue to observe patient in the emergency department. <Shahzad Valdez, DO - Last Filed: 12/12/21 20:27> Critical Care Time Critical Care Time: Yes Total Critical Care Time: 120 Attestation: The high probability of a clinically significant, sudden or life threatening deterioration of the [CV] system(s) required my full and direct attention, inte rvention and personal management. The aggregate critical care time was [120] minutes. This time is in addition to time spent performing reported procedures but includes the following: [x] Data Review and interpretation [x] Patient assessment and monitoring of vital signs [x] Documentation [x] Medication orders and management Discharge Plan Departure Patient Disposition: [facility] Clinical Impression: Acute CHF, Cellulitis of left anterior lower leg, Cellulitis of foot, right, Bilateral leg ulcer Prescriptions: No Action aspirin 81 mg Tablet 81 mg PO DAILY furosemide 40 mg Tablet 40 mg PO 0800,1700 Qty: 60 0RF clotrimazole 1 % Cream 1 applic topical BID Qty: 15 0RF metoprolol tartrate 25 mg Tablet 12.5 mg PO BID Qty: 60 0RF insulin glargine [Basaglar KwikPen U-100 Insulin] 100 unit/mL (3 mL) insulin pen 15 unit SUBCUT QPM Qty: 15 0RF (DME) blood sugar diagnostic Strip See Rx Instructions .Route Qty: 100 0RF Rx Instructions: As directed (DME) blood-gluc transmitter-sensor Misc See Rx Instructions .Route Qty: 1 0RF Rx Instructions: As directed (DME) lancets-blood glucose strips 30 gauge combo pack See Rx Instructions .Route Qty: 200 0RF Rx Instructions: As directed atorvastatin 40 mg tablet 40 mg PO DAILY Qty: 30 0RF benzonatate 100 mg Capsule 100 mg PO TID PRN (Reason: Cough) Qty: 20 0RF
--- NOTE | 2021-12-09 04:34 | DI.RAD.S_ITS ---
PROCEDURE: XR CHEST 1V INDICATIONS: chest pain TECHNIQUE: One view of the chest was acquired. COMPARISON: [facility], CR, XR CHEST 1V, 11/18/2021, 3:59. [facility], CR, XR CHEST 2V, 04/12/2019, 11:00. FINDINGS: Surgical changes and devices: None. Lungs and pleura: Bibasilar hazy opacity. Suspect small bilateral pleural effusions. No pneumothorax. Mediastinum: Mediastinal contours appear similar. Heart size appears prominent. Bones and chest wall: No suspicious bony lesions. Overlying soft tissues appear unremarkable. IMPRESSION: Suspect small bilateral pleural effusions. Bibasilar hazy opacity. Suspect atelectasis over pneumonia. Dictated by: Yasmani Wilson M.D. on 12/09/2021 at 8:03 Approved by: Yasmani Wilson M.D. on 12/09/2021 at 8:05
[2021-12-09] MEDS: ASPIRIN 81 MG CHEW TAB 324 MG PO (04:48)
[2021-12-09 04:55] LABS: Add Manual Diff / Slide Review YES; Hematocrit 50.7 % (41-53); INR 1.4 (0.9-1.3); Mean Corpuscular HGB Conc 33.6 % (30-36); Mean Corpuscular Hemoglobin 28.5 PG (26-34); Mean Corpuscular Volume 84.9 fL (80-100); Platelet Count 229 X10^3/uL (150-400); Prothrombin Time 15.6 SECONDS (10.1-12.7); Red Blood Cell Count 5.97 X10^6/uL (4.5-5.9); Red Cell Distribution Width 19.5 % (11.6-14.8); White Blood Cell Count 8.1 X10^3/uL (4.5-11.0)
[2021-12-09 04:58] LABS: PTT Partial Thromboplastin Tim 35 SECONDS (26-36)
[2021-12-09 04:59] LABS: Lactate (Lactic Acid) 2.8 mmol/L (0.7-2.1)
[2021-12-09 05:00] LABS: COVID19 -Nasal RAPID Negative (Negative)
[2021-12-09 05:00] LABS: Alanine Aminotransferase 64 IU/L (<50); Albumin 4.4 g/dL (3.5-5.0); Albumin Globulin Ratio 1.2 (1.0-2.8); Alkaline Phosphatase 231 U/L (38-126); Aspartate Aminotransferase 54 IU/L (17-59); BUN Creatinine Ratio 30.4 (6-22); Bilirubin Total 1.9 mg/dL (0.2-1.3); Blood Urea Nitrogen 41 mg/dL (9-20); Carbon Dioxide 24 mmol/L (22-32); Chloride 96 mmol/L (98-107); Creatine Kinase 33 U/L (55-170); Estimated Glomerular Filt Rate 54 mL/min (>60); Globulin 3.7 g/dL (1.7-4.1); Glucose 144 mg/dL (80-110); HEMOLYSIS 46 (0-50); Lipase 96 U/L (23-300); Potassium 4.6 mmol/L (3.4-5.1); Sodium 131 mmol/L (137-145); Total Protein 8.1 g/dL (6.3-8.2)
[2021-12-09 05:12] LABS: Troponin I 0.029 ng/mL (0.01-0.034)
[2021-12-09 05:32] LABS: NT-proBNP (BNP-Adult 18+) 22500 pg/mL (<450)
[2021-12-09] MEDS: FUROSEMIDE 100 MG/10 ML VIAL 60 MG IV ×2 (06:05→20:51)
[2021-12-09] MEDS: CLINDAMYCIN 900 MG/50 ML PIGGYBACK 50 MG IV (06:06)
[2021-12-09 06:49] LABS: Reflexed Lactate in 2 Hours Y
--- NOTE | 2021-12-09 07:01 | DI.ECHO.S_ITS ---
[facility] +---------+ : : [address] [place] : : : : [id number] : : : : Phone: [phone] Echocardiogram Report + + :Name: ALBINO DAVIS Study Date: 12/09/2021 Height: 66 in : :[facility] ReadingLocation: Weight: 194 lb : : Gender: Male BSA: 2.0 m2 : :: 1945 Age: 76 yrs BP: 102/65 mmHg: :Reason For Study: CONGESTIVE HEART FAILURE : :Ordering Physician: SANGEETHA, : :ROBI Performed By: Patricia Hunter : :Referring: ROBI VIVAS : + + Interpretation Summary The ejection fraction is estimated to be 10-15%. There is severe biatrial enlargement. There is no thrombus. There is severe global hypokinesis of the left ventricle. The right ventricle is mildly dilated. Right ventricular systolic function is mildly reduced. The right ventricular systolic pressure is estimated to be at least 50 mmHg based on an estimated right atrial pressure of 15 mm Hg. Procedure: A two-dimensional transthoracic echocardiogram with color flow and Doppler was performed in limited views only to assess ejection fraction. The study quality was technically adequate. Comparison is made with the echocardiogram of 11/21/2021. A contrast injection of Definity was performed to improve assessment of LV function. The patient was in sinus rhythm with heart rates between 87-90 bpm during the exam. Left Ventricle: The left ventricle is normal in size. There is normal left ventricular wall thickness. There is no thrombus. The ejection fraction is estimated to be 10-15%. There is severe global hypokinesis of the left ventricle. The interventricular septum is flattened, consistent with a right ventricular pressure/volume condition. Right Ventricle: The right ventricle is mildly dilated. Right ventricular systolic function is mildly reduced. Atria: There is severe biatrial enlargement. The right atrium is severely dilated. There is no Doppler evidence for an interatrial shunt. Tricuspid Valve: The tricuspid valve leaflets are thin and pliable. There is mild tricuspid regurgitation. The right ventricular systolic pressure is estimated to be at least 50 mmHg based on an estimated right atrial pressure of 15 mm Hg. Great Vessels: The IVC is dilated (diameter is greater than 2.1 cm) and it collapses less than 50% with a sniff. This suggests a high right atrial pressure of 15 mm Hg. Pericardium/ Pleura There is no pericardial effusion. There is a moderate left-sided pleural effusion. MMode/2D Measurements & Calculations LVIDd: 5.0 cm LA A2 area: 31.7 cm2 LVIDs: 4.7 cm LA A4 area: 32.1 cm2 FS: 5.7 % LA length (vol): 6.7 cm EPSS: 2.0 cm LA vol: 128.5 ml IVSd: 0.98 cm LA vol index: 65.1 ml/m2 LVPWd: 0.91 cm LV arzate. diameter/BSA (cm/m^2): 2.5 LV sys. diameter/BSA (cm/m^2): 2.4 RA long axis: 6.2 cm RVD1 (basal): 4.4 cm RA area: 27.6 cm2 RVD2 (mid): 3.7 cm RA vol: 104.3 ml TAPSE: 1.4 cm RA : 52.8 ml/m2 IVC diam: 2.5 cm Doppler Measurements & Calculations TR max erick: 295.5 cm/sec TR max P.9 mmHg Reading Physician:10:38 AM
[2021-12-09 07:22] LABS: Anisocytosis 1+; Neutrophils Absolute Manual 5184 /uL (3000-5900); Total Cells Counted 100
[2021-12-09 08:16] LABS: Lactate 2HR (Lactic Acid Rflx) 1.1 mmol/L (0.7-2.1)
[2021-12-10] VITALS (44 sets, daily range): BP systolic 93–116; BP diastolic 57–78; PULSE 91–106; RESP 20–27; O2SAT 93–100
[2021-12-10] MEDS: BENZONATATE 100 MG CAPSULE PO (00:24)
[2021-12-10 09:05] LABS: Add Manual Diff / Slide Review NO; Basophils Absolute Auto 100 /uL (0-100); Eosinophils Absolute Auto 400 /uL (0-450); Eosinophils Percent Auto 4.8 % (2-4); Hematocrit 42.9 % (41-53); Hemoglobin 14.5 g/dL (13.5-17.5); Lymphocytes Absolute Auto 1000 /uL (1100-4500); Lymphocytes Percent Auto 12.4 % (25-40); Mean Corpuscular HGB Conc 33.8 % (30-36); Mean Corpuscular Hemoglobin 28.7 PG (26-34); Mean Corpuscular Volume 84.9 fL (80-100); Monocytes Absolute Auto 800 /uL (0-900); Monocytes Percent Auto 10.3 % (3-14); Neutrophils Absolute Auto 5600 /uL (1500-7000); Neutrophils Percent Auto 71.5 % (50-75); Platelet Count 195 X10^3/uL (150-400); Red Blood Cell Count 5.06 X10^6/uL (4.5-5.9); Red Cell Distribution Width 19.5 % (11.6-14.8); White Blood Cell Count 7.8 X10^3/uL (4.5-11.0)
[2021-12-10 09:18] LABS: Alanine Aminotransferase 42 IU/L (<50); Albumin 3.5 g/dL (3.5-5.0); Albumin Globulin Ratio 1.2 (1.0-2.8); Alkaline Phosphatase 181 U/L (38-126); Aspartate Aminotransferase 32 IU/L (17-59); BUN Creatinine Ratio 27.9 (6-22); Bilirubin Total 1.2 mg/dL (0.2-1.3); Blood Urea Nitrogen 43 mg/dL (9-20); Calcium 8.4 mg/dL (8.4-10.2); Carbon Dioxide 27 mmol/L (22-32); Chloride 95 mmol/L (98-107); Creatine Kinase 30 U/L (55-170); Estimated Glomerular Filt Rate 46 mL/min (>60); Glucose 172 mg/dL (80-110); HEMOLYSIS < 15 (0-50); Potassium 4.2 mmol/L (3.4-5.1); Sodium 132 mmol/L (137-145); Total Protein 6.5 g/dL (6.3-8.2)
[2021-12-10] MEDS: FUROSEMIDE 100 MG/10 ML VIAL 60 MG IV ×2 (09:22→21:17)
[2021-12-10] MEDS: ATORVASTATIN 20 MG TABLET 40 MG PO (09:22)
[2021-12-10] MEDS: METOPROLOL IR 25 MG TABLET 12.5 MG PO ×2 (09:22→21:20)
[2021-12-10 09:29] LABS: NT-proBNP (BNP-Adult 18+) 17100 pg/mL (<450); Troponin I 0.024 ng/mL (0.01-0.034)
[2021-12-10] MEDS: cefTRIAXone 2,000 MG in SODIUM CHLORIDE 0.9% 100 ML 200 MG IV (09:41)
[2021-12-10] MEDS: HEPARIN 5,000 UNIT/ML VIAL 5000 UNIT SUBCUT ×2 (09:42→21:18)
--- NOTE | 2021-12-10 16:31 | PC.NURSE ---
Patient calling out for assistance. Patient scratched his arm on something, bleeding from small skin tear. Wound cleaned and gauze and coban applied to patients arm.
--- NOTE | 2021-12-10 18:36 | DI.CT.S_ITS ---
PROCEDURE: CT HEAD/BRAIN WO CON INDICATIONS: confusion TECHNIQUE: Noncontrast 4.5 mm thick angled axial sections acquired from the foramen magnum to the vertex, with coronal and sagittal reformats. For radiation dose reduction, the following was used: automated exposure control, adjustment of mA and/or kV according to patient size. COMPARISON: None. FINDINGS: Image quality: Excellent. CSF spaces: Basal cisterns are patent. No extra-axial fluid collections. The ventricles are symmetric in size and shape. Brain: No acute intracranial hemorrhage or mass effect. There is cerebral volume loss for age, with resultant ventricular and sulcal prominence. There are periventricular and deep white matter chronic small vessel ischemic changes. There is intracranial internal carotid artery atherosclerosis. Skull and face: Mild right posterior scalp edema. Calvarium and visualized facial bones appear intact, without suspicious lesions. Sinuses: Visualized sinuses and mastoids are clear. IMPRESSION: 1. No acute intracranial abnormality. 2. Mild chronic microvascular ischemic changes and age related cerebral volume loss. Dictated by: Roland Linares M.D. on 12/10/2021 at 18:56 Approved by: Roland Linares M.D. on 12/10/2021 at 18:58
[2021-12-10 20:02] LABS: Bacteria Urine None Seen; Culture Indicated Urine Cult Not Indicated; RBC Urine 1-5/HPF (0-5/HPF); Squamous Epithelial Cell Urine 0-1 /HPF (0-5/HPF); WBC Urine 0-1/HPF (0-5/HPF)
[2021-12-10] MEDS: HALOPERIDOL 5 MG/ML VIAL 1 MG IV (23:48)
[2021-12-11] VITALS (38 sets, daily range): BP systolic 114–141; BP diastolic 59–75; PULSE 91–106; RESP 16–24; TEMP 36.1; O2SAT 92–98
[2021-12-11] MEDS: METOPROLOL IR 25 MG TABLET 12.5 MG PO ×2 (09:10→21:17)
[2021-12-11] MEDS: HEPARIN 5,000 UNIT/ML VIAL 5000 UNIT SUBCUT ×2 (09:10→21:20)
[2021-12-11] MEDS: FUROSEMIDE 100 MG/10 ML VIAL 60 MG IV ×2 (09:11→21:17)
[2021-12-11] MEDS: ATORVASTATIN 20 MG TABLET 40 MG PO (09:25)
[2021-12-11] MEDS: cefTRIAXone 2,000 MG in SODIUM CHLORIDE 0.9% 100 ML 200 MG IV (09:27)
--- NOTE | 2021-12-11 12:16 | PC.NURSE ---
Wound care nurse to see patient.
--- NOTE | 2021-12-11 13:00 | PC.RNWOUND ---
Patient eating lunch, dressings are removed to bilateral lower extremities with a moderate amount of serous drainage noted. Lower extremities are reddened with mild edema and 1-2+ pedal edema. Patient says his feet are warm sometimes and cold sometimes. Legs and feet warm to touch at present. Capillary refill 2 seconds to bilateral Great toes. Right anterior lower (medial) extremity has a 5.8 x 5 x .1cm wound with 95% adherent slough, 5% red granular tissue. Inferior to this wound is a 2 x 2cm wound covered with 100% slough. Left dorsal forefoot has a medial 2.3 x 4.4cm wound and a lateral 2.8 x 3.2cm wound right beside it. Both of these foot wounds are covered with adherent slough/necrotic tissue. These wounds are all well-defined with no malodor noted, edges intact. They are cleansed with saline and dressed with Mepilex foam Ag dressings. Left posterior ankle has a 1.5 x 1.5 x 0.05cm open partial-thickness wound which is covered with foam dressing secured with kerlix gauze for protection and heel floated off bed surface on longitudinally placed pillow. Left medial malleolus has a 1 x 1.2cm 100% crust-covered wound, dry, left open to air. Left great toe and 2nd digit interdigital space has some skin breakdown and maceration noted. Interdigital spaces are gently cleansed and dried with saline and gauze. InterDry (Ag) is gently placed between toes. Patient tolerates cares well and without complaint, denies pain to wounds, waiting to see if patient will be admitted or transferred to another facility.
--- NOTE | 2021-12-11 13:37 | PC.NURSE ---
Pending transfer: Pt is on waitlist at [facility]. [place], [place] and have no beds and no waitlist.
[2021-12-11] MEDS: INSULIN REGULAR 100 UNIT/ML 3 ML VIAL SUBCUT (17:43)
--- NOTE | 2021-12-11 18:17 | PC.NURSE ---
1730 Pt resting calmly in wheelchair at the doorway calmly watching nurse's station. Pt is responsive and talks pleasantly with this RN. Pt is oriented to self and knows that he is here for his heart. Pt is confused about what town he is in and does not know the date or day of the week. Pt follows directions well and ambulates well using bakc of wheelchair for support. Pt given dinner and eats without difficulty.
--- NOTE | 2021-12-11 20:16 | PC.NURSE ---
Spouse at the bedside and pt is resting calmly in a chair. Pt continues to be confused but is able to understand that he needs to receive a heart procedure. Pt's spouse has not brought in medication list the previous RN has requested, stating that she was too busy babysitting to get them. She can confirm that he takes metoprolol, atorvastatin and along acting insulin at night.
[2021-12-11 21:31] LABS: Add Manual Diff / Slide Review NO; Basophils Absolute Auto 100 /uL (0-100); Basophils Percent Auto 1.4 % (0-2); Eosinophils Absolute Auto 400 /uL (0-450); Eosinophils Percent Auto 5.1 % (2-4); Hematocrit 44.9 % (41-53); Hemoglobin 15.1 g/dL (13.5-17.5); Lymphocytes Absolute Auto 700 /uL (1100-4500); Mean Corpuscular HGB Conc 33.5 % (30-36); Mean Corpuscular Hemoglobin 28.6 PG (26-34); Mean Corpuscular Volume 85.2 fL (80-100); Monocytes Absolute Auto 900 /uL (0-900); Monocytes Percent Auto 11.1 % (3-14); Neutrophils Absolute Auto 6000 /uL (1500-7000); Neutrophils Percent Auto 73.4 % (50-75); Platelet Count 197 X10^3/uL (150-400); Red Blood Cell Count 5.28 X10^6/uL (4.5-5.9); Red Cell Distribution Width 19.3 % (11.6-14.8); White Blood Cell Count 8.1 X10^3/uL (4.5-11.0)
[2021-12-11] MEDS: INSULIN GLARGINE 100 UNIT/ML 3ML PEN 10 UNIT SUBCUT (21:32)
[2021-12-11 21:47] LABS: BUN Creatinine Ratio 36.3 (6-22); Blood Urea Nitrogen 45 mg/dL (9-20); Calcium 8.5 mg/dL (8.4-10.2); Carbon Dioxide 27 mmol/L (22-32); Chloride 98 mmol/L (98-107); Estimated Glomerular Filt Rate > 60 mL/min (>60); Glucose 139 mg/dL (80-110); HEMOLYSIS 27 (0-50); Potassium 4.4 mmol/L (3.4-5.1); Sodium 135 mmol/L (137-145)
[2021-12-11 21:55] LABS: Troponin I 0.025 ng/mL (0.01-0.034)
[2021-12-12] VITALS (10 sets, daily range): BP systolic 137–140; BP diastolic 75–87; PULSE 67–114; RESP 20; O2SAT 80–98
--- NOTE | 2021-12-12 02:04 | PC.NURSE ---
12/11 1500 to 12/12 0300 shift report. Pt has been confused during this shift. This RN will explain the plan and pt will agree but forgets conversation within the hour. He is oriented to self. He was asking or his qife frequently and became preoccupied with securing his valuables at home and had to be redirected and reminded that he can not leave to secure his house due to his medical instability. Pt has been easy to redirect and follows commands. spouse came to visit pt in the evening. Pt has voided multiple times. No BM. Pt has ambulated with walker in the hallway. Pt has not met with dietary but order is in place. This RN dressed L forearm skin tear with non adhesive dressing. Pt's lower extremities continue to be swollen with erythema. Pt ate entire dinner and had small amount of fluids thorough out the shift. L hand IV is patent and flushed this shift. Pt has not received O2 via NC this shift. Pt had an episode of SOB while repositioning himself in bed.
[2021-12-12 08:37] LABS: Add Manual Diff / Slide Review NO; Basophils Absolute Auto 100 /uL (0-100); Eosinophils Absolute Auto 500 /uL (0-450); Eosinophils Percent Auto 5.9 % (2-4); Hematocrit 46.2 % (41-53); Hemoglobin 15.4 g/dL (13.5-17.5); Lymphocytes Absolute Auto 700 /uL (1100-4500); Mean Corpuscular HGB Conc 33.4 % (30-36); Mean Corpuscular Hemoglobin 28.4 PG (26-34); Mean Corpuscular Volume 85.2 fL (80-100); Monocytes Absolute Auto 800 /uL (0-900); Monocytes Percent Auto 9.8 % (3-14); Neutrophils Absolute Auto 6100 /uL (1500-7000); Neutrophils Percent Auto 74.3 % (50-75); Platelet Count 205 X10^3/uL (150-400); Red Blood Cell Count 5.42 X10^6/uL (4.5-5.9); Red Cell Distribution Width 18.5 % (11.6-14.8); White Blood Cell Count 8.2 X10^3/uL (4.5-11.0)
[2021-12-12 08:54] LABS: BUN Creatinine Ratio 35.8 (6-22); Blood Urea Nitrogen 43 mg/dL (9-20); Calcium 8.7 mg/dL (8.4-10.2); Carbon Dioxide 28 mmol/L (22-32); Chloride 98 mmol/L (98-107); Creatine Kinase 43 U/L (55-170); Estimated Glomerular Filt Rate > 60 mL/min (>60); Glucose 88 mg/dL (80-110); HEMOLYSIS < 15 (0-50); Sodium 136 mmol/L (137-145)
[2021-12-12 09:06] LABS: NT-proBNP (BNP-Adult 18+) 21700 pg/mL (<450)
[2021-12-12] MEDS: METOPROLOL IR 25 MG TABLET 12.5 MG PO (09:51)
[2021-12-12] MEDS: HEPARIN 5,000 UNIT/ML VIAL 5000 UNIT SUBCUT (09:51)
[2021-12-12] MEDS: cefTRIAXone 2,000 MG in SODIUM CHLORIDE 0.9% 100 ML 200 MG IV (09:51)
[2021-12-12] MEDS: FUROSEMIDE 100 MG/10 ML VIAL 60 MG IV (09:52)
[2021-12-12] MEDS: ATORVASTATIN 20 MG TABLET 40 MG PO (09:53)
--- NOTE | 2021-12-12 12:37 | PC.NURSE ---
Pt was taken out around the hospital and outside for some time to get some fresh air
--- NOTE | 2021-12-12 15:13 | DIET.CONS ---
Dietary Consultation Note Admission Date: Assessment: 76y M admitted for BL weeping LE wounds awaiting transfer to higher level care for CABG procedure referred to nutrition for diet education and wound support nutrition. RD and student international account representative had worked c pt extensively last admission a few weeks ago. Pt continues to have questions on how to eat to support current health status. Pt curious about how to reduce sodium in home canned items, how to eat oatmeal in a healthy way, and whether or not fruit was a good food for him to eat. This RD noticed pt not on Consistent Carb Diet, changing in system in addition to heart healthy. Pt consuming 100% meal trays. Wt: 87.997 kg BMI: 32.3 Diet: 12/09/21 Lunch Heart Healthy Diet Diet Modifications: Safety Tray needed?: No Sodium Level: 2 gm Sodium 12/11/21 Dinner Heart Healthy Diet Diet Modifications: Sodium Level: 2 gm Sodium Nutrition Percent Meal Consumed 100% 12/11/21 18:00 Labs: RBC 5.42 X10^6/uL (4.5-5.9) 12/12/21 08:30 Hgb 15.4 g/dL (13.5-17.5) 12/12/21 08:30 Hct 46.2 % (41-53) 12/12/21 08:30 Creatinine 1.20 mg/dL (0.66-1.25) 12/12/21 08:30 Lactate 1.1 mmol/L (0.7-2.1) 12/09/21 07:15 NT-Pro-B Natriuret Pep 50080 pg/mL (<450) H 12/12/21 08:30 Nutrition Diagnosis: 1. nutrition related knowledge deficit r/t diet to support chronic health conditions and interruption of medical care aeb pt DM ed interrupted by global pandemic, pt heart procedure cancelled when he tested positive for covid, pt A1c 8.1 c 3+ pitting edema and open weeping wounds, pt testing BG once weekly, pt states he does not know how to eat to support his DM has many questions about sodium in diet. Interventions: 1. To address pts concerns regarding DM, educated pt on importance of protein and dietary fiber with carbohydrate intake including whole fruits. Educated pt on acceptable fruit intake with preference for whole fruits rather than juices or sweetened dried variety. Reiterated importance of intake orange fruits and veggies for wound support. Importance of not eating fruit as stand alone meal or snack. Reviewed healthy ways to eat oatmeal including steel cut variety with fresh berries and sweetener alternative and source of protein. 2. To address pts concerns regarding Heart Healthy and food safety in home lou, provided pt with number to local [facility] expert and evidence-based information on acceptability of leaving salt out of home canned foods. 3. Provided pt some insight into what Cardiac Rehab at will be like. Pt will receive ongoing nutrition education from this RD while in [facility]. Electronically Signed by: Silke Amor 12/12/21 15:13 Clinical Dietitian [address] [id number]
--- NOTE | 2021-12-12 16:57 | PC.NURSE ---
walked pt in wheelchair up and down the sidewalk outside near the ED, about 10-15 minutes outside.
== END 2021-12-12 20:54 | disposition short-term general hospital (02) ==
PROVIDERS: Emergency Medicine; Emergency Provider Emergency Medicine
DX: I50.9 Heart failure, unspecified (principal); I25.10 Atherosclerotic heart disease of native coronary artery without angina pectoris; L03.116 Cellulitis of left lower limb; L03.115 Cellulitis of right lower limb; L97.229 Non-pressure chronic ulcer of left calf with unspecified severity; L97.219 Non-pressure chronic ulcer of right calf with unspecified severity; R06.02 Shortness of breath; Z86.16 Personal history of COVID-19; N18.9 Chronic kidney disease, unspecified; E87.1 Hypo-osmolality and hyponatremia; Z79.01 Long term (current) use of anticoagulants; Z20.822 Contact with and (suspected) exposure to COVID-19
CPT/HCPCS: 36415; 70450; 71045; 80048; 80053; 81003; 81015; 82550; 82962; 83605; 83690; 83880; 84484; 85007; 85025; 85610; 85730; 87040; 87070; 87075; 87077; 87186; 87205; 87635; 93005; 93307; 96365; 96366; 96367; 96372; 96375; 96376; 99285; 99291; 99292; C9803; J0696; J1630; J1644; J1940; Q9957